=== PATIENT | female | born 1950 | race Caucasian/White ===

== ENCOUNTER → 2016-07-08 | Outpatient (CLI) | payer OTHER ==
[~2016-07-08] MED LIST: ABAT1INJ2 SC; ASPCH81X PO; BND25 PO; ESTR0.02 TD; FLEC100T21 PO; FURO-85 PO; METH1TAB81 PO; METO-551 PO; OXYC1TAB3 PO; PRLSR20 PO; SULF500T36 PO; WARF2TAB PO; WARF5TAB90 PO
== END | disposition home or self-care (01) ==
LOC: C.PAPS 07:56
PROVIDERS: ATTEND Obstetrics & Gynecology
DX: Z12.4 Encounter for screening for malignant neoplasm of cervix (principal)

== ENCOUNTER → 2017-06-01 | Day surgery (SDC) | payer OTHER ==
[2017-05-25 11:11] VITALS: Ht 172.7 cm; Wt 165.0 kg
[~2017-06-01] VITALS: Ht 172.7 cm; Wt 165.0 kg
[~2017-06-01] MED LIST changes: -ABAT1INJ2 SC; -BND25 PO; +DIPH25CA5 PO; +FENTANYL CITRATE INJ 50 MCG/1 ML 2 ML VIAL ONE; +KETAMINE HCL INJ 50 MG/ML 10 ML VIAL ONE; +LIDOCAINE HCL 2% 2 ML VIAL (20MG/ML) ONE; +MIDAZOLAM HCL 1 MG/ML 2ML VIAL ONE; +PROPOFOL IV EMULSION 10 MG/ML 20 ML VIAL IV ONE; +SODIUM CHLORIDE 0.9% INJ 10 ML VIAL ONE; -SULF500T36 PO
[2017-06-01 11:38] VITALS: TEMP 36.6
--- NOTE | 2017-06-01 11:42 | Endo History and Physical ---
History & Physical Date of Service: Jun 01, 2017. Chief Complaint: ESO Varices 1yr Recall Referring Physician: Dr. Maria Guadalupe Duke MD History of Present Illness History of cirrhosis for surveillance upper endoscopy today. No dysphagia or pain with swallowing noted. Past Medical History Atrial Fibrillation, Arthritis, Gastrointestinal Disorder, Reflux, Cancer, Sleep Apnea, Hypertension, Thrombophlebitis, Liver Disease Past Surgical History Hx Cardiac Surgery: Yes (HEART CATH, NO STENTS) Hx Internal Defibrillator: No Hx Pacemaker: No Hx Abdominal Surgery: Yes (EMERITA) Hx of Implantable Prosthesis: No Hx Post-Op Nausea and Vomiting: No Hx Cancer Surgery: Yes (KENDALL BSO) Hx Thoracic Surgery: No Hx Orthopedic: No Hx Urinary Tract Surgery: No Family History Colon CA Social History Smoking Status: Never Smoker Hx Substance Use: No Hx Alcohol Use: No Allergies Coded Allergies: Clarithromycin (Verified Allergy, Severe, RASH, 06/01/17) Penicillins (Verified Allergy, Severe, ANAPHYLACTIC SHOCK, 06/01/17) Epinephrine (Verified Allergy, Unknown, THROAT SWELLING, PASSED OUT, HEART RACING, 06/01/17) Montelukast (Verified Allergy, Unknown, PALPITATIONS, 06/01/17) Current Medications Reported Home Medications Medications Dose Route/Sig Max Daily Dose Days Date Category Dose Instructions Medrol (Methylprednisolone) 4 Mg Tab 4 Mg PO BID 10/28/15 Reported Lasix (Furosemide) 20 Mg Tab 20 Mg PO QAM 10/21/15 Reported Roxicodone Ir (Oxycodone HCl) 5 Mg Tab 10 Mg PO Q6H PRN 04/19/13 Reported Benadryl (Diphenhydramine Hcl) 25 Mg Cap 25 Mg PO HS PRN 04/19/13 Reported Estradiol Transdermal System (Estradiol) 0.025 Mg/24 Hr Dis 1 Patch TD WK 04/19/13 Reported Coumadin (Warfarin Sodium) 2 Mg Tab 2 Mg PO 2XWK 01/14/13 Reported TAKES WITH 5MG; TAKES TOTAL 7MG ,MON Coumadin (Warfarin Sodium) 5 Mg Tab 5 Mg PO 5XWK 01/14/13 Reported SUN,MON,WED,THURS,SAT Aspirin Chewable (Aspirin) 81 Mg Chew 81 Mg PO QAM 03/13/12 Reported Tambocor (Flecainide Acetate) 100 Mg Tab 100 Mg PO BID 03/13/12 Reported Prilosec (Omeprazole) 20 Mg Capcr 20 Mg PO QAM 03/13/12 Reported Lopressor (Metoprolol Tartrate) 50 Mg Tab 50 Mg PO BID 03/13/12 Reported Vital Signs Weight (Kilograms): 165 Height (Feet): 5 Height (Inches): 8 Date Time Temp Pulse Resp B/P (MAP) Pulse Ox O2 Delivery O2 Flow Rate FiO2 06/01/17 11:38 36.6 54 20 162/69 (100) 97 Room Air Physical Exam General Appearance: no apparent distress Respiratory/Chest: Auscultation: deminished air movement Cardiovascular: Heart Auscultation: RRR Abdomen: Inspection & Palpation: soft Assessment and Plan Patient with a history of cirrhosis for surveillance upper endoscopy today. We' ve discussed the risks to include bleeding, infection, perforation and pain.
--- NOTE | 2017-06-01 12:04 | GI REPORT ---
Procedure Date: 06/01/2017 11:37 AM Procedure: Upper GI endoscopy Indications: Follow-up of esophageal varices Medicines: Monitored Anesthesia Care Complications: No immediate complications. Estimated blood loss: Minimal. Estimated Blood Loss: Estimated blood loss was minimal. Procedure: Pre-Anesthesia Assessment: - Prior to the procedure, a History and Physical was performed, and patient medications, allergies and sensitivities were reviewed. The patient's tolerance of previous anesthesia was reviewed. - The risks and benefits of the procedure and the sedation options and risks were discussed with the patient. All questions were answered and informed consent was obtained. - Patient identification and proposed procedure were verified prior to the procedure by the physician, the nurse and the taxi driver supervisor. The procedure was verified in the procedure room. - Pre-procedure physical examination revealed no contraindications to sedation. - ASA Grade Assessment: III - A patient with severe systemic disease. - After reviewing the risks and benefits, the patient was deemed in satisfactory condition to undergo the procedure. - The anesthesia plan was to use monitored anesthesia care (MAC). - Immediately prior to administration of medications, the patient was re-assessed for adequacy to receive sedatives. - The heart rate, respiratory rate, oxygen saturations, blood pressure, adequacy of pulmonary ventilation, and response to care were monitored throughout the procedure. - The physical status of the patient was re-assessed after the procedure. After obtaining informed consent, the endoscope was passed under direct vision. Throughout the procedure, the patient's blood pressure, pulse, and oxygen saturations were monitored continuously. The scope was introduced through the mouth, and advanced to the second part of duodenum. After obtaining informed consent, the endoscope was passed under direct vision. Throughout the procedure, the patient's blood pressure, pulse, and oxygen saturations were monitored continuously.The upper GI endoscopy was accomplished without difficulty. The patient tolerated the procedure well. Findings: Three columns of grade I varices were found in the lower third of the esophagus, 31 to 36 cm from the incisors. They were 4 mm in largest diameter. No stigmata of recent bleeding were evident and no red blane signs were present. Moderate portal hypertensive gastropathy was found in the entire examined stomach. Two nodules were noted in the stomach (1 in the antrum and one on the lesser curvature). The nodules were 5 to 6 mm in size and appeared inflammatory. The examined duodenum was normal. Impression: - Non-bleeding grade I esophageal varices. - Portal hypertensive gastropathy. - Normal examined duodenum. Recommendation: - Discharge patient to home (ambulatory). - Advance diet as tolerated today. - Repeat the upper endoscopy in 1 year for surveillance. - Return to GI office in 3 months. Etienne Grimes D.O. Etienne Grimes, 06/01/2017 12:03:49 PM This report has been signed electronically. Note Initiated On: 06/01/2017 11:37 AM I attest to the content of the Intraoperative Record and orders documented therein, exceptions below
--- NOTE | 2017-06-01 12:31 | Discharge Instructions ---
Endoscopy Patient Instructions Date / Procedure(s) Performed Jun 01, 2017. EGD Allergy Information Coded Allergies: Clarithromycin (Verified Allergy, Severe, RASH, 06/01/17) Penicillins (Verified Allergy, Severe, ANAPHYLACTIC SHOCK, 06/01/17) Epinephrine (Verified Allergy, Unknown, THROAT SWELLING, PASSED OUT, HEART RACING, 06/01/17) Montelukast (Verified Allergy, Unknown, PALPITATIONS, 06/01/17) Discharge Date / Findings Jun 01, 2017. Grade 1 esophageal varices Portal gastropathy Medication Instructions Stopped Medication(s): coumadin, aspirin 05/27/17 Reported Home Medications Medications Dose Route/Sig Max Daily Dose Days Date Category Dose Instructions Medrol (Methylprednisolone) 4 Mg Tab 4 Mg PO BID 10/28/15 Reported Lasix (Furosemide) 20 Mg Tab 20 Mg PO QAM 10/21/15 Reported Roxicodone Ir (Oxycodone HCl) 5 Mg Tab 10 Mg PO Q6H PRN 04/19/13 Reported Benadryl (Diphenhydramine Hcl) 25 Mg Cap 25 Mg PO HS PRN 04/19/13 Reported Estradiol Transdermal System (Estradiol) 0.025 Mg/24 Hr Dis 1 Patch TD WK 04/19/13 Reported Coumadin (Warfarin Sodium) 2 Mg Tab 2 Mg PO 2XWK 01/14/13 Reported TAKES WITH 5MG; TAKES TOTAL 7MG ,MON Coumadin (Warfarin Sodium) 5 Mg Tab 5 Mg PO 5XWK 01/14/13 Reported SUN,MON,WED,THURS,SAT Aspirin Chewable (Aspirin) 81 Mg Chew 81 Mg PO QAM 03/13/12 Reported Tambocor (Flecainide Acetate) 100 Mg Tab 100 Mg PO BID 03/13/12 Reported Prilosec (Omeprazole) 20 Mg Capcr 20 Mg PO QAM 03/13/12 Reported Lopressor (Metoprolol Tartrate) 50 Mg Tab 50 Mg PO BID 03/13/12 Reported Provider Instructions Activity Restrictions - No exercising or heavy lifting for 24 hours. - Do not drink alcohol the day of the procedure. - Do not drive a car or operate machinery until the day after the procedure. - Do not make any important decisions or sign important papers in 24 hours after the procedure. Following Day: - Return to full activity which may include returning to work/school. Diet Start your diet with liquids and light foods (jello, soup, juice, toast). Then eat your usual diet if not nauseated. Treatment For Common After Affects For mild abdominal pain, bloating, or excessive gas: - Rest - Eat lightly - Lie on right side Follow-Up Information Follow-up with Dr. Maria Guadalupe Duke MD as scheduled Clinic follow-up with gastric neurology in 3 months Anesthesia Information What You Should Know You have had a procedure that required some medicine to reduce anxiety and discomfort. This treatment is called moderate sedation. After receiving the treatment, you may be sleepy, but you will be able to breathe on your own. The effects of the treatment may last for several hours. Follow these instructions along with Activity/Diet recommendations noted above: * Do NOT do anything where dizziness or clumsiness would be dangerous. * Rest quietly at home today, then you can be up and about tomorrow. * Have a responsible person stay with you the rest of today. * You may have had an I.V. today. If so, you may take the dressing off later today. Recommendations Call your doctor if: * Trouble breathing * Continuous vomiting for more than 24 hours * Temperature above 101 degrees * Severe abdominal pain or bloating * Pain not relieved by pain medicine ordered * There is increased drainage or redness from any incision * A large amount of rectal bleeding greater than 2-3 tablespoons. (If you had a polyp/s removed or have hemorrhoids, a small amount of blood - from the rectum is to be expected.) * You have any unanswered questions or concerns. IN THE EVENT OF A SERIOUS EMERGENCY, GO TO THE NEAREST EMERGENCY ROOM Your discharge instructions were prepared by provider Etienne Grimes. Patient Instructions Signature Page Aaliyah Taylor Patient (or Guardian) Signature/Date: I have read and understand the instructions given to me by my caregivers. Caregiver/RN/Doctor Signature/Date: The above-named patient and/or guardian has received patient instructions on this date. + Original Patient Signature Page (only) stays with chart. Please make copy for patient.
[2017-06-01 12:35] VITALS: BP 133/73; PULSE 52; O2SAT 97
--- NOTE | 2017-06-01 12:45 | Anesthesiology Progress Note ---
Anesthesia Post Op Note Date & Time Jun 01, 2017 at 12:45 Vital Signs Pain Intensity: 0 Vital Signs Past 12 Hours Date Time Temp Pulse Resp B/P (MAP) Pulse Ox O2 Delivery O2 Flow Rate FiO2 06/01/17 12:35 52 16 133/73 (93) 97 Room Air 06/01/17 12:20 57 16 121/62 (81) 97 Room Air 06/01/17 12:05 48 12 92/48 (63) 97 Room Air 06/01/17 11:38 36.6 54 20 162/69 (100) 97 Room Air Notes Mental Status: alert / awake / arousable, participated in evaluation Pt Amnestic to Procedure: Yes Nausea / Vomiting: adequately controlled Pain: adequately controlled Airway Patency, RR, SpO2: stable & adequate BP & HR: stable & adequate Hydration State: stable & adequate Anesthetic Complications: no major complications apparent
== END | disposition home or self-care (01) ==
LOC: C.GI 11:10
PROVIDERS: ATTEND Internal Medicine Gastroenterology
DX: I85.00 Esophageal varices without bleeding (principal); G47.33 Obstructive sleep apnea (adult) (pediatric); I48.91 Unspecified atrial fibrillation; I10 Essential (primary) hypertension; K21.9 Gastro-esophageal reflux disease without esophagitis; Z79.01 Long term (current) use of anticoagulants; Z79.82 Long term (current) use of aspirin; Z90.49 Acquired absence of other specified parts of digestive tract; Z90.710 Acquired absence of both cervix and uterus; Z90.722 Acquired absence of ovaries, bilateral; Z90.79 Acquired absence of other genital organ(s)

== ENCOUNTER → 2018-02-14 | Day surgery (SDC) | payer OTHER ==
[2017-12-05 10:35] VITALS: BMI 55.0
[2018-02-13 08:21] VITALS: Ht 170.2 cm; Wt 165.0 kg
[~2018-02-14] VITALS: Ht 170.2 cm; Wt 165.0 kg
[~2018-02-14] MED LIST changes: -FENTANYL CITRATE INJ 50 MCG/1 ML 2 ML VIAL ONE; -KETAMINE HCL INJ 50 MG/ML 10 ML VIAL ONE; +LEVA45AE INH; -MIDAZOLAM HCL 1 MG/ML 2ML VIAL ONE; +ONDANSETRON INJ 2 MG/ML 2 ML VIAL IV PRN; +OXYC-90 PO; -OXYC1TAB3 PO; -PROPOFOL IV EMULSION 10 MG/ML 20 ML VIAL IV ONE; +PROPOFOL IV EMULSION 10 MG/ML 20 ML VIAL ONE; -SODIUM CHLORIDE 0.9% INJ 10 ML VIAL ONE
--- NOTE | 2018-02-14 08:24 | Endo History and Physical ---
History & Physical Date of Service: Feb 14, 2018. Chief Complaint: History of polyps Referring Physician: Dr. Maria Guadalupe Duke History of Present Illness Patient with a history of colonic polyps for surveillance colonoscopy today. Her medical history is complicated given her obesity, diabetes, cirrhosis and recent diagnosis of hepatocellular carcinoma. Past Medical History Atrial Fibrillation, Arthritis, Gastrointestinal Disorder, Reflux, Cancer, Sleep Apnea, Hypertension, Thrombophlebitis, Liver Disease Past Surgical History Hx Cardiac Surgery: Yes (HEART CATH/NO STENTS) Hx Internal Defibrillator: No Hx Pacemaker: No Hx Abdominal Surgery: Yes (EMERITA, KENDALL BSO, VENTRAL HERNIA REPAIR) Hx of Implantable Prosthesis: No Hx Post-Op Nausea and Vomiting: No Hx Cancer Surgery: Yes (CERVICAL SURGERY) Hx Thoracic Surgery: No Hx Orthopedic: No Hx Urinary Tract Surgery: No Family History Colon CA Social History Smoking Status: Never Smoker Hx Substance Use: Yes (MARIBELL USES OXYCODONE PRN) Hx Alcohol Use: No Allergies Coded Allergies: Clarithromycin (Verified Allergy, Severe, RASH, 02/13/18) Penicillins (Verified Allergy, Severe, ANAPHYLACTIC SHOCK, 02/13/18) Epinephrine (Verified Allergy, Unknown, THROAT SWELLING, PASSED OUT, HEART RACING, 02/13/18) Montelukast (Verified Allergy, Unknown, PALPITATIONS, 02/13/18) Current Medications Reported Home Medications Medications Dose Route/Sig Max Daily Dose Days Date Category Dose Instructions Levalbuterol Tartrate Hfa (Levalbuterol Tartrate) 45 Mcg/Act Aer 1 Dose INH DIRECTED PRN 12/05/17 Reported Levalbuterol Tartrate Hfa (Levalbuterol Tartrate) 45 Mcg/Act Aer 1-2 Puff INH DIRECTED PRN 12/05/17 Reported Medrol (Methylprednisolone) 4 Mg Tab 4 Mg PO BID 10/28/15 Reported IF HAVING A FLAIR UP-USE DOSE TEJAS Lasix (Furosemide) 20 Mg Tab 20 Mg PO QAM 10/21/15 Reported Roxicodone Ir (Oxycodone HCl) 5 Mg Tab 10 Mg PO Q6H PRN 04/19/13 Reported Benadryl (Diphenhydramine Hcl) 25 Mg Cap 25 Mg PO HS PRN 04/19/13 Reported Estradiol Transdermal System (Estradiol) 0.025 Mg/24 Hr Dis 1 Patch TD WK 04/19/13 Reported Coumadin (Warfarin Sodium) 2 Mg Tab 2 Mg PO 2XWK 01/14/13 Reported TAKES WITH 5MG; TAKES TOTAL 7MG ,MON Coumadin (Warfarin Sodium) 5 Mg Tab 5 Mg PO 5XWK 01/14/13 Reported SUN,MON,WED,THURS,SAT Aspirin Chewable (Aspirin) 81 Mg Chew 81 Mg PO QAM 03/13/12 Reported Tambocor (Flecainide Acetate) 100 Mg Tab 100 Mg PO BID 03/13/12 Reported Prilosec (Omeprazole) 20 Mg Capcr 20 Mg PO QAM 03/13/12 Reported Lopressor (Metoprolol Tartrate) 50 Mg Tab 50 Mg PO BID 03/13/12 Reported Vital Signs Weight (Kilograms): 165 Height (Feet): 5 Height (Inches): 7 Physical Exam General Appearance: no apparent distress Respiratory/Chest: Auscultation: breath sounds normal Abdomen: Inspection & Palpation: soft Assessment and Plan Colonoscopy planned for surveillance of colonic polyps. We have discussed the risks to include bleeding, infection, perforation, pain and missed colonic polyps.
--- NOTE | 2018-02-14 09:05 | Discharge Instructions ---
Endoscopy Patient Instructions Date / Procedure(s) Performed Feb 14, 2018. Colonoscopy Allergy Information Coded Allergies: Clarithromycin (Verified Allergy, Severe, RASH, 02/13/18) Penicillins (Verified Allergy, Severe, ANAPHYLACTIC SHOCK, 02/13/18) Epinephrine (Verified Allergy, Unknown, THROAT SWELLING, PASSED OUT, HEART RACING, 02/13/18) Montelukast (Verified Allergy, Unknown, PALPITATIONS, 02/13/18) Discharge Date / Findings Feb 14, 2018. 3 colon polyps Diverticulosis Hemorrhoids Mild proctitis (likely related to the bowel preparation) Medication Instructions Stopped Medication(s): Patient stopped her coumadin and only took her bp meds this am. Reported Home Medications Medications Dose Route/Sig Max Daily Dose Days Date Category Dose Instructions Levalbuterol Tartrate Hfa (Levalbuterol Tartrate) 45 Mcg/Act Aer 1 Dose INH DIRECTED PRN 12/05/17 Reported Levalbuterol Tartrate Hfa (Levalbuterol Tartrate) 45 Mcg/Act Aer 1-2 Puff INH DIRECTED PRN 12/05/17 Reported Medrol (Methylprednisolone) 4 Mg Tab 4 Mg PO BID 10/28/15 Reported IF HAVING A FLAIR UP-USE DOSE TEJAS Lasix (Furosemide) 20 Mg Tab 20 Mg PO QAM 10/21/15 Reported Roxicodone Ir (Oxycodone HCl) 5 Mg Tab 10 Mg PO Q6H PRN 04/19/13 Reported Benadryl (Diphenhydramine Hcl) 25 Mg Cap 25 Mg PO HS PRN 04/19/13 Reported Estradiol Transdermal System (Estradiol) 0.025 Mg/24 Hr Dis 1 Patch TD WK 04/19/13 Reported Coumadin (Warfarin Sodium) 2 Mg Tab 2 Mg PO 2XWK 01/14/13 Reported TAKES WITH 5MG; TAKES TOTAL 7MG ,MON Coumadin (Warfarin Sodium) 5 Mg Tab 5 Mg PO 5XWK 01/14/13 Reported SUN,MON,WED,THURS,SAT Aspirin Chewable (Aspirin) 81 Mg Chew 81 Mg PO QAM 03/13/12 Reported Tambocor (Flecainide Acetate) 100 Mg Tab 100 Mg PO BID 03/13/12 Reported Prilosec (Omeprazole) 20 Mg Capcr 20 Mg PO QAM 03/13/12 Reported Lopressor (Metoprolol Tartrate) 50 Mg Tab 50 Mg PO BID 03/13/12 Reported Provider Instructions Activity Restrictions - No exercising or heavy lifting for 24 hours. - Do not drink alcohol the day of the procedure. - Do not drive a car or operate machinery until the day after the procedure. - Do not make any important decisions or sign important papers in 24 hours after the procedure. Following Day: - Return to full activity which may include returning to work/school. Diet Start your diet with liquids and light foods (jello, soup, juice, toast). Then eat your usual diet if not nauseated. Treatment For Common After Affects For mild abdominal pain, bloating, or excessive gas: - Rest - Eat lightly - Lie on right side Follow-Up Information Repeat colonoscopy in 3 years Await pathology results May restart coumadin in 24 hours (on 02/15) Anesthesia Information What You Should Know You have had a procedure that required some medicine to reduce anxiety and discomfort. This treatment is called moderate sedation. After receiving the treatment, you may be sleepy, but you will be able to breathe on your own. The effects of the treatment may last for several hours. Follow these instructions along with Activity/Diet recommendations noted above: * Do NOT do anything where dizziness or clumsiness would be dangerous. * Rest quietly at home today, then you can be up and about tomorrow. * Have a responsible person stay with you the rest of today. * You may have had an I.V. today. If so, you may take the dressing off later today. Recommendations Call your doctor if: * Trouble breathing * Continuous vomiting for more than 24 hours * Temperature above 101 degrees * Severe abdominal pain or bloating * Pain not relieved by pain medicine ordered * There is increased drainage or redness from any incision * A large amount of rectal bleeding greater than 2-3 tablespoons. (If you had a polyp/s removed or have hemorrhoids, a small amount of blood - from the rectum is to be expected.) * You have any unanswered questions or concerns. IN THE EVENT OF A SERIOUS EMERGENCY, GO TO THE NEAREST EMERGENCY ROOM Your discharge instructions were prepared by provider Etienne Grimes. Patient Instructions Signature Page Aaliyah Taylor Patient (or Guardian) Signature/Date: I have read and understand the instructions given to me by my caregivers. Caregiver/RN/Doctor Signature/Date: The above-named patient and/or guardian has received patient instructions on this date. + Original Patient Signature Page (only) stays with chart. Please make copy for patient.
--- NOTE | 2018-02-14 09:11 | GI REPORT ---
Patient Name: Aaliyah Taylor Procedure Date: 02/14/2018 8:32 AM Date of : 1950 Admit Type: Outpatient Age: 67 Gender: Female Attending MD: Etienne Grimes DO Procedure: Colonoscopy Providers: Etienne Grimes DO Referring MD: Sera Rojas Indications: High risk colon cancer surveillance: Personal history of colonic polyps Medicines: Monitored Anesthesia Care Complications: No immediate complications. Estimated blood loss: Minimal. Estimated Blood Loss: Estimated blood loss was minimal. Procedure: Pre-Anesthesia Assessment: - Prior to the procedure, a History and Physical was performed, and patient medications, allergies and sensitivities were reviewed. The patient's tolerance of previous anesthesia was reviewed. - Patient identification and proposed procedure were verified prior to the procedure by the physician, the nurse and the junior network engineer. The procedure was verified in the procedure room. - Pre-procedure physical examination revealed no contraindications to sedation. - ASA Grade Assessment: III - A patient with severe systemic disease. - After reviewing the risks and benefits, the patient was deemed in satisfactory condition to undergo the procedure. - The anesthesia plan was to use monitored anesthesia care (MAC). - Immediately prior to administration of medications, the patient was re-assessed for adequacy to receive sedatives. - The heart rate, respiratory rate, oxygen saturations, blood pressure, adequacy of pulmonary ventilation, and response to care were monitored throughout the procedure. - The physical status of the patient was re-assessed after the procedure. After I obtained informed consent, the scope was passed under direct vision. Throughout the procedure, the patient's blood pressure, pulse, and oxygen saturations were monitored continuously. The scope was introduced through the anus and advanced to the terminal ileum. The patient tolerated the procedure well. The colonoscopy was performed without difficulty. The quality of the bowel preparation was adequate to identify polyps 6 mm and larger in size. Findings: The perianal and digital rectal examinations were normal. Pertinent negatives include normal sphincter tone. The terminal ileum appeared normal. Many medium-mouthed diverticula were found in the sigmoid colon and descending colon. Internal hemorrhoids were found during retroflexion. The hemorrhoids were mild. A 10 mm polyp was found in the cecum. The polyp was semi-sessile. The polyp was removed with a hot snare. Resection and retrieval were complete. To prevent bleeding after the polypectomy, one hemostatic clip was successfully placed (MR conditional). There was no bleeding at the end of the procedure. A 4 mm polyp was found in the ascending colon. The polyp was sessile. The polyp was removed with a cold snare. Resection and retrieval were complete. Estimated blood loss was minimal. A 7 mm polyp was found in the descending colon. The polyp was sessile. The polyp was removed with a hot snare. Resection and retrieval were complete. Estimated blood loss was minimal. Localized mild mucosal changes characterized by granularity were found in the rectum. Biopsies were taken with a cold forceps for histology. Estimated blood loss was minimal. Impression: - The examined portion of the ileum was normal. - Mild diverticulosis in the sigmoid colon and in the descending colon. - Internal hemorrhoids. - One 10 mm polyp in the cecum, removed with a hot snare. Resected and retrieved. Clip (MR conditional) was placed. - One 4 mm polyp in the ascending colon, removed with a cold snare. Resected and retrieved. - One 7 mm polyp in the descending colon, removed with a hot snare. Resected and retrieved. - Localized mild mucosal changes were found in the rectum, this likely represents changes related to the preparation. Biopsied. Recommendation: - Discharge patient to home (ambulatory). - Advance diet as tolerated today. - Await pathology results. - Repeat colonoscopy in 3 months for surveillance. Etienne Grimes D.O. Etienne Grimes, 02/14/2018 9:11:24 AM This report has been signed electronically. Note Initiated On: 02/14/2018 8:32 AM Number of Addenda: 0 I attest to the content of the Intraoperative Record and orders documented therein, exceptions below {[id number]}
--- NOTE | 2018-02-14 09:24 | Anesthesiology Progress Note ---
Anesthesia Post Op Note Date & Time Feb 14, 2018 at 09:23 Vital Signs Pain Intensity: 0 Vital Signs Past 12 Hours Date Time Temp Pulse Resp B/P (MAP) Pulse Ox O2 Delivery O2 Flow Rate FiO2 02/14/18 09:08 50 16 104/53 (70) 98 Room Air 02/14/18 08:24 36.5 47 14 138/66 (90) 97 Room Air Notes Mental Status: alert / awake / arousable, participated in evaluation Pt Amnestic to Procedure: Yes Nausea / Vomiting: adequately controlled Pain: adequately controlled Airway Patency, RR, SpO2: stable & adequate BP & HR: stable & adequate Hydration State: stable & adequate Anesthetic Complications: no major complications apparent
[2018-02-14 09:38] VITALS: BP 121/61; PULSE 47; O2SAT 97
== END | disposition home or self-care (01) ==
LOC: C.GI 07:51
PROVIDERS: ATTEND Internal Medicine Gastroenterology
DX: Z12.11 Encounter for screening for malignant neoplasm of colon (principal); K57.30 Diverticulosis of large intestine without perforation or abscess without bleeding; K64.8 Other hemorrhoids; D12.0 Benign neoplasm of cecum; D12.2 Benign neoplasm of ascending colon; D12.4 Benign neoplasm of descending colon; Z86.010 Personal history of colon polyps; J45.909 Unspecified asthma, uncomplicated; I48.91 Unspecified atrial fibrillation; Z86.718 Personal history of other venous thrombosis and embolism; K75.81 Nonalcoholic steatohepatitis (NASH); Z88.0 Allergy status to penicillin; Z88.1 Allergy status to other antibiotic agents; E66.01 Morbid (severe) obesity due to excess calories; Z68.43 Body mass index [BMI] 50.0-59.9, adult; G47.33 Obstructive sleep apnea (adult) (pediatric); Z79.01 Long term (current) use of anticoagulants; Z79.899 Other long term (current) drug therapy

== ENCOUNTER 2018-08-22 09:38 | Inpatient (IN) ==
[2018-08-22] MEDS ORDERED: SODIUM CHLORIDE 0.9% 1000ML 2,000 ML IV ONE ×2 (09:46→11:23)
[2018-08-22] MEDS ORDERED: VANCOMYCIN HCL 2,500 MG in SODIUM CHLORIDE 0.9% 500 ML IV ONE (09:51)
[2018-08-22] MEDS ORDERED: VANCOMYCIN CONSULT ACTIVE PRN (09:51)
[2018-08-22] MEDS ORDERED: CEFEPIME 1,000 MG in SYRINGE 0 ML IV STA (09:52)
--- NOTE | 2018-08-22 10:12 | XRay Report ---
XR chest 1V portable CLINICAL HISTORY: Sepsis dyspnea COMPARISON STUDY: 01/14/2013 FINDINGS: Central catheter in superior vena cava. Diaphragms smooth. Lungs are clear. IMPRESSION: No acute process. The above report was generated using voice recognition software. It may contain grammatical, syntax or spelling errors. Electronically signed by: Leonel Ann M.D. 08/22/2018 10:11 AM
[2018-08-22 10:27] LABS: Base Excess VBG -3.3 mEq/L; HCO3 VBG 21 mmol/L; PCO2 VBG 37 mmHg (38-50); PO2 VBG 29 mmHg; pH VBG 7.38 (7.36-7.41)
[2018-08-22 10:27] LABS: Mean Corpuscular Hgb Conc 35.3 g/dL (32-36)
[2018-08-22 10:28] LABS: Oxygen Saturation VBG < 60.0 %
[2018-08-22 10:29] LABS: Albumin Level 1.8 gm/dl (3.4-5.0); BUN Creatinine Ratio 22.5 (10-20); Bilirubin Direct 0.8 mg/dl (0-0.2); Calcium 8.2 mg/dl (8.5-10.1); Creatinine Clr Calc Pharmacy 37.1 ml/min; Est GFR (African American) 23.9; Est GFR (Non-African American) 20.6; Magnesium 1.2 mg/dl (1.8-2.4); Potassium 3.7 mmol/L (3.5-5.1)
[2018-08-22 10:32] LABS: Albumin Globulin Ratio 0.5 (0.9-2); Bilirubin,Total 1.3 mg/dl (0.2-1); Globulin 3.6 gm/dl (2.5-4.0); Partial Thromboplastin Ratio 1.3; Partial Thromboplastin Time 35.3 Seconds (21.0-31.0); Phosphorus 3.3 mg/dl (2.5-4.9); Prothrombin Time 19.7 Seconds (9.0-12.0); Total Protein 5.4 gm/dl (6.4-8.2)
[2018-08-22 10:49] LABS: Dohle Bodies 2+; Giant Platelets 3+; Platelet Estimate SIGNIFIC DECREASED (Normal); Toxic Granulation 3+; Toxic Vacuolation 2+
[2018-08-22 10:50] LABS: ALC (manual) 0.12 K/uL (1.2-3.4); Eosinophils # (manual) 0.01 K/uL (0-0.5); Eosinophils % (manual) 0.7 %; Hematocrit (blood only) 26.6 % (37-47); Hemoglobin 9.4 g/dL (12.0-16.0); Lymphocytes # (manual) 0.12 K/uL (1.2-3.4); Lymphocytes % (manual) 16.4 %; Mean Corpuscular Volume 85.5 fL (80-100); Metamyelocytes # (manual) 0.02 K/uL (0-0); Metamyelocytes % (manual) 2.1 %; Monocytes # (manual) 0.22 K/uL (0.11-0.59); Monocytes % (manual) 29.5 %; Neutrophils % (manual) 51.3 %; Platelet Count 20 K/uL (130-400); RDW Standard Deviation 49.8 fL (36.4-46.3); Red Blood Count 3.11 M/uL (4.2-5.4); White Blood Count 0.75 K/uL (4.8-10.8)
[2018-08-22 11:34] LABS: Influenza A virus by PCR Neg for Influ A (Neg); Influenza B virus by PCR Neg for Influ B (Neg)
--- NOTE | 2018-08-22 11:39 | CT Scan Report ---
CT abd pelvis wo con CT DOSE: HISTORY: Sepsis. Pain. sepsis, hypotension, breast cancer TECHNIQUE: Multiaxial CT images of the abdomen and pelvis were performed without contrast. A dose lo wering technique was utilized adhering to the principles of ALARA. COMPARISON STUDY: 01/14/2013. FINDINGS: Mild hepatic cirrhosis. Trace perihepatic ascites. Moderate splenomegaly unchanged. Pancrea s is uniform, with evidence for a slight degree of peripancreatic infiltrative change involving the c entral pancreatic body and pancreatic uncinate process. Low-grade pancreatitis is considered.. Prior cholecystectomy. The kidneys are negative for calcification or hydronephrosis. No significant periaortic adenopathy. Bowel pattern overall is nonobstructive. Trace amount of free fluid within pelvic cul-de-sac and lowe r mesentery. Bladder is midline. There is a small air bubble most likely from a prior catheterization procedure IMPRESSION:: 1. Mild hepatic cirrhosis with a trace amount of perihepatic ascites 2. Stable moderate splenomegaly. 3. Nonobstructive bowel pattern. 4. Trace amount of free fluid within the low pelvic mesentery, with a slight degree of inflammatory c hange surrounding the pancreatic uncinate process body and pancreatic head is a possibility of low-gr yousuf pancreatitis 5. A mild secondary enteritis is considered. The above report was generated using voice recognition software. It may contain grammatical, syntax or spelling errors. Electronically signed by: Leonel Ann M.D. 08/22/2018 11:38 AM
--- NOTE | 2018-08-22 11:41 | CT Scan Report ---
CT OF THE CHEST WITHOUT IV CONTRAST CLINICAL HISTORY: Sepsis. Hypotension. Breast cancer. COMPARISON STUDY: Chest radiograph January 14, 2013 and August 22, 2018. CT DOSE: 2035.01 mGycm TECHNIQUE: Axial images of the chest were obtained without IV contrast. Images were reviewed in the axial, sagittal, and coronal planes. IV contrast was not administered for this examination. Automat ed exposure control was utilized for the study. A dose lowering technique was utilized adhering to t he principles of ALARA. FINDINGS: A left subclavian Kslaxu-s-Btif is in place. No enlarged mediastinal or hilar lymph nodes are present. A mildly enlarged 1.2 x 1.2 cm right axillary lymph node is noted. A few additional prom inent right axillary lymph nodes are noted. There is no left axillary lymphadenopathy. The heart is e nlarged. There is no pericardial effusion. No pneumothorax or pleural effusion is noted. There are no suspicious point nodules. There is no consolidation to suggest pneumonia. Note is made of a 8 mm scl erotic lesion within the T6 vertebral body. This is probably benign but indeterminate. The abdomen an d pelvis will be reported separately. The liver is cirrhotic. Trace perihepatic ascites is noted. Spl een is mildly enlarged. IMPRESSION: 1. No consolidation to suggest pneumonia. 2. Mild asymmetric right axillary lymphadenopathy which raises the possibility of nola spread of dis ease. This could be correlated with breast cancer history and prior imaging, if available. 3. Cirrhosis with trace perihepatic ascites and splenomegaly indicative of portal hypertension. 4. 8 mm sclerotic lesion within the T6 vertebral body which is indeterminate although probably benign . Electronically signed by: Artemio Pritchard M.D. 08/22/2018 11:40 AM
[2018-08-22] MEDS: MAGNESIUM SULFATE / D5W 1 GM/100 ML BAG IV SCH ×4 (11:49→20:35)
[2018-08-22 12:07] LABS: Appearance Urine Cloudy (Clear); Bacteria Urine Automated 1+ (Negative); Bilirubin Urine Negative (Negative); Blood Urine Negative (Negative); Color Urine Dark Yellow; Epithelial Cell Urine Auto >30 /lpf (0-5); Glucose Urine UA Negative (Negative); Ketones Urine Negative (Negative); Leukocyte Esterase Urine Negative (Negative); Nitrite Urine Positive (Negative); Protein Urine Negative (Negative); Specific Gravity Urine 1.018 (1.000-1.030); Urobilinogen Urine Negative (Negative)
[2018-08-22] MEDS ORDERED: SODIUM CHLORIDE 0.9% 250 ML IV PRN (12:46)
--- NOTE | 2018-08-22 12:46 | Critical Care Consultation ---
Date of Consultation August 22, 2018 Assessment & Plan (1) Sepsis: Reason Critically Ill: 67-year-old female with history of breast cancer and liver mass presents with neutropenic fever, DARCIE, Pancytopenia Sepsis Patient is neutropenic and febrile, Lactic acid 4 in the ED, Repeat level, Pro-calcitonin 27 - Blood cultures and urine culture, c-diff pending, Collect MRSA swab, Rapid flu negative, UA negative - Consider fungal or viral source Considering immunocompromisation - Cefepime and vancomycin - Chest x-ray negative for pneumonia - f/u Legionella, mycoplasma, fungal cultures - No nuchal rigidity or neck pain on exam Neuro - [facility] ICU: Negative Cardiac - A. fib- Continue metoprolol for rate control Possible CHF- Patient denies history of diagnosis but shows she takes Lasix 4 feet swelling - Will obtain echo - will monitor and consider diuresis as necessary Respiratory Asthma- Continue home methylprednisolone and Xopenex GI - Liver failure/ Pancreatitis- History of Tomas cirrhosis - Total bili 1.3, Lipase 54, AST and ALT unremarkable - Monitor with daily LFTs - Follow-up ultrasound of the abdomen to rule out thromboembolic disease -CT abdomen and pelvis: cirrhosis with trace perihepatic ascites and splenomegaly, indicated with portal hypertension; possible pancreatitis DiarrheaC. difficile culture collected and pending, follow-up RENAL/LYTES - Acute kidney injury- BUN 52, creatinine 2.36, unsure of baseline - Bicarb 19 - Avoid nephrotoxins, monitor BMPs, optimize perfusion Hypomagnesemia Magnesium 1.2, monitor with routine BMPs and replete as necessary Hyponatremiasodium 127, Osmo 279 -N.p.o. for now, diurese as indicated, monitor with routine BMPs - Harris, urine culture pending, UA negative ENDO - History of pre-diabetes, Currently euglycemic, follow ICU glycemic protocol HEME - Neutropenic Fever- WBC 0.75 - Continue neutropenic precautions Pancytopenia- H&H 9 and 26, platelet 20,000 - will continue to monitor with routine CBCs, Consider platelet infusion -Type and screen collected ID - Vancomycin and cefepime, follow-up cultures -See sepsis above LINES/IV ACCESS - Mediport Accessed in ED DVT PROPHYLAXIS - SCDs, anticoagulation contraindicated due to INR 2.0, thrombocytopenia Full code (2) Acute kidney injury: (3) Neutropenia: (4) Prediabetes: (5) Asthma: (6) Atrial fibrillation: (7) Liver mass: (8) Breast cancer, stage 2: (9) 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 I agree with assessment and plan of Balbina GUILLAUME. Patient with neutropenic fever, I am concerned that the patient has stage II breast cancer with a known liver mass her meld is 29. We will obtain more liver imaging to rule out thromboembolic disease. Troponins and BNP are pending at this time. Patient has an elevated lactate which I believe is a function of her hepatic insufficiency. Certainly there is also aspects of possible infection however I do not find focal pneumonia on her imaging and urine is only positive for nitrates however she may not be able to mount an adequate response so urinary pathogens are certainly considered. Her gallbladder has been removed. History of Present Illness History of Present Illness Ms. Taylor 67-year-old female past medical history Breast cancer, Tomas cirrhosis, morbid obesity, asthma Who presented to the emergency department via EMS.She had become increasingly short of breath, weak this morning.She reports having fevers of up to 105 degrees for the past 2 weeks, of which she also reports that she was supposed to call her physician but did not, and took Tylenol. She also reports shortness of breath and swelling in lower extremities bilaterally that started approximately 3 days ago. She denies chest pain, nausea and vomiting, Abdominal pain, Headache, or loss of consciousness. She states t hat she was diagnosed with cancer 2 days before [place], and had completed first round of chemo with a Adriamycin and Cytoxan, and was supposed to receive 3 more rounds every 2 weeks for a total of 4 doses. Allergies Allergy/AdvReac Type Severity Reaction Status Date / Time clarithromycin Allergy Severe RASH Verified 02/13/18 08:20 Penicillins Allergy Severe ANAPHYLACTIC Verified 02/13/18 08:20 SHOCK epinephrine Allergy Unknown THROAT Verified 02/13/18 08:20 SWELLING, PASSED OUT, HEART RACING montelukast Allergy Unknown PALPITATION Verified 02/13/18 08:20 S Home Medications Home Medications Medication Instructions Recorded Confirmed Type Lactobacillus rhamnosus GG 1 cap PO DAILY 08/22/18 08/22/18 History [Culturelle] cholecalciferol (vitamin D3) 3,000 unit PO DAILY 08/22/18 08/22/18 History diphenhydramine HCl [Benadryl] 25 mg PO HS PRN 08/22/18 08/22/18 History flecainide 1 tab PO BID 08/22/18 08/22/18 History furosemide 1 tab PO QAM 08/22/18 08/22/18 History levalbuterol tartrate [Xopenex HFA] 2 inh INHALATION BID 08/22/18 08/22/18 History methylprednisolone 1 - 2 tab PO DAILY 08/22/18 08/22/18 History metoprolol tartrate [Lopressor] 50 mg PO BID 08/22/18 08/22/18 History multivitamin 1 tab PO DAILY 08/22/18 08/22/18 History omeprazole 1 cap PO QAM 08/22/18 08/22/18 History oxycodone 10 mg PO Q6H PRN 08/22/18 08/22/18 History prochlorperazine maleate 10 mg PO Q6H PRN 08/22/18 08/22/18 History [Compazine] promethazine 25 mg PO Q8H PRN 08/22/18 08/22/18 History Patient History Medical History Prediabetes (Chronic) Asthma (Chronic) Atrial fibrillation (Chronic) Morbid obesity (Chronic) Liver mass (Chronic) Breast cancer, stage 2 (Chronic) Psoriatic arthritis (Chronic) 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 See above Physical Exam Vital Signs (Past 24 Hours): Last Vital Signs Temp 36.8 C 08/22/18 10:02 Pulse 80 08/22/18 12:01 Resp 22 08/22/18 12:01 BP 112/70 08/22/18 12:01 Pulse Ox 100 08/22/18 12:01 Constitutional: Morbidly obese, lethargic, appears distressed Eyes: PERRLA Neck: Trachea midline, neck is supple and nontender Respiratory: Tachypnea, lungs clear to auscultation bilaterally in all lobes, No wheezing Cardiovascular: S1-S2 Auscultated,Radial and pedal pulses +2 bilaterally, Bilateral lower extremity +3 edema, Unable to assess JVD due to obesity Gastrointestinal (Abdomen): Abdomen is obese, semi-firm, nontender, bowel sounds hyperactive in all 4 quadrants Skin: Patient has petechiae in lower extremities,Erythema and rash in right lower extremity, no Observe open wounds On exam Neurologic: Patient is alert and oriented x4, Symmetrical bilateral movements, equal strength bilaterally, lower extremities are weak (patient wheelchair-boun d) Genitourinary: Harris inserted Results & Data Laboratory Results Laboratory Results - last 24 hr 08/22/18 08/22/18 08/22/18 10:00 10:00 10:00 WBC 0.75 L* RBC 3.11 L Hgb 9.4 L Hct 26.6 L MCV 85.5 MCH 30.2 MCHC 35.3 RDW Std Deviation 49.8 H RDW Coeff of Mechelle 16.0 H Plt Count 20 L* Neutrophils % (Manual) 51.3 Lymphocytes % (Manual) 16.4 Monocytes % (Manual) 29.5 Eosinophils % (Manual) 0.7 Metamyelocytes % (Man) 2.1 Neutrophils # (Manual) 0.38 L Total Absolute Neuts 0.38 L* Lymphocytes # (Manual) 0.12 L Total Abs Lymphocytes 0.12 L Monocytes # (Manual) 0.22 Eosinophils # (Manual) 0.01 Metamyelocytes # (Man) 0.02 H Toxic Granulation 3+ Toxic Vacuolation 2+ Dohle Bodies 2+ Platelet Estimate SIGNIFIC DECREASED Giant Platelets 3+ PT 19.7 H INR 2.0 H APTT 35.3 H PTT Ratio 1.3 VBG pH VBG pCO2 VBG pO2 VBG HCO3 VBG O2 Saturation VBG Base Excess Barometric Pressure Sodium Potassium Chloride Carbon Dioxide Anion Gap BUN Creatinine Est Cr Clr Drug Dosing Est GFR ( Amer) Est GFR (Non-Af Amer) BUN/Creatinine Ratio Glucose Osmolality Lactate Calcium Phosphorus Magnesium Total Bilirubin Direct Bilirubin AST ALT Alkaline Phosphatase Troponin I NT-Pro-B Natriuret Pep Total Protein Albumin Globulin Albumin/Globulin Ratio Lipase Procalcitonin 27.93 H Random Cortisol Urine Color Urine Appearance Urine pH Ur Specific [place] Urine Protein Urine Glucose (UA) Urine Ketones Urine Blood Urine Nitrite Urine Bilirubin Urine Urobilinogen Ur Leukocyte Esterase Urine WBC (Auto) Urine RBC (Auto) U Hyaline Cast (Auto) U Epithel Cells (Auto) Urine Bacteria (Auto) Urine Osmolality Influenza Type A (PCR) Influenza Type B (PCR) 08/22/18 08/22/18 08/22/18 10:00 10:00 10:00 WBC RBC Hgb Hct MCV MCH MCHC RDW Std Deviation RDW Coeff of Mechelle Plt Count Neutrophils % (Manual) Lymphocytes % (Manual) Monocytes % (Manual) Eosinophils % (Manual) Metamyelocytes % (Man) Neutrophils # (Manual) Total Absolute Neuts Lymphocytes # (Manual) Total Abs Lymphocytes Monocytes # (Manual) Eosinophils # (Manual) Metamyelocytes # (Man) Toxic Granulation Toxic Vacuolation Dohle Bodies Platelet Estimate Giant Platelets PT INR APTT PTT Ratio VBG pH VBG pCO2 VBG pO2 VBG HCO3 VBG O2 Saturation VBG Base Excess Barometric Pressure Sodium 126 L Potassium 3.7 Chloride 93 L Carbon Dioxide 21 Anion Gap 12.0 H BUN 54 H Creatinine 2.39 H Est Cr Clr Drug Dosing 37.1 Est GFR ( Amer) 23.9 Est GFR (Non-Af Amer) 20.6 BUN/Creatinine Ratio 22.5 H Glucose 146 H Osmolality 279 L Lactate 4.4 H* Calcium 8.2 L Phosphorus 3.3 Magnesium 1.2 L Total Bilirubin 1.3 H Direct Bilirubin 0.8 H AST 35 ALT 46 Alkaline Phosphatase 69 Troponin I NT-Pro-B Natriuret Pep Total Protein 5.4 L Albumin 1.8 L Globulin 3.6 Albumin/Globulin Ratio 0.5 L Lipase Procalcitonin Random Cortisol Urine Color Urine Appearance Urine pH Ur Specific [place] Urine Protein Urine Glucose (UA) Urine Ketones Urine Blood Urine Nitrite Urine Bilirubin Urine Urobilinogen Ur Leukocyte Esterase Urine WBC (Auto) Urine RBC (Auto) U Hyaline Cast (Auto) U Epithel Cells (Auto) Urine Bacteria (Auto) Urine Osmolality Influenza Type A (PCR) Influenza Type B (PCR) 02/27/19 02/27/19 02/27/19 10:00 10:00 10:00 WBC RBC Hgb Hct MCV MCH MCHC RDW Std Deviation RDW Coeff of Mechelle Plt Count Neutrophils % (Manual) Lymphocytes % (Manual) Monocytes % (Manual) Eosinophils % (Manual) Metamyelocytes % (Man) Neutrophils # (Manual) Total Absolute Neuts Lymphocytes # (Manual) Total Abs Lymphocytes Monocytes # (Manual) Eosinophils # (Manual) Metamyelocytes # (Man) Toxic Granulation Toxic Vacuolation Dohle Bodies Platelet Estimate Giant Platelets PT INR APTT PTT Ratio VBG pH VBG pCO2 VBG pO2 VBG HCO3 VBG O2 Saturation VBG Base Excess Barometric Pressure Sodium 126 L Potassium 3.7 Chloride 93 L Carbon Dioxide 19 L Anion Gap 14.0 H BUN 52 H Creatinine 2.36 H Est Cr Clr Drug Dosing 37.6 Est GFR ( Amer) 24.2 Est GFR (Non-Af Amer) 20.9 BUN/Creatinine Ratio 22.2 H Glucose 143 H Osmolality Lactate Calcium 8.3 L Phosphorus 3.3 Magnesium 1.2 L Total Bilirubin Direct Bilirubin AST ALT Alkaline Phosphatase Troponin I < 0.015 NT-Pro-B Natriuret Pep 1542 H Total Protein Albumin Globulin Albumin/Globulin Ratio Lipase 54 L Procalcitonin Random Cortisol 45.35 Urine Color Urine Appearance Urine pH Ur Specific [place] Urine Protein Urine Glucose (UA) Urine Ketones Urine Blood Urine Nitrite Urine Bilirubin Urine Urobilinogen Ur Leukocyte Esterase Urine WBC (Auto) Urine RBC (Auto) U Hyaline Cast (Auto) U Epithel Cells (Auto) Urine Bacteria (Auto) Urine Osmolality Influenza Type A (PCR) Influenza Type B (PCR) 08/22/18 08/22/18 08/22/18 10:12 10:30 11:35 WBC RBC Hgb Hct MCV MCH MCHC RDW Std Deviation RDW Coeff of Mechelle Plt Count Neutrophils % (Manual) Lymphocytes % (Manual) Monocytes % (Manual) Eosinophils % (Manual) Metamyelocytes % (Man) Neutrophils # (Manual) Total Absolute Neuts Lymphocytes # (Manual) Total Abs Lymphocytes Monocytes # (Manual) Eosinophils # (Manual) Metamyelocytes # (Man) Toxic Granulation Toxic Vacuolation Dohle Bodies Platelet Estimate Giant Platelets PT INR APTT PTT Ratio VBG pH 7.38 VBG pCO2 37 L VBG pO2 29 VBG HCO3 21 VBG O2 Saturation < 60.0 VBG Base Excess -3.3 Barometric Pressure 737.2 Sodium Potassium Chloride Carbon Dioxide Anion Gap BUN Creatinine Est Cr Clr Drug Dosing Est GFR ( Amer) Est GFR (Non-Af Amer) BUN/Creatinine Ratio Glucose Osmolality Lactate Calcium Phosphorus Magnesium Total Bilirubin Direct Bilirubin AST ALT Alkaline Phosphatase Troponin I NT-Pro-B Natriuret Pep Total Protein Albumin Globulin Albumin/Globulin Ratio Lipase Procalcitonin Random Cortisol Urine Color Dark Yellow Urine Appearance Cloudy H Urine pH 5.0 Ur Specific [place] 1.018 Urine Protein Negative Urine Glucose (UA) Negative Urine Ketones Negative Urine Blood Negative Urine Nitrite Positive H Urine Bilirubin Negative Urine Urobilinogen Negative Ur Leukocyte Esterase Negative Urine WBC (Auto) 1-5 Urine RBC (Auto) 0-4 U Hyaline Cast (Auto) 0 U Epithel Cells (Auto) >30 H Urine Bacteria (Auto) 1+ H Urine Osmolality Influenza Type A (PCR) Neg for Influ A Influenza Type B (PCR) Neg for Influ B 08/22/18 11:35 WBC RBC Hgb Hct MCV MCH MCHC RDW Std Deviation RDW Coeff of Mechelle Plt Count Neutrophils % (Manual) Lymphocytes % (Manual) Monocytes % (Manual) Eosinophils % (Manual) Metamyelocytes % (Man) Neutrophils # (Manual) Total Absolute Neuts Lymphocytes # (Manual) Total Abs Lymphocytes Monocytes # (Manual) Eosinophils # (Manual) Metamyelocytes # (Man) Toxic Granulation Toxic Vacuolation Dohle Bodies Platelet Estimate Giant Platelets PT INR APTT PTT Ratio VBG pH VBG pCO2 VBG pO2 VBG HCO3 VBG O2 Saturation VBG Base Excess Barometric Pressure Sodium Potassium Chloride Carbon Dioxide Anion Gap BUN Creatinine Est Cr Clr Drug Dosing Est GFR ( Amer) Est GFR (Non-Af Amer) BUN/Creatinine Ratio Glucose Osmolality Lactate Calcium Phosphorus Magnesium Total Bilirubin Direct Bilirubin AST ALT Alkaline Phosphatase Troponin I NT-Pro-B Natriuret Pep Total Protein Albumin Globulin Albumin/Globulin Ratio Lipase Procalcitonin Random Cortisol Urine Color Urine Appearance Urine pH Ur Specific [place] Urine Protein Urine Glucose (UA) Urine Ketones Urine Blood Urine Nitrite Urine Bilirubin Urine Urobilinogen Ur Leukocyte Esterase Urine WBC (Auto) Urine RBC (Auto) U Hyaline Cast (Auto) U Epithel Cells (Auto) Urine Bacteria (Auto) Urine Osmolality 323 L Influenza Type A (PCR) Influenza Type B (PCR) Medications Administered Home Medications Lactobacillus rhamnosus GG [Culturelle] 1 cap PO DAILY 08/22/18 [History Confirmed 08/22/18] cholecalciferol (vitamin D3) 3,000 unit PO DAILY 08/22/18 [History Confirmed 08/22/18] diphenhydramine HCl [Benadryl] 25 mg PO HS PRN 08/22/18 [History Confirmed 08/22/18] flecainide 1 tab PO BID 08/22/18 [History Confirmed 08/22/18] furosemide 1 tab PO QAM 08/22/18 [History Confirmed 08/22/18] levalbuterol tartrate [Xopenex HFA] 2 inh INHALATION BID 08/22/18 [History Confirmed 08/22/18] methylprednisolone 1 - 2 tab PO DAILY 08/22/18 [History Confirmed 08/22/18] metoprolol tartrate [Lopressor] 50 mg PO BID 08/22/18 [History Confirmed 08/22/18] multivitamin 1 tab PO DAILY 08/22/18 [History Confirmed 08/22/18] omeprazole 1 cap PO QAM 08/22/18 [History Confirmed 08/22/18] oxycodone 10 mg PO Q6H PRN 08/22/18 [History Confirmed 08/22/18] prochlorperazine maleate [Compazine] 10 mg PO Q6H PRN 08/22/18 [History Confirmed 08/22/18] promethazine 25 mg PO Q8H PRN 08/22/18 [History Confirmed 08/22/18] Active Medications Sodium Chloride (Nss 250ml) 250 mls @ 15 mls/hr IV .[id number] PRN PRN Reason: For Transfusion Stop: 09/21/18 12:45 Miscellaneous Information (Consult) 1 ea N/A UD PRN PRN Reason: Consult Stop: 09/21/18 09:50
--- NOTE | 2018-08-22 12:55 | History & Physical Report ---
Date of Service August 22, 2018 Assessment & Plan (1) Sepsis: Patient is a 67-year-old female with a PMH of stage II breast cancer, GALLO cirrhosis, asthma, atrial fibrillation, pre-diabetes and other medical problems listed below who presents with generalized weakness and rigors x 3 days and was found to have sepsis and neutropenia. -Febrile prior to arrival. Neuropenic and pancytopenic -Lactic acid elevated at 4.4, repeat level pending, procalcitonin of 27 -Blood and urine cultures obtained -Started on Cefepime and vanc in ED -Switching to dapto in setting of DARCIE. Continue cefepime -Flu PCR negative, CXR without evidence of infiltrates, urine nitrite positive (2) Neutropenia: (3) Breast cancer, stage 2: Absolute neutrophil count of 0.38 -In setting of breast cancer, cycle of Adriamycin and Cytoxan on Aug 10 -Also receiving Neulasta -Neutropenic precautions (4) Pancytopenia: Wbc of 0.75, hgb of 9.4, platelets 20 -Monitor with daily CBC -Transfuse if indicated (5) Acute kidney injury: Cr elevated at 2.36 (baseline ~0.8) -In setting of dehydration, possible side effect of chemo -Given aggressive fluid resuscitation in ED. Expect improvement (6) Peripheral edema: No history of CHF, per patient -BLE with 3+ edema, has been present for last few days -Bedside echo in ICU (7) Atrial fibrillation: Stable. Continue lopressor with hold parameters -Previously on coumadin, Eliquis but stopped due to thrombocytopenia (8) Asthma: Stable. 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: CT abd/pelvis with evidence of cirrhosis with trace perihepatic ascites and splenomegaly indicative of portal hypertension -Total bili 1.3, AST and ALT unremarkable -Monitor with daily LFTs -Follow-up imaging to rule out thromboembolic disease (10) Liver mass: Dysplastic liver nodule with well-differentiated HCC -Case was discussed in tumor board and further course of action needs to be determined after a discussion between the patient and oncology (11) Psoriatic arthritis: Continue home dose solu-medrol DVT Ppx: Pharmacologic VTE ppx contraindicated with thrombocytopenia Code status: FULL PCP: Srikanth Dispo: Admitted to ICU. Discharge planning ordered. Patient seen in collaboration with Dr. Hopper. Please see addendum. History of Present Illness Chief Complaint: shortness of breath, weakness Primary Care Provider: Maria Guadalupe Duke MD Patient is a 67-year-old female with a PMH of stage II breast cancer, GALLO cirrhosis, asthma, atrial fibrillation, pre-diabetes and other medical problems listed below who presents with generalized weakness and rigors x 3 days. Endorses intermittent fever over the past 3 weeks, with fever of 101 earlier today. Attempted to shower today and fell down due to weakness. No head trauma or LOC. Was brought in by EMS, who initially found her to be hypotensive. Endorses shortness of breath and swelling in lower extremities bilaterally that started 3 days ago. Also endorses nausea. Denies sore throat, myalgias, chest pain, palpitations, vomiting, abdominal pain, calf pain. Was diagnosed with stage II breast cancer in May 2018 and just received first of four cycles of chemo treatment ([place]riamycin and [place]toxan[place] [facility] Was also given Neulasta due to likelihood of developing neutropenia. Also following with [facility] [place] for liver mass favoring well-differentiated hepatocellular carcinoma. Treatment plans yet to be determined. Allergies Allergy/AdvReac Type Severity Reaction Status Date / Time clarithromycin Allergy Severe RASH Verified 02/13/18 08:20 Penicillins Allergy Severe ANAPHYLACTIC Verified 02/13/18 08:20 SHOCK epinephrine Allergy Unknown THROAT Verified 02/13/18 08:20 SWELLING, PASSED OUT, HEART RACING montelukast Allergy Unknown PALPITATION Verified 02/13/18 08:20 S Home Medications Home Medications Medication Instructions Recorded Confirmed Type Lactobacillus rhamnosus GG 1 cap PO DAILY 08/22/18 08/22/18 History [Culturelle] cholecalciferol (vitamin D3) 3,000 unit PO DAILY 08/22/18 08/22/18 History diphenhydramine HCl [Benadryl] 25 mg PO HS PRN 08/22/18 08/22/18 History flecainide 1 tab PO BID 08/22/18 08/22/18 History furosemide 1 tab PO QAM 08/22/18 08/22/18 History levalbuterol tartrate [Xopenex HFA] 2 inh INHALATION BID 08/22/18 08/22/18 History methylprednisolone 1 - 2 tab PO DAILY 08/22/18 08/22/18 History metoprolol tartrate [Lopressor] 50 mg PO BID 08/22/18 08/22/18 History multivitamin 1 tab PO DAILY 08/22/18 08/22/18 History omeprazole 1 cap PO QAM 08/22/18 08/22/18 History oxycodone 10 mg PO Q6H PRN 08/22/18 08/22/18 History prochlorperazine maleate 10 mg PO Q6H PRN 08/22/18 08/22/18 History [Compazine] promethazine 25 mg PO Q8H PRN 08/22/18 08/22/18 History Past Med/Surg History Medical History Prediabetes (Chronic) Asthma (Chronic) Atrial fibrillation (Chronic) Morbid obesity (Chronic) Liver mass (Chronic) Breast cancer, stage 2 (Chronic) Psoriatic arthritis (Chronic) 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) Breast cancer (Chronic) Surgical History History of breast lump/mass excision (Resolved) Hx of appendectomy (Resolved) H/O: hysterectomy (Resolved) Family History Other Colon cancer Pancreatic cancer Social History Preferred Language: Liberian Communication Ability: Effective Podiatrist Orthopedic Required: No Beliefs That Will Affect Care: None Current Living Situation: Spouse Other Information That Helps Us Care for You: No Feels Safe at Home: Yes Safety Concerns: Feels Safe At This Time Smoking Status: Never smoker Hx Alcohol Use: No Hx Substance Use: No Review of Systems All systems reviewed & are unremarkable except as noted in HPI & below Physical Exam Vital Signs (Past 24 Hours): Last Vital Signs Temp 36.8 C 08/22/18 10:02 Pulse 80 08/22/18 12:01 Resp 22 08/22/18 12:01 BP 112/70 08/22/18 12:01 Pulse Ox 100 08/22/18 12:01 Physical Exam: General Appearance: WD/WN, morbidly obese, in acute distress Head: normocephalic, atraumatic Eyes: normal inspection, PERRL, EOMI ENT: hearing grossly normal, pharynx normal (moist mucous membranes) Neck: supple, no JVD, no adenopathy Respiratory/Chest: lungs clear to auscultation. No wheezes, rales or rhonci. Difficulty Cardiovascular: regular rate, rhythm, no murmur, normal peripheral pulses Abdomen/GI: normal bowel sounds, soft, non-tender to palpation : Harris in place Extremities/Musculoskelatal: normal inspection, no calf tenderness, normal capillary refill, erythema and 3+ BLE edema Neurologic/Psych: alert, normal mood/affect, oriented x 3 Skin: normal color, warm/dry Results & Data Diagnostic Findings CXR: No acute process CT chest: IMPRESSION: 1. No consolidation to suggest pneumonia. 2. Mild asymmetric right axillary lymphadenopathy which raises the possibility of nola spread of disease. This could be correlated with breast cancer history and prior imaging, if available. 3. Cirrhosis with trace perihepatic ascites and splenomegaly indicative of portal hypertension. 4. 8 mm sclerotic lesion within the T6 vertebral body which is indeterminate although probably benign. CT abd/pelvis: IMPRESSION:: 1. Mild hepatic cirrhosis with a trace amount of perihepatic ascites 2. Stable moderate splenomegaly. 3. Nonobstructive bowel pattern. 4. Trace amount of free fluid within the low pelvic mesentery, with a slight degree of inflammatory change surrounding the pancreatic uncinate process body and pancreatic head is a possibility of low-grade pancreatitis 5. A mild secondary enteritis is considered. Supervising Physician Co-Signing Physician Notes I have seen and examined patient with physician janitorial assistant in emergency room and after re-assessment of the patient in the ICU, I would like to modify the plan and comment that patient 67-year-old female with a PMH of stage II breast cancer, GALLO cirrhosis, asthma, atrial fibrillation, pre-diabetes and other medical problems listed below who presents with generalized weakness and rigors x 3 days and was found to have sepsis and neutropenia. was given Vancomycin and Cefipime in the ED for broad spectrum antibiotic coverage but since patient also presents with acute kidney injury, have discussed with ICU physician about switching to cefepime and Daptomycin. have discussed with pharmacy on antibiotic dosing given patient's morbid obesity of 164 kg and BMI 56.6 patient currently in the ICU with low blood pressures and will recommend to hold off metoprolol and home dose flecainide for now. will defer to ICU physician whether other modifications of cardiovascular drugs as needed. patient currently in not on vasopressors otherwise, agree with assessment and plan as explained by physician janitorial assistant Physical Exam General: patient awake and verbal, generalized malaise, obese Neuro/Extremities: moves all extremities Lungs: clear to auscultation Heart: regular rate Abdomen: truncal obesity, soft nontender Code status is full code: patient's reports that she allows for intubation but would only want 1 round of resuscitation and no more than 3 defibrillations
[2018-08-22 13:06] LABS: BUN Creatinine Ratio 22.2 (10-20); Calcium 8.3 mg/dl (8.5-10.1); Creatinine Clr Calc Pharmacy 37.6 ml/min; Est GFR (African American) 24.2; Est GFR (Non-African American) 20.9; Magnesium 1.2 mg/dl (1.8-2.4); Phosphorus 3.3 mg/dl (2.5-4.9); Potassium 3.7 mmol/L (3.5-5.1)
[2018-08-22 13:18] LABS: Cast Urine Automated 0 /lpf (0-5); RBC Urine Automated 0-4 /hpf (0-4)
[2018-08-22 13:25] LABS: NT Pro B Type Natriuretic Pept 1542 pg/ml (0-900); Troponin I < 0.015 ng/ml (0-0.045)
[2018-08-22] MEDS ORDERED: ICU PROTOCOL FOR HYPERGLYCEMIA PRN (15:12)
[2018-08-22 15:30] LABS: Fibrinogen 297 mg/dl (184-400)
[2018-08-22] MEDS ORDERED: DAPTOmycin 625 MG in SYRINGE 0 ML IV ONE (16:01)
[2018-08-22] MEDS ORDERED: CEFEPIME CONSULT ACTIVE PRN (16:05)
[2018-08-22] MEDS ORDERED: DAPTOMYCIN CONSULT ACTIVE PRN (16:08)
[2018-08-22] MEDS ORDERED: DAPTOmycin 625 MG in SYRINGE 0 ML IV SCH (16:30)
--- NOTE | 2018-08-22 17:38 | Emergency Department Note ---
Entered by Rosalinda Cramer acting as a scribe for History of Present Illness General Chief complaint: Hypotension Time Seen by Provider: 08/22/18 09:44 Source: patient and other (nursing staff) History of Present Illness Provider complaint: hypotension Onset (ago): hour(s) (today) Location: left and right Quality: + other (hypotension) Associated symptoms: + fever/chills (febrile at 101), + shortness of breath and + other (diarrhea, cloudy urine) Treatments prior to arrival: other (given fluid) The patient is a 67 year old female who presents to the Emergency Room with complaints of hypotension today. The patient states that she has breast cancer and that her last treatment was 2 weeks ago. Per nursing staff, the patient was febrile at 101 and reports that the patient's blood pressure when EMS arrived was 50/30. Nursing staff states that the patient was given fluid prior to arrival. The patient reports feeling fatigued for the last week and states that she has had diarrhea and cloudy urine. She reports feeling short of breath and states that she does not wear Oxygen at home. The patient states that she was on Coumadin for atrial fibrillation but states that she was stopped on it because it was well-controlled. Home Medications Home Medications Medication Instructions Recorded Confirmed Type Lactobacillus rhamnosus GG 1 cap PO DAILY 08/22/18 08/22/18 History [Culturelle] cholecalciferol (vitamin D3) 3,000 unit PO DAILY 08/22/18 08/22/18 History diphenhydramine HCl [Benadryl] 25 mg PO HS PRN 08/22/18 08/22/18 History flecainide 1 tab PO BID 08/22/18 08/22/18 History furosemide 1 tab PO QAM 08/22/18 08/22/18 History levalbuterol tartrate [Xopenex HFA] 2 inh INHALATION BID 08/22/18 08/22/18 History methylprednisolone 1 - 2 tab PO DAILY 08/22/18 08/22/18 History metoprolol tartrate [Lopressor] 50 mg PO BID 08/22/18 08/22/18 History multivitamin 1 tab PO DAILY 08/22/18 08/22/18 History omeprazole 1 cap PO QAM 08/22/18 08/22/18 History oxycodone 10 mg PO Q6H PRN 08/22/18 08/22/18 History prochlorperazine maleate 10 mg PO Q6H PRN 08/22/18 08/22/18 History [Compazine] promethazine 25 mg PO Q8H PRN 08/22/18 08/22/18 History Allergies Allergy/AdvReac Type Severity Reaction Status Date / Time clarithromycin Allergy Severe RASH Verified 02/13/18 08:20 Penicillins Allergy Severe ANAPHYLACTIC Verified 02/13/18 08:20 SHOCK epinephrine Allergy Unknown THROAT Verified 02/13/18 08:20 SWELLING, PASSED OUT, HEART RACING montelukast Allergy Unknown PALPITATION Verified 02/13/18 08:20 S Past Med/Surg History Medical History Prediabetes (Chronic) Asthma (Chronic) Atrial fibrillation (Chronic) Morbid obesity (Chronic) Liver mass (Chronic) Breast cancer, stage 2 (Chronic) Psoriatic arthritis (Chronic) 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) Breast cancer (Chronic) Surgical History History of breast lump/mass excision (Resolved) Hx of appendectomy (Resolved) H/O: hysterectomy (Resolved) Family History Other Colon cancer Pancreatic cancer Social History Preferred Language: Mongolian Communication Ability: Effective 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 and A total of 10 systems reviewed and were otherwise negative Physical Exam Vital Signs Vital Signs - 24 hr 08/22/18 09:42 08/22/18 10:02 08/22/18 10:15 Temperature 36.8 C Temperature Source Oral Sepsis Recent Fever Within 48 Hours Yes Sepsis New/Unexplained Change in Mental Status No Sepsis Action Taken by Nursing Physician Notified Pulse Rate 83 77 Pulse Rate [Right Finger] 81 Pulse Rate from SpO2 Sensor 83 Pulse Rhythm [Right Finger] Regular Pulse Strength [Right Finger] Normal Respiratory Rate 22 22 20 Respiratory Effort / Characteristics Respiratory Depth Respiratory Pattern Blood Pressure 110/57 L 110/57 L Blood Pressure [Right Arm] 107/57 L Blood Pressure Mean 74 74 Blood Pressure Mean [Right Arm] 73 Pulse Oximetry 97 95 98 Pulse Oximetry [Middle Finger] Oxygen Delivery Method Room Air Room Air Oxygen Delivery Method [Middle Finger] Oxygen Flow Rate 08/22/18 10:16 08/22/18 10:30 08/22/18 10:50 Temperature Temperature Source Sepsis Recent Fever Within 48 Hours Sepsis New/Unexplained Change in Mental Status Sepsis Action Taken by Nursing Pulse Rate 77 77 80 Pulse Rate [Right Finger] Pulse Rate from SpO2 Sensor 77 77 Pulse Rhythm [Right Finger] Pulse Strength [Right Finger] Respiratory Rate 24 22 28 H Respiratory Effort / Characteristics Respiratory Depth Respiratory Pattern Blood Pressure 113/63 107/57 L Blood Pressure [Right Arm] Blood Pressure Mean 79 73 Blood Pressure Mean [Right Arm] Pulse Oximetry 97 98 Pulse Oximetry [Middle Finger] Oxygen Delivery Method Oxygen Delivery Method [Middle Finger] Oxygen Flow Rate 08/22/18 11:00 08/22/18 12:01 08/22/18 12:31 Temperature Temperature Source Sepsis Recent Fever Within 48 Hours Sepsis New/Unexplained Change in Mental Status Sepsis Action Taken by Nursing Pulse Rate 79 80 78 Pulse Rate [Right Finger] 80 Pulse Rate from SpO2 Sensor 78 80 78 Pulse Rhythm [Right Finger] Pulse Strength [Right Finger] Respiratory Rate 26 H 23 23 Respiratory Effort / Characteristics Respiratory Depth Respiratory Pattern Blood Pressure 112/55 L 112/70 110/66 Blood Pressure [Right Arm] 112/70 Blood Pressure Mean 74 84 80 Blood Pressure Mean [Right Arm] 84 Pulse Oximetry 100 98 Pulse Oximetry [Middle Finger] Oxygen Delivery Method Oxygen Delivery Method [Middle Finger] Oxygen Flow Rate 08/22/18 13:00 08/22/18 13:05 08/22/18 13:17 Temperature 37.3 C Temperature Source Sepsis Recent Fever Within 48 Hours Sepsis New/Unexplained Change in Mental Status Sepsis Action Taken by Nursing Pulse Rate 78 78 78 Pulse Rate [Right Finger] Pulse Rate from SpO2 Sensor 78 78 78 Pulse Rhythm [Right Finger] Pulse Strength [Right Finger] Respiratory Rate 24 26 H 23 Respiratory Effort / Characteristics Respiratory Depth Respiratory Pattern Blood Pressure 128/62 Blood Pressure [Right Arm] Blood Pressure Mean 84 Blood Pressure Mean [Right Arm] Pulse Oximetry 98 99 100 Pulse Oximetry [Middle Finger] Oxygen Delivery Method Oxygen Delivery Method [Middle Finger] Oxygen Flow Rate 08/22/18 14:18 08/22/18 14:35 08/22/18 15:00 Temperature Temperature Source Sepsis Recent Fever Within 48 Hours Sepsis New/Unexplained Change in Mental Status Sepsis Action Taken by Nursing Pulse Rate 80 75 75 Pulse Rate [Right Finger] Pulse Rate from SpO2 Sensor 80 75 75 Pulse Rhythm [Right Finger] Pulse Strength [Right Finger] Respiratory Rate 26 H 21 21 Respiratory Effort / Characteristics Respiratory Depth Respiratory Pattern Blood Pressure 112/53 L 104/53 L 87/54 L Blood Pressure [Right Arm] Blood Pressure Mean 72 70 65 Blood Pressure Mean [Right Arm] Pulse Oximetry 96 97 96 Pulse Oximetry [Middle Finger] Oxygen Delivery Method Oxygen Delivery Method [Middle Finger] Oxygen Flow Rate 08/22/18 15:01 08/22/18 15:12 08/22/18 15:45 Temperature 36.7 C Temperature Source Oral Sepsis Recent Fever Within 48 Hours Sepsis New/Unexplained Change in Mental Status Sepsis Action Taken by Nursing Pulse Rate 75 72 72 Pulse Rate [Right Finger] 79 Pulse Rate from SpO2 Sensor 75 Pulse Rhythm [Right Finger] Pulse Strength [Right Finger] Respiratory Rate 19 18 Respiratory Effort / Characteristics Non-Labored Spontaneous Respiratory Depth Normal Respiratory Pattern Regular Blood Pressure Blood Pressure [Right Arm] 112/53 L Blood Pressure Mean Blood Pressure Mean [Right Arm] 72 Pulse Oximetry 97 2 L Pulse Oximetry [Middle Finger] Oxygen Delivery Method Nasal Cannula Oxygen Delivery Method [Middle Finger] Oxygen Flow Rate 2 08/22/18 15:48 08/22/18 15:49 08/22/18 15:56 Temperature 36.6 C Temperature Source Oral Sepsis Recent Fever Within 48 Hours Sepsis New/Unexplained Change in Mental Status Sepsis Action Taken by Nursing Pulse Rate 71 Pulse Rate [Right Finger] 71 Pulse Rate from SpO2 Sensor Pulse Rhythm [Right Finger] Regular Pulse Strength [Right Finger] Normal Respiratory Rate Respiratory Effort / Characteristics Non-Labored Respiratory Depth Normal Respiratory Pattern Blood Pressure Blood Pressure [Right Arm] 87/54 L Blood Pressure Mean Blood Pressure Mean [Right Arm] 65 Pulse Oximetry Pulse Oximetry [Middle Finger] 96 Oxygen Delivery Method Nasal Cannula Oxygen Delivery Method [Middle Finger] Nasal Cannula Oxygen Flow Rate 2 08/22/18 15:58 08/22/18 16:00 08/22/18 16:01 Temperature 36.6 C Temperature Source Oral Sepsis Recent Fever Within 48 Hours Sepsis New/Unexplained Change in Mental Status Sepsis Action Taken by Nursing Pulse Rate 70 74 Pulse Rate [Right Finger] 72 Pulse Rate from SpO2 Sensor 74 74 Pulse Rhythm [Right Finger] Regular Pulse Strength [Right Finger] Normal Respiratory Rate 18 18 25 H Respiratory Effort / Characteristics Non-Labored Respiratory Depth Normal Respiratory Pattern Regular Blood Pressure 91/52 L Blood Pressure [Right Arm] 112/53 L Blood Pressure Mean 65 Blood Pressure Mean [Right Arm] 72 Pulse Oximetry 2 L 98 98 Pulse Oximetry [Middle Finger] Oxygen Delivery Method Nasal Cannula Oxygen Delivery Method [Middle Finger] Oxygen Flow Rate 08/22/18 17:00 08/22/18 17:01 08/22/18 17:20 Temperature Temperature Source Sepsis Recent Fever Within 48 Hours Sepsis New/Unexplained Change in Mental Status Sepsis Action Taken by Nursing Pulse Rate 72 72 70 Pulse Rate [Right Finger] Pulse Rate from SpO2 Sensor 72 73 Pulse Rhythm [Right Finger] Pulse Strength [Right Finger] Respiratory Rate 21 21 18 Respiratory Effort / Characteristics Respiratory Depth Respiratory Pattern Blood Pressure 81/49 L 98/47 L Blood Pressure [Right Arm] Blood Pressure Mean 59 64 Blood Pressure Mean [Right Arm] Pulse Oximetry 96 96 94 Pulse Oximetry [Middle Finger] Oxygen Delivery Method Nasal Cannula Oxygen Delivery Method [Middle Finger] Oxygen Flow Rate 2 GENERAL: Awake, alert, ill-appearing, toxic. HENT: Normocephalic, atraumatic. Oropharynx with dry mucous membranes and otherwise unremarkable. EYES: Normal conjunctiva. Sclera non-icteric. NECK: Supple. No nuchal rigidity. FROM. No JVD. RESPIRATORY: Clear to auscultation. CARDIAC: Regular rate, normal rhythm. Extremities warm and well perfused. Pulses equal. ABDOMEN: Soft, non-distended. No tenderness to palpation. No rebound or guarding. No masses. RECTAL: Deferred. MUSCULOSKELETAL: Chest examination reveals no tenderness. The back is symmetrical on inspection without obvious abnormality. There is no CVA tenderness to palpation. No joint edema. LOWER EXTREMITIES: Calves are equal size bilaterally and non-tender. No edema. Mild erythema and warmth to lateral aspect mid thigh to proximal lower leg. NEURO: Normal sensorium. No sensory or motor deficits noted. SKIN: No rash or jaundice noted. Pale, cool skin. Course 09: Past medical records reviewed. The patient was evaluated in room A10, and a complete history and physical examination were performed. 1115: I updated the patient who verbalized agreement and understanding of the treatment plan. 1127: I discussed the patient's case with Michelle Workman who will evaluate the patient for further management. Consultations Consultation #1: Michelle Workman Time: 11:27 Administered Medications Daptomycin 625 mg/ Syringe 12.5 mls @ 6.25 mls/min IV Q24H NIMISHA; Protocol Stop: 08/24/18 16:29 Last Admin: 08/22/18 16:36 Dose: 6.25 mls/min Documented by: [id number] Magnesium Sulfate/Dextrose (Magnesium Sulfate / D5w) 1 gm in 100 mls @ 100 mls/hr IV 1800,1900,2000,2100 NIMISHA Stop: 08/22/18 23:59 Last Admin: 08/22/18 18:43 Dose: 100 mls/hr Documented by: [id number] Parenteral Electrolytes (Normosol-R) 1,000 mls @ 125 mls/hr IV .Q8H NIMISHA Stop: 09/21/18 18:14 Last Admin: 08/22/18 18:48 Dose: 125 mls/hr Documented by: [id number] Discontinued Medications Heparin Sodium (Beef Lung) (Heparin Sod 10 Unit/Ml Flush) Confirm Administered Dose 5 ml FLUSH .STK-MED ONE Stop: 08/22/18 17:13 Last Admin: 08/22/18 18:33 Dose: 5 ml Documented by: [id number] Sodium Chloride (Nss 1000ml) 2,000 mls @ 999 mls/hr IV .Q2H1M ONE Stop: 08/22/18 11:46 Last Infusion: 08/22/18 12:25 Dose: 0 mls/hr Documented by: [id number] Admin: 08/22/18 10:20 Dose: 999 mls/hr Documented by: [id number] Cefepime HCl 1,000 mg/ Syringe 11.3 mls @ 5.5 mls/min IV NOW STA Stop: 08/22/18 09:54 Last Admin: 08/22/18 10:15 Dose: 5.5 mls/min Documented by: [id number] Vancomycin HCl 2,500 mg/ (Sodium Chloride) 550 mls @ 200 mls/hr IV NOW ONE Stop: 08/22/18 12:20 Last Admin: 08/22/18 10:33 Dose: 200 mls/hr Documented by: [id number] Sodium Chloride (Nss 1000ml) 2,000 mls @ 999 mls/hr IV .Q2H1M ONE Stop: 08/22/18 13:23 Last Admin: 08/22/18 12:56 Dose: 999 mls/hr Documented by: [id number] Magnesium Sulfate/Dextrose (Magnesium Sulfate / D5w) 1 gm in 100 mls @ 100 mls/hr IV Q1H NIMISHA Stop: 08/22/18 13:29 Last Admin: 08/22/18 12:52 Dose: 100 mls/hr Documented by: [id number] Infusion: 08/22/18 12:49 Dose: 0 mls/hr Documented by: [id number] Admin: 08/22/18 11:49 Dose: 100 mls/hr Documented by: [id number] Medical Decision Making Differential Diagnosis Differential diagnosis: Etiologies such as sepsis, UTI, pneumonia, bacteremia, metabolic process, electrolyte abnormalities, cardiac sources, intracerebral event, intra-abdominal process, toxicological process, neurologic process, as well as others were entertained. Medical Records Attestation: I reviewed the patient's medical records. Home Medications Current Medication List: was personally reviewed by me Laboratory Data Attestation: I reviewed the patient's lab results. Result diagrams: 08/22/18 10:00 08/22/18 18:57 Lab Results 08/22/18 08/22/18 08/22/18 Range/Units 10:00 10:00 10:00 WBC 0.75 L* (4.8-10.8) K/uL RBC 3.11 L (4.2-5.4) M/uL Hgb 9.4 L (12.0-16.0) g/dL Hct 26.6 L (37-47) % MCV 85.5 (80-100) fL MCH 30.2 (25-34) pg MCHC 35.3 (32-36) g/dL RDW Std Deviation 49.8 H (36.4-46.3) fL RDW Coeff of Mechelle 16.0 H (11.5-14.5) % Plt Count 20 L* (130-400) K/uL Neutrophils % (Manual) 51.3 % Lymphocytes % (Manual) 16.4 % Monocytes % (Manual) 29.5 % Eosinophils % (Manual) 0.7 % Metamyelocytes % (Man) 2.1 % Neutrophils # (Manual) 0.38 L (1.4-6.5) K/uL Total Absolute Neuts 0.38 L* (1.4-6.5) K/uL Lymphocytes # (Manual) 0.12 L (1.2-3.4) K/uL Total Abs Lymphocytes 0.12 L (1.2-3.4) K/uL Monocytes # (Manual) 0.22 (0.11-0.59) K/uL Eosinophils # (Manual) 0.01 (0-0.5) K/uL Metamyelocytes # (Man) 0.02 H (0-0) K/uL Toxic Granulation 3+ Toxic Vacuolation 2+ Dohle Bodies 2+ Platelet Estimate SIGNIFIC DECREASED (Normal) Giant Platelets 3+ PT 19.7 H (9.0-12.0) Seconds INR 2.0 H (0.9-1.1) APTT 35.3 H (21.0-31.0) Seconds PTT Ratio 1.3 Fibrinogen (184-400) mg/dl VBG pH (7.36-7.41) VBG pCO2 (38-50) mmHg VBG pO2 mmHg VBG HCO3 mmol/L VBG O2 Saturation % VBG Base Excess mEq/L Barometric Pressure mm/Hg Sodium (136-145) mmol/L Potassium (3.5-5.1) mmol/L Chloride (98-107) mmol/L Carbon Dioxide (21-32) mmol/L Anion Gap (3-11) BUN (7-18) mg/dl Creatinine (0.6-1.2) mg/dl Est Cr Clr Drug Dosing ml/min Est GFR ( Amer) Est GFR (Non-Af Amer) BUN/Creatinine Ratio (10-20) Glucose (70-99) mg/dl POC Glucose (70-99) Osmolality (280-300) mOsm/kg Lactate (0.4-2.0) mmol/L Calcium (8.5-10.1) mg/dl Ionized Calcium (1.12-1.32) mmol/L Phosphorus (2.5-4.9) mg/dl Magnesium (1.8-2.4) mg/dl Total Bilirubin (0.2-1) mg/dl Direct Bilirubin (0-0.2) mg/dl AST (15-37) U/L ALT (12-78) U/L Alkaline Phosphatase (45-117) U/L Troponin I (0-0.045) ng/ml NT-Pro-B Natriuret Pep (0-900) pg/ml Total Protein (6.4-8.2) gm/dl Albumin (3.4-5.0) gm/dl Globulin (2.5-4.0) gm/dl Albumin/Globulin Ratio (0.9-2) Lipase (73-393) U/L Procalcitonin 27.93 H (0-0.5) ng/ml Random Cortisol mcg/dl Urine Color Urine Appearance (Clear) Urine pH (4.5-7.5) Ur Specific [place] (1.000-1.030) Urine Protein (Negative) Urine Glucose (UA) (Negative) Urine Ketones (Negative) Urine Blood (Negative) Urine Nitrite (Negative) Urine Bilirubin (Negative) Urine Urobilinogen (Negative) Ur Leukocyte Esterase (Negative) Urine WBC (Auto) (0-5) /hpf Urine RBC (Auto) (0-4) /hpf U Hyaline Cast (Auto) (0-5) /lpf U Epithel Cells (Auto) (0-5) /lpf Urine Bacteria (Auto) (Negative) Urine Osmolality (500-800) mOsm/kg Acetaminophen (10-30) ug/ml Influenza Type A (PCR) (Neg) Influenza Type B (PCR) (Neg) Blood Type Antibody Screen 08/22/18 08/22/18 08/22/18 Range/Units 10:00 10:00 10:00 WBC (4.8-10.8) K/uL RBC (4.2-5.4) M/uL Hgb (12.0-16.0) g/dL Hct (37-47) % MCV (80-100) fL MCH (25-34) pg MCHC (32-36) g/dL RDW Std Deviation (36.4-46.3) fL RDW Coeff of Mechelle (11.5-14.5) % Plt Count (130-400) K/uL Neutrophils % (Manual) % Lymphocytes % (Manual) % Monocytes % (Manual) % Eosinophils % (Manual) % Metamyelocytes % (Man) % Neutrophils # (Manual) (1.4-6.5) K/uL Total Absolute Neuts (1.4-6.5) K/uL Lymphocytes # (Manual) (1.2-3.4) K/uL Total Abs Lymphocytes (1.2-3.4) K/uL Monocytes # (Manual) (0.11-0.59) K/uL Eosinophils # (Manual) (0-0.5) K/uL Metamyelocytes # (Man) (0-0) K/uL Toxic Granulation Toxic Vacuolation Dohle Bodies Platelet Estimate (Normal) Giant Platelets PT (9.0-12.0) Seconds INR (0.9-1.1) APTT (21.0-31.0) Seconds PTT Ratio Fibrinogen (184-400) mg/dl VBG pH (7.36-7.41) VBG pCO2 (38-50) mmHg VBG pO2 mmHg VBG HCO3 mmol/L VBG O2 Saturation % VBG Base Excess mEq/L Barometric Pressure mm/Hg Sodium 126 L (136-145) mmol/L Potassium 3.7 (3.5-5.1) mmol/L Chloride 93 L (98-107) mmol/L Carbon Dioxide 21 (21-32) mmol/L Anion Gap 12.0 H (3-11) BUN 54 H (7-18) mg/dl Creatinine 2.39 H (0.6-1.2) mg/dl Est Cr Clr Drug Dosing 37.1 ml/min Est GFR ( Amer) 23.9 Est GFR (Non-Af Amer) 20.6 BUN/Creatinine Ratio 22.5 H (10-20) Glucose 146 H (70-99) mg/dl POC Glucose (70-99) Osmolality 279 L (280-300) mOsm/kg Lactate 4.4 H* (0.4-2.0) mmol/L Calcium 8.2 L (8.5-10.1) mg/dl Ionized Calcium (1.12-1.32) mmol/L Phosphorus 3.3 (2.5-4.9) mg/dl Magnesium 1.2 L (1.8-2.4) mg/dl Total Bilirubin 1.3 H (0.2-1) mg/dl Direct Bilirubin 0.8 H (0-0.2) mg/dl AST 35 (15-37) U/L ALT 46 (12-78) U/L Alkaline Phosphatase 69 (45-117) U/L Troponin I (0-0.045) ng/ml NT-Pro-B Natriuret Pep (0-900) pg/ml Total Protein 5.4 L (6.4-8.2) gm/dl Albumin 1.8 L (3.4-5.0) gm/dl Globulin 3.6 (2.5-4.0) gm/dl Albumin/Globulin Ratio 0.5 L (0.9-2) Lipase (73-393) U/L Procalcitonin (0-0.5) ng/ml Random Cortisol mcg/dl Urine Color Urine Appearance (Clear) Urine pH (4.5-7.5) Ur Specific [place] (1.000-1.030) Urine Protein (Negative) Urine Glucose (UA) (Negative) Urine Ketones (Negative) Urine Blood (Negative) Urine Nitrite (Negative) Urine Bilirubin (Negative) Urine Urobilinogen (Negative) Ur Leukocyte Esterase (Negative) Urine WBC (Auto) (0-5) /hpf Urine RBC (Auto) (0-4) /hpf U Hyaline Cast (Auto) (0-5) /lpf U Epithel Cells (Auto) (0-5) /lpf Urine Bacteria (Auto) (Negative) Urine Osmolality (500-800) mOsm/kg Acetaminophen (10-30) ug/ml Influenza Type A (PCR) (Neg) Influenza Type B (PCR) (Neg) Blood Type Antibody Screen 08/22/18 08/22/18 08/22/18 Range/Units 10:00 10:00 10:00 WBC (4.8-10.8) K/uL RBC (4.2-5.4) M/uL Hgb (12.0-16.0) g/dL Hct (37-47) % MCV (80-100) fL MCH (25-34) pg MCHC (32-36) g/dL RDW Std Deviation (36.4-46.3) fL RDW Coeff of Mechelle (11.5-14.5) % Plt Count (130-400) K/uL Neutrophils % (Manual) % Lymphocytes % (Manual) % Monocytes % (Manual) % Eosinophils % (Manual) % Metamyelocytes % (Man) % Neutrophils # (Manual) (1.4-6.5) K/uL Total Absolute Neuts (1.4-6.5) K/uL Lymphocytes # (Manual) (1.2-3.4) K/uL Total Abs Lymphocytes (1.2-3.4) K/uL Monocytes # (Manual) (0.11-0.59) K/uL Eosinophils # (Manual) (0-0.5) K/uL Metamyelocytes # (Man) (0-0) K/uL Toxic Granulation Toxic Vacuolation Dohle Bodies Platelet Estimate (Normal) Giant Platelets PT (9.0-12.0) Seconds INR (0.9-1.1) APTT (21.0-31.0) Seconds PTT Ratio Fibrinogen (184-400) mg/dl VBG pH (7.36-7.41) VBG pCO2 (38-50) mmHg VBG pO2 mmHg VBG HCO3 mmol/L VBG O2 Saturation % VBG Base Excess mEq/L Barometric Pressure mm/Hg Sodium 126 L (136-145) mmol/L Potassium 3.7 (3.5-5.1) mmol/L Chloride 93 L (98-107) mmol/L Carbon Dioxide 19 L (21-32) mmol/L Anion Gap 14.0 H (3-11) BUN 52 H (7-18) mg/dl Creatinine 2.36 H (0.6-1.2) mg/dl Est Cr Clr Drug Dosing 37.6 ml/min Est GFR ( Amer) 24.2 Est GFR (Non-Af Amer) 20.9 BUN/Creatinine Ratio 22.2 H (10-20) Glucose 143 H (70-99) mg/dl POC Glucose (70-99) Osmolality (280-300) mOsm/kg Lactate (0.4-2.0) mmol/L Calcium 8.3 L (8.5-10.1) mg/dl Ionized Calcium (1.12-1.32) mmol/L Phosphorus 3.3 (2.5-4.9) mg/dl Magnesium 1.2 L (1.8-2.4) mg/dl Total Bilirubin (0.2-1) mg/dl Direct Bilirubin (0-0.2) mg/dl AST (15-37) U/L ALT (12-78) U/L Alkaline Phosphatase (45-117) U/L Troponin I < 0.015 (0-0.045) ng/ml NT-Pro-B Natriuret Pep 1542 H (0-900) pg/ml Total Protein (6.4-8.2) gm/dl Albumin (3.4-5.0) gm/dl Globulin (2.5-4.0) gm/dl Albumin/Globulin Ratio (0.9-2) Lipase 54 L (73-393) U/L Procalcitonin (0-0.5) ng/ml Random Cortisol 45.35 mcg/dl Urine Color Urine Appearance (Clear) Urine pH (4.5-7.5) Ur Specific [place] (1.000-1.030) Urine Protein (Negative) Urine Glucose (UA) (Negative) Urine Ketones (Negative) Urine Blood (Negative) Urine Nitrite (Negative) Urine Bilirubin (Negative) Urine Urobilinogen (Negative) Ur Leukocyte Esterase (Negative) Urine WBC (Auto) (0-5) /hpf Urine RBC (Auto) (0-4) /hpf U Hyaline Cast (Auto) (0-5) /lpf U Epithel Cells (Auto) (0-5) /lpf Urine Bacteria (Auto) (Negative) Urine Osmolality (500-800) mOsm/kg Acetaminophen (10-30) ug/ml Influenza Type A (PCR) (Neg) Influenza Type B (PCR) (Neg) Blood Type Antibody Screen 08/22/18 08/22/18 08/22/18 Range/Units 10:12 10:30 11:35 WBC (4.8-10.8) K/uL RBC (4.2-5.4) M/uL Hgb (12.0-16.0) g/dL Hct (37-47) % MCV (80-100) fL MCH (25-34) pg MCHC (32-36) g/dL RDW Std Deviation (36.4-46.3) fL RDW Coeff of Mechelle (11.5-14.5) % Plt Count (130-400) K/uL Neutrophils % (Manual) % Lymphocytes % (Manual) % Monocytes % (Manual) % Eosinophils % (Manual) % Metamyelocytes % (Man) % Neutrophils # (Manual) (1.4-6.5) K/uL Total Absolute Neuts (1.4-6.5) K/uL Lymphocytes # (Manual) (1.2-3.4) K/uL Total Abs Lymphocytes (1.2-3.4) K/uL Monocytes # (Manual) (0.11-0.59) K/uL Eosinophils # (Manual) (0-0.5) K/uL Metamyelocytes # (Man) (0-0) K/uL Toxic Granulation Toxic Vacuolation Dohle Bodies Platelet Estimate (Normal) Giant Platelets PT (9.0-12.0) Seconds INR (0.9-1.1) APTT (21.0-31.0) Seconds PTT Ratio Fibrinogen (184-400) mg/dl VBG pH 7.38 (7.36-7.41) VBG pCO2 37 L (38-50) mmHg VBG pO2 29 mmHg VBG HCO3 21 mmol/L VBG O2 Saturation < 60.0 % VBG Base Excess -3.3 mEq/L Barometric Pressure 737.2 mm/Hg Sodium (136-145) mmol/L Potassium (3.5-5.1) mmol/L Chloride (98-107) mmol/L Carbon Dioxide (21-32) mmol/L Anion Gap (3-11) BUN (7-18) mg/dl Creatinine (0.6-1.2) mg/dl Est Cr Clr Drug Dosing ml/min Est GFR ( Amer) Est GFR (Non-Af Amer) BUN/Creatinine Ratio (10-20) Glucose (70-99) mg/dl POC Glucose (70-99) Osmolality (280-300) mOsm/kg Lactate (0.4-2.0) mmol/L Calcium (8.5-10.1) mg/dl Ionized Calcium (1.12-1.32) mmol/L Phosphorus (2.5-4.9) mg/dl Magnesium (1.8-2.4) mg/dl Total Bilirubin (0.2-1) mg/dl Direct Bilirubin (0-0.2) mg/dl AST (15-37) U/L ALT (12-78) U/L Alkaline Phosphatase (45-117) U/L Troponin I (0-0.045) ng/ml NT-Pro-B Natriuret Pep (0-900) pg/ml Total Protein (6.4-8.2) gm/dl Albumin (3.4-5.0) gm/dl Globulin (2.5-4.0) gm/dl Albumin/Globulin Ratio (0.9-2) Lipase (73-393) U/L Procalcitonin (0-0.5) ng/ml Random Cortisol mcg/dl Urine Color Dark Yellow Urine Appearance Cloudy H (Clear) Urine pH 5.0 (4.5-7.5) Ur Specific [place] 1.018 (1.000-1.030) Urine Protein Negative (Negative) Urine Glucose (UA) Negative (Negative) Urine Ketones Negative (Negative) Urine Blood Negative (Negative) Urine Nitrite Positive H (Negative) Urine Bilirubin Negative (Negative) Urine Urobilinogen Negative (Negative) Ur Leukocyte Esterase Negative (Negative) Urine WBC (Auto) 1-5 (0-5) /hpf Urine RBC (Auto) 0-4 (0-4) /hpf U Hyaline Cast (Auto) 0 (0-5) /lpf U Epithel Cells (Auto) >30 H (0-5) /lpf Urine Bacteria (Auto) 1+ H (Negative) Urine Osmolality (500-800) mOsm/kg Acetaminophen (10-30) ug/ml Influenza Type A (PCR) Neg for Influ A (Neg) Influenza Type B (PCR) Neg for Influ B (Neg) Blood Type Antibody Screen 08/22/18 08/22/18 08/22/18 Range/Units 11:35 15:09 15:09 WBC (4.8-10.8) K/uL RBC (4.2-5.4) M/uL Hgb (12.0-16.0) g/dL Hct (37-47) % MCV (80-100) fL MCH (25-34) pg MCHC (32-36) g/dL RDW Std Deviation (36.4-46.3) fL RDW Coeff of Mechelle (11.5-14.5) % Plt Count (130-400) K/uL Neutrophils % (Manual) % Lymphocytes % (Manual) % Monocytes % (Manual) % Eosinophils % (Manual) % Metamyelocytes % (Man) % Neutrophils # (Manual) (1.4-6.5) K/uL Total Absolute Neuts (1.4-6.5) K/uL Lymphocytes # (Manual) (1.2-3.4) K/uL Total Abs Lymphocytes (1.2-3.4) K/uL Monocytes # (Manual) (0.11-0.59) K/uL Eosinophils # (Manual) (0-0.5) K/uL Metamyelocytes # (Man) (0-0) K/uL Toxic Granulation Toxic Vacuolation Dohle Bodies Platelet Estimate (Normal) Giant Platelets PT (9.0-12.0) Seconds INR (0.9-1.1) APTT (21.0-31.0) Seconds PTT Ratio Fibrinogen (184-400) mg/dl VBG pH (7.36-7.41) VBG pCO2 (38-50) mmHg VBG pO2 mmHg VBG HCO3 mmol/L VBG O2 Saturation % VBG Base Excess mEq/L Barometric Pressure mm/Hg Sodium (136-145) mmol/L Potassium (3.5-5.1) mmol/L Chloride (98-107) mmol/L Carbon Dioxide (21-32) mmol/L Anion Gap (3-11) BUN (7-18) mg/dl Creatinine (0.6-1.2) mg/dl Est Cr Clr Drug Dosing ml/min Est GFR ( Amer) Est GFR (Non-Af Amer) BUN/Creatinine Ratio (10-20) Glucose (70-99) mg/dl POC Glucose (70-99) Osmolality (280-300) mOsm/kg Lactate 4.5 H* (0.4-2.0) mmol/L Calcium (8.5-10.1) mg/dl Ionized Calcium (1.12-1.32) mmol/L Phosphorus (2.5-4.9) mg/dl Magnesium (1.8-2.4) mg/dl Total Bilirubin (0.2-1) mg/dl Direct Bilirubin (0-0.2) mg/dl AST (15-37) U/L ALT (12-78) U/L Alkaline Phosphatase (45-117) U/L Troponin I (0-0.045) ng/ml NT-Pro-B Natriuret Pep (0-900) pg/ml Total Protein (6.4-8.2) gm/dl Albumin (3.4-5.0) gm/dl Globulin (2.5-4.0) gm/dl Albumin/Globulin Ratio (0.9-2) Lipase (73-393) U/L Procalcitonin (0-0.5) ng/ml Random Cortisol mcg/dl Urine Color Urine Appearance (Clear) Urine pH (4.5-7.5) Ur Specific [place] (1.000-1.030) Urine Protein (Negative) Urine Glucose (UA) (Negative) Urine Ketones (Negative) Urine Blood (Negative) Urine Nitrite (Negative) Urine Bilirubin (Negative) Urine Urobilinogen (Negative) Ur Leukocyte Esterase (Negative) Urine WBC (Auto) (0-5) /hpf Urine RBC (Auto) (0-4) /hpf U Hyaline Cast (Auto) (0-5) /lpf U Epithel Cells (Auto) (0-5) /lpf Urine Bacteria (Auto) (Negative) Urine Osmolality 323 L (500-800) mOsm/kg Acetaminophen (10-30) ug/ml Influenza Type A (PCR) (Neg) Influenza Type B (PCR) (Neg) Blood Type A Positive Antibody Screen NEGATIVE 08/22/18 08/22/18 08/22/18 Range/Units 15:09 15:09 15:09 WBC (4.8-10.8) K/uL RBC (4.2-5.4) M/uL Hgb (12.0-16.0) g/dL Hct (37-47) % MCV (80-100) fL MCH (25-34) pg MCHC (32-36) g/dL RDW Std Deviation (36.4-46.3) fL RDW Coeff of Mechelle (11.5-14.5) % Plt Count (130-400) K/uL Neutrophils % (Manual) % Lymphocytes % (Manual) % Monocytes % (Manual) % Eosinophils % (Manual) % Metamyelocytes % (Man) % Neutrophils # (Manual) (1.4-6.5) K/uL Total Absolute Neuts (1.4-6.5) K/uL Lymphocytes # (Manual) (1.2-3.4) K/uL Total Abs Lymphocytes (1.2-3.4) K/uL Monocytes # (Manual) (0.11-0.59) K/uL Eosinophils # (Manual) (0-0.5) K/uL Metamyelocytes # (Man) (0-0) K/uL Toxic Granulation Toxic Vacuolation Dohle Bodies Platelet Estimate (Normal) Giant Platelets PT (9.0-12.0) Seconds INR (0.9-1.1) APTT (21.0-31.0) Seconds PTT Ratio Fibrinogen 297 (184-400) mg/dl VBG pH (7.36-7.41) VBG pCO2 (38-50) mmHg VBG pO2 mmHg VBG HCO3 mmol/L VBG O2 Saturation % VBG Base Excess mEq/L Barometric Pressure mm/Hg Sodium (136-145) mmol/L Potassium (3.5-5.1) mmol/L Chloride (98-107) mmol/L Carbon Dioxide (21-32) mmol/L Anion Gap (3-11) BUN (7-18) mg/dl Creatinine (0.6-1.2) mg/dl Est Cr Clr Drug Dosing ml/min Est GFR ( Amer) Est GFR (Non-Af Amer) BUN/Creatinine Ratio (10-20) Glucose (70-99) mg/dl POC Glucose (70-99) Osmolality (280-300) mOsm/kg Lactate (0.4-2.0) mmol/L Calcium (8.5-10.1) mg/dl Ionized Calcium 1.13 (1.12-1.32) mmol/L Phosphorus (2.5-4.9) mg/dl Magnesium (1.8-2.4) mg/dl Total Bilirubin (0.2-1) mg/dl Direct Bilirubin (0-0.2) mg/dl AST (15-37) U/L ALT (12-78) U/L Alkaline Phosphatase (45-117) U/L Troponin I (0-0.045) ng/ml NT-Pro-B Natriuret Pep (0-900) pg/ml Total Protein (6.4-8.2) gm/dl Albumin (3.4-5.0) gm/dl Globulin (2.5-4.0) gm/dl Albumin/Globulin Ratio (0.9-2) Lipase (73-393) U/L Procalcitonin (0-0.5) ng/ml Random Cortisol mcg/dl Urine Color Urine Appearance (Clear) Urine pH (4.5-7.5) Ur Specific [place] (1.000-1.030) Urine Protein (Negative) Urine Glucose (UA) (Negative) Urine Ketones (Negative) Urine Blood (Negative) Urine Nitrite (Negative) Urine Bilirubin (Negative) Urine Urobilinogen (Negative) Ur Leukocyte Esterase (Negative) Urine WBC (Auto) (0-5) /hpf Urine RBC (Auto) (0-4) /hpf U Hyaline Cast (Auto) (0-5) /lpf U Epithel Cells (Auto) (0-5) /lpf Urine Bacteria (Auto) (Negative) Urine Osmolality (500-800) mOsm/kg Acetaminophen 3 L (10-30) ug/ml Influenza Type A (PCR) (Neg) Influenza Type B (PCR) (Neg) Blood Type Antibody Screen 08/22/18 08/22/18 08/22/18 Range/Units 17:06 18:57 18:57 WBC (4.8-10.8) K/uL RBC (4.2-5.4) M/uL Hgb (12.0-16.0) g/dL Hct (37-47) % MCV (80-100) fL MCH (25-34) pg MCHC (32-36) g/dL RDW Std Deviation (36.4-46.3) fL RDW Coeff of Mechelle (11.5-14.5) % Plt Count (130-400) K/uL Neutrophils % (Manual) % Lymphocytes % (Manual) % Monocytes % (Manual) % Eosinophils % (Manual) % Metamyelocytes % (Man) % Neutrophils # (Manual) (1.4-6.5) K/uL Total Absolute Neuts (1.4-6.5) K/uL Lymphocytes # (Manual) (1.2-3.4) K/uL Total Abs Lymphocytes (1.2-3.4) K/uL Monocytes # (Manual) (0.11-0.59) K/uL Eosinophils # (Manual) (0-0.5) K/uL Metamyelocytes # (Man) (0-0) K/uL Toxic Granulation Toxic Vacuolation Dohle Bodies Platelet Estimate (Normal) Giant Platelets PT (9.0-12.0) Seconds INR (0.9-1.1) APTT (21.0-31.0) Seconds PTT Ratio Fibrinogen (184-400) mg/dl VBG pH (7.36-7.41) VBG pCO2 (38-50) mmHg VBG pO2 mmHg VBG HCO3 mmol/L VBG O2 Saturation % VBG Base Excess mEq/L Barometric Pressure mm/Hg Sodium 128 L (136-145) mmol/L Potassium 3.9 (3.5-5.1) mmol/L Chloride 96 L (98-107) mmol/L Carbon Dioxide 24 (21-32) mmol/L Anion Gap 8.0 (3-11) BUN 52 H (7-18) mg/dl Creatinine 2.15 H (0.6-1.2) mg/dl Est Cr Clr Drug Dosing 42.2 ml/min Est GFR ( Amer) 27.1 Est GFR (Non-Af Amer) 23.4 BUN/Creatinine Ratio 24.0 H (10-20) Glucose 161 H (70-99) mg/dl POC Glucose 183 H (70-99) Osmolality (280-300) mOsm/kg Lactate 3.0 H* (0.4-2.0) mmol/L Calcium 7.7 L (8.5-10.1) mg/dl Ionized Calcium (1.12-1.32) mmol/L Phosphorus 3.4 (2.5-4.9) mg/dl Magnesium 1.9 (1.8-2.4) mg/dl Total Bilirubin (0.2-1) mg/dl Direct Bilirubin (0-0.2) mg/dl AST (15-37) U/L ALT (12-78) U/L Alkaline Phosphatase (45-117) U/L Troponin I (0-0.045) ng/ml NT-Pro-B Natriuret Pep (0-900) pg/ml Total Protein (6.4-8.2) gm/dl Albumin (3.4-5.0) gm/dl Globulin (2.5-4.0) gm/dl Albumin/Globulin Ratio (0.9-2) Lipase (73-393) U/L Procalcitonin (0-0.5) ng/ml Random Cortisol mcg/dl Urine Color Urine Appearance (Clear) Urine pH (4.5-7.5) Ur Specific [place] (1.000-1.030) Urine Protein (Negative) Urine Glucose (UA) (Negative) Urine Ketones (Negative) Urine Blood (Negative) Urine Nitrite (Negative) Urine Bilirubin (Negative) Urine Urobilinogen (Negative) Ur Leukocyte Esterase (Negative) Urine WBC (Auto) (0-5) /hpf Urine RBC (Auto) (0-4) /hpf U Hyaline Cast (Auto) (0-5) /lpf U Epithel Cells (Auto) (0-5) /lpf Urine Bacteria (Auto) (Negative) Urine Osmolality (500-800) mOsm/kg Acetaminophen (10-30) ug/ml Influenza Type A (PCR) (Neg) Influenza Type B (PCR) (Neg) Blood Type Antibody Screen 08/22/18 Range/Units 18:58 WBC (4.8-10.8) K/uL RBC (4.2-5.4) M/uL Hgb (12.0-16.0) g/dL Hct (37-47) % MCV (80-100) fL MCH (25-34) pg MCHC (32-36) g/dL RDW Std Deviation (36.4-46.3) fL RDW Coeff of Mechelle (11.5-14.5) % Plt Count (130-400) K/uL Neutrophils % (Manual) % Lymphocytes % (Manual) % Monocytes % (Manual) % Eosinophils % (Manual) % Metamyelocytes % (Man) % Neutrophils # (Manual) (1.4-6.5) K/uL Total Absolute Neuts (1.4-6.5) K/uL Lymphocytes # (Manual) (1.2-3.4) K/uL Total Abs Lymphocytes (1.2-3.4) K/uL Monocytes # (Manual) (0.11-0.59) K/uL Eosinophils # (Manual) (0-0.5) K/uL Metamyelocytes # (Man) (0-0) K/uL Toxic Granulation Toxic Vacuolation Dohle Bodies Platelet Estimate (Normal) Giant Platelets PT (9.0-12.0) Seconds INR (0.9-1.1) APTT (21.0-31.0) Seconds PTT Ratio Fibrinogen (184-400) mg/dl VBG pH (7.36-7.41) VBG pCO2 (38-50) mmHg VBG pO2 mmHg VBG HCO3 mmol/L VBG O2 Saturation % VBG Base Excess mEq/L Barometric Pressure mm/Hg Sodium (136-145) mmol/L Potassium (3.5-5.1) mmol/L Chloride (98-107) mmol/L Carbon Dioxide (21-32) mmol/L Anion Gap (3-11) BUN (7-18) mg/dl Creatinine (0.6-1.2) mg/dl Est Cr Clr Drug Dosing ml/min Est GFR ( Amer) Est GFR (Non-Af Amer) BUN/Creatinine Ratio (10-20) Glucose (70-99) mg/dl POC Glucose (70-99) Osmolality (280-300) mOsm/kg Lactate (0.4-2.0) mmol/L Calcium (8.5-10.1) mg/dl Ionized Calcium 1.14 (1.12-1.32) mmol/L Phosphorus (2.5-4.9) mg/dl Magnesium (1.8-2.4) mg/dl Total Bilirubin (0.2-1) mg/dl Direct Bilirubin (0-0.2) mg/dl AST (15-37) U/L ALT (12-78) U/L Alkaline Phosphatase (45-117) U/L Troponin I (0-0.045) ng/ml NT-Pro-B Natriuret Pep (0-900) pg/ml Total Protein (6.4-8.2) gm/dl Albumin (3.4-5.0) gm/dl Globulin (2.5-4.0) gm/dl Albumin/Globulin Ratio (0.9-2) Lipase (73-393) U/L Procalcitonin (0-0.5) ng/ml Random Cortisol mcg/dl Urine Color Urine Appearance (Clear) Urine pH (4.5-7.5) Ur Specific [place] (1.000-1.030) Urine Protein (Negative) Urine Glucose (UA) (Negative) Urine Ketones (Negative) Urine Blood (Negative) Urine Nitrite (Negative) Urine Bilirubin (Negative) Urine Urobilinogen (Negative) Ur Leukocyte Esterase (Negative) Urine WBC (Auto) (0-5) /hpf Urine RBC (Auto) (0-4) /hpf U Hyaline Cast (Auto) (0-5) /lpf U Epithel Cells (Auto) (0-5) /lpf Urine Bacteria (Auto) (Negative) Urine Osmolality (500-800) mOsm/kg Acetaminophen (10-30) ug/ml Influenza Type A (PCR) (Neg) Influenza Type B (PCR) (Neg) Blood Type Antibody Screen Imaging Data Radiologist's Impression: Radiology results as stated below per my review and the radiologist's interpretation: XR chest 1V portable CLINICAL HISTORY: Sepsis dyspnea COMPARISON STUDY: 01/14/2013 FINDINGS: Central catheter in superior vena cava. Diaphragms smooth. Lungs are clear. IMPRESSION: No acute process. The above report was generated using voice recognition software. It may contain grammatical, syntax or spelling errors. Electronically signed by: Leonel Ann M.D. 08/22/2018 10:[address] OF THE CHEST WITHOUT IV CONTRAST CLINICAL HISTORY: Sepsis. Hypotension. Breast cancer. COMPARISON STUDY: Chest radiograph January 14, 2013 and August 22, 2018. CT DOSE: 2035.01 mGycm TECHNIQUE: Axial images of the chest were obtained without IV contrast. Images were reviewed in the axial, sagittal, and coronal planes. IV contrast was not administered for this examination. Automated exposure control was utilized for the study. A dose lowering technique was utilized adhering to the principles of ALARA. FINDINGS: A left subclavian [id number] is in place. No enlarged mediastinal or hilar lymph nodes are present. A mildly enlarged 1.2 x 1.2 cm right axillary lymph node is noted. A few additional prominent right axillary lymph nodes are noted. There is no left axillary lymphadenopathy. The heart is enlarged. There is no pericardial effusion. No pneumothorax or pleural effusion is noted. There are no suspicious point nodules. There is no consolidation to suggest pneumonia. Note is made of a 8 mm sclerotic lesion within the T6 vertebral body. This is probably benign but indeterminate. The abdomen and pelvis will be reported separately. The liver is cirrhotic. Trace perihepatic ascites is noted. Spleen is mildly enlarged. IMPRESSION: 1. No consolidation to suggest pneumonia. 2. Mild asymmetric right axillary lymphadenopathy which raises the possibility of nola spread of disease. This could be correlated with breast cancer history and prior imaging, if available. 3. Cirrhosis with trace perihepatic ascites and splenomegaly indicative of portal hypertension. 4. 8 mm sclerotic lesion within the T6 vertebral body which is indeterminate although probably benign. Electronically signed by: Artemio Pritchard M.D. 08/22/2018 11:[address] abd pelvis wo con CT DOSE: HISTORY: Sepsis. Pain. sepsis, hypotension, breast cancer TECHNIQUE: Multiaxial CT images of the abdomen and pelvis were performed without contrast. A dose lowering technique was utilized adhering to the principles of ALARA. COMPARISON STUDY: 01/14/2013. FINDINGS: Mild hepatic cirrhosis. Trace perihepatic ascites. Moderate splenomegaly unchanged. Pancreas is uniform, with evidence for a slight degree of peripancreatic infiltrative change involving the central pancreatic body and pancreatic uncinate process. Low-grade pancreatitis is considered.. Prior cholecystectomy. The kidneys are negative for calcification or hydronephrosis. No significant periaortic adenopathy. Bowel pattern overall is nonobstructive. Trace amount of free fluid within pelvic cul-de-sac and lower mesentery. Bladder is midline. There is a small air bubble most likely from a prior catheterization procedure IMPRESSION:: 1. Mild hepatic cirrhosis with a trace amount of perihepatic ascites 2. Stable moderate splenomegaly. 3. Nonobstructive bowel pattern. 4. Trace amount of free fluid within the low pelvic mesentery, with a slight degree of inflammatory change surrounding the pancreatic uncinate process body and pancreatic head is a possibility of low-grade pancreatitis 5. A mild secondary enteritis is considered. The above report was generated using voice recognition software. It may contain grammatical, syntax or spelling errors. Electronically signed by: Leonel Ann M.D. 08/22/2018 11:38 AM ECG Data Attestation: I personally reviewed and interpreted this ECG as follows: Indication: weakness Rate (beats per minute): 77 Rhythm: normal sinus Findings: + other (normal axis); no ST depression, no ST elevation and no acute ischemic change Blood Pressure Blood Pressure Findings: Low blood pressure Blood Pressure Disposition: further management by hospitalist BELINDA Narrative The patient is a 67-year-old woman with a past medical history of breast cancer currently undergoing treatment with the last treatment/chemotherapy 2 weeks ago, history of A. fib controlled on flecainide no longer on anticoagulation per the patient who presents emergency department with generalized weakness, rigors worsening over the past week found by EMS to be hypotensive with systolic blood pressure in the 50s and febrile to 101 in the field per hpi. On arrival the patient is ill/toxic appearing with blood pressure improved to 100-110s/50s-60 with IV fluid hydration. She is afebrile vital signs otherwise stable. Patient appears clinically dry. Lungs are otherwise clear. Mild erythema to the right lower extremity with mild warmth. No crepitus. EKG unremarkable without acute ischemia. Chest x-ray negative. Given the patient's ill appearance in the setting of fever in the field patient was ordered for blood cultures and empiric broad-spectrum antibiotics with vancomycin and cefepime. EKG without evidence of acute ischemia. Chest x-ray negative. CBC demonstrates pancytopenia WBC 0.75, H/H 9.4/26.6, Platelets 20 and ANC 0.38, which is new from 08/10/2018 labs in [facility] system when she was 5.1>13/38.9<93. Chemistry demonstrates new ARF with Cr 2.15 (0.7 on 08/10) and BUN 52. Gap acidosis with lactate of 4 albeit with VBG with normal pH. Total bilirubin 1.2 with direct bilirubin 0.8 however with AST, ALT, alk phos within normal limits. 2.0 in the setting of the patient not being on anticoagulation suggestive of shock liver in the setting of sepsis. Pro-calcitonin also elevated at 27 suggestive of sepsis. UA with nitrites and 1+ bacteria albeit with epithelial cells however likely infectious source. CT the chest and abdomen pelvis with evidence of mild cirrhosis and well as mild enteritis and otherwise without additional acute infectious process, although limited by lack of IV contrast. Case was discussed with Ji Reyes PA-C, who evaluate the patient for admission. Impression & Plan Sepsis, Neutropenia, Acute renal failure, Hypomagnesemia, Pancytopenia, Elevated INR Critical Care Time I have personally spent greater than 60 minutes of critical care time in the direct management of this patient. This includes bedside care, interpretation of diagnostic studies, and testing, discussion with consultants, patient, and family members, and other required patient management activities. This 60 minutes is in excess of all separately billable procedures. Critical Care Time: Yes Total Critical Care Time: 60 Discharge Plan Visit Data *Final* Discharge Date/Time: 08/22/18 13:38 Chief Complaint: Hypotension ED Provider: Moody Nesbitt Discharge Problem: Sepsis, Neutropenia, Acute renal failure, Hypomagnesemia, Pancytopenia, Elevated INR Patient Disposition: Admitted As Inpatient Discharge Instructions Interventions: ED Discharge Assessment Last Done: 08/22/18 13:38 The scribe's documentation has been prepared under my direction and personally reviewed by me in its entirety. I confirm that the note above accurately reflects all work, treatment, procedures, and medical decision making performed by me.
[2018-08-22] MEDS: NORMOSOL-R 1,000 ML IV SCH (18:48)
[2018-08-22 19:35] LABS: Calcium 7.7 mg/dl (8.5-10.1); Creatinine Clr Calc Pharmacy 42.2 ml/min; Est GFR (African American) 27.1; Est GFR (Non-African American) 23.4; Magnesium 1.9 mg/dl (1.8-2.4); Potassium 3.9 mmol/L (3.5-5.1)
[2018-08-22 19:36] LABS: Phosphorus 3.4 mg/dl (2.5-4.9)
[2018-08-22] MEDS: FLECAINIDE ACETATE 100 MG TABLET PO SCH (20:36)
--- NOTE | 2018-08-22 20:39 | Ultrasound Report ---
US abdomen limited CLINICAL HISTORY: 67 years-old Female presenting with RUQ, known mass, sepsis, + CA, pancreatitis, ? CBD. TECHNIQUE: Real-time grayscale and limited color Doppler ultrasound imaging of the abdomen limited to the right upper quadrant was performed. COMPARISON: CT from 08/22/2018. FINDINGS: Pancreas: Largely obscured due to overlying bowel gas. Liver: Hyperechogenic parenchyma with heterogeneous echotexture, likely indicating fibrosis or steato sis. The liver measures 19.8 cm in maximal sagittal dimension. No sonographic evidence of hepatic mas s. Main portal vein patent with normal directional flow. Biliary: No intrahepatic biliary ductal dilatation. Common bile duct measures up to 6 mm in diameter. Gallbladder: No evidence of gallstones, gallbladder wall thickening, gallbladder distention, or peric holecystic fluid or inflammatory change. Right kidney: Normal in appearance without evidence of hydronephrosis. Ascites: None. Other: None. IMPRESSION: Examination limited by body habitus. Mild hepatomegaly and possible underlying steatosis or fibrosis. No cholelithiasis or biliary ductal dilatation. Electronically signed by: Parveen Lawrence M.D. 08/22/2018 8:38 PM
--- NOTE | 2018-08-22 20:43 | Ultrasound Report ---
US duplex portal hepatic veins CLINICAL HISTORY: 67 years-old Female presenting with possible cirrhosis on noncontrast CT with ascit es and splenomegaly, clinical concern for budd Chiari. TECHNIQUE: Real-time grayscale and color and spectral Doppler ultrasound imaging of the liver was per formed. COMPARISON: Noncontrast CT from earlier today. FINDINGS: Evaluation limited by patient body habitus and bowel gas. Vasculature: Portal veins: Main portal vein with normal antegrade flow and gentle undulating waveforms. Peak veloc ity 19.6 cm/s. Right and left portal veins with normal directional flow. Hepatic arteries: Proper hepatic artery with normal parenchymal arterial waveforms. Peak systolic meagan ocity 65 cm/s. Hepatic veins: Right, middle, left hepatic veins are not well visualized. Stenosis of the veins is no t excluded. Splenic vein: Not interrogated. IVC: Not visualized. IMPRESSION: 1. Hepatic veins not well visualized. Stenosis cannot be excluded. Further evaluation with contrast- enhanced CT or MR is recommended if there is continuing clinical concern. Noncontrast MR could also b e obtained if the patient cannot receive contrast. 2. Portal veins and hepatic artery patent with normal flow. Electronically signed by: Parveen Lawrence M.D. 08/22/2018 8:42 PM
--- NOTE | 2018-08-22 20:45 | Ultrasound Report ---
US venous doppler LE BI CLINICAL HISTORY: 67 years-old Female presenting with sepsis, hypotension, history of breast cancer, r/o dvt. TECHNIQUE: Real-time grayscale and color and spectral Doppler ultrasound imaging of the veins of the bilateral lower extremities was performed. Compression and augmentation were also utilized. COMPARISON: 04/11/2014. FINDINGS: RIGHT: Common femoral vein: Patent. Greater saphenous vein (superficial): Patent. Deep femoral vein: Patent. Femoral vein: Patent. Popliteal vein: Patent. Calf veins: Limited visualization. LEFT: Common femoral vein: Patent. Greater saphenous vein (superficial): Patent. Deep femoral vein: Patent. Femoral vein: Patent. Popliteal vein: Patent. Calf veins: Limited visualization. Other: None. IMPRESSION: No evidence of deep venous thrombosis. Electronically signed by: Parveen Lawrence M.D. 08/22/2018 8:43 PM
[2018-08-22] MEDS: CLOTRIMAZOLE 10 MG TROCHE BUCCAL SCH (21:42)
[2018-08-22] MEDS: CEFEPIME 2,000 MG in SYRINGE 7.5 ML IV SCH (21:42)
[2018-08-23 01:20] LABS: BUN Creatinine Ratio 24.9 (10-20); Calcium 7.7 mg/dl (8.5-10.1); Creatinine Clr Calc Pharmacy 41.3 ml/min; Est GFR (African American) 26.4; Est GFR (Non-African American) 22.8; Magnesium 2.4 mg/dl (1.8-2.4); Potassium 3.5 mmol/L (3.5-5.1)
[2018-08-23 01:21] LABS: Phosphorus 3.2 mg/dl (2.5-4.9)
[2018-08-23] MEDS: MAGNESIUM SULFATE / D5W 1 GM/100 ML BAG IV SCH (04:47)
[2018-08-23] MEDS: NORMOSOL-R 1,000 ML IV SCH ×3 (05:48→21:48)
[2018-08-23] MEDS: CLOTRIMAZOLE 10 MG TROCHE BUCCAL SCH ×5 (06:29→22:33)
[2018-08-23 06:40] LABS: INR 1.9 (0.9-1.1); Prothrombin Time 18.3 Seconds (9.0-12.0)
[2018-08-23 06:51] LABS: Hematocrit (blood only) 25.4 % (37-47); Hemoglobin 9.1 g/dL (12.0-16.0); Mean Corpuscular Volume 86.1 fL (80-100); RDW Standard Deviation 50.8 fL (36.4-46.3); Red Blood Count 2.95 M/uL (4.2-5.4); White Blood Count 1.26 K/uL (4.8-10.8)
--- NOTE | 2018-08-23 07:06 | Critical Care Progress Note ---
Date of Service August 23, 2018 Assessment & Plan (1) Sepsis: Reason Critically Ill: 67-year-old female with history of breast cancer and Tomas cirrhosis presents with neutropenic fever, DARCIE, Pancytopenia Sepsis Patient is neutropenic and febrile, Lactic acid 4 in the ED, Repeat level, Pro-calcitonin 27 - Blood culture positive for gram-negative rods x1; urine culture pending, c- diff pending, Collect MRSA swab, Rapid flu negative, UA negative - Consider fungal or viral source Considering immunocompromisation -Antibiotic coverage narrowed to cefepime - Chest x-ray negative for pneumonia - f/u Legionella, mycoplasma, fungal cultures - No nuchal rigidity or neck pain on exam Neuro - [facility] ICU: Negative Cardiac - A. fib-currently holding home dose metoprolol due to hypotension, will reassess need for rate control Possible CHF- Patient denies history of diagnosis but shows she takes Lasix 4 feet swelling -Follow up echo report - will monitor and consider diuresis as necessary Respiratory Asthma- Continue home methylprednisolone and Xopenex -Stable on 2 L nasal cannula GI - Liver failure/ Pancreatitis- History of Tomas cirrhosis - Total bili 1.3, Lipase 54, AST and ALT unremarkable - Monitor with daily LFTs -Ultrasound imaging views limited due to patient's obesity -CT abdomen and pelvis: cirrhosis with trace perihepatic ascites and splenomegaly, indicated with portal hypertension; possible pancreatitis DiarrheaC. difficile culture collected and pending, follow-up RENAL/LYTES - Acute kidney injury- BUN 61, creatinine 2.19, unsure of baseline - Bicarb 23 - Avoid nephrotoxins, monitor BMPs, optimize perfusion -Continue Normosol at 125 Hypomagnesemiaresolved Hyponatremiasodium 130 from 127, improving, Osmo 279 -monitor with routine BMPs - Meek, urine culture pending, UA negative ENDO - History of pre-diabetes, Currently euglycemic, follow ICU glycemic protocol HEME - Neutropenic Fever- WBC 1.5, neutrophil 0.53 - Continue neutropenic precautions Pancytopenia- H&H 9 and 26 (stable), platelet 26,000 (improving) - will continue to monitor with routine CBCs, Consider platelet infusion if worsened -Type and screen collected ID - cefepime, follow-up cultures -See sepsis above LINES/IV ACCESS - Mediport Accessed in ED DVT PROPHYLAXIS - SCDs, anticoagulation contraindicated due to INR 2.0, thrombocytopenia Full code (2) Acute kidney injury: (3) Neutropenia: (4) Prediabetes: (5) Asthma: (6) Atrial fibrillation: (7) Liver mass: (8) Breast cancer, stage 2: (9) 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 I agree with assessment and plan of Balbina GUILLAUME. Atrial fibrillation: -Optimize electrolytes -20 M EQ's potassium chloride -Hypomagnesemia resolved -Currently rate controlled -Could consider systemic anti-coag this is difficult very significant thrombo-cytopenia Dyspnea -Improved with nasal cannula Breast cancer Neutropenic fever: White count improved Liver mass -Meld 26 down from 29 yesterday Adverse effect of chemotherapy -Given breast cancer and liver mass of unknown known source this could be considered stage IV disease with distant metastases. Diet: Regular diet Severe sepsis -Acute Kidney injury -Continue IV fluids at 125 -Lactic acidosis improved -Likely hepatically insufficient so slow metabolizer of lactate Gram-negative bacteremia -Reviewed ID recommendations, will discontinue daptomycin continue cefepime Pancytopenia -SCDs as chemical prophylaxis is contraindicated given significant thrombocytopenia Patient's vitals have its. She does not require critical care interventions at this time. She would be appropriate for down to telemetry status. Would consider palliative care consult Subjective Ms. Taylor 67-year-old female past medical history Breast cancer, Tomas cirrhosis, morbid obesity, asthma Who presented to the emergency department via EMS.She had become increasingly short of breath, weak this morning.She reports having fevers of up to 105 degrees for the past 2 weeks, of which she also reports that she was supposed to call her physician but did not, and took Tylenol. She also reports shortness of breath and swelling in lower extremities bilaterally that started approximately 3 days ago. She denies chest pain, nausea and vomiting, Abdominal pain, Headache, or loss of consciousness. She states that she was diagnosed with cancer 2 days before [place], and had completed first round of chemo with a Adriamycin and Cytoxan, and was supposed to receive 3 more rounds every 2 weeks for a total of 4 doses. She was admitted to the ICU yesterday with sepsis, neutropenia, acute kidney injury, and liver failure. She is currently hemodynamically stable, not requiring pressors on nasal cannula. Currently stable for downgrade to telemetry. Review of Systems All systems reviewed & are unremarkable except as noted in HPI & below Constitutional: + fever, + chills and + fatigue Gastrointestinal: + diarrhea/loose stools; no abdominal pain, no nausea and no coffee ground emesis Integumentary: + rash Neurologic: no headache(s) and no confusion Physical Exam Vital Signs (Past 24 Hours): Last Vital Signs Temp 36.8 C 08/23/18 04:00 Pulse 70 08/23/18 06:00 Resp 16 08/23/18 06:00 BP 94/37 L 08/23/18 06:00 Pulse Ox 94 08/23/18 06:00 Constitutional: + obese, cooperative and comfortable Eyes: PERRL, conjunctivae normal, anicteric sclerae Neck: trachea midline, no thyromegaly Respiratory: normal respiratory effort, lungs clear to auscultation normal respiratory effort Auscultation: lungs clear to auscultation bilaterally Cardiovascular: RRR, no murmur, no edema Heart Sounds: normal S1 and normal S2 Vessels: no JVD Extremities: normal capillary refill, + pedal edema and + edema Gastrointestinal (Abdomen): abdomen obese, soft, nontender. Bowel sounds hyperactive in all four quadrants Skin: no rashes, warm and dry + rash (right lower extremity) Neurologic: PERRL, EOMI, accommodation nl, no face palsy, no dysarthria Psychiatric: A+Ox3, euthymic affect Genitourinary: meek inserted, adequate urine output
[2018-08-23 07:12] LABS: Alanine Aminotransferase 47 U/L (12-78); Albumin Level 1.6 gm/dl (3.4-5.0); Aspartate Aminotransferase 35 U/L (15-37); Blood Urea Nitrogen 61 mg/dl (7-18); Carbon Dioxide 23 mmol/L (21-32); Chloride 97 mmol/L (98-107); Creatinine Clr Calc Pharmacy 41.4 ml/min; Est GFR (African American) 26.5; Est GFR (Non-African American) 22.9; Glucose 124 mg/dl (70-99); Magnesium 2.4 mg/dl (1.8-2.4); Potassium 3.3 mmol/L (3.5-5.1); Sodium 130 mmol/L (136-145)
[2018-08-23 07:17] LABS: Albumin Globulin Ratio 0.5 (0.9-2); Alkaline Phosphatase 62 U/L (45-117); Bilirubin,Total 1.2 mg/dl (0.2-1); Globulin 3.5 gm/dl (2.5-4.0); Phosphorus 3.1 mg/dl (2.5-4.9); Total Protein 5.1 gm/dl (6.4-8.2); Troponin I < 0.015 ng/ml (0-0.045)
[2018-08-23 07:24] LABS: Mean Corpuscular Hgb Conc 35.8 g/dL (32-36); Platelet Count 26 K/uL (130-400)
[2018-08-23] MEDS: FLECAINIDE ACETATE 100 MG TABLET PO SCH ×2 (08:02→21:44)
[2018-08-23 08:11] LABS: Dohle Bodies 2+; Echinocytes 1+; Giant Platelets 1+; Platelet Estimate Decreased (Normal); Toxic Granulation 3+; Toxic Vacuolation 2+
[2018-08-23 08:12] LABS: ALC (manual) 0.37 K/uL (1.2-3.4); Basophils # (manual) 0.01 K/uL (0-0.2); Blast # (manual) 0.03 K/uL (0-0); Eosinophils # (manual) 0.03 K/uL (0-0.5); Lymphocytes # (manual) 0.37 K/uL (1.2-3.4); Monocytes # (manual) 0.25 K/uL (0.11-0.59); Myelocytes # (manual) 0.01 K/uL (0-0); Nucleated RBC # (auto) 0.03 K/uL (0-0); Promyelocytes # (manual) 0.04 K/uL (0-0)
[2018-08-23] MEDS: CEFEPIME 2,000 MG in SYRINGE 7.5 ML IV SCH ×2 (10:04→21:44)
--- NOTE | 2018-08-23 10:37 | Infectious Disease Consult ---
Date of Consultation August 23, 2018 Assessment & Plan (1) Gram negative sepsis: 67-year-old female with breast cancer gram-negative sepsis in the setting of neutropenia. Cefepime appropriate treatment pending final identification and sensitivity, can likely discontinue daptomycin. Will need to discuss removal of central catheter given presence of gram-negative bacteremia. Will discuss with all involved. Will follow. (2) Neutropenia: History of Present Illness Reason for Consultation: Daptomycin, fever with neutropenia Attending Physician: Marcela Barbour MD History of Present Illness 67-year-old female with known recently diagnosed breast cancer, on chemotherapy, as well as an GALLO with cirrhosis, atrial fibrillation, prediabetes, probable well differentiated hepatocellular carcinoma awaiting treatment decision, who was admitted after several days of fever to 103, weakness and fatigue with chills. She is found to be hypotensive with evidence of sepsis with elevated lactic acid with pro-calcitonin 27 as well as pancytopenia.. Patient started empirically on daptomycin and cefepime. Blood cultures now reported positive for gram-negative bacilli. Patient has indwelling central line, no obvious problems recently. White count slightly better today at 1600.She is complaining of mild shortness of breath and leg swelling. Denies any significant cough or sputum production, GI or complaints. Allergies Allergy/AdvReac Type Severity Reaction Status Date / Time clarithromycin Allergy Severe RASH Verified 02/13/18 08:20 Penicillins Allergy Severe ANAPHYLACTIC Verified 02/13/18 08:20 SHOCK epinephrine Allergy Unknown THROAT Verified 02/13/18 08:20 SWELLING, PASSED OUT, HEART RACING montelukast Allergy Unknown PALPITATION Verified 02/13/18 08:20 S Home Medications Home Medications Medication Instructions Recorded Confirmed Type Lactobacillus rhamnosus GG 1 cap PO DAILY 08/22/18 08/22/18 History [Culturelle] cholecalciferol (vitamin D3) 3,000 unit PO DAILY 08/22/18 08/22/18 History diphenhydramine HCl [Benadryl] 25 mg PO HS PRN 08/22/18 08/22/18 History flecainide 1 tab PO BID 08/22/18 08/22/18 History furosemide 1 tab PO QAM 08/22/18 08/22/18 History levalbuterol tartrate [Xopenex HFA] 2 inh INHALATION BID 08/22/18 08/22/18 History methylprednisolone 1 - 2 tab PO DAILY 08/22/18 08/22/18 History metoprolol tartrate [Lopressor] 50 mg PO BID 08/22/18 08/22/18 History multivitamin 1 tab PO DAILY 08/22/18 08/22/18 History omeprazole 1 cap PO QAM 08/22/18 08/22/18 History oxycodone 10 mg PO Q6H PRN 08/22/18 08/22/18 History prochlorperazine maleate 10 mg PO Q6H PRN 08/22/18 08/22/18 History [Compazine] promethazine 25 mg PO Q8H PRN 08/22/18 08/22/18 History Patient History Medical History Prediabetes (Chronic) Asthma (Chronic) Atrial fibrillation (Chronic) Morbid obesity (Chronic) Liver mass (Chronic) Breast cancer, stage 2 (Chronic) Psoriatic arthritis (Chronic) 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) Breast cancer (Chronic) Surgical History History of breast lump/mass excision (Resolved) Hx of appendectomy (Resolved) H/O: hysterectomy (Resolved) Family History Other Colon cancer Pancreatic cancer Social History Preferred Language: Amharic Communication Ability: Effective Insulation Nozzleman Required: No Beliefs That Will Affect Care: None Current Living Situation: Spouse Other Information That Helps Us Care for You: No Feels Safe at Home: Yes Safety Concerns: Feels Safe At This Time Smoking Status: Never smoker Hx Alcohol Use: No Hx Substance Use: No Review of Systems All systems were reviewed and are negative except as per HPI Physical Exam Vital Signs (Past 24 Hours): Last Vital Signs Temp 37 C 08/23/18 09:00 Pulse 91 H 08/23/18 09:00 Resp 18 08/23/18 09:00 BP 91/51 L 08/23/18 09:00 Pulse Ox 95 08/23/18 09:00 Constitutional: WD/WN, vitals as above comfortable; no acute distress Eyes: PERRL, conjunctivae normal, anicteric sclerae ENMT: external ear and nose normal, oropharynx normal Neck: trachea midline, no thyromegaly neck nontender Respiratory: normal respiratory effort, lungs clear to auscultation normal percussion; does not use accessory muscles Cardiovascular: Rate/Rhythm: regular rate and regular rhythm Heart Sounds: normal S1 and normal S2; no gallop, no murmur and no cardiac rub Vessels: normal peripheral pulses; no JVD Gastrointestinal (Abdomen): normal bowel sounds, soft, nontender, no hepatosplenomegaly Musculoskeletal: no cyanosis or clubbing, extremities motor strength 5/5 Spine: thoracic spine normal to inspection and lumbar spine normal to inspection; no cervical spinal tenderness Skin: no rashes, warm and dry normal turgor; no lesions Neurologic: patellar DTR's 2+ bilat, sensation intact no focal motor deficits Psychiatric: A+Ox3, euthymic affect Orientation: cooperative Lymphatic: no cervical or axillary lymphadenopathy no inguinal lymphadenopathy Results & Data Laboratory Results Short CBC 08/22/18 08/23/18 Range/Units 10:00 06:21 WBC 0.75 L* 1.26 L (4.8-10.8) K/uL Hgb 9.4 L 9.1 L (12.0-16.0) g/dL Hct 26.6 L 25.4 L (37-47) % Plt Count 20 L* 26 L* (130-400) K/uL [facility] 08/22/18 08/22/18 08/23/18 10:00 18:57 00:56 Sodium 126 L 128 L 128 L Potassium 3.7 3.9 3.5 Chloride 93 L 96 L 97 L Carbon Dioxide 19 L 24 22 BUN 52 H 52 H 55 H Creatinine 2.36 H 2.15 H 2.20 H Glucose 143 H 161 H 145 H Calcium 8.3 L 7.7 L 7.7 L 08/23/18 06:21 Sodium 130 L Potassium 3.3 L Chloride 97 L Carbon Dioxide 23 BUN 61 H Creatinine 2.19 H Glucose 124 H Calcium 8.0 L Cardiac Enzymes 08/22/18 08/23/18 Range/Units 10:00 06:21 Troponin I < 0.015 < 0.015 (0-0.045) ng/ml Liver Function 08/23/18 Range/Units 06:21 Total Bilirubin 1.2 H (0.2-1) mg/dl AST 35 (15-37) U/L ALT 47 (12-78) U/L Alkaline Phosphatase 62 (45-117) U/L Albumin 1.6 L (3.4-5.0) gm/dl Urine 08/22/18 Range/Units 11:35 Urine Color Dark Yellow Urine Appearance Cloudy H (Clear) Urine pH 5.0 (4.5-7.5) Ur Specific [place] 1.018 (1.000-1.030) Urine Protein Negative (Negative) Urine Glucose (UA) Negative (Negative) Diagnostic Findings Microbiology 08/22/18 10:00 Blood Blood Culture - Preliminary Gram negative bacilli cc: ~ CT OF THE CHEST WITHOUT IV CONTRAST CLINICAL HISTORY: Sepsis. Hypotension. Breast cancer. COMPARISON STUDY: Chest radiograph January 14, 2013 and August 22, 2018. CT DOSE: 2035.01 mGycm TECHNIQUE: Axial images of the chest were obtained without IV contrast. Images were reviewed in the axial, sagittal, and coronal planes. IV contrast was not administered for this examination. Automated exposure control was utilized for the study. A dose lowering technique was utilized adhering to the principles of ALARA. FINDINGS: A left subclavian [id number] is in place. No enlarged mediastinal or hilar lymph nodes are present. A mildly enlarged 1.2 x 1.2 cm right axillary lymph node is noted. A few additional prominent right axillary lymph nodes are noted. There is no left axillary lymphadenopathy. The heart is enlarged. There is no pericardial effusion. No pneumothorax or pleural effusion is noted. There are no suspicious point nodules. There is no consolidation to suggest pneumonia. Note is made of a 8 mm sclerotic lesion within the T6 vertebral body. This is probably benign but indeterminate. The abdomen and pelvis will be reported separately. The liver is cirrhotic. Trace perihepatic ascites is noted. Spleen is mildly enlarged. IMPRESSION: 1. No consolidation to suggest pneumonia. 2. Mild asymmetric right axillary lymphadenopathy which raises the possibility of nola spread of disease. This could be correlated with breast cancer history and prior imaging, if available. 3. Cirrhosis with trace perihepatic ascites and splenomegaly indicative of portal hypertension. 4. 8 mm sclerotic lesion within the T6 vertebral body which is indeterminate although probably benign. Electronically signed by: Artemio Pritchard M.D. 08/22/2018 11:40 AM Dictated: 08/22/18 1130 Transcribed: 08/22/18 1130
[2018-08-23] MEDS: POTASSIUM CHLORIDE / WTR 10 MEQ/100 ML PLCT IV SCH ×2 (11:21→13:01)
[2018-08-23] MEDS: PROSOURCE NO CARB 30 ML/PKT PO SCH (16:53)
--- NOTE | 2018-08-23 17:02 | Hospitalist Progress Note ---
Date of Service August 23, 2018 Assessment & Plan (1) Severe sepsis: this is a 67 yo F with recently diagnosed Breast CA( May 2018 ) s/p lumpectomy of right breast , on chemo , chronic Afib ,GALLO cirrhosis admitted diarrhea , SOB , fever/chills , cloudy urine for x3 days found to be febrile , pancytopenic , hypotensive in ER ( BP 50/30 ) , pt received chemo for breast Ca stage 2 weeks back meets CMS Criteria for severe sepsis : neutropenia , fever , tachycardic , hypotensive, elevated lactic acid /pro calcitonin source infection : possible line /A port infection ( gram negative bacilli ) pt was admitted to ICU received IV fluid resuscitation /did not require pressors , appreciate input from [employer] /ICU team Initally was started on Broad spectrum IV abx -Daptomycin /Cefepime ( pt has severe allergic reaction to PCN ) Cxray shows no infiltrate CT abdomen /pelvis : no active pathology blood culture 08/22: 1 bottle gram negative bacilli appreciate input from ID Dr Ramos pt is continued with IV cefepime ; Dc Dapto repeat Blood culture ordered A -port needs to be removed , vascular surgery consulted ordered for NPO for possible port removal today ECHO shows : hyperdynamic EF suggestive of intravascular vol depletion no valvular vegetation reported pts vitals remains stable to be transferred out of ICU Present on Admission?: Yes (2) Gram-negative bacteremia: possible cause of sepsis on IV cefepime repeat blood culture ordered has A port recent chemo tx for breath CA presents with fever /sepsis in immunocompromised state appreciate input from ID A port needs to be removed -for concern of infection vascular surgery consulted keep pt NPO past midnight for vascular eval in AM Present on Admission?: Yes (3) Neutropenia: ANC < 0.7 due to recent chemo tx stage 2 Breast CA s/p recent chemo Adiramycin /Cytoxan follows with heme onc Dr Conde at [facility] follow daily CBC with diff neutropenic precaution (4) Pancytopenia: on admission Wbc of 0.75, hgb of 9.4, platelets 20 -due to recent chemo worsened with severe sepsis -follow daily CBC with WBC improved 1.2 , platelet 26 neutropenic precaution broad spectrum abx , removal of A port due to gram negative bacteremia as outlined above pt recieved [facility] on 08/10/2018 D/w Dr Duke ( heme/onc ) pt will not need repeat Nulesta recommend cont management of Sepsis next chemo has to be on hold for at least 2 weeks till bacteremia /line infection resolved Pt's Primary oncology Dr Conde at [facility] updated (5) Acute kidney injury: due to severe sepsis /dehydration also need to consider possible side effect of chemo was on Lasix for lower ext edema Cr elevated at 2.36 (baseline ~0.8) pt given aggressive resuscitatioan hold Lasix avoid NSAID's /contrast studies meek placed , adequate urine out put noted follow PRP closely nephrology eval requested CT abdomen/Pelvis shows no evidence of renal /ureteral or bladder outlet obstruciton (6) Breast cancer, stage 2: Absolute neutrophil count of 0.38 -In setting of breast cancer, cycle of Adriamycin and Cytoxan on Aug 10 -Also receiving Neulasta -Neutropenic precautions (7) Atrial fibrillation: Stable. 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: CT abd/pelvis with evidence of cirrhosis with trace perihepatic ascites and splenomegaly indicative of portal hypertension -Total bili 1.3, AST and ALT unremarkable -Monitor with daily LFTs -Dopplar USG of liver : no evidence of portal vein thrombosis (10) Liver mass: Dysplastic liver nodule with well-differentiated HCC -follows with Hepatology /oncology in [place] (11) Psoriatic arthritis: was on solu-medrol started on stress dose of IV hydrocortisone -hypotension /severe sepeis DVT Ppx: Pharmacologic VTE ppx contraindicated with thrombocytopenia SCD and teds OOB as tolerated , increased activity Code status: FULL Dispo: stable to be transferred to TELE PT/OT eval (12) History of breast lump/mass excision: (13) Morbid obesity: BMI> 50 GALLO cirrhosis counselling for exercise 'diet /weight reduction nutrition consult (14) Asthma: Stable. Continue Xopenex inhaler (15) Discharge planning issues: Subjective pt seen in ICU 102 lying in bed , very anxious , requesting for Physical therapy to see her does not want to lose her strength remains afebrile BP remains borderline low denies of any dizzy spell ( been in bed /thinks she will feel dizzy if sits up ) no nausea/vomiting, no complain of abdominal pain -no issues with finishing dinn er tamy has ongoing loose stool /Diarrhea ( says it started after the chemo tx ) Physical Exam Vital Signs (Past 24 Hours): Last Vital Signs Temp 37 C 08/23/18 15:00 Pulse 102 H 08/23/18 16:00 Resp 18 08/23/18 16:00 BP 88/50 L 08/23/18 16:00 Pulse Ox 97 08/23/18 16:00 Constitutional: WD/WN, vitals as above + obese, cooperative and comfortable; no acute distress Eyes: PERRL, conjunctivae normal, anicteric sclerae ENMT: external ear and nose normal, oropharynx normal Neck: trachea midline, no thyromegaly neck nontender Respiratory: normal respiratory effort, lungs clear to auscultation normal respiratory effort and normal percussion; does not use accessory muscles Auscultation: lungs clear to auscultation bilaterally Cardiovascular: RRR, no murmur, no edema Rate/Rhythm: regular rate and regular rhythm Heart Sounds: normal S1 and normal S2; no gallop, no murmur and no cardiac rub Vessels: normal peripheral pulses; no JVD Extremities: normal capillary refill, + pedal edema and + edema Gastrointestinal (Abdomen): normal bowel sounds, soft, nontender, no hepatosplenomegaly Musculoskeletal: Spine: no cervical spinal tenderness A port present on left ant chest wall no surrounding swelling, tenderness or erythema present Skin: normal turgor and + rash (right lower extremity); no lesions Neurologic: patellar DTR's 2+ bilat, sensation intact and PERRL, EOMI, accommodation nl, no face palsy, no dysarthria no focal motor deficits Psychiatric: A+Ox3, euthymic affect Orientation: cooperative (1) Atrial fibrillation Atrial fibrillation type: chronic Qualified Code(s): I48.2 - Chronic atrial fibrillation (2) Breast cancer, stage 2 Laterality: unspecified laterality Qualified Code(s): C50.919 - Malignant neoplasm of unspecified site of unspecified female breast (3) Neutropenia Neutropenia type: secondary to cancer chemotherapy Qualified Code(s): D70.1 - Agranulocytosis secondary to cancer chemotherapy; T45.1X5A - Adverse effect of antineoplastic and immunosuppressive drugs, initial encounter (4) Asthma Asthma complication type: uncomplicated Asthma persistence: persistent Asthma severity: unspecified severity Qualified Code(s): J45.909 - Unspecified asthma, uncomplicated
[2018-08-23] MEDS ORDERED: PROCHLORPERAZINE MALEATE 10 MG TAB PO PRN (19:51)
[2018-08-23] MEDS: LEVALBUTEROL TARTRATE 15 GM HFA.AER.AD INH SCH (21:48)
[2018-08-24 06:18] LABS: Hemoglobin 9.7 g/dL (12.0-16.0); Mean Corpuscular Hgb Conc 35.9 g/dL (32-36); Mean Platelet Volume 12.5 fL (7.4-10.4); Nucleated RBC # (auto) 0.04 K/uL (0-0); Nucleated RBC % (auto) 1.1 %; Platelet Count 58 K/uL (130-400); RDW Coefficient of Variation 16.4 % (11.5-14.5); RDW Standard Deviation 51.4 fL (36.4-46.3); Red Blood Count 3.14 M/uL (4.2-5.4); White Blood Count 3.19 K/uL (4.8-10.8)
[2018-08-24] MEDS: NORMOSOL-R 1,000 ML IV SCH ×2 (06:20→13:11)
[2018-08-24] MEDS ORDERED: HYDROCORTISONE SOD 100 MG in SYRINGE 0 ML IV SCH (06:45)
[2018-08-24 06:50] LABS: Albumin Level 1.5 gm/dl (3.4-5.0); Bilirubin Direct 0.8 mg/dl (0-0.2); Calcium 8.2 mg/dl (8.5-10.1); Creatinine Clr Calc Pharmacy 63.6 ml/min; Est GFR (African American) 44.4; Est GFR (Non-African American) 38.3; Potassium 3.3 mmol/L (3.5-5.1)
[2018-08-24 06:52] LABS: INR 1.6 (0.9-1.1); Prothrombin Time 15.7 Seconds (9.0-12.0)
[2018-08-24 06:54] LABS: Albumin Globulin Ratio 0.4 (0.9-2); Bilirubin,Total 1.2 mg/dl (0.2-1); Globulin 3.6 gm/dl (2.5-4.0); Total Protein 5.1 gm/dl (6.4-8.2)
[2018-08-24 06:56] LABS: Basophils # (auto) 0.03 K/uL (0-0.2); Basophils % (auto) 0.9 %; Dohle Bodies 1+; Eosinophils # (auto) 0.02 K/uL (0-0.5); Eosinophils % (auto) 0.6 %; Giant Platelets 1+; Immature Granulocytes # (auto) 0.03 K/uL (0.00-0.02); Immature Granulocytes % (auto) 0.9 %; Lymphocytes # (auto) 0.45 K/uL (1.2-3.4); Lymphocytes % (auto) 14.1 %; Monocytes # (auto) 0.65 K/uL (0.11-0.59); Monocytes % (auto) 20.4 %; Neutrophils # (auto) 2.01 K/uL (1.4-6.5); Neutrophils % (auto) 63.1 %; Toxic Granulation 2+; Toxic Vacuolation 1+
--- NOTE | 2018-08-24 06:56 | Hospitalist Progress Note ---
Date of Service August 24, 2018 Subjective Made aware by RN of left upper buttock wound noted to have surrounding erythema/warmth to touch. Add Doxycycline to Cefepime. Will relay to AM provider. Physical Exam Vital Signs (Past 24 Hours): Last Vital Signs Temp 37.0 C 08/24/18 03:47 Pulse 104 H 08/24/18 06:07 Resp 22 08/24/18 06:07 BP 93/66 L 08/24/18 06:07 Pulse Ox 98 08/24/18 06:07
[2018-08-24] MEDS ORDERED: DOXYCYCLINE HYCLATE 100 MG in DEXTROSE 5% 100 ML IV STA (06:59)
[2018-08-24 07:01] LABS: Echinocytes 1+
[2018-08-24] MEDS: CLOTRIMAZOLE 10 MG TROCHE BUCCAL SCH ×5 (09:28→22:50)
[2018-08-24] MEDS: CHOLECALCIFEROL 1,000 UNITS TAB PO SCH (09:28)
[2018-08-24] MEDS: PANTOprazole 40 MG TAB PO SCH (09:28)
[2018-08-24] MEDS: CEFEPIME 2,000 MG in SYRINGE 7.5 ML IV SCH (09:28)
[2018-08-24] MEDS: LEVALBUTEROL TARTRATE 15 GM HFA.AER.AD INH SCH ×2 (09:29→21:30)
[2018-08-24] MEDS: MULTIVITAMIN TAB PO SCH (09:29)
[2018-08-24] MEDS: FLECAINIDE ACETATE 100 MG TABLET PO SCH ×2 (09:29→21:31)
[2018-08-24] MEDS: SACCHAROMYCES BOULARDII 250 MG CAP PO SCH (09:29)
[2018-08-24] MEDS: PROSOURCE NO CARB 30 ML/PKT PO SCH ×3 (09:30→17:37)
--- NOTE | 2018-08-24 09:35 | Consultation ---
Date of Consultation August 24, 2018 Assessment & Plan (1) Infected venous access port: Pt discussed with Dr Hernandez, planning on removal of infusaport later today. Pt agreeable. Patient was seen, examined, and chart reviewed. Agree with exam and treatment plan of the Vascular PA. Will remove port today. I have discussed the risks options and benefits of the procedure with the patient. The patient understands the risks options and benefits and agrees to the procedure. Present on Admission?: Yes History of Present Illness Reason for Consultation: infected A port Attending Physician: Sy Valle MD History of Present Illness 67 yo f with hx of a fib, breast ca, psoriasis, liver cirrhosis, admitted with severe sepsis and found to have E coli bacteremia, seen in consultation today for removal of likely infected A port. Pt states she uses her port Q 2 weeks fo r treatments, last use approx 2 weeks ago. Is upset because this will delay her treatments. Noted to have pancytopenia on arrival to [facility], including severe neutropenia and thrombocytopenia. Both have improved slightly since administration of abx. Admits some tenderness of port site, this has only been present for past 2-3 days. Admits malaise, fatigue. Denies PEREZ, chills, chest pain, SOB, abd pain, N/V, rest pain, claudication, other complaints. Allergies Allergy/AdvReac Type Severity Reaction Status Date / Time clarithromycin Allergy Severe RASH Verified 02/13/18 08:20 Penicillins Allergy Severe ANAPHYLACTIC Verified 02/13/18 08:20 SHOCK epinephrine Allergy Unknown THROAT Verified 02/13/18 08:20 SWELLING, PASSED OUT, HEART RACING montelukast Allergy Unknown PALPITATION Verified 02/13/18 08:20 S Home Medications Home Medications Medication Instructions Recorded Confirmed Type Lactobacillus rhamnosus GG 1 cap PO DAILY 08/22/18 08/22/18 History [Culturelle] cholecalciferol (vitamin D3) 3,000 unit PO DAILY 08/22/18 08/22/18 History diphenhydramine HCl [Benadryl] 25 mg PO HS PRN 08/22/18 08/22/18 History flecainide 1 tab PO BID 08/22/18 08/22/18 History furosemide 1 tab PO QAM 08/22/18 08/22/18 History levalbuterol tartrate [Xopenex HFA] 2 inh INHALATION BID 08/22/18 08/22/18 History methylprednisolone 1 - 2 tab PO DAILY 08/22/18 08/22/18 History metoprolol tartrate [Lopressor] 50 mg PO BID 08/22/18 08/22/18 History multivitamin 1 tab PO DAILY 08/22/18 08/22/18 History omeprazole 1 cap PO QAM 08/22/18 08/22/18 History oxycodone 10 mg PO Q6H PRN 08/22/18 08/22/18 History prochlorperazine maleate 10 mg PO Q6H PRN 08/22/18 08/22/18 History [Compazine] promethazine 25 mg PO Q8H PRN 08/22/18 08/22/18 History Patient History Medical History Prediabetes (Chronic) Asthma (Chronic) Atrial fibrillation (Chronic) Morbid obesity (Chronic) Liver mass (Chronic) Breast cancer, stage 2 (Chronic) Psoriatic arthritis (Chronic) 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) Breast cancer (Chronic) Surgical History History of breast lump/mass excision (Resolved) Hx of appendectomy (Resolved) H/O: hysterectomy (Resolved) Family History Other Colon cancer Pancreatic cancer Social History Communication Ability: Effective Beliefs That Will Affect Care: None Current Living Situation: Spouse Other Information That Helps Us Care for You: No Feels Safe at Home: Yes Safety Concerns: Feels Safe At This Time Smoking Status: Never smoker Hx Alcohol Use: No Hx Substance Use: No Review of Systems Constitutional: + fever, + fatigue and + malaise; no chills, no sweats and no weight loss Eyes: no blind spots and no problem reported Ear, Nose, Mouth, Throat: no hearing loss and no sore throat Respiratory: no cough, no dyspnea, no dyspnea on exertion and no hemoptysis Cardiovascular: no chest pain, no palpitations, no syncope, no claudication and no problem reported Gastrointestinal: no abdominal pain, no early satiety, no nausea, no vomiting, no cramping, no change in bowel habits, no diarrhea/loose stools and no blood in stools Musculoskeletal: no back pain, no joint pain, no swelling and no muscle weakness Integumentary: no rash, no non-healing lesions, no skin ulcer, no wounds and no erythema Neurologic: no localized weakness, no generalized weakness, no paralysis, no loss of sensation, no tingling, no numbness, no paresthesia, no seizure-like activity, no syncope, no headache(s) and no confusion Psychiatric: as per Subjective / HPI Hematologic / Lymphatic: no easy bleeding, no easy bruising, no coagulopathy, no night sweats and no unexplained weight loss Physical Exam Vital Signs (Past 24 Hours): Last Vital Signs Temp 36.4 C L 08/24/18 06:55 Pulse 103 H 08/24/18 06:55 Resp 18 08/24/18 06:55 BP 114/49 L 08/24/18 06:55 Pulse Ox 97 08/24/18 06:55 Constitutional: WD/WN, vitals as above well developed, well nourished, + ill appearing, + morbidly obese, + disheveled, cooperative, comfortable and + lethargic; not in distress Eyes: PERRL, conjunctivae normal, anicteric sclerae EOM intact bilaterally ENMT: external ear and nose normal, oropharynx normal Ears: no hearing impairment Nose: no nasal discharge Neck: trachea midline, no thyromegaly no tracheal deviation, no neck crepitus and neck nontender Respiratory: normal respiratory effort, lungs clear to auscultation able to speak in complete sentences; does not use accessory muscles, no cough and not tachypneic Auscultation: + diminished lung sounds; no rhonchi and no wheezes Cardiovascular: RRR, no murmur, no edema Heart Sounds: no gallop and no murmur Vessels: femoral pulses present, posterior tibial pulses present, dorsalis pedis pulses present, brachial pulses present and radial pulses present; no carotid bruit, no abdominal aortic bruit and no femoral bruit Extremities: normal capillary refill and + vascular access device (L chest, mildly tender, no draiange. ) Gastrointestinal (Abdomen): normal bowel sounds, soft, nontender, no hepatosplenomegaly Inspection/Auscultation: abdomen normal to inspection and normal bowel sounds; abdomen not distended Percussion/Palpation: abdomen soft; abdomen nontender, no guarding and abdomen not rigid Musculoskeletal: no cyanosis or clubbing, extremities motor strength 5/5 Head/Neck/Chest: normocephalic, head atraumatic and neck supple Extremities: extremities normal to inspection and strength 5/5 throughout; full ROM of extremities and normal strength Skin: no rashes, warm and dry normal turgor and + erythema; no rashes, no lesions and no ulcers Neurologic: moves all extremities and awake; no focal motor deficits and not confused Speech / Cognition: no expressive aphasia and no receptive aphasia Motor/Sensory: no tremor and no sensory deficit Cranial Nerves: EOM intact bilaterally and normal facial strength Psychiatric: Orientation: alert, oriented x 3, oriented to person, oriented to place, oriented to time and cooperative Apperance: appropriately dressed, appropriately groomed and appeared stated age Affect: euthymic affect, + depressed affect and + anxious affect Thought Process: goal directed thought process, linear/logical thought process and clear/coherent thought process Cognition: recent memory grossly intact, remote memory grossly intact, attention grossly intact and language grossly intact Estimated Intelligence: + below average estimated intelligence and + above average estimated intelligence Lymphatic: no lymphedema
[2018-08-24] MEDS ORDERED: LIDOCAINE HCL 1% 20 ML VIAL ONE (09:55)
[2018-08-24] MEDS ORDERED: fentaNYL citrate 100 MCG/2 ML VIAL ONE (09:55)
[2018-08-24] MEDS ORDERED: MIDAZOLAM HCL 1 MG/ML 2ML VIAL ONE (09:55)
[2018-08-24] MEDS ORDERED: HEPARIN 100 UNIT/ML 5ML FLUSH ONE (09:56)
--- NOTE | 2018-08-24 10:33 | Pre Anesthesia Assessment ---
Date of Service August 24, 2018 Pre Sedation Assessment Vital Signs Temp Pulse Pulse Resp BP BP Pulse Ox 08/24/18 10:18 36.8 C 118 H 16 94 08/24/18 07:37 112 H 21 102/60 96 08/24/18 06:55 36.4 C L 103 H 18 114/49 L 97 08/24/18 06:07 104 H 22 93/66 L 98 08/24/18 03:47 37.0 C 117 H 18 104/60 96 08/23/18 22:53 37.3 C 102 H 18 110/71 96 08/23/18 18:00 37 C 99 H 18 110/65 97 08/23/18 17:00 95 H 18 114/60 2 L 08/23/18 16:00 102 H 18 88/50 L 97 08/23/18 15:00 37 C 96 H 18 106/54 L 96 08/23/18 14:00 37 C 96 H 18 84/56 L 96 08/23/18 13:00 93 H 16 99/52 L 97 08/23/18 12:00 37 C 106 H 16 96/50 L 2 L 08/23/18 11:09 97 H 18 81/44 L 95 Cardiovascular RRR, no murmur, no edema Respiratory normal respiratory effort, lungs clear to auscultation Pre-Sedation Airway Assessment Smoking Status: Never smoker Hx Sleep Apnea: No Short, Thick Neck: Yes Thyromental Distance: > or= 3.5 Finger Breadths Oral Cavity: + WNL Mallampati Class: I ASA: ASA3 NPO Status Date of Last Intake of Fluids: 08/24/18 Time of Last Intake of Fluids: 08:00 Date of Last Intake of Solid Food: 08/23/18 Time of Last Intake of Solid Foods: 23:00 Procedure Planning Contraindications for Sedation: none Current Medications Reviewed: Yes Notes The planned sedation has been discussed with the patient. Informed Consent was obtained. I have identified the patient, determined the appropriateness of sedation and have assessed the patient immediately prior to the procedure. All medicine(s) and interventions are by my order.
--- NOTE | 2018-08-24 11:07 | Post Operative Brief Note ---
Immediate Post Op Note v1 Date of Surgery August 24, 2018 Pre & Post Diagnosis Operation Date: 08/24/18 07:35 Pre-Op Diagnosis: Infected Aport Post-Op Diagnosis: Infected Aport Procedure Operation Date: 08/24/18 07:35 Actual Procedures p Removal of Aport, Moderate Sedation From 1052 to(Left) - Ambrocio Hernandez MD Surgeon Ambrocio Hernandez MD Carrier Driver Penny Lund MD Estimated Blood Loss 3 Findings Consistent with Post-Op Diagnosis Anesthesia Type RN Sedation Complications none Disposition Accompanied Patient To Recovery: No Disposition: Recovery Room
--- NOTE | 2018-08-24 11:07 | Post Operative Brief Note ---
Immediate Post Op Note v1 Date of Surgery August 24, 2018 Pre & Post Diagnosis Operation Date: 08/24/18 07:35 Pre-Op Diagnosis: Infected Aport Post-Op Diagnosis: Infected Aport Procedure Operation Date: 08/24/18 07:35 Actual Procedures p Removal of Aport, Moderate Sedation From 1052 to 1122(Left) - Ambrocio Hernandez MD Surgeon Ambrocio Hernandez MD Claims Investigator Penny Lund MD Estimated Blood Loss 3 Findings Consistent with Post-Op Diagnosis Anesthesia Type RN Sedation
--- NOTE | 2018-08-24 11:24 | Post Anesthesia Assessment ---
Date of Service August 24, 2018 Post Sedation Assessment Vital Signs Temp Pulse Pulse Resp BP BP Pulse Ox 08/24/18 11:22 124 H 18 108/69 97 08/24/18 11:17 121 H 20 117/79 99 08/24/18 11:12 126 H 20 95/70 L 99 08/24/18 11:07 124 H 17 102/65 99 08/24/18 11:02 121 H 21 108/69 99 08/24/18 10:57 127 H 18 94/69 L 98 08/24/18 10:52 113 H 17 104/66 99 08/24/18 10:32 116 H 22 127/78 97 08/24/18 10:18 36.8 C 118 H 16 94 08/24/18 07:37 112 H 21 102/60 96 08/24/18 06:55 36.4 C L 103 H 18 114/49 L 97 08/24/18 06:07 104 H 22 93/66 L 98 08/24/18 03:47 37.0 C 117 H 18 104/60 96 08/23/18 22:53 37.3 C 102 H 18 110/71 96 08/23/18 18:00 37 C 99 H 18 110/65 97 08/23/18 17:00 95 H 18 114/60 2 L 08/23/18 16:00 102 H 18 88/50 L 97 08/23/18 15:00 37 C 96 H 18 106/54 L 96 08/23/18 14:00 37 C 96 H 18 84/56 L 96 08/23/18 13:00 93 H 16 99/52 L 97 08/23/18 12:00 37 C 106 H 16 96/50 L 2 L Recovery Score Activity: Moves 4 extremities Respiration: Deep Breath/Cough Circulation: +/-20% PreAnes Value Consciousness: Fully Awake Oxygen Saturation: O2 needed for >90% Post Anesthesia Score: 9 Discharge Sedation Level of Care: Fast Track Phase II Post Sedation Plan On clinical assessment, the patient appears to have tolerated the sedation without complications. Patient is recovering as anticipated. Patient will continue to be monitored by nursing and may be discharged when sedation discharge criteria are met per below protocol. Upon Completions of procedure and additional 15 minutes continue every 5 minute vital signs and the P.A.R. score; then discharge to a Phase I or Fast Track to Phase II per the following guidelines: * Discharge Patient to appropriate Phase II area if PAR is 8 or greater or return to pre- procedure baseline. The post - procedure orders will be as directed. * If PAR score is less than 8 or not return to pre-procedure baseline then patient will follow Phase I monitoring till PAR is reached for Phase II. The Phase I may be done in procedure room or may call to secure a Phase I area. * If naloxone or flumazenil are used for reversal, hold in Phase I for continued monitoring from when last reversal dose was given for a minimum of 60 minutes or longer pending the nurse and/or physician discretion of patient condition before discharge to Phase II. Please call the Sedation Physician to re-evaluate and complete post-note for discharge to Phase II area. Do NOT discharge from procedure sedation or Phase 1 until post- sedation evaluation note is complete by procedure /sedation MD Sedation Discharge Instructions to be given to the patient at discharge to home.
[2018-08-24] MEDS ORDERED: OXYCODONE/ACETAMINOPHEN 5mg/325mg TAB PO PRN (11:50)
--- NOTE | 2018-08-24 13:34 | Hospitalist Progress Note ---
Date of Service August 24, 2018 Assessment & Plan (1) Severe sepsis: per admitting Service: this is a 67 yo F with recently diagnosed Breast CA( May 2018 ) s/p lumpectomy of right breast , on chemo , chronic Afib ,GALLO cirrhosis admitted diarrhea , SOB , fever/chills , cloudy urine for x3 days found to be febrile , pancytopenic , hypotensive in ER ( BP 50/30 ) , pt received chemo for breast Ca stage 2 weeks back meets CMS Criteria for severe sepsis : neutropenia , fever , tachycardic , hypotensive, elevated lactic acid /pro calcitonin most likely secondary to Bacteremia, Port infection pt was admitted to ICU received IV fluid resuscitation /did not require pressors Initally was started on Broad spectrum IV abx -Daptomycin /Cefepime ( pt has severe allergic reaction to PCN ) Cxray shows no infiltrate CT abdomen /pelvis : no active pathology blood culture 08/22: 1 bottle gram negative bacilli ECHO shows : hyperdynamic EF suggestive of intravascular vol depletion no valvular vegetation reported 08/24/18 s/p removal of port by Dr. Mary amaya up blood cultures improving continue Cefepime IV usually on PO Methylprednisolone currently on stress dose hydrocortisone, monitor BP and taper accordingly (2) Gram-negative bacteremia: s/p removal of port by Dr. Mary amaya up blood cultures ID on board (3) Cellulitis: Upper Buttocks, Right Posterior Thigh Doxycycline PO added monitor (4) Neutropenia: ANC < 0.7 due to recent chemo tx stage 2 Breast CA s/p recent chemo Adiramycin /Cytoxan follows with heme onc Dr Conde at [facility] ANC improving monitor (5) Pancytopenia: on admission Wbc of 0.75, hgb of 9.4, platelets 20 -due to recent chemo worsened with severe sepsis pt recieved Nulesta on 08/10/2018 D/w Dr Duke ( heme/onc ) pt will not need repeat Nulesta Pt's Primary oncology Dr Conde at [facility] updated -- CBC improving monitor (6) Acute kidney injury: due to severe sepsis /dehydration also need to consider possible side effect of chemo was on Lasix for lower ext edema Cr elevated at 2.36 (baseline ~0.8) CT abdomen/Pelvis shows no evidence of renal /ureteral or bladder outlet obstruciton pt given aggressive resuscitatioan hold Lasix avoid NSAID's /contrast studies nephrology eval requested - crea improved to 1.4 (+) fluid balance hold off on further IV fluids monitor crea (7) Coagulopathy: INR 2.0 trended down to 1.6 no signs of bleeding from GALLO Cirrhosis in the setting of Sepsis monitor (8) Breast cancer, stage 2: -In setting of breast cancer, cycle of Adriamycin and Cytoxan on Aug 10 -Also receiving Neulasta -Neutropenic precautions (9) Atrial fibrillation: stable continue Lopressor but reduce dose given borderline BP continue Flecainide -Previously on coumadin, Eliquis but stopped due to thrombocytopenia (10) Peripheral edema: No history of CHF, per patient -BLE with 3+ edema, has been present for last few days echo: preserved EF monitor - Doppler LE: no DVT (11) 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: CT abd/pelvis with evidence of cirrhosis with trace perihepatic ascites and splenomegaly indicative of portal hypertension -Total bili 1.3, AST and ALT unremarkable -Monitor with daily LFTs Portal Vein US: 1. Hepatic veins not well visualized. Stenosis cannot be excluded. Further evaluation with contrast-enhanced CT or MR is recommended if there is continuing clinical concern. Noncontrast MR could also be obtained if the patient cannot receive contrast. 2. Portal veins and hepatic artery patent with normal flow (12) Liver mass: Dysplastic liver nodule with well-differentiated HCC -Case was discussed in tumor board and further course of action needs to be determined after a discussion between the patient and oncology (13) Psoriatic arthritis: usually on PO Methylprednisolone currently on stress dose hydrocortisone, monitor BP and taper accordingly DVT Ppx: Pharmacologic VTE ppx contraindicated with thrombocytopenia Code status: FULL PCP: Srikanth Dispo: Admitted to ICU. Discharge planning ordered. (14) History of breast lump/mass excision: (15) Morbid obesity: (16) Asthma: Stable. Continue Xopenex inhaler (17) Discharge planning issues: lives with at home will need PT/OT eval Subjective ff up for sepsis, bacteremia seen resting in bed, comfortable s/p removal of L IJ infusaport states she feels improved today compared to admission, still feels tired denies chills, pain no chest pain, dyspnea, palpitations no other symptoms Physical Exam Vital Signs (Past 24 Hours): Last Vital Signs Temp 36.5 C 08/24/18 12:24 Pulse 106 H 08/24/18 12:24 Resp 18 08/24/18 12:24 BP 106/68 08/24/18 12:24 Pulse Ox 98 08/24/18 12:24 Physical Exam: General- oriented x 3, not in distress, speaks in sentences with no effort or accessory muscle use morbidly obese Eyes- anicteric Neck- no JVD Lungs- clear breath sounds bilaterally, no rales/wheezes chest left side: mild erythema, no bleeding Heart- normal rate, regular rhythm; no murmurs Abdomen- normal bowel sounds, nondistended, soft, nontender Extremities- (+) mild lower leg edema, no warmth/tenderness (+) erythema, warmth posterior right thigh Buttocks- (+) erythema , warmth bilateral upper buttocks (+) bullae on the upper left buttock with hematoma (+) hematoma upper left buttock, no open wounds (+) hematoma on the right lower buttock no tenderess Neuro- alert, oriented x 3; no gross focal neurologic deficits Skin- warm & dry Results & Data Laboratory Results Laboratory Results - last 24 hr 08/23/18 08/23/18 08/24/18 00:13 19:59 06:06 WBC 3.19 L RBC 3.14 L Hgb 9.7 L Hct 27.0 L MCV 86.0 MCH 30.9 MCHC 35.9 RDW Std Deviation 51.4 H RDW Coeff of Mechelle 16.4 H Plt Count 58 L D MPV 12.5 H Immature Gran % (Auto) 0.9 Neut % (Auto) 63.1 Lymph % (Auto) 14.1 [place] % (Auto) 20.4 Eos % (Auto) 0.6 Baso % (Auto) 0.9 Immature Gran # (Auto) 0.03 H Neut # (Auto) 2.01 Lymph # (Auto) 0.45 L [place] # (Auto) 0.65 H Eos # (Auto) 0.02 Baso # (Auto) 0.03 Absolute Nucleated RBC 0.04 H Nucleated RBC % (auto) 1.1 Toxic Granulation 2+ Toxic Vacuolation 1+ Dohle Bodies 1+ Giant Platelets 1+ Echinocytes 1+ PT INR Sodium Potassium Chloride Carbon Dioxide Anion Gap BUN Creatinine Est Cr Clr Drug Dosing Est GFR ( Amer) Est GFR (Non-Af Amer) BUN/Creatinine Ratio Glucose POC Glucose 232 H Lactate Calcium Magnesium Total Bilirubin Direct Bilirubin AST ALT Alkaline Phosphatase Total Protein Albumin Globulin Albumin/Globulin Ratio Lipase Random Cortisol Urine Legionella Ag NOT DETECTED 08/24/18 08/24/18 08/24/18 06:06 06:07 06:25 WBC RBC Hgb Hct MCV MCH MCHC RDW Std Deviation RDW Coeff of Mechelle Plt Count MPV Immature Gran % (Auto) Neut % (Auto) Lymph % (Auto) [place] % (Auto) Eos % (Auto) Baso % (Auto) Immature Gran # (Auto) Neut # (Auto) Lymph # (Auto) [place] # (Auto) Eos # (Auto) Baso # (Auto) Absolute Nucleated RBC Nucleated RBC % (auto) Toxic Granulation Toxic Vacuolation Dohle Bodies Giant Platelets Echinocytes PT INR Sodium 134 L Potassium 3.3 L Chloride 101 Carbon Dioxide 25 Anion Gap 9.0 BUN 49 H Creatinine 1.43 H D Est Cr Clr Drug Dosing 63.6 Est GFR ( Amer) 44.4 Est GFR (Non-Af Amer) 38.3 BUN/Creatinine Ratio 34.0 H Glucose 153 H POC Glucose Lactate 2.6 H* Calcium 8.2 L Magnesium Total Bilirubin 1.2 H Direct Bilirubin 0.8 H AST 57 H ALT 61 Alkaline Phosphatase 86 Total Protein 5.1 L Albumin 1.5 L Globulin 3.6 Albumin/Globulin Ratio 0.4 L Lipase 175 Random Cortisol 16.65 Urine Legionella Ag 08/24/18 08/24/18 08/24/18 06:25 06:25 12:39 WBC RBC Hgb Hct MCV MCH MCHC RDW Std Deviation RDW Coeff of Mechelle Plt Count MPV Immature Gran % (Auto) Neut % (Auto) Lymph % (Auto) [place] % (Auto) Eos % (Auto) Baso % (Auto) Immature Gran # (Auto) Neut # (Auto) Lymph # (Auto) [place] # (Auto) Eos # (Auto) Baso # (Auto) Absolute Nucleated RBC Nucleated RBC % (auto) Toxic Granulation Toxic Vacuolation Dohle Bodies Giant Platelets Echinocytes PT 15.7 H INR 1.6 H Sodium Potassium Chloride Carbon Dioxide Anion Gap BUN Creatinine Est Cr Clr Drug Dosing Est GFR ( Amer) Est GFR (Non-Af Amer) BUN/Creatinine Ratio Glucose POC Glucose Lactate 2.1 H* Calcium Magnesium 2.8 H Total Bilirubin Direct Bilirubin AST ALT Alkaline Phosphatase Total Protein Albumin Globulin Albumin/Globulin Ratio Lipase Random Cortisol Urine Legionella Ag (1) Atrial fibrillation Atrial fibrillation type: chronic Qualified Code(s): I48.2 - Chronic atrial fibrillation (2) Breast cancer, stage 2 Laterality: unspecified laterality Qualified Code(s): C50.919 - Malignant neoplasm of unspecified site of unspecified female breast (3) Neutropenia Neutropenia type: secondary to cancer chemotherapy Qualified Code(s): D70.1 - Agranulocytosis secondary to cancer chemotherapy; T45.1X5A - Adverse effect of antineoplastic and immunosuppressive drugs, initial encounter (4) Asthma Asthma complication type: uncomplicated Asthma persistence: persistent Asthma severity: unspecified severity Qualified Code(s): J45.909 - Unspecified asthma, uncomplicated
--- NOTE | 2018-08-24 14:08 | Operative Report ---
DATE OF OPERATION: 08/24/2018 PREOPERATIVE DIAGNOSIS: Concern for infected left IJ Infusaport. POSTOPERATIVE DIAGNOSIS: Concern for infected left IJ Infusaport. PROCEDURE: Removal of left IJ Infusaport. moderate sedation([id number]) SURGEON: Dr. Ambrocio Hernandez. LAUNDRY ATTENDANT: Dr. Delma Lund. ANESTHESIA: Moderate sedation plus local. ESTIMATED BLOOD LOSS: 3 mL. INDICATIONS: Mrs. Aaliyah Taylor is a 67-year-old woman with history of placement of a left IJ Infusaport for chemotherapy. This was placed 2 weeks ago. She presented to the [facility] with sepsis and was found to have E. coli bacteremia. For this reason, she was recommended to undergo port removal. The risks, benefits and alternatives were discussed with the patient and she consented to the procedure. DESCRIPTION OF PROCEDURE: The patient was taken to the hybrid OR and placed in the supine position. Her left neck and chest were prepped and draped in the usual sterile fashion. A safety timeout was performed and the patient, procedure, and sidedness were correctly identified. Local anesthesia was used to anesthetize the skin in her previous incision overlying the port. Skin was incised with a 15 blade scalpel. Bovie electrocautery was used to dissect the subcutaneous tissues. The port was identified. The catheter component was removed and manual pressure was held over the IJ access site with good hemostasis. There were 3 Ethibond sutures securing the port to the chest wall. These were removed. The port was removed without difficulty. There was no purulence appreciated on inspection. The tip of the catheter was sent for culture. Small areas of bleeding within the wound were controlled with Bovie electrocautery. The subcutaneous tissues were reapproximated with 3-0 Vicryl in an interrupted fashion. Skin was reapproximated with 4-0 Vicryl in a running subcuticular fashion. Dermabond skin glue was applied to the incision. The patient was transferred to the recovery area in stable condition. She tolerated the procedure well and there were no immediate complications. Dr. Ambrocio Hernandez was present for the entire procedure. I attest to the content of the Intraoperative Record and any orders documented therein. Any exceptions are noted below. [facility]
[2018-08-24] MEDS: HYDROCORTISONE SOD 50 MG in SYRINGE 0 ML IV SCH ×2 (14:19→21:28)
[2018-08-24] MEDS ORDERED: CEFEPIME 2,000 MG in SYRINGE 7.5 ML IV SCH (15:00)
[2018-08-24] MEDS: METOPROLOL TARTRATE 25 MG TAB PO SCH ×2 (15:14→22:49)
--- NOTE | 2018-08-24 16:23 | Infectious Disease Progress Nt ---
Date of Service August 24, 2018 Assessment & Plan (1) Gram negative sepsis: 67-year-old female with breast cancer Coli sepsis, now status post removal of a port. Will change patient to IV ceftriaxone given sensitivity data. Would recommend 10 days of IV antibiotics. Will follow. (2) Neutropenia: Subjective Patient seen in follow-up for gram-negative sepsis. Blood cultures have grown quinolone resistant, Bactrim resistant E. coli. Now status post removal of a port. Remains afebrile. Follow-up cultures no growth to date. No new complaints. Review of Systems All systems reviewed & are unremarkable except as noted in HPI & below Physical Exam Vital Signs (Past 24 Hours): Last Vital Signs Temp 36.4 C L 08/24/18 15:11 Pulse 127 H 08/24/18 15:11 Resp 18 08/24/18 15:11 BP 106/62 08/24/18 15:11 Pulse Ox 95 08/24/18 15:11 Constitutional: WD/WN, vitals as above comfortable; no acute distress Eyes: PERRL, conjunctivae normal, anicteric sclerae ENMT: external ear and nose normal, oropharynx normal Neck: trachea midline, no thyromegaly neck nontender Respiratory: normal respiratory effort, lungs clear to auscultation normal percussion; does not use accessory muscles Cardiovascular: Rate/Rhythm: regular rate and regular rhythm Heart Sounds: normal S1 and normal S2; no gallop, no murmur and no cardiac rub Vessels: normal peripheral pulses; no JVD Gastrointestinal (Abdomen): normal bowel sounds, soft, nontender, no hepatosplenomegaly Musculoskeletal: no cyanosis or clubbing, extremities motor strength 5/5 Spine: thoracic spine normal to inspection and lumbar spine normal to inspection; no cervical spinal tenderness Skin: no rashes, warm and dry normal turgor; no lesions Neurologic: patellar DTR's 2+ bilat, sensation intact no focal motor deficits Psychiatric: A+Ox3, euthymic affect Orientation: cooperative Lymphatic: no cervical or axillary lymphadenopathy no inguinal lymphadenopathy Results & Data Laboratory Results Short CBC 08/24/18 Range/Units 06:06 WBC 3.19 L (4.8-10.8) K/uL Hgb 9.7 L (12.0-16.0) g/dL Hct 27.0 L (37-47) % Plt Count 58 L D (130-400) K/uL BMP 08/24/18 06:06 Sodium 134 L Potassium 3.3 L Chloride 101 Carbon Dioxide 25 BUN 49 H Creatinine 1.43 H D Glucose 153 H Calcium 8.2 L Liver Function 08/24/18 Range/Units 06:06 Total Bilirubin 1.2 H (0.2-1) mg/dl Direct Bilirubin 0.8 H (0-0.2) mg/dl AST 57 H (15-37) U/L ALT 61 (12-78) U/L Alkaline Phosphatase 86 (45-117) U/L Albumin 1.5 L (3.4-5.0) gm/dl Diagnostic Findings Microbiology 08/22/18 18:57 Blood Fungal Smear - Final 08/22/18 10:12 Blood Blood Culture - Preliminary No growth to date. 08/22/18 10:00 Blood Blood Culture - Preliminary Escherichia coli 08/22/18 11:35 Urine,Clean Catch Urine Culture - Final Three types of organisms present, all low counts probable skin joanna. No further identifications or sensitivities to follow. (1) Neutropenia Neutropenia type: secondary to cancer chemotherapy Qualified Code(s): D70.1 - Agranulocytosis secondary to cancer chemotherapy; T45.1X5A - Adverse effect of antineoplastic and immunosuppressive drugs, initial encounter
--- NOTE | 2018-08-24 16:30 | Nephrology Consultation ---
Date of Consultation August 24, 2018 Assessment & Plan (1) Acute renal failure: suspect ATN from neutropenic sepsis/ e coli bacteremia clinically improving though still very ill - her bp and HR are low off of IVF; her clinical presentation was most c/w dehydration and urine sediment on admission had no infection, no granular casts; no obstruction or focal lesions on imaging at admission baseline creatinine 0.8; presenting creatinine on 08/22 was 2.4; improved to today w/ aggressive hydration and antibiotics she is 4.2 L positive past 24 hrs and 7L positive on the admission; her IVF are currently stopped; not oliguric -cont daily bmp, strict I/O -I would reassess her this evening had have low threshold to resume normosol if SBP <100 or/and HR >100 -would not remove meek yet -if improvement stalls, repeat uacm Present on Admission?: Yes History of Present Illness Reason for Consultation: hyponatremia, DARCIE Requesting Physician: Dr Hopper Attending Physician: Sy Valle MD History of Present Illness 67 y/o F whom I'm asked to see for DARCIE after she was admitted 08/22 for neutropenic sepsis. PMH includes BRCA on CTX, GALLO cirrhosis w/ HCC, a fib on flecainide, psoriatic arthritis. Today her port was removed for E coli bacteremia on 08/22 blood cx; f/u cxs negative. Pt also w/ L buttock Her baseline creatinine is 0.8. She was 2.4 on presentation 08/22; she is down to 1.4 now this am. Her lactate remains elevated in 2's. doxycycline was added to cefepime this am d/t buttock blisters/ cellulitic area. Allergies Allergy/AdvReac Type Severity Reaction Status Date / Time clarithromycin Allergy Severe RASH Verified 02/13/18 08:20 Penicillins Allergy Severe ANAPHYLACTIC Verified 02/13/18 08:20 SHOCK epinephrine Allergy Unknown THROAT Verified 02/13/18 08:20 SWELLING, PASSED OUT, HEART RACING montelukast Allergy Unknown PALPITATION Verified 02/13/18 08:20 S Home Medications Home Medications Medication Instructions Recorded Confirmed Type Lactobacillus rhamnosus GG 1 cap PO DAILY 08/22/18 08/22/18 History [Culturelle] cholecalciferol (vitamin D3) 3,000 unit PO DAILY 08/22/18 08/22/18 History diphenhydramine HCl [Benadryl] 25 mg PO HS PRN 08/22/18 08/22/18 History flecainide 1 tab PO BID 08/22/18 08/22/18 History furosemide 1 tab PO QAM 08/22/18 08/22/18 History levalbuterol tartrate [Xopenex HFA] 2 inh INHALATION BID 08/22/18 08/22/18 History methylprednisolone 1 - 2 tab PO DAILY 08/22/18 08/22/18 History metoprolol tartrate [Lopressor] 50 mg PO BID 08/22/18 08/22/18 History multivitamin 1 tab PO DAILY 08/22/18 08/22/18 History omeprazole 1 cap PO QAM 08/22/18 08/22/18 History oxycodone 10 mg PO Q6H PRN 08/22/18 08/22/18 History prochlorperazine maleate 10 mg PO Q6H PRN 08/22/18 08/22/18 History [Compazine] promethazine 25 mg PO Q8H PRN 08/22/18 08/22/18 History Patient History Medical History Prediabetes (Chronic) Asthma (Chronic) Atrial fibrillation (Chronic) Morbid obesity (Chronic) Liver mass (Chronic) Breast cancer, stage 2 (Chronic) Psoriatic arthritis (Chronic) 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) Breast cancer (Chronic) Surgical History History of breast lump/mass excision (Resolved) Hx of appendectomy (Resolved) H/O: hysterectomy (Resolved) Family History Other Colon cancer Pancreatic cancer Social History Communication Ability: Effective Beliefs That Will Affect Care: None Current Living Situation: Spouse Other Information That Helps Us Care for You: No Feels Safe at Home: Yes Safety Concerns: Feels Safe At This Time Smoking Status: Never smoker Hx Alcohol Use: No Hx Substance Use: No Review of Systems Constitutional: + fatigue and + weakness; no fever Eyes: no worsening vision Ear, Nose, Mouth, Throat: no dry mouth Respiratory: no cough and no dyspnea Cardiovascular: no palpitations, no edema and no calf pain Gastrointestinal: + early satiety; no nausea and no vomiting has meek; no issues Integumentary: as per Subjective / HPI, + changing lesions and + sores Neurologic: + generalized weakness, + confusion and + memory loss (she thinks temproary from compazine); no localized weakness and no headache(s) Psychiatric: + anxiety Endocrine: + fatigue Hematologic / Lymphatic: + easy bleeding Physical Exam Vital Signs (Past 24 Hours): Last Vital Signs Temp 36.4 C L 08/24/18 15:11 Pulse 127 H 08/24/18 15:11 Resp 18 08/24/18 15:11 BP 106/62 08/24/18 15:11 Pulse Ox 95 08/24/18 15:11 Constitutional: well developed, well nourished, + obese and cooperative on 02nc, alert, interactive Eyes: EOM intact bilaterally ENMT: Ears: no external ear abnormality Nose: no external nose abnormality Mouth: + dry oral mucous membranes Neck: no nuchal rigidity Respiratory: normal respiratory effort Auscultation: + diminished lung sounds Cardiovascular: Rate/Rhythm: + tachycardic (in 110s) Extremities: + edema (trace BL) Gastrointestinal (Abdomen): Inspection/Auscultation: normal bowel sounds Percussion/Palpation: abdomen soft; abdomen nontender Musculoskeletal: Extremities: strength 5/5 throughout Skin: blisters/ lesions on her backside not examined Neurologic: handy, fluent speech, no tremor Psychiatric: Orientation: alert and oriented x 3 Eye Contact: good eye contact Speech: + pressured speech Affect: + anxious affect Genitourinary: meek w/ ample barcenas urine Results & Data Laboratory Results Abnormal lab results 08/23/18 08/24/18 08/24/18 Range/Units 19:59 06:06 06:06 WBC 3.19 L (4.8-10.8) K/uL RBC 3.14 L (4.2-5.4) M/uL Hgb 9.7 L (12.0-16.0) g/dL Hct 27.0 L (37-47) % RDW Std Deviation 51.4 H (36.4-46.3) fL RDW Coeff of Mechelle 16.4 H (11.5-14.5) % Plt Count 58 L D (130-400) K/uL MPV 12.5 H (7.4-10.4) fL Immature Gran # (Auto) 0.03 H (0.00-0.02) K/uL Lymph # (Auto) 0.45 L (1.2-3.4) K/uL [place] # (Auto) 0.65 H (0.11-0.59) K/uL Absolute Nucleated RBC 0.04 H (0-0) K/uL PT (9.0-12.0) Seconds INR (0.9-1.1) Sodium 134 L (136-145) mmol/L Potassium 3.3 L (3.5-5.1) mmol/L BUN 49 H (7-18) mg/dl Creatinine 1.43 H D (0.6-1.2) mg/dl BUN/Creatinine Ratio 34.0 H (10-20) Glucose 153 H (70-99) mg/dl POC Glucose 232 H (70-99) Lactate (0.4-2.0) mmol/L Calcium 8.2 L (8.5-10.1) mg/dl Magnesium (1.8-2.4) mg/dl Total Bilirubin 1.2 H (0.2-1) mg/dl Direct Bilirubin 0.8 H (0-0.2) mg/dl AST 57 H (15-37) U/L Total Protein 5.1 L (6.4-8.2) gm/dl Albumin 1.5 L (3.4-5.0) gm/dl Albumin/Globulin Ratio 0.4 L (0.9-2) 08/24/18 08/24/18 08/24/18 Range/Units 06:07 06:25 06:25 WBC (4.8-10.8) K/uL RBC (4.2-5.4) M/uL Hgb (12.0-16.0) g/dL Hct (37-47) % RDW Std Deviation (36.4-46.3) fL RDW Coeff of Mechelle (11.5-14.5) % Plt Count (130-400) K/uL MPV (7.4-10.4) fL Immature Gran # (Auto) (0.00-0.02) K/uL Lymph # (Auto) (1.2-3.4) K/uL [place] # (Auto) (0.11-0.59) K/uL Absolute Nucleated RBC (0-0) K/uL PT 15.7 H (9.0-12.0) Seconds INR 1.6 H (0.9-1.1) Sodium (136-145) mmol/L Potassium (3.5-5.1) mmol/L BUN (7-18) mg/dl Creatinine (0.6-1.2) mg/dl BUN/Creatinine Ratio (10-20) Glucose (70-99) mg/dl POC Glucose (70-99) Lactate 2.6 H* (0.4-2.0) mmol/L Calcium (8.5-10.1) mg/dl Magnesium 2.8 H (1.8-2.4) mg/dl Total Bilirubin (0.2-1) mg/dl Direct Bilirubin (0-0.2) mg/dl AST (15-37) U/L Total Protein (6.4-8.2) gm/dl Albumin (3.4-5.0) gm/dl Albumin/Globulin Ratio (0.9-2) 08/24/18 Range/Units 12:39 WBC (4.8-10.8) K/uL RBC (4.2-5.4) M/uL Hgb (12.0-16.0) g/dL Hct (37-47) % RDW Std Deviation (36.4-46.3) fL RDW Coeff of Mechelle (11.5-14.5) % Plt Count (130-400) K/uL MPV (7.4-10.4) fL Immature Gran # (Auto) (0.00-0.02) K/uL Lymph # (Auto) (1.2-3.4) K/uL [place] # (Auto) (0.11-0.59) K/uL Absolute Nucleated RBC (0-0) K/uL PT (9.0-12.0) Seconds INR (0.9-1.1) Sodium (136-145) mmol/L Potassium (3.5-5.1) mmol/L BUN (7-18) mg/dl Creatinine (0.6-1.2) mg/dl BUN/Creatinine Ratio (10-20) Glucose (70-99) mg/dl POC Glucose (70-99) Lactate 2.1 H* (0.4-2.0) mmol/L Calcium (8.5-10.1) mg/dl Magnesium (1.8-2.4) mg/dl Total Bilirubin (0.2-1) mg/dl Direct Bilirubin (0-0.2) mg/dl AST (15-37) U/L Total Protein (6.4-8.2) gm/dl Albumin (3.4-5.0) gm/dl Albumin/Globulin Ratio (0.9-2) Diagnostic Findings CT non con admission chest 1. No consolidation to suggest pneumonia. 2. Mild asymmetric right axillary lymphadenopathy which raises the possibility of nola spread of disease. This could be correlated with breast cancer history and prior imaging, if available. 3. Cirrhosis with trace perihepatic ascites and splenomegaly indicative of portal hypertension. 4. 8 mm sclerotic lesion within the T6 vertebral body which is indeterminate although probably benign. CT abd/pelvis no con 1. Mild hepatic cirrhosis with a trace amount of perihepatic ascites 2. Stable moderate splenomegaly. 3. Nonobstructive bowel pattern. 4. Trace amount of free fluid within the low pelvic mesentery, with a slight degree of inflammatory change surrounding the pancreatic uncinate process body and pancreatic head is a possibility of low-grade pancreatitis 5. A mild secondary enteritis is considered. (1) Acute renal failure Acute renal failure type: unspecified Qualified Code(s): N17.9 - Acute kidney failure, unspecified
[2018-08-24] MEDS: DOXYCYCLINE HYCLATE 100 MG CAP PO SCH (21:29)
[2018-08-24] MEDS: cefTRIAXone SODIUM 2,000 MG in DEXTROSE 5% 50 ML IV SCH (21:32)
[2018-08-25] MEDS ORDERED: HEPARIN 100 UNIT/ML 5ML FLUSH FLUSH PRN (01:31)
[2018-08-25] MEDS: HYDROCORTISONE SOD 50 MG in SYRINGE 0 ML IV SCH ×2 (06:14→17:36)
[2018-08-25 07:28] LABS: INR 1.8 (0.9-1.1); Prothrombin Time 17.4 Seconds (9.0-12.0)
[2018-08-25 07:41] LABS: Echinocytes 1+; Giant Platelets 1+; Hematocrit (blood only) 28.9 % (37-47); Mean Corpuscular Hgb Conc 34.6 g/dL (32-36); Mean Platelet Volume 12.4 fL (7.4-10.4); Nucleated RBC # (auto) 0.05 K/uL (0-0); Platelet Count 71 K/uL (130-400); RDW Coefficient of Variation 16.6 % (11.5-14.5); RDW Standard Deviation 52.7 fL (36.4-46.3); Red Blood Count 3.32 M/uL (4.2-5.4); Toxic Granulation 1+; White Blood Count 5.15 K/uL (4.8-10.8)
[2018-08-25 07:50] LABS: Metamyelocytes # (manual) 0.15 K/uL (0-0); Monocytes # (manual) 0.36 K/uL (0.11-0.59); Myelocytes # (manual) 0.05 K/uL (0-0)
[2018-08-25 08:17] LABS: Albumin Globulin Ratio 0.4 (0.9-2); Albumin Level 1.4 gm/dl (3.4-5.0); Bilirubin Direct 0.6 mg/dl (0-0.2); Bilirubin,Total 0.9 mg/dl (0.2-1); Calcium 8.5 mg/dl (8.5-10.1); Creatinine Clr Calc Pharmacy 82.4 ml/min; Est GFR (African American) 60.4; Est GFR (Non-African American) 52.1; Globulin 3.9 gm/dl (2.5-4.0); Potassium 3.7 mmol/L (3.5-5.1); Total Protein 5.3 gm/dl (6.4-8.2)
[2018-08-25] MEDS: LEVALBUTEROL TARTRATE 15 GM HFA.AER.AD INH SCH ×2 (08:25→20:52)
[2018-08-25] MEDS: FLECAINIDE ACETATE 100 MG TABLET PO SCH ×2 (08:26→20:51)
[2018-08-25] MEDS: PROSOURCE NO CARB 30 ML/PKT PO SCH ×3 (08:26→16:03)
[2018-08-25] MEDS: SACCHAROMYCES BOULARDII 250 MG CAP PO SCH (08:27)
[2018-08-25] MEDS: CLOTRIMAZOLE 10 MG TROCHE BUCCAL SCH ×3 (08:27→16:02)
[2018-08-25] MEDS: DOXYCYCLINE HYCLATE 100 MG CAP PO SCH ×2 (08:27→20:52)
[2018-08-25] MEDS: MULTIVITAMIN TAB PO SCH (08:28)
[2018-08-25] MEDS: PANTOprazole 40 MG TAB PO SCH (08:28)
[2018-08-25] MEDS: CHOLECALCIFEROL 1,000 UNITS TAB PO SCH (08:28)
[2018-08-25] MEDS ORDERED: PHARMACY GLYCEMIC MGMT CONSULT PRN (08:42)
[2018-08-25 08:45] LABS: Beta-Hydroxybutyrate 0.85 mg/dl (0.2-2.81)
[2018-08-25 08:54] LABS: Estimated Average Glucose 157 mg/dl; Hemoglobin A1C 7.1 % (4.5-5.6)
[2018-08-25] MEDS ORDERED: GLUCOSE 40% GEL 15 GM TUBE PO PRN (09:15)
[2018-08-25] MEDS ORDERED: GLUCAGON FOR INJ 1 MG VIAL SQ PRN (09:15)
[2018-08-25] MEDS ORDERED: GLUCOSE 10 TABS/TUBE PO PRN (09:15)
[2018-08-25] MEDS ORDERED: CARBOHYDRATES FOR HYPOGLYCEMIA PO PRN (09:15)
[2018-08-25] MEDS ORDERED: DEXTROSE 50% 50 ML SYRINGE IV PRN (09:15)
[2018-08-25] MEDS: METOPROLOL TARTRATE 25 MG TAB PO SCH ×2 (09:21→20:40)
[2018-08-25] MEDS ORDERED: INSULIN HUMAN REGULAR PER UNIT 7 UNITS in SYRINGE 6.93 ML IV ONE (09:30)
--- NOTE | 2018-08-25 11:30 | Pharmacy Report ---
Pharmacy Glycemic Short Note 2 - Date of Service August 25, 2018 - Glycemic Short BSG Results (Last 24 hours): 08/25/18 08/25/18 08/25/18 06:42 07:28 07:31 Glucose 374 H* POC Glucose 351 H* 349 H 08/25/18 08/25/18 11:04 11:06 Glucose POC Glucose 360 H* 334 H OUTPATIENT ANTIDIABETIC REGIMEN: * diet controlled * Patient takes methylprednisolone 4 mg-8 mg PO daily as out pt * A1c 7.1% on 08/25/18 ASSESSMENT: * 67 yr old female admitted with severe sepsis secondary to E.coli bacteremia s/p port removal * Severe hyperglycemia (BSG of 374 mg/dL this am) is likely due to a combination of illness, baseline DM (diet controlled), and administration of hydrocortisone 50 mg IV every 8 hours. Hydrocortisone is being tapered down to q12h today. If patient is stable 3/3 AM, will likely transition to home dose of methylprednisolone PO. * This morning patient was refusing all insulin. After discussion with MD, she agreed to allow insulin administration. BSG was repeated and resulted at 360 mg/dL with recheck of 334 mg/dL. * Aaliyah will be given a one time IV regular insulin bolus of 7 units plus SQ basal/bolus insulin based on weight. PLAN FOR INPATIENT GLYCEMIC CONTROL: * Basal insulin * Lantus 25 units SQ x 1 * Bolus insulin * NovoLog per scale ACHS or Q6hrs while NPO * Goal Range: Low 120 mg/dL - High 160 mg/dL * Correction Factor: 15 mg/dL/unit * Nutritional / Prandial insulin per carb ratio of 1 unit per 5 grams CHO consumed * Add overnight checks at 00 and 04 until better glycemic control achieved PLAN FOR DISCHARGE: * A1c of 7.1% is above goal. Of note, chronic use of methylprednisolone for arthritis has contributed to elevation. * Patient is not currently on any anti-diabetic agents. She reports being diet controlled. Recommend addition of oral therapy - medication to be decided at a later date when additional BSG data is available.
[2018-08-25] MEDS: INSULIN ASPART 100 UNITS/ML 3 ML PEN SC SCH ×4 (11:45→20:42)
[2018-08-25] MEDS ORDERED: PROMETHAZINE HCL 6.25 MG in SODIUM CHLORIDE 0.9% 50 ML IV PRN (13:29)
[2018-08-25] MEDS ORDERED: INSULIN GLARGINE SOLOSTAR 100 UNITS/ML 3 ML PEN SC ONE (14:15)
--- NOTE | 2018-08-25 14:32 | Hospitalist Progress Note ---
Date of Service August 25, 2018 Assessment & Plan (1) Severe sepsis: per admitting Service: this is a 67 yo F with recently diagnosed Breast CA( May 2018 ) s/p lumpectomy of right breast , on chemo , chronic Afib ,GALLO cirrhosis admitted diarrhea , SOB , fever/chills , cloudy urine for x3 days found to be febrile , pancytopenic , hypotensive in ER ( BP 50/30 ) , pt received chemo for breast Ca stage 2 weeks back meets CMS Criteria for severe sepsis : neutropenia , fever , tachycardic , hypotensive, elevated lactic acid /pro calcitonin most likely secondary to Bacteremia, Port infection pt was admitted to ICU received IV fluid resuscitation /did not require pressors Initally was started on Broad spectrum IV abx -Daptomycin /Cefepime ( pt has severe allergic reaction to PCN ) Cxray shows no infiltrate CT abdomen /pelvis : no active pathology blood culture 08/22: 1 bottle gram negative bacilli ECHO shows : hyperdynamic EF suggestive of intravascular vol depletion no valvular vegetation reported 08/24/18 s/p removal of port by Dr. Hernandez 08/25/18 blood cultures (+) E coli Cefepime changed to Ceftriaxone IV daily to complete 10 days IV antibiotics per Dr. Ramos afebrile, CBC improved overall, patient is improving taper Hydrocortisone further to 50mg q12 today, then resume usual Methylprednisolone 4mg po daily tomorrow (2) Gram-negative bacteremia: s/p removal of port by Dr. Hernandez management as noted above (3) Neutropenia: ANC < 0.7 due to recent chemo tx, sepsis stage 2 Breast CA s/p recent chemo Adiramycin /Cytoxan follows with heme onc Dr Conde at [facility] ANC normalized monitor (4) Pancytopenia: on admission Wbc of 0.75, hgb of 9.4, platelets 20 -due to recent chemo worsened with severe sepsis pt recieved Thuyta on 08/10/2018 D/w Dr Duke ( heme/onc ) pt will not need repeat Nulesta Pt's Primary oncology Dr Conde at [facility] updated -- CBC overall trending up monitor (5) Acute kidney injury: due to severe sepsis /dehydration also need to consider possible side effect of chemo was on Lasix for lower ext edema Cr elevated at 2.36 (baseline ~0.8) CT abdomen/Pelvis shows no evidence of renal /ureteral or bladder outlet obstruciton pt given aggressive resuscitatioan hold Lasix avoid NSAID's /contrast studies nephrology eval requested - crea further improved to 1.1 (+) fluid balance hold off on further IV fluids monitor crea (6) Breast cancer, stage 2: -In setting of breast cancer, cycle of Adriamycin and Cytoxan on Aug 10 -Also receiving Neulasta - ANC normalized no bleeding (7) Atrial fibrillation: stable continue Lopressor but reduce dose given borderline BP continue Flecainide -Previously on coumadin, Eliquis but stopped due to thrombocytopenia (8) Peripheral edema: No history of CHF, per patient -BLE with 3+ edema, has been present for last few days -Bedside echo in ICU : shows hyperdynamic LV , EF> 70% suggestive of intravascular vol depletation ( due to sepsis ) Lasix D/ines ( dehydration /DARCIE ) IV fluids given lower ext dopplar negative for DVT (9) 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: CT abd/pelvis with evidence of cirrhosis with trace perihepatic ascites and splenomegaly indicative of portal hypertension -Total bili 1.3, AST and ALT unremarkable -Monitor with daily LFTs -Doppler USG of liver : no evidence of portal vein thrombosis INR 1.8 check PTT, fibrinogen likely from Liver Cirrhosis no signs of active bleeding (10) Liver mass: Dysplastic liver nodule with well-differentiated HCC -follows with Hepatology /oncology in [place] (11) Psoriatic arthritis: was on solu-medrol started on stress dose of IV hydrocortisone -hypotension /severe sepsis (12) History of breast lump/mass excision: (13) Morbid obesity: BMI> 50 GALLO cirrhosis counselling for exercise 'diet /weight reduction nutrition consult (14) Asthma: Stable. Continue Xopenex inhaler (15) Discharge planning issues: lives with at home will need PT/OT eval DVT Ppx: Pharmacologic VTE ppx contraindicated with thrombocytopenia , elevated INR SCD and teds OOB as tolerated , increased activity Code status: FULL Subjective ff up for sepsis seen resting in bed, comfortable was upset during start of interview because of concerns regarding Oncology consultation, hyperglycemia, steroid use had a lengthy discussion with patient, explained medical condition and plan of care thoroughly all questions answered patient was then calm, expressed thanks states she is continuing to feel improved no fever/chills no headache, chest pain, dyspnea, dizziness, nausea, abdominal pain states low back pain is better, no pain on her legs no other symptoms Physical Exam Vital Signs (Past 24 Hours): Last Vital Signs Temp 36.3 C L 08/25/18 07:07 Pulse 80 08/25/18 07:07 Resp 18 08/25/18 07:07 BP 122/61 08/25/18 07:07 Pulse Ox 95 08/25/18 07:07 Physical Exam: General- oriented x 3, not in distress, speaks in sentences with no effort or accessory muscle use Eyes- anicteric Neck- no JVD Lungs- clear breath sounds bilaterally Heart- normal rate, irregularly irregular rhythm; no murmurs Abdomen- normal bowel sounds, nondistended, soft, nontender Extremities- no pretibial edema, no calf tenderness (+) moderate erythema and mild warmth right posterior thigh no tenderness Neuro- alert, oriented x 3; no gross focal neurologic deficits Skin- warm & dry Results & Data Laboratory Results Laboratory Results - last 24 hr 08/25/18 08/25/18 08/25/18 06:42 06:42 06:42 WBC 5.15 RBC 3.32 L Hgb 10.0 L Hct 28.9 L MCV 87.0 MCH 30.1 MCHC 34.6 RDW Std Deviation 52.7 H RDW Coeff of Mechelle 16.6 H Plt Count 71 L MPV 12.4 H Absolute Nucleated RBC 0.05 H Nucleated RBC % (auto) 1.0 Neutrophils % (Manual) 89.0 Monocytes % (Manual) 7.0 Metamyelocytes % (Man) 3.0 Myelocytes % (Man) 1.0 Neutrophils # (Manual) 4.58 Total Absolute Neuts 4.58 Total Abs Lymphocytes 0.00 L Monocytes # (Manual) 0.36 Metamyelocytes # (Man) 0.15 H Myelocytes # (Manual) 0.05 H Toxic Granulation 1+ Giant Platelets 1+ Echinocytes 1+ PT 17.4 H INR 1.8 H Sodium 133 L Potassium 3.7 Chloride 100 Carbon Dioxide 26 Anion Gap 7.0 BUN 37 H Creatinine 1.11 D Est Cr Clr Drug Dosing 82.4 Est GFR ( Amer) 60.4 Est GFR (Non-Af Amer) 52.1 BUN/Creatinine Ratio 33.0 H Glucose 374 H* POC Glucose Estimat Average Glucose Hemoglobin A1c Calcium 8.5 Total Bilirubin 0.9 Direct Bilirubin 0.6 H AST 47 H ALT 62 Alkaline Phosphatase 108 Total Protein 5.3 L Albumin 1.4 L Globulin 3.9 Albumin/Globulin Ratio 0.4 L Beta-Hydroxybutyric Acd 0.85 08/25/18 08/25/18 08/25/18 06:42 07:28 07:31 WBC RBC Hgb Hct MCV MCH MCHC RDW Std Deviation RDW Coeff of Mechelle Plt Count MPV Absolute Nucleated RBC Nucleated RBC % (auto) Neutrophils % (Manual) Monocytes % (Manual) Metamyelocytes % (Man) Myelocytes % (Man) Neutrophils # (Manual) Total Absolute Neuts Total Abs Lymphocytes Monocytes # (Manual) Metamyelocytes # (Man) Myelocytes # (Manual) Toxic Granulation Giant Platelets Echinocytes PT INR Sodium Potassium Chloride Carbon Dioxide Anion Gap BUN Creatinine Est Cr Clr Drug Dosing Est GFR ( Amer) Est GFR (Non-Af Amer) BUN/Creatinine Ratio Glucose POC Glucose 351 H* 349 H Estimat Average Glucose 157 Hemoglobin A1c 7.1 H Calcium Total Bilirubin Direct Bilirubin AST ALT Alkaline Phosphatase Total Protein Albumin Globulin Albumin/Globulin Ratio Beta-Hydroxybutyric Acd 08/25/18 08/25/18 08/25/18 11:04 11:06 13:40 WBC RBC Hgb Hct MCV MCH MCHC RDW Std Deviation RDW Coeff of Mechelle Plt Count MPV Absolute Nucleated RBC Nucleated RBC % (auto) Neutrophils % (Manual) Monocytes % (Manual) Metamyelocytes % (Man) Myelocytes % (Man) Neutrophils # (Manual) Total Absolute Neuts Total Abs Lymphocytes Monocytes # (Manual) Metamyelocytes # (Man) Myelocytes # (Manual) Toxic Granulation Giant Platelets Echinocytes PT INR Sodium Potassium Chloride Carbon Dioxide Anion Gap BUN Creatinine Est Cr Clr Drug Dosing Est GFR ( Amer) Est GFR (Non-Af Amer) BUN/Creatinine Ratio Glucose POC Glucose 360 H* 334 H 290 H Estimat Average Glucose Hemoglobin A1c Calcium Total Bilirubin Direct Bilirubin AST ALT Alkaline Phosphatase Total Protein Albumin Globulin Albumin/Globulin Ratio Beta-Hydroxybutyric Acd (1) Neutropenia Neutropenia type: secondary to cancer chemotherapy Qualified Code(s): D70.1 - Agranulocytosis secondary to cancer chemotherapy; T45.1X5A - Adverse effect of antineoplastic and immunosuppressive drugs, initial encounter (2) Breast cancer, stage 2 Laterality: unspecified laterality Qualified Code(s): C50.919 - Malignant neoplasm of unspecified site of unspecified female breast (3) Atrial fibrillation Atrial fibrillation type: chronic Qualified Code(s): I48.2 - Chronic atrial fibrillation (4) Asthma Asthma severity: unspecified severity Asthma persistence: persistent Asthma complication type: uncomplicated Qualified Code(s): J45.909 - Unspecified asthma, uncomplicated
[2018-08-25 14:54] LABS: Fibrinogen 306 mg/dl (184-400); Partial Thromboplastin Ratio 1.1; Partial Thromboplastin Time 29.2 Seconds (21.0-31.0)
--- NOTE | 2018-08-25 19:44 | Nephrology Progress Note ---
Date of Service August 25, 2018 Assessment & Plan (1) Acute renal failure: suspect ATN from neutropenic sepsis/ e coli bacteremia clinically improving though still very ill - her bp and HR are low off of IVF; her clinical presentation was most c/w dehydration and urine sediment on admission had no infection, no granular casts; no obstruction or focal lesions on imaging at admission baseline creatinine 0.8; presenting creatinine on 08/22 was 2.4; improved to 1.1 today w/ aggressive hydration and antibiotics -cont daily bmp, strict I/O -I would reassess her this evening had have low threshold to resume normosol if SBP <100 or/and HR >100 -would not remove meek yet - Would not resume lasix yet Subjective Seen in f/u for DARCIE and neutropenic sepsis. She feels better, denies any SOB but reports fatigue. She has leg swelling and wants lasix restarted. Concerned about neutropenia Review of Systems All systems reviewed & are unremarkable except as noted in HPI & below Physical Exam Vital Signs (Past 24 Hours): Last Vital Signs Temp 36.7 C 08/25/18 15:21 Pulse 82 08/25/18 15:21 Resp 20 08/25/18 15:21 BP 122/80 08/25/18 15:21 Pulse Ox 91 08/25/18 15:21 Physical Exam: General exam: Obese, Appears comfortable, no acute distress HEENT: Pupils are equal and reactive to light Neck: No JVD, neck is supple trachea is midline Respiratory system: Clear breath sounds bilaterally. Gastrointestinal: Abdomen is soft, non distended, non tender, bowel sounds are present CVS: Regular rate and rhythm. No murmurs, rubs or gallops Musculoskeletal: No joint or muscle tenderness Extremities: Non tender, 1+ edema, peripheral pulses are present Neuro: Oriented, no tremors, no focal neurological deficits Skin: No rashes Results & Data Laboratory Results cr 1.1 (1) Acute renal failure Acute renal failure type: unspecified Qualified Code(s): N17.9 - Acute kidney failure, unspecified
[2018-08-25] MEDS: NYSTATIN SUSP 500,000 U/5 ML UDC PO SCH (20:40)
[2018-08-25] MEDS: cefTRIAXone SODIUM 2,000 MG in DEXTROSE 5% 50 ML IV SCH (20:50)
[2018-08-26] MEDS: INSULIN ASPART 100 UNITS/ML 3 ML PEN SC SCH ×6 (00:17→21:46)
[2018-08-26] MEDS: HYDROCORTISONE SOD 50 MG in SYRINGE 0 ML IV SCH (05:51)
[2018-08-26 06:01] LABS: Nucleated RBC # (auto) 0.18 K/uL (0-0); Nucleated RBC % (auto) 1.5 %
[2018-08-26 06:23] LABS: Hematocrit (blood only) 31.2 % (37-47); Hemoglobin 10.8 g/dL (12.0-16.0); Mean Corpuscular Hgb Conc 34.6 g/dL (32-36); Mean Corpuscular Volume 88.1 fL (80-100); Mean Platelet Volume 11.5 fL (7.4-10.4); Platelet Count 110 K/uL (130-400); RDW Coefficient of Variation 16.8 % (11.5-14.5); RDW Standard Deviation 53.4 fL (36.4-46.3); Red Blood Count 3.54 M/uL (4.2-5.4); White Blood Count 12.03 K/uL (4.8-10.8)
[2018-08-26 06:44] LABS: ALC (manual) 0.73 K/uL (1.2-3.4); Dohle Bodies 1+; Giant Platelets 1+; Lymphocytes # (manual) 0.73 K/uL (1.2-3.4); Lymphocytes % (manual) 6.1 %; Metamyelocytes # (manual) 0.53 K/uL (0-0); Metamyelocytes % (manual) 4.4 %; Monocytes # (manual) 1.06 K/uL (0.11-0.59); Monocytes % (manual) 8.8 %; Myelocytes # (manual) 0.53 K/uL (0-0); Myelocytes % (manual) 4.4 %; Neutrophils % (manual) 76.3 %; Ovalocytes 1+; Toxic Granulation 2+
[2018-08-26] MEDS: LEVALBUTEROL TARTRATE 15 GM HFA.AER.AD INH SCH ×2 (08:03→21:45)
[2018-08-26] MEDS: DOXYCYCLINE HYCLATE 100 MG CAP PO SCH (08:04)
[2018-08-26] MEDS: SACCHAROMYCES BOULARDII 250 MG CAP PO SCH (08:05)
[2018-08-26] MEDS: CHOLECALCIFEROL 1,000 UNITS TAB PO SCH (08:05)
[2018-08-26] MEDS: NYSTATIN SUSP 500,000 U/5 ML UDC PO SCH ×4 (08:06→21:44)
[2018-08-26] MEDS: FLECAINIDE ACETATE 100 MG TABLET PO SCH ×2 (08:06→21:44)
[2018-08-26] MEDS: METOPROLOL TARTRATE 25 MG TAB PO SCH ×2 (08:06→21:43)
[2018-08-26] MEDS: PROSOURCE NO CARB 30 ML/PKT PO SCH ×3 (08:06→17:04)
[2018-08-26] MEDS: MULTIVITAMIN TAB PO SCH (08:07)
[2018-08-26] MEDS: PANTOprazole 40 MG TAB PO SCH (08:07)
[2018-08-26] MEDS ORDERED: INSULIN GLARGINE SOLOSTAR 100 UNITS/ML 3 ML PEN SC ONE (09:00)
--- NOTE | 2018-08-26 10:37 | Hospitalist Progress Note ---
Date of Service August 26, 2018 Assessment & Plan (1) Severe sepsis: per admitting Service: this is a 67 yo F with recently diagnosed Breast CA( May 2018 ) s/p lumpectomy of right breast , on chemo , chronic Afib ,GALLO cirrhosis admitted diarrhea , SOB , fever/chills , cloudy urine for x3 days found to be febrile , pancytopenic , hypotensive in ER ( BP 50/30 ) , pt received chemo for breast Ca stage 2 weeks back meets CMS Criteria for severe sepsis : neutropenia , fever , tachycardic , hypotensive, elevated lactic acid /pro calcitonin most likely secondary to Bacteremia, Port infection pt was admitted to ICU received IV fluid resuscitation /did not require pressors Initally was started on Broad spectrum IV abx -Daptomycin /Cefepime ( pt has severe allergic reaction to PCN ) Cxray shows no infiltrate CT abdomen /pelvis : no active pathology blood culture 08/22: 1 bottle gram negative bacilli ECHO shows : hyperdynamic EF suggestive of intravascular vol depletion no valvular vegetation reported 08/24/18 s/p removal of port by Dr. Hernandez 08/25/18 blood cultures (+) E coli Cefepime changed to Ceftriaxone IV daily to complete 10 days IV antibiotics per Dr. Ramos afebrile, CBC improved overall, patient is improving taper Hydrocortisone further to 50mg q12 today, then resume usual Methylprednisolone 4mg po daily tomorrow 08/26/2018 Afebrile, clinically improving CBC trending up Continue IV ceftriaxone to finish 10 days of IV antibiotics Hydrocortisone 50 mg once today then resume usual methylprednisolone 4 mg p.o. daily tomorrow (2) Gram-negative bacteremia: s/p removal of port by Dr. Hernandez management as noted above (3) Neutropenia: ANC < 0.7 due to recent chemo tx, sepsis stage 2 Breast CA s/p recent chemo Adiramycin /Cytoxan follows with heme onc Dr Conde at [facility] ANC normalized monitor (4) Pancytopenia: on admission Wbc of 0.75, hgb of 9.4, platelets 20 -due to recent chemo worsened with severe sepsis pt recieved Nulesta on 08/10/2018 D/w Dr Duke ( heme/onc ) pt will not need repeat Nulesta Pt's Primary oncology Dr Conde at [facility] updated -- CBC overall trending up monitor (5) Acute kidney injury: due to severe sepsis /dehydration also need to consider possible side effect of chemo was on Lasix for lower ext edema Cr elevated at 2.36 (baseline ~0.8) CT abdomen/Pelvis shows no evidence of renal /ureteral or bladder outlet obstruciton pt given aggressive resuscitatioan hold Lasix avoid NSAID's /contrast studies nephrology eval requested - crea further improved to 1.1 (+) fluid balance hold off on further IV fluids monitor crea (6) Breast cancer, stage 2: -In setting of breast cancer, cycle of Adriamycin and Cytoxan on Aug 10 -Also receiving Neulasta - ANC normalized no bleeding (7) Atrial fibrillation: stable continue Lopressor but reduce dose given borderline BP continue Flecainide -Previously on coumadin, Eliquis but stopped due to thrombocytopenia (8) Peripheral edema: No history of CHF, per patient -BLE with 3+ edema, has been present for last few days -Bedside echo in ICU : shows hyperdynamic LV , EF> 70% suggestive of intravascular vol depletation ( due to sepsis ) Lasix D/ines ( dehydration /DARCIE ) IV fluids given lower ext dopplar negative for DVT If renal function is still stable tomorrow we will resume usual Lasix (9) 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: CT abd/pelvis with evidence of cirrhosis with trace perihepatic ascites and splenomegaly indicative of portal hypertension -Total bili 1.3, AST and ALT unremarkable -Monitor with daily LFTs -Doppler USG of liver : no evidence of portal vein thrombosis INR 1.7 likely from Liver Cirrhosis, sepsis Baseline INR is 1.5 no signs of active bleeding (10) Liver mass: Dysplastic liver nodule with well-differentiated HCC -follows with Hepatology /oncology in [place] (11) Psoriatic arthritis: was on solu-medrol started on stress dose of IV hydrocortisone -hypotension /severe sepsis Resume usual methylprednisolone tomorrow (12) History of breast lump/mass excision: (13) Morbid obesity: BMI> 50 GALLO cirrhosis counselling for exercise 'diet /weight reduction nutrition consult (14) Asthma: Stable. Continue Xopenex inhaler (15) Discharge planning issues: lives with at home will need PT/OT eval DVT Ppx: Start Lovenox 40 mg subcu daily SCD and teds OOB as tolerated , increased activity Code status: FULL Subjective Follow-up for sepsis, bacteremia Resting in bed, sleeping, comfortable States she feels continue to improve compared to yesterday, energy is slowly returning Denies chills, chest pain, cough, shortness of breath, palpitations, abdominal pain Denies back pain leg pain No other symptoms Physical Exam Vital Signs (Past 24 Hours): Last Vital Signs Temp 36.4 C L 08/26/18 07:12 Pulse 78 08/26/18 07:12 Resp 18 08/26/18 07:12 BP 137/106 H 08/26/18 07:59 Pulse Ox 93 08/26/18 07:12 Physical Exam: General- oriented x 3, not in distress, speaks in sentences w ith no effort or accessory muscle use Eyes- anicteric Neck- no JVD Lungs-clear BS bilaterally, no crackles no wheezing Heart- normal rate, irregularly irregular; no murmurs Abdomen- normal bowel sounds, nondistended, soft, nontender Extremities-mild lower extremity edema, no calf tenderness . Mild erythema on the right posterior thigh, improving Back-erythema of the buttocks improving, bullae on the right upper buttock region noted Neuro- alert, oriented x 3; no gross focal neurologic deficits Skin- warm & dry Results & Data Laboratory Results Laboratory Results - last 24 hr 08/25/18 08/25/18 08/25/18 17:33 20:22 20:44 WBC RBC Hgb Hct MCV MCH MCHC RDW Std Deviation RDW Coeff of Mechelle Plt Count MPV Absolute Nucleated RBC Nucleated RBC % (auto) Neutrophils % (Manual) Lymphocytes % (Manual) Monocytes % (Manual) Metamyelocytes % (Man) Myelocytes % (Man) Neutrophils # (Manual) Total Absolute Neuts Lymphocytes # (Manual) Total Abs Lymphocytes Monocytes # (Manual) Metamyelocytes # (Man) Myelocytes # (Manual) Toxic Granulation Dohle Bodies Giant Platelets Ovalocytes PT INR POC Glucose 284 H 260 H 238 H 08/25/18 08/26/18 08/26/18 20:48 00:06 04:12 WBC RBC Hgb Hct MCV MCH MCHC RDW Std Deviation RDW Coeff of Mechelle Plt Count MPV Absolute Nucleated RBC Nucleated RBC % (auto) Neutrophils % (Manual) Lymphocytes % (Manual) Monocytes % (Manual) Metamyelocytes % (Man) Myelocytes % (Man) Neutrophils # (Manual) Total Absolute Neuts Lymphocytes # (Manual) Total Abs Lymphocytes Monocytes # (Manual) Metamyelocytes # (Man) Myelocytes # (Manual) Toxic Granulation Dohle Bodies Giant Platelets Ovalocytes PT INR POC Glucose 226 H 241 H 229 H 08/26/18 08/26/18 08/26/18 05:43 07:15 10:30 WBC 12.03 H RBC 3.54 L Hgb 10.8 L Hct 31.2 L MCV 88.1 MCH 30.5 MCHC 34.6 RDW Std Deviation 53.4 H RDW Coeff of Mechelle 16.8 H Plt Count 110 L D MPV 11.5 H Absolute Nucleated RBC 0.18 H Nucleated RBC % (auto) 1.5 Neutrophils % (Manual) 76.3 Lymphocytes % (Manual) 6.1 Monocytes % (Manual) 8.8 Metamyelocytes % (Man) 4.4 Myelocytes % (Man) 4.4 Neutrophils # (Manual) 9.18 H Total Absolute Neuts 9.18 H Lymphocytes # (Manual) 0.73 L Total Abs Lymphocytes 0.73 L Monocytes # (Manual) 1.06 H Metamyelocytes # (Man) 0.53 H Myelocytes # (Manual) 0.53 H Toxic Granulation 2+ Dohle Bodies 1+ Giant Platelets 1+ Ovalocytes 1+ PT 16.8 H INR 1.7 H POC Glucose 200 H 08/26/18 08/26/18 11:17 16:11 WBC RBC Hgb Hct MCV MCH MCHC RDW Std Deviation RDW Coeff of Mechelle Plt Count MPV Absolute Nucleated RBC Nucleated RBC % (auto) Neutrophils % (Manual) Lymphocytes % (Manual) Monocytes % (Manual) Metamyelocytes % (Man) Myelocytes % (Man) Neutrophils # (Manual) Total Absolute Neuts Lymphocytes # (Manual) Total Abs Lymphocytes Monocytes # (Manual) Metamyelocytes # (Man) Myelocytes # (Manual) Toxic Granulation Dohle Bodies Giant Platelets Ovalocytes PT INR POC Glucose 198 H 227 H (1) Atrial fibrillation Atrial fibrillation type: chronic Qualified Code(s): I48.2 - Chronic atrial fibrillation (2) Breast cancer, stage 2 Laterality: unspecified laterality Qualified Code(s): C50.919 - Malignant neoplasm of unspecified site of unspecified female breast (3) Neutropenia Neutropenia type: secondary to cancer chemotherapy Qualified Code(s): D70.1 - Agranulocytosis secondary to cancer chemotherapy; T45.1X5A - Adverse effect of antineoplastic and immunosuppressive drugs, initial encounter (4) Asthma Asthma complication type: uncomplicated Asthma persistence: persistent Asthma severity: unspecified severity Qualified Code(s): J45.909 - Unspecified asthma, uncomplicated
[2018-08-26 11:03] LABS: INR 1.7 (0.9-1.1); Prothrombin Time 16.8 Seconds (9.0-12.0)
--- NOTE | 2018-08-26 15:08 | Pharmacy Report ---
Pharmacy Glycemic Short Note 2 - Date of Service August 26, 2018 - Glycemic Short BSG Results (Last 24 hours): 08/25/18 08/25/18 08/25/18 17:33 20:22 20:44 POC Glucose 284 H 260 H 238 H 08/25/18 08/26/18 08/26/18 20:48 00:06 04:12 POC Glucose 226 H 241 H 229 H 08/26/18 08/26/18 07:15 11:17 POC Glucose 200 H 198 H OUTPATIENT ANTIDIABETIC REGIMEN: * diet controlled * Patient takes methylprednisolone 4 mg-8 mg PO daily as out pt * A1c 7.1% on 08/25/18 ASSESSMENT: 08/26: * Aaliyah received 62 units of insulin yesterday with poor glycemic control * BSGs are improving today. She got her last dose of hydrocortisone 50mg IV this morning. She will resume home dose of methylprednisolone on 3 am. * Fasting BSG improved from 349 mg/dL to 200 mg/dL. Will continue Lantus at decreased dosage. * Current Novolog parameters are close to weight/stress of 2. Will continue for now since BSGs are ~200 mg/dL. May need loosened tomorrow. 08/25: * 67 yr old female admitted with severe sepsis secondary to E.coli bacteremia s/p port removal * Severe hyperglycemia (BSG of 374 mg/dL this am) is likely due to a combination of illness, baseline DM (diet controlled), and administration of hydrocortisone 50 mg IV every 8 hours. Hydrocortisone is being tapered down to q12h today. If patient is stable 08/26 AM, will likely transition to home dose of methylprednisolone PO. * This morning patient was refusing all insulin. After discussion with MD, she agreed to allow insulin administration. BSG was repeated and resulted at 360 mg/dL with recheck of 334 mg/dL. * Aaliyah will be given a one time IV regular insulin bolus of 7 units plus SQ basal/bolus insulin based on weight. PLAN FOR INPATIENT GLYCEMIC CONTROL: * Basal insulin * Lantus 20 units x 1, then per scale tonight: * 0 units for BSG < 140 mg/dL * 10 units for BSG 140 - 180 mg/dL * 15 units for BSG > 180 mg/dL * Bolus insulin * NovoLog per scale ACHS or Q6hrs while NPO * Goal Range: Low 120 mg/dL - High 160 mg/dL * Correction Factor: 12 mg/dL/unit * Nutritional / Prandial insulin per carb ratio of 1 unit per 5 grams CHO consumed * Add overnight checks at 00 and 04 until better glycemic control achieved PLAN FOR DISCHARGE: * A1c of 7.1% is above goal. Of note, chronic use of methylprednisolone for arthritis has contributed to elevation. * Patient is not currently on any anti-diabetic agents. She reports being diet controlled. Recommend addition of oral therapy ->that medication/dose to be decided once we see BSG data on methylprednisolone.
[2018-08-26] MEDS ORDERED: NovoLIN-N (NPH) PER UNIT CHARGE SQ ONE (20:00)
[2018-08-26] MEDS ORDERED: methylPREDNISolone 60 MG in SYRINGE 0 ML IV ONE (20:00)
[2018-08-26 20:18] LABS: BUN Creatinine Ratio 31.7 (10-20); Calcium 9.1 mg/dl (8.5-10.1); Creatinine Clr Calc Pharmacy 79.6 ml/min; Est GFR (African American) 57.8; Est GFR (Non-African American) 49.9; Potassium 3.7 mmol/L (3.5-5.1)
[2018-08-26] MEDS: ERTAPENEM SODIUM 1,000 MG in SODIUM CHLORIDE 0.9% 50 ML IV SCH (21:43)
[2018-08-26] MEDS: ENOXAPARIN INJ 40 MG/0.4 ML SYR SQ SCH (21:44)
[2018-08-27] MEDS ORDERED: FUROSEMIDE 40 MG in SYRINGE 0 ML IV ONE (00:15)
[2018-08-27 06:10] LABS: Hematocrit (blood only) 33.5 % (37-47); Hemoglobin 11.5 g/dL (12.0-16.0); Mean Corpuscular Hgb Conc 34.3 g/dL (32-36); Mean Corpuscular Volume 88.6 fL (80-100); Mean Platelet Volume 11.8 fL (7.4-10.4); Nucleated RBC # (auto) 0.22 K/uL (0-0); Nucleated RBC % (auto) 2.1 %; Platelet Count 126 K/uL (130-400); RDW Coefficient of Variation 17.4 % (11.5-14.5); RDW Standard Deviation 54.9 fL (36.4-46.3); Red Blood Count 3.78 M/uL (4.2-5.4); White Blood Count 10.39 K/uL (4.8-10.8)
[2018-08-27 06:19] LABS: INR 1.8 (0.9-1.1); Prothrombin Time 17.7 Seconds (9.0-12.0)
[2018-08-27 06:46] LABS: BUN Creatinine Ratio 41.6 (10-20); Calcium 9.2 mg/dl (8.5-10.1); Creatinine Clr Calc Pharmacy 100.6 ml/min; Est GFR (African American) 76.7; Est GFR (Non-African American) 66.2; Potassium 4.3 mmol/L (3.5-5.1)
[2018-08-27 07:08] LABS: ALC (manual) 0.18 K/uL (1.2-3.4); Lymphocytes # (manual) 0.18 K/uL (1.2-3.4); Lymphocytes % (manual) 1.7 %; Metamyelocytes # (manual) 0.09 K/uL (0-0); Metamyelocytes % (manual) 0.9 %; Monocytes # (manual) 0.36 K/uL (0.11-0.59); Monocytes % (manual) 3.5 %; Myelocytes # (manual) 0.36 K/uL (0-0); Myelocytes % (manual) 3.5 %; Neutrophils % (manual) 90.4 %; RBC Morphology Unremarkable
[2018-08-27] MEDS: PROSOURCE NO CARB 30 ML/PKT PO SCH ×2 (07:43→12:22)
[2018-08-27] MEDS: METOPROLOL TARTRATE 25 MG TAB PO SCH (07:45)
[2018-08-27] MEDS: SACCHAROMYCES BOULARDII 250 MG CAP PO SCH (07:45)
[2018-08-27] MEDS: PANTOprazole 40 MG TAB PO SCH (07:46)
[2018-08-27] MEDS: FLECAINIDE ACETATE 100 MG TABLET PO SCH ×2 (07:46→20:25)
[2018-08-27] MEDS: MULTIVITAMIN TAB PO SCH (07:46)
[2018-08-27] MEDS: CHOLECALCIFEROL 1,000 UNITS TAB PO SCH (07:46)
[2018-08-27] MEDS: methylPREDNISolone 4 MG TAB PO SCH (07:46)
[2018-08-27] MEDS: LEVALBUTEROL TARTRATE 15 GM HFA.AER.AD INH SCH ×2 (07:47→20:24)
[2018-08-27] MEDS: NYSTATIN SUSP 500,000 U/5 ML UDC PO SCH ×4 (07:47→20:25)
[2018-08-27] MEDS: INSULIN ASPART 100 UNITS/ML 3 ML PEN SC SCH ×4 (08:45→20:24)
--- NOTE | 2018-08-27 11:03 | Hospitalist Progress Note ---
Date of Service August 27, 2018 Assessment & Plan (1) Severe sepsis: per admitting Service: this is a 67 yo F with recently diagnosed Breast CA( May 2018 ) s/p lumpectomy of right breast , on chemo , chronic Afib ,GALLO cirrhosis admitted diarrhea , SOB , fever/chills , cloudy urine for x3 days found to be febrile , pancytopenic , hypotensive in ER ( BP 50/30 ) , pt received chemo for breast Ca stage 2 weeks back meets CMS Criteria for severe sepsis : neutropenia , fever , tachycardic , hypotensive, elevated lactic acid /pro calcitonin most likely secondary to Bacteremia, Port infection pt was admitted to ICU received IV fluid resuscitation /did not require pressors Initally was started on Broad spectrum IV abx -Daptomycin /Cefepime ( pt has severe allergic reaction to PCN ) Cxray shows no infiltrate CT abdomen /pelvis : no active pathology blood culture 08/22: 1 bottle gram negative bacilli ECHO shows : hyperdynamic EF suggestive of intravascular vol depletion no valvular vegetation reported 08/24/18 s/p removal of port by Dr. Hernandez 08/25/18 blood cultures (+) E coli Cefepime changed to Ceftriaxone IV daily to complete 10 days IV antibiotics per Dr. Ramos afebrile, CBC improved overall, patient is improving taper Hydrocortisone further to 50mg q12 today, then resume usual Methylprednisolone 4mg po daily tomorrow 08/26/2018 Afebrile, clinically improving CBC trending up Continue IV ceftriaxone to finish 10 days of IV antibiotics Hydrocortisone 50 mg once today then resume usual methylprednisolone 4 mg p.o. daily tomorrow 08/27/18 remains afebrile CBC continues to improve Ceftriaxone changed to Ertapenem due to possible allergic reaction, tolerating well so far weaned off Hydrocortisone, now on usual methylprednisolone 4 mg p.o. daily continue to monitor closely (2) Gram-negative bacteremia: s/p removal of port by Dr. Hernandez management as noted above (3) Neutropenia: ANC < 0.7 due to recent chemo tx, sepsis stage 2 Breast CA s/p recent chemo Adiramycin /Cytoxan follows with heme onc Dr Conde at [facility] ANC normalized monitor (4) Pancytopenia: on admission Wbc of 0.75, hgb of 9.4, platelets 20 -due to recent chemo worsened with severe sepsis pt recieved Nulesta on 08/10/2018 D/w Dr Duke ( heme/onc ) pt will not need repeat Nulesta Pt's Primary oncology Dr Conde at [facility] updated -- CBC overall trending up monitor (5) Acute kidney injury: due to severe sepsis /dehydration also need to consider possible side effect of chemo was on Lasix for lower ext edema Cr elevated at 2.36 (baseline ~0.8) CT abdomen/Pelvis shows no evidence of renal /ureteral or bladder outlet obstruciton pt given aggressive resuscitatioan hold Lasix avoid NSAID's /contrast studies nephrology eval requested - crea further improved Lasix IV started diuresing well will give additional Lasix 20mg IV now monitor crea (6) Breast cancer, stage 2: -In setting of breast cancer, cycle of Adriamycin and Cytoxan on Aug 10 -Also receiving Neulasta - ANC normalized no bleeding (7) Atrial fibrillation: stable continue Lopressor but reduce dose given borderline BP continue Flecainide -Previously on coumadin, Eliquis but stopped due to thrombocytopenia (8) Peripheral edema: No history of CHF, per patient -BLE with 3+ edema, has been present for last few days -Bedside echo in ICU : shows hyperdynamic LV , EF> 70% suggestive of intravascular vol depletation ( due to sepsis ) Lasix D/ines ( dehydration /DARCIE ) IV fluids given lower ext dopplar negative for DVT -- still has significant BL LE edema with blisters on the right lateral LE Lasix 20mg IV one dose ordered today monitor crea (9) 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: CT abd/pelvis with evidence of cirrhosis with trace perihepatic ascites and splenomegaly indicative of portal hypertension -Total bili 1.3, AST and ALT unremarkable -Monitor with daily LFTs -Doppler USG of liver : no evidence of portal vein thrombosis INR 1.8 likely from Liver Cirrhosis, sepsis Baseline INR is 1.5 no signs of active bleeding (10) Liver mass: Dysplastic liver nodule with well-differentiated HCC -follows with Hepatology /oncology in [place] (11) Psoriatic arthritis: was on solu-medrol started on stress dose of IV hydrocortisone -hypotension /severe sepsis Resume usual methylprednisolone (12) History of breast lump/mass excision: (13) Morbid obesity: BMI> 50 GALLO cirrhosis counselling for exercise 'diet /weight reduction nutrition consult (14) Asthma: Stable. Continue Xopenex inhaler (15) Discharge planning issues: lives with at home will need PT/OT eval DVT Ppx:Lovenox 40 mg subcu daily SCD and teds OOB as tolerated , increased activity Code status: FULL Subjective ff up for sepsis, bacteremia seen resting in bed, comfortable in good spirits states she feels improved today compared to yesterday denies facial/head itching, burning no new rashes/blisters, no pruritus denies dyspnea, palpitations, dizziness no other symptoms Physical Exam Vital Signs (Past 24 Hours): Last Vital Signs Temp 36.6 C 08/27/18 07:34 Pulse 88 08/27/18 07:34 Resp 18 08/27/18 07:34 BP 138/106 H 08/27/18 07:34 Pulse Ox 94 08/27/18 07:34 Physical Exam: General- oriented x 3, not in distress, speaks in sentences with no effort or accessory muscle use Eyes- anicteric Neck- no JVD Lungs-clear BS BL no rales/wheezing Heart- normal rate, irregularly irregular; no murmurs Abdomen- normal bowel sounds, nondistended, soft, nontender Extremities- (+) moderate erythema with small blisters on the lateral aspect of the right lo wer extremity grade 1 lower extremity edema, no calf tenderness Mild erythema on the right posterior thigh, improving Back-erythema of the buttocks improving, bullae on the right upper buttock regio n -- ruptured with eschar tissue at the base Neuro- alert, oriented x 3; no gross focal neurologic deficits Skin- warm & dry Results & Data Laboratory Results Laboratory Results - last 24 hr 08/22/18 08/26/18 08/26/18 18:57 19:49 20:07 WBC RBC Hgb Hct MCV MCH MCHC RDW Std Deviation RDW Coeff of Mechelle Plt Count MPV Absolute Nucleated RBC Nucleated RBC % (auto) Neutrophils % (Manual) Lymphocytes % (Manual) Monocytes % (Manual) Metamyelocytes % (Man) Myelocytes % (Man) Neutrophils # (Manual) Total Absolute Neuts Lymphocytes # (Manual) Total Abs Lymphocytes Monocytes # (Manual) Metamyelocytes # (Man) Myelocytes # (Manual) RBC Morphology PT INR Sodium 136 Potassium 3.7 Chloride 102 Carbon Dioxide 30 Anion Gap 4.0 BUN 36 H Creatinine 1.15 Est Cr Clr Drug Dosing 79.6 Est GFR ( Amer) 57.8 Est GFR (Non-Af Amer) 49.9 BUN/Creatinine Ratio 31.7 H Glucose 207 H POC Glucose 209 H Calcium 9.1 Mycoplasma pneumon IgG 1.74 H Mycoplasma pneumon IgM 24 08/27/18 08/27/18 08/27/18 00:02 05:46 05:46 WBC 10.39 RBC 3.78 L Hgb 11.5 L Hct 33.5 L MCV 88.6 MCH 30.4 MCHC 34.3 RDW Std Deviation 54.9 H RDW Coeff of Mechelle 17.4 H Plt Count 126 L MPV 11.8 H Absolute Nucleated RBC 0.22 H Nucleated RBC % (auto) 2.1 Neutrophils % (Manual) 90.4 Lymphocytes % (Manual) 1.7 Monocytes % (Manual) 3.5 Metamyelocytes % (Man) 0.9 Myelocytes % (Man) 3.5 Neutrophils # (Manual) 9.39 H Total Absolute Neuts 9.39 H Lymphocytes # (Manual) 0.18 L Total Abs Lymphocytes 0.18 L Monocytes # (Manual) 0.36 Metamyelocytes # (Man) 0.09 H Myelocytes # (Manual) 0.36 H RBC Morphology Unremarkable PT INR Sodium 137 Potassium 4.3 D Chloride 104 Carbon Dioxide 28 Anion Gap 5.0 BUN 38 H Creatinine 0.91 Est Cr Clr Drug Dosing 100.6 Est GFR ( Amer) 76.7 Est GFR (Non-Af Amer) 66.2 BUN/Creatinine Ratio 41.6 H Glucose 215 H POC Glucose 197 H Calcium 9.2 Mycoplasma pneumon IgG Mycoplasma pneumon IgM 08/27/18 08/27/18 08/27/18 05:46 07:26 11:26 WBC RBC Hgb Hct MCV MCH MCHC RDW Std Deviation RDW Coeff of Mechelle Plt Count MPV Absolute Nucleated RBC Nucleated RBC % (auto) Neutrophils % (Manual) Lymphocytes % (Manual) Monocytes % (Manual) Metamyelocytes % (Man) Myelocytes % (Man) Neutrophils # (Manual) Total Absolute Neuts Lymphocytes # (Manual) Total Abs Lymphocytes Monocytes # (Manual) Metamyelocytes # (Man) Myelocytes # (Manual) RBC Morphology PT 17.7 H INR 1.8 H Sodium Potassium Chloride Carbon Dioxide Anion Gap BUN Creatinine Est Cr Clr Drug Dosing Est GFR ( Amer) Est GFR (Non-Af Amer) BUN/Creatinine Ratio Glucose POC Glucose 216 H 208 H Calcium Mycoplasma pneumon IgG Mycoplasma pneumon IgM 08/27/18 16:07 WBC RBC Hgb Hct MCV MCH MCHC RDW Std Deviation RDW Coeff of Mechelle Plt Count MPV Absolute Nucleated RBC Nucleated RBC % (auto) Neutrophils % (Manual) Lymphocytes % (Manual) Monocytes % (Manual) Metamyelocytes % (Man) Myelocytes % (Man) Neutrophils # (Manual) Total Absolute Neuts Lymphocytes # (Manual) Total Abs Lymphocytes Monocytes # (Manual) Metamyelocytes # (Man) Myelocytes # (Manual) RBC Morphology PT INR Sodium Potassium Chloride Carbon Dioxide Anion Gap BUN Creatinine Est Cr Clr Drug Dosing Est GFR ( Amer) Est GFR (Non-Af Amer) BUN/Creatinine Ratio Glucose POC Glucose 167 H Calcium Mycoplasma pneumon IgG Mycoplasma pneumon IgM (1) Atrial fibrillation Atrial fibrillation type: chronic Qualified Code(s): I48.2 - Chronic atrial fibrillation (2) Breast cancer, stage 2 Laterality: unspecified laterality Qualified Code(s): C50.919 - Malignant neoplasm of unspecified site of unspecified female breast (3) Neutropenia Neutropenia type: secondary to cancer chemotherapy Qualified Code(s): D70.1 - Agranulocytosis secondary to cancer chemotherapy; T45.1X5A - Adverse effect of antineoplastic and immunosuppressive drugs, initial encounter (4) Asthma Asthma complication type: uncomplicated Asthma persistence: persistent Asthma severity: unspecified severity Qualified Code(s): J45.909 - Unspecified asthma, uncomplicated
[2018-08-27] MEDS ORDERED: FUROSEMIDE 20 MG in SYRINGE 0 ML IV ONE (11:15)
[2018-08-27] MEDS ORDERED: INSULIN GLARGINE SOLOSTAR 100 UNITS/ML 3 ML PEN SC ONE (11:15)
--- NOTE | 2018-08-27 14:45 | Pharmacy Report ---
Pharmacy Glycemic Short Note 2 - Date of Service August 27, 2018 - Glycemic Short BSG Results (Last 24 hours): 08/26/18 08/26/18 08/26/18 16:11 19:49 20:07 Glucose 207 H POC Glucose 227 H 209 H 08/27/18 08/27/18 08/27/18 00:02 05:46 07:26 Glucose 215 H POC Glucose 197 H 216 H 08/27/18 11:26 Glucose POC Glucose 208 H OUTPATIENT ANTIDIABETIC REGIMEN: * diet controlled * Patient takes methylprednisolone 4 mg-8 mg PO daily as out pt * A1c 7.1% on 08/25/18 ASSESSMENT: 08/27 * Glycemic control remains poor, likely due to the administration of IV SoluMedrol last night. I would anticipate the effects to wear off over the next 24 hrs * Fasting BSG elevated this AM, 216, with 20 units Lantus + 30 units NPH on board. * Will give single dose of Lantus x 1 w/ lunch today given current BSGs above goal. Will reassess basal needs tomorrow given h/o diet controlled DM * Will continue the aggressive dosing of Novolog at this time as she still appears highly insulin resistant. Will likely need to scale back tomorrow 08/26: * Aaliyah received 62 units of insulin yesterday with poor glycemic control * BSGs are improving today. She got her last dose of hydrocortisone 50mg IV this morning. She will resume home dose of methylprednisolone on 08/27 am. * Fasting BSG improved from 349 mg/dL to 200 mg/dL. Will continue Lantus at decreased dosage. * Current Novolog parameters are close to weight/stress of 2. Will continue for now since BSGs are ~200 mg/dL. May need loosened tomorrow. 08/25: * 67 yr old female admitted with severe sepsis secondary to E.coli bacteremia s/p port removal * Severe hyperglycemia (BSG of 374 mg/dL this am) is likely due to a combination of illness, baseline DM (diet controlled), and administration of hydrocortisone 50 mg IV every 8 hours. Hydrocortisone is being tapered down to q12h today. If patient is stable 3/3 AM, will likely transition to home dose of methylprednisolone PO. * This morning patient was refusing all insulin. After discussion with MD, she agreed to allow insulin administration. BSG was repeated and resulted at 360 mg/dL with recheck of 334 mg/dL. * Aaliyah will be given a one time IV regular insulin bolus of 7 units plus SQ basal/bolus insulin based on weight. PLAN FOR INPATIENT GLYCEMIC CONTROL: * Basal insulin * Lantus 25 units SQ x 1 with lunch today * Bolus insulin * NovoLog per scale ACHS or Q6hrs while NPO * Goal Range: Low 120 mg/dL - High 160 mg/dL * Correction Factor: 10 mg/dL/unit * Nutritional / Prandial insulin per carb ratio of 1 unit per 3 grams CHO consumed PLAN FOR DISCHARGE: * A1c of 7.1% is above goal. Of note, chronic use of methylprednisolone for arthritis has contributed to elevation. * Patient is not currently on any anti-diabetic agents. She reports being diet controlled. Recommend addition of oral therapy ->that medication/dose to be decided once we see BSG data on methylprednisolone.
[2018-08-27] MEDS: MICONAZOLE NITRATE POWDER 43 GM EXT SCH ×2 (15:04→20:25)
--- NOTE | 2018-08-27 15:40 | Nephrology Progress Note ---
Date of Service August 27, 2018 Assessment & Plan (1) Acute renal failure: suspect ATN from neutropenic sepsis/ e coli bacteremia clinically improving. her clinical presentation was most c/w dehydration and urine sediment on admission had no infection, no granular casts; no obstruction or focal lesions on imaging at admission Creatinine is now down to baseline. -We can resume her home dose of Lasix -Renal will sign off. Please call if additional questions or concerns Subjective Seen in f/u for DARCIE. She feels better, denies any SOB but reports fatigue. Her leg swelling is better with lasix. Review of Systems All systems reviewed & are unremarkable except as noted in HPI & below Physical Exam Vital Signs (Past 24 Hours): Last Vital Signs Temp 36.5 C 08/27/18 11:25 Pulse 98 H 08/27/18 11:25 Resp 18 08/27/18 11:25 BP 130/85 08/27/18 15:04 Pulse Ox 92 08/27/18 11:25 Physical Exam: General exam: Obese female, appears comfortable, no acute distress HEENT: Pupils are equal and reactive to light Neck: No JVD, neck is supple trachea is midline Respiratory system: Clear breath sounds bilaterally. Gastrointestinal: Abdomen is soft, non distended, non tender, bowel sounds are present CVS: Regular rate and rhythm. No murmurs, rubs or gallops Musculoskeletal: No joint or muscle tenderness Extremities: Non tender, 1+ edema, peripheral pulses are present Neuro: Oriented, no tremors, no focal neurological deficits Skin: No rashes Results & Data Laboratory Results Potassium 4.3, creatinine 0.9, BUN of 38 (1) Acute renal failure Acute renal failure type: unspecified Qualified Code(s): N17.9 - Acute kidney failure, unspecified
[2018-08-27 16:58] LABS: Mycoplasma pneumoniae Ab, IgG 1.74 (<=0.90)
[2018-08-27] MEDS ORDERED: DOCUSATE SODIUM SYRUP 20MG/5ML 480ML PO PRN (19:20)
[2018-08-27] MEDS ORDERED: DOCUSATE SODIUM SYRUP 20MG/5ML 480ML PO STA (20:15)
[2018-08-27] MEDS: ENOXAPARIN INJ 40 MG/0.4 ML SYR SQ SCH (20:25)
[2018-08-27] MEDS: ERTAPENEM SODIUM 1,000 MG in SODIUM CHLORIDE 0.9% 50 ML IV SCH (20:25)
[2018-08-27] MEDS: METOPROLOL TARTRATE 50 MG TAB PO SCH (20:46)
[2018-08-28] MEDS: MICONAZOLE NITRATE POWDER 43 GM EXT SCH ×2 (08:02→20:22)
[2018-08-28] MEDS: PANTOprazole 40 MG TAB PO SCH (08:04)
[2018-08-28] MEDS: METOPROLOL TARTRATE 50 MG TAB PO SCH ×2 (08:04→20:22)
[2018-08-28] MEDS: CHOLECALCIFEROL 1,000 UNITS TAB PO SCH ×2 (08:04→20:24)
[2018-08-28] MEDS: SACCHAROMYCES BOULARDII 250 MG CAP PO SCH (08:04)
[2018-08-28] MEDS: methylPREDNISolone 4 MG TAB PO SCH (08:04)
[2018-08-28] MEDS: NYSTATIN SUSP 500,000 U/5 ML UDC PO SCH ×4 (08:04→20:22)
[2018-08-28] MEDS: LEVALBUTEROL TARTRATE 15 GM HFA.AER.AD INH SCH ×2 (08:04→20:25)
[2018-08-28] MEDS: MULTIVITAMIN TAB PO SCH (08:04)
[2018-08-28] MEDS: FLECAINIDE ACETATE 100 MG TABLET PO SCH ×2 (08:05→20:24)
[2018-08-28] MEDS: INSULIN ASPART 100 UNITS/ML 3 ML PEN SC SCH ×4 (08:05→20:25)
[2018-08-28 08:42] LABS: BUN Creatinine Ratio 46.6 (10-20); Calcium 9.5 mg/dl (8.5-10.1); Creatinine Clr Calc Pharmacy 98.4 ml/min; Est GFR (African American) 75.7; Est GFR (Non-African American) 65.3; Hematocrit (blood only) 36.5 % (37-47); Hemoglobin 12.3 g/dL (12.0-16.0); Mean Corpuscular Hgb Conc 33.7 g/dL (32-36); Nucleated RBC # (auto) 0.27 K/uL (0-0); Nucleated RBC % (auto) 1.3 %; Platelet Count 176 K/uL (130-400); Potassium 3.5 mmol/L (3.5-5.1); RDW Coefficient of Variation 18.5 % (11.5-14.5); RDW Standard Deviation 57.3 fL (36.4-46.3); Red Blood Count 4.01 M/uL (4.2-5.4); White Blood Count 21.55 K/uL (4.8-10.8)
[2018-08-28 08:43] LABS: ALC (manual) 0.97 K/uL (1.2-3.4); Dohle Bodies 1+; Lymphocytes # (manual) 0.97 K/uL (1.2-3.4); Lymphocytes % (manual) 4.5 %; Metamyelocytes # (manual) 1.16 K/uL (0-0); Metamyelocytes % (manual) 5.4 %; Monocytes # (manual) 1.72 K/uL (0.11-0.59); Myelocytes # (manual) 2.11 K/uL (0-0); Myelocytes % (manual) 9.8 %; Neutrophils % (manual) 72.3 %; Target Cells 1+; Toxic Granulation 2+
[2018-08-28] MEDS ORDERED: INSULIN GLARGINE SOLOSTAR 100 UNITS/ML 3 ML PEN SC SCH ×2 (11:15)
--- NOTE | 2018-08-28 12:04 | Pharmacy Report ---
Pharmacy Glycemic Short Note 2 - Date of Service August 28, 2018 - Glycemic Short BSG Results (Last 24 hours): 08/27/18 08/27/18 08/28/18 16:07 20:20 07:34 Glucose POC Glucose 167 H 158 H 144 H 08/28/18 08:02 Glucose 125 H POC Glucose OUTPATIENT ANTIDIABETIC REGIMEN: * diet controlled * Patient takes methylprednisolone 4 mg-8 mg PO daily as out pt * A1c 7.1% on 08/25/18 ASSESSMENT: 08/28 * Glycemic control continues to improve * The effects of last dose of IV solu-medrol should be minimal at this time * Will continue to titrate down both basal and prandial insulin doses today in anticipation of improved sensitivity. Will follow BSG pattern and adjust PRN 08/27 * Glycemic control remains poor, likely due to the administration of IV SoluMedrol last night. I would anticipate the effects to wear off over the next 24 hrs * Fasting BSG elevated this AM, 216, with 20 units Lantus + 30 units NPH on board. * Will give single dose of Lantus x 1 w/ lunch today given current BSGs above goal. Will reassess basal needs tomorrow given h/o diet controlled DM * Will continue the aggressive dosing of Novolog at this time as she still appears highly insulin resistant. Will likely need to scale back tomorrow 08/26: * Aaliyah received 62 units of insulin yesterday with poor glycemic control * BSGs are improving today. She got her last dose of hydrocortisone 50mg IV this morning. She will resume home dose of methylprednisolone on 3 am. * Fasting BSG improved from 349 mg/dL to 200 mg/dL. Will continue Lantus at decreased dosage. * Current Novolog parameters are close to weight/stress of 2. Will continue for now since BSGs are ~200 mg/dL. May need loosened tomorrow. 08/25: * 67 yr old female admitted with severe sepsis secondary to E.coli bacteremia s/p port removal * Severe hyperglycemia (BSG of 374 mg/dL this am) is likely due to a combination of illness, baseline DM (diet controlled), and administration of hydrocortisone 50 mg IV every 8 hours. Hydrocortisone is being tapered down to q12h today. If patient is stable 08/26 AM, will likely transition to home dose of methylprednisolone PO. * This morning patient was refusing all insulin. After discussion with MD, she agreed to allow insulin administration. BSG was repeated and resulted at 360 mg/dL with recheck of 334 mg/dL. * Aaliyah will be given a one time IV regular insulin bolus of 7 units plus SQ basal/bolus insulin based on weight. PLAN FOR INPATIENT GLYCEMIC CONTROL: * Basal insulin (dose reduction) * Lantus 15 units SQ x 1 with lunch today * Bolus insulin (dose reduction) * NovoLog per scale ACHS or Q6hrs while NPO * Goal Range: Low 120 mg/dL - High 160 mg/dL * Correction Factor: 15 mg/dL/unit * Nutritional / Prandial insulin per carb ratio of 1 unit per 5 grams CHO consumed PLAN FOR DISCHARGE: * A1c of 7.1% is above goal. Of note, chronic use of methylprednisolone for arthritis has contributed to elevation. * Patient is not currently on any anti-diabetic agents. She reports being diet controlled. Recommend addition of oral therapy ->that medication/dose to be decided once we see BSG data on methylprednisolone.
[2018-08-28] MEDS ORDERED: FUROSEMIDE 40 MG TAB PO ONE (18:44)
[2018-08-28] MEDS: ENOXAPARIN INJ 40 MG/0.4 ML SYR SQ SCH (20:23)
[2018-08-28] MEDS: ERTAPENEM SODIUM 1,000 MG in SODIUM CHLORIDE 0.9% 50 ML IV SCH (20:50)
[2018-08-29] MEDS: POLYETHYLENE (MIRALAX) 17 GM PACK PO PRN (05:31)
[2018-08-29 05:38] LABS: Hematocrit (blood only) 33.1 % (37-47); Hemoglobin 11.1 g/dL (12.0-16.0); Mean Corpuscular Hgb Conc 33.5 g/dL (32-36); Mean Corpuscular Volume 90.4 fL (80-100); Mean Platelet Volume 11.3 fL (7.4-10.4); Nucleated RBC # (auto) 0.18 K/uL (0-0); Nucleated RBC % (auto) 1.1 %; Platelet Count 148 K/uL (130-400); RDW Coefficient of Variation 18.7 % (11.5-14.5); RDW Standard Deviation 57.4 fL (36.4-46.3); Red Blood Count 3.66 M/uL (4.2-5.4); White Blood Count 16.67 K/uL (4.8-10.8)
[2018-08-29 06:01] LABS: BUN Creatinine Ratio 48.8 (10-20); Calcium 8.6 mg/dl (8.5-10.1); Creatinine Clr Calc Pharmacy 100.5 ml/min; Est GFR (African American) 77.8; Est GFR (Non-African American) 67.1
[2018-08-29] MEDS: INSULIN ASPART 100 UNITS/ML 3 ML PEN SC SCH ×4 (07:30→22:14)
[2018-08-29 08:07] LABS: ALC (manual) 1.17 K/uL (1.2-3.4); Eosinophils # (manual) 0.15 K/uL (0-0.5); Eosinophils % (manual) 0.9 %; Lymphocytes # (manual) 1.17 K/uL (1.2-3.4); Metamyelocytes # (manual) 2.17 K/uL (0-0); Monocytes # (manual) 0.72 K/uL (0.11-0.59); Monocytes % (manual) 4.3 %; Myelocytes % (manual) 9.6 %; Neutrophils % (manual) 62.6 %; Promyelocytes # (manual) 0.43 K/uL (0-0); Promyelocytes % (manual) 2.6 %; Target Cells 1+; Toxic Granulation 1+
[2018-08-29] MEDS: MICONAZOLE NITRATE POWDER 43 GM EXT SCH ×2 (08:29→20:36)
[2018-08-29] MEDS: LEVALBUTEROL TARTRATE 15 GM HFA.AER.AD INH SCH ×2 (08:31→20:37)
[2018-08-29] MEDS: METOPROLOL TARTRATE 50 MG TAB PO SCH ×2 (08:31→20:37)
[2018-08-29] MEDS: CHOLECALCIFEROL 1,000 UNITS TAB PO SCH (08:32)
[2018-08-29] MEDS: FLECAINIDE ACETATE 100 MG TABLET PO SCH ×2 (08:32→20:39)
[2018-08-29] MEDS: NYSTATIN SUSP 500,000 U/5 ML UDC PO SCH ×4 (08:32→20:38)
[2018-08-29] MEDS: SACCHAROMYCES BOULARDII 250 MG CAP PO SCH (08:32)
[2018-08-29] MEDS: MULTIVITAMIN TAB PO SCH (08:33)
[2018-08-29] MEDS: methylPREDNISolone 4 MG TAB PO SCH (08:33)
[2018-08-29] MEDS: PANTOprazole 40 MG TAB PO SCH (08:33)
[2018-08-29] MEDS ORDERED: FUROSEMIDE 20 MG TAB PO SCH (09:00)
[2018-08-29] MEDS: SOD PHOSPHATE/SOD BIPHOSPHATE ENEMA 132 ML BTL PR PRN (10:11)
--- NOTE | 2018-08-29 10:12 | Pharmacy Report ---
Pharmacy Glycemic Short Note 2 - Date of Service August 29, 2018 - Glycemic Short BSG Results (Last 24 hours): 08/28/18 08/28/18 08/28/18 11:32 16:13 20:04 Glucose POC Glucose 129 H 169 H 161 H 08/29/18 08/29/18 05:13 07:24 Glucose 116 H POC Glucose 132 H OUTPATIENT ANTIDIABETIC REGIMEN: * diet controlled * Patient takes methylprednisolone 4 mg-8 mg PO daily as out pt * A1c 7.1% on 08/25/18 ASSESSMENT: 08/29 * Fasting BSG at goal this AM with no Lantus on board (pt refused yesterday's Lantus 15 unit dose); FBS 132 * Post prandial BSGs well controlled yesterday using carb coverage w/ 2 of 3 meals. * Will remove carb coverage at this time and follow BSG pattern as she was diet controlled prior to admission. I would have a low threshold for adding a carb ratio again should her BSGs climb to > 180 as she does have an underlying infxn which could lead to greater insulin needs now vs at home w/o infxn. 08/28 * Glycemic control continues to improve * The effects of last dose of IV solu-medrol should be minimal at this time * Will continue to titrate down both basal and prandial insulin doses today in anticipation of improved sensitivity. Will follow BSG pattern and adjust PRN 08/27 * Glycemic control remains poor, likely due to the administration of IV SoluMedrol last night. I would anticipate the effects to wear off over the next 24 hrs * Fasting BSG elevated this AM, 216, with 20 units Lantus + 30 units NPH on board. * Will give single dose of Lantus x 1 w/ lunch today given current BSGs above goal. Will reassess basal needs tomorrow given h/o diet controlled DM * Will continue the aggressive dosing of Novolog at this time as she still appears highly insulin resistant. Will likely need to scale back tomorrow 08/26: * Aaliyah received 62 units of insulin yesterday with poor glycemic control * BSGs are improving today. She got her last dose of hydrocortisone 50mg IV this morning. She will resume home dose of methylprednisolone on 34 am. * Fasting BSG improved from 349 mg/dL to 200 mg/dL. Will continue Lantus at decreased dosage. * Current Novolog parameters are close to weight/stress of 2. Will continue for now since BSGs are ~200 mg/dL. May need loosened tomorrow. 08/25: * 67 yr old female admitted with severe sepsis secondary to E.coli bacteremia s/p port removal * Severe hyperglycemia (BSG of 374 mg/dL this am) is likely due to a combination of illness, baseline DM (diet controlled), and administration of hydrocortisone 50 mg IV every 8 hours. Hydrocortisone is being tapered down to q12h today. If patient is stable 3/3 AM, will likely transition to home dose of methylprednisolone PO. * This morning patient was refusing all insulin. After discussion with MD, she agreed to allow insulin administration. BSG was repeated and resulted at 360 mg/dL with recheck of 334 mg/dL. * Aaliyah will be given a one time IV regular insulin bolus of 7 units plus SQ basal/bolus insulin based on weight. PLAN FOR INPATIENT GLYCEMIC CONTROL: * Basal insulin (dose reduction) * None at this time - following FBSs * Bolus insulin (dose reduction) * NovoLog per scale ACHS or Q6hrs while NPO * Goal Range: Low 120 mg/dL - High 160 mg/dL * Correction Factor: 30 mg/dL/unit * Nutritional / Prandial insulin: none PLAN FOR DISCHARGE: * A1c of 7.1% is above goal. Of note, chronic use of methylprednisolone for arthritis has contributed to elevation. * Patient is not currently on any anti-diabetic agents. She reports being diet controlled. Recommend addition of oral therapy ->that medication/dose to be decided once we see BSG data on methylprednisolone.
[2018-08-29] MEDS ORDERED: FUROSEMIDE 20 MG in SYRINGE 0 ML IV ONE (17:00)
--- NOTE | 2018-08-29 18:55 | Hospitalist Progress Note ---
Date of Service August 29, 2018 Assessment & Plan (1) Severe sepsis: per admitting Service: this is a 67 yo F with recently diagnosed Breast CA( May 2018 ) s/p lumpectomy of right breast , on chemo , chronic Afib ,GALLO cirrhosis admitted diarrhea , SOB , fever/chills , cloudy urine for x3 days found to be febrile , pancytopenic , hypotensive in ER ( BP 50/30 ) , pt received chemo for breast Ca stage 2 weeks back meets CMS Criteria for severe sepsis : neutropenia , fever , tachycardic , hypotensive, elevated lactic acid /pro calcitonin most likely secondary to Bacteremia, Port infection pt was admitted to ICU received IV fluid resuscitation /did not require pressors Initally was started on Broad spectrum IV abx -Daptomycin /Cefepime ( pt has severe allergic reaction to PCN ) Cxray shows no infiltrate CT abdomen /pelvis : no active pathology blood culture 08/22: 1 bottle gram negative bacilli ECHO shows : hyperdynamic EF suggestive of intravascular vol depletion no valvular vegetation reported 08/24/18 s/p removal of port by Dr. Hernandez 08/25/18 blood cultures (+) E coli Cefepime changed to Ceftriaxone IV daily to complete 10 days IV antibiotics per Dr. Rmaos afebrile, CBC improved overall, patient is improving taper Hydrocortisone further to 50mg q12 today, then resume usual Methylprednisolone 4mg po daily tomorrow 08/26/2018 Afebrile, clinically improving CBC trending up Continue IV ceftriaxone to finish 10 days of IV antibiotics Hydrocortisone 50 mg once today then resume usual methylprednisolone 4 mg p.o. daily tomorrow 08/27/18 remains afebrile CBC continues to improve Ceftriaxone changed to Ertapenem due to possible allergic reaction, tolerating well so far weaned off Hydrocortisone, now on usual methylprednisolone 4 mg p.o. daily continue to monitor closely August 28, 2018 Afebrile, CBC stable Continue ertapenem day 8 out of 10 (2) Gram-negative bacteremia: s/p removal of port by Dr. Hernandez management as noted above (3) Neutropenia: ANC < 0.7 due to recent chemo tx, sepsis stage 2 Breast CA s/p recent chemo Adiramycin /Cytoxan follows with heme onc Dr Conde at [facility] ANC normalized monitor (4) Pancytopenia: on admission Wbc of 0.75, hgb of 9.4, platelets 20 -due to recent chemo worsened with severe sepsis pt recieved Nulesta on 08/10/2018 D/w Dr Duke ( heme/onc ) pt will not need repeat Nulesta Pt's Primary oncology Dr Conde at [facility] , [place] updated --CBC stable Continue to monitor (5) Acute kidney injury: due to severe sepsis /dehydration also need to consider possible side effect of chemo was on Lasix for lower ext edema Cr elevated at 2.36 (baseline ~0.8) CT abdomen/Pelvis shows no evidence of renal /ureteral or bladder outlet obstruciton pt given aggressive resuscitatioan hold Lasix avoid NSAID's /contrast studies nephrology eval requested - crea further improved We will give additional Lasix IV tonight Reassess in the morning may need further IV Lasix (6) Breast cancer, stage 2: -In setting of breast cancer, cycle of Adriamycin and Cytoxan on Aug 10 -Also receiving Neulasta - ANC normalized no bleeding (7) Atrial fibrillation: usual dose 50 mg twice dailystable continue Lopressor continue Flecainide -Previously on coumadin, Eliquis but stopped due to thrombocytopenia (8) Peripheral edema: No history of CHF, per patient -BLE with 3+ edema, has been present for last few days -Bedside echo in ICU : shows hyperdynamic LV , EF> 70% suggestive of intravascular vol depletation ( due to sepsis ) Lasix D/ines ( dehydration /DARCIE ) IV fluids given lower ext dopplar negative for DVT -- Versus in the morninghold p.o. 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: CT abd/pelvis with evidence of cirrhosis with trace perihepatic ascites and splenomegaly indicative of portal hypertension -Total bili 1.3, AST and ALT unremarkable -Monitor with daily LFTs -Doppler USG of liver : no evidence of portal vein thrombosis INR 1.8 likely from Liver Cirrhosis, sepsis Baseline INR is 1.5 no signs of active bleeding (10) Liver mass: Dysplastic liver nodule with well-differentiated HCC -follows with Hepatology /oncology in [place] (11) Psoriatic arthritis: was on solu-medrol started on stress dose of IV hydrocortisone -hypotension /severe sepsis Resume usual methylprednisolone (12) History of breast lump/mass excision: (13) Morbid obesity: BMI> 50 GALLO cirrhosis counselling for exercise 'diet /weight reduction nutrition consult (14) Asthma: Stable. Continue Xopenex inhaler (15) Discharge planning issues: lives with at home will need PT/OT eval DVT Ppx:Lovenox 40 mg subcu daily SCD and teds OOB as tolerated , increased activity Code status: FULL Subjective ff up for sepsis, bacteremia Seen resting in bed, comfortable states she feels improved today Physical therapy today, tolerated well Denies shortness of breath, chest pain Reports increased leg pain today, but denies shortness of breath No other symptoms Physical Exam Vital Signs (Past 24 Hours): Last Vital Signs Temp 36.7 C 08/29/18 15:21 Pulse 65 08/29/18 15:21 Resp 18 08/29/18 15:21 BP 139/70 08/29/18 15:21 Pulse Ox 94 08/29/18 15:21 Physical Exam: Gen grade 2 lower leg edema, eral- oriented x 3, not in distress, speaks in sentences with no effort or accessory muscle use Eyes- anicteric Neck- no JVD Lungs- clear breath sounds bilaterally, no rales/wheezes Heart- normal rate, regular rhythm; no murmurs Abdomen- normal bowel sounds, nondistended, soft, nontender Extremities-grade 2 bilateral lower leg edema, blisters drying up A, no calf tenderness Neuro- alert, oriented x 3; no gross focal neurologic deficits Skin- warm & dry Results & Data Laboratory Results Laboratory Results - last 24 hr 08/28/18 08/29/18 08/29/18 20:04 05:13 05:13 WBC 16.67 H RBC 3.66 L Hgb 11.1 L Hct 33.1 L MCV 90.4 MCH 30.3 MCHC 33.5 RDW Std Deviation 57.4 H RDW Coeff of Mechelle 18.7 H Plt Count 148 MPV 11.3 H Absolute Nucleated RBC 0.18 H Nucleated RBC % (auto) 1.1 Neutrophils % (Manual) 62.6 Lymphocytes % (Manual) 7.0 Monocytes % (Manual) 4.3 Eosinophils % (Manual) 0.9 Metamyelocytes % (Man) 13.0 Myelocytes % (Man) 9.6 Promyelocytes % (Man) 2.6 Neutrophils # (Manual) 10.44 H Total Absolute Neuts 10.44 H Lymphocytes # (Manual) 1.17 L Total Abs Lymphocytes 1.17 L Monocytes # (Manual) 0.72 H Eosinophils # (Manual) 0.15 Metamyelocytes # (Man) 2.17 H Myelocytes # (Manual) 1.60 H Promyelocytes # (Man) 0.43 H Toxic Granulation 1+ Target Cells 1+ Sodium 136 Potassium Chloride 100 Carbon Dioxide 32 Anion Gap 4.0 BUN 44 H Creatinine 0.90 Est Cr Clr Drug Dosing 100.5 Est GFR ( Amer) 77.8 Est GFR (Non-Af Amer) 67.1 BUN/Creatinine Ratio 48.8 H Glucose 116 H POC Glucose 161 H Calcium 8.6 08/29/18 08/29/18 08/29/18 06:09 07:24 11:13 WBC RBC Hgb Hct MCV MCH MCHC RDW Std Deviation RDW Coeff of Mechelle Plt Count MPV Absolute Nucleated RBC Nucleated RBC % (auto) Neutrophils % (Manual) Lymphocytes % (Manual) Monocytes % (Manual) Eosinophils % (Manual) Metamyelocytes % (Man) Myelocytes % (Man) Promyelocytes % (Man) Neutrophils # (Manual) Total Absolute Neuts Lymphocytes # (Manual) Total Abs Lymphocytes Monocytes # (Manual) Eosinophils # (Manual) Metamyelocytes # (Man) Myelocytes # (Manual) Promyelocytes # (Man) Toxic Granulation Target Cells Sodium Potassium 3.5 Chloride Carbon Dioxide Anion Gap BUN Creatinine Est Cr Clr Drug Dosing Est GFR ( Amer) Est GFR (Non-Af Amer) BUN/Creatinine Ratio Glucose POC Glucose 132 H 142 H Calcium 08/29/18 16:26 WBC RBC Hgb Hct MCV MCH MCHC RDW Std Deviation RDW Coeff of Mechelle Plt Count MPV Absolute Nucleated RBC Nucleated RBC % (auto) Neutrophils % (Manual) Lymphocytes % (Manual) Monocytes % (Manual) Eosinophils % (Manual) Metamyelocytes % (Man) Myelocytes % (Man) Promyelocytes % (Man) Neutrophils # (Manual) Total Absolute Neuts Lymphocytes # (Manual) Total Abs Lymphocytes Monocytes # (Manual) Eosinophils # (Manual) Metamyelocytes # (Man) Myelocytes # (Manual) Promyelocytes # (Man) Toxic Granulation Target Cells Sodium Potassium Chloride Carbon Dioxide Anion Gap BUN Creatinine Est Cr Clr Drug Dosing Est GFR ( Amer) Est GFR (Non-Af Amer) BUN/Creatinine Ratio Glucose POC Glucose 163 H Calcium (1) Neutropenia Neutropenia type: secondary to cancer chemotherapy Qualified Code(s): D70.1 - Agranulocytosis secondary to cancer chemotherapy; T45.1X5A - Adverse effect of antineoplastic and immunosuppressive drugs, initial encounter (2) Breast cancer, stage 2 Laterality: unspecified laterality Qualified Code(s): C50.919 - Malignant neoplasm of unspecified site of unspecified female breast (3) Atrial fibrillation Atrial fibrillation type: chronic Qualified Code(s): I48.2 - Chronic atrial fibrillation (4) Asthma Asthma severity: unspecified severity Asthma persistence: persistent Asthma complication type: uncomplicated Qualified Code(s): J45.909 - Unspecified asthma, uncomplicated
[2018-08-29] MEDS: ENOXAPARIN INJ 40 MG/0.4 ML SYR SQ SCH (20:39)
[2018-08-29] MEDS: ERTAPENEM SODIUM 1,000 MG in SODIUM CHLORIDE 0.9% 50 ML IV SCH ×2 (21:17→22:02)
[2018-08-30 07:35] LABS: Hematocrit (blood only) 31.2 % (37-47); Hemoglobin 10.5 g/dL (12.0-16.0); Mean Corpuscular Hgb Conc 33.7 g/dL (32-36); Mean Platelet Volume 11.5 fL (7.4-10.4); Platelet Count 121 K/uL (130-400); RDW Coefficient of Variation 19.3 % (11.5-14.5); RDW Standard Deviation 58.1 fL (36.4-46.3); Red Blood Count 3.43 M/uL (4.2-5.4)
[2018-08-30 08:10] LABS: BUN Creatinine Ratio 54.5 (10-20); Calcium 8.4 mg/dl (8.5-10.1); Creatinine Clr Calc Pharmacy 142.2 ml/min; Est GFR (African American) 108.5; Est GFR (Non-African American) 93.6; Potassium 3.2 mmol/L (3.5-5.1)
[2018-08-30] MEDS: SACCHAROMYCES BOULARDII 250 MG CAP PO SCH (08:14)
[2018-08-30] MEDS: CHOLECALCIFEROL 1,000 UNITS TAB PO SCH (08:15)
[2018-08-30] MEDS: MICONAZOLE NITRATE POWDER 43 GM EXT SCH ×2 (08:15→20:57)
[2018-08-30] MEDS: MULTIVITAMIN TAB PO SCH (08:15)
[2018-08-30] MEDS: methylPREDNISolone 4 MG TAB PO SCH (08:15)
[2018-08-30] MEDS: FLECAINIDE ACETATE 100 MG TABLET PO SCH ×2 (08:15→20:58)
[2018-08-30] MEDS: PANTOprazole 40 MG TAB PO SCH (08:15)
[2018-08-30] MEDS: INSULIN ASPART 100 UNITS/ML 3 ML PEN SC SCH ×5 (08:17→21:01)
[2018-08-30] MEDS: METOPROLOL TARTRATE 50 MG TAB PO SCH ×2 (08:19→20:57)
[2018-08-30] MEDS: NYSTATIN SUSP 500,000 U/5 ML UDC PO SCH ×4 (08:21→20:58)
[2018-08-30] MEDS: LEVALBUTEROL TARTRATE 15 GM HFA.AER.AD INH SCH ×2 (08:21→20:59)
[2018-08-30 08:30] LABS: ALC (manual) 1.58 K/uL (1.2-3.4); Basophils # (manual) 0.09 K/uL (0-0.2); Lymphocytes # (manual) 1.58 K/uL (1.2-3.4); Metamyelocytes # (manual) 0.28 K/uL (0-0); Monocytes # (manual) 0.84 K/uL (0.11-0.59); Myelocytes # (manual) 0.09 K/uL (0-0); Smudge Cells Present
[2018-08-30] MEDS ORDERED: POTASSIUM CHLORIDE 20 MEQ TABCR PO STA (08:40)
[2018-08-30] MEDS ORDERED: ACETAMINOPHEN 325 MG TAB PO PRN ×2 (16:12→17:20)
[2018-08-30] MEDS ORDERED: ACETAMINOPHEN 325 MG TAB ONE (16:24)
--- NOTE | 2018-08-30 17:08 | Hospitalist Progress Note ---
Date of Service August 30, 2018 Assessment & Plan (1) Severe sepsis: per admitting Service: this is a 67 yo F with recently diagnosed Breast CA( May 2018 ) s/p lumpectomy of right breast , on chemo , chronic Afib ,GALLO cirrhosis admitted diarrhea , SOB , fever/chills , cloudy urine for x3 days found to be febrile , pancytopenic , hypotensive in ER ( BP 50/30 ) , pt received chemo for breast Ca stage 2 weeks back meets CMS Criteria for severe sepsis : neutropenia , fever , tachycardic , hypotensive, elevated lactic acid /pro calcitonin most likely secondary to Bacteremia, Port infection pt was admitted to ICU received IV fluid resuscitation /did not require pressors Initally was started on Broad spectrum IV abx -Daptomycin /Cefepime ( pt has severe allergic reaction to PCN ) Cxray shows no infiltrate CT abdomen /pelvis : no active pathology blood culture 08/22: 1 bottle gram negative bacilli ECHO shows : hyperdynamic EF suggestive of intravascular vol depletion no valvular vegetation reported 08/24/18 s/p removal of port by Dr. Hernandez 08/25/18 blood cultures (+) E coli Cefepime changed to Ceftriaxone IV daily to complete 10 days IV antibiotics per Dr. Ramos afebrile, CBC improved overall, patient is improving taper Hydrocortisone further to 50mg q12 today, then resume usual Methylprednisolone 4mg po daily tomorrow 08/26/2018 Afebrile, clinically improving CBC trending up Continue IV ceftriaxone to finish 10 days of IV antibiotics Hydrocortisone 50 mg once today then resume usual methylprednisolone 4 mg p.o. daily tomorrow 08/27/18 remains afebrile CBC continues to improve Ceftriaxone changed to Ertapenem due to possible allergic reaction, tolerating well so far weaned off Hydrocortisone, now on usual methylprednisolone 4 mg p.o. daily continue to monitor closely August 28, 2018 Afebrile, CBC stable Continue ertapenem day 8 out of 10 08/29/18 (+) febrile episode clinically improving though repeat blood and urine cultures continue Ertapenem IV (2) Gram-negative bacteremia: s/p removal of port by Dr. Hernandez management as noted above (3) Neutropenia: ANC < 0.7 due to recent chemo tx, sepsis stage 2 Breast CA s/p recent chemo Adiramycin /Cytoxan follows with heme onc Dr Conde at [facility] ANC normalized monitor (4) Pancytopenia: on admission Wbc of 0.75, hgb of 9.4, platelets 20 -due to recent chemo worsened with severe sepsis pt recieved Nulesta on 08/10/2018 D/w Dr Duke ( heme/onc ) pt will not need repeat Nulesta Pt's Primary oncology Dr Conde at [facility] updated --CBC stable Continue to monitor (5) Acute kidney injury: due to severe sepsis /dehydration also need to consider possible side effect of chemo was on Lasix for lower ext edema Cr elevated at 2.36 (baseline ~0.8) CT abdomen/Pelvis shows no evidence of renal /ureteral or bladder outlet obstruciton pt given aggressive resuscitatioan hold Lasix avoid NSAID's /contrast studies nephrology eval requested - crea further improved Lasix IV today (6) Breast cancer, stage 2: -In setting of breast cancer, cycle of Adriamycin and Cytoxan on Aug 10 -Also receiving Neulasta - ANC normalized no bleeding (7) Atrial fibrillation: usual dose 50 mg twice daily stable continue Lopressor continue Flecainide -Previously on coumadin, Eliquis but stopped due to thrombocytopenia (8) Peripheral edema: No history of CHF, per patient -BLE with 3+ edema, has been present for last few days -Bedside echo in ICU : shows hyperdynamic LV , EF> 70% suggestive of intravascular vol depletation ( due to sepsis ) Lasix D/ines ( dehydration /DARCIE ) IV fluids given lower ext dopplar negative for DVT -- Versus in the morninghold p.o. 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: CT abd/pelvis with evidence of cirrhosis with trace perihepatic ascites and splenomegaly indicative of portal hypertension -Total bili 1.3, AST and ALT unremarkable -Monitor with daily LFTs -Doppler USG of liver : no evidence of portal vein thrombosis INR 1.8 likely from Liver Cirrhosis, sepsis Baseline INR is 1.5 no signs of active bleeding (10) Liver mass: Dysplastic liver nodule with well-differentiated HCC -follows with Hepatology /oncology in [place] (11) Psoriatic arthritis: was on solu-medrol started on stress dose of IV hydrocortisone -hypotension /severe sepsis Resume usual methylprednisolone (12) History of breast lump/mass excision: (13) Morbid obesity: BMI> 50 GALLO cirrhosis counselling for exercise 'diet /weight reduction nutrition consult (14) Asthma: Stable. Continue Xopenex inhaler (15) Discharge planning issues: lives with at home will need PT/OT eval DVT Ppx:Lovenox 40 mg subcu daily SCD and teds OOB as tolerated , increased activity Code status: FULL Subjective ff up for sepsis, bacteremia Seen resting in bed, comfortable (+) fever of 38.3 this afternoon states she feels that she continues to improve denies chills no dyspnea, cough, abdominal pain no other symptoms Physical Exam Vital Signs (Past 24 Hours): Last Vital Signs Temp 38.3 C H 08/30/18 15:05 Pulse 106 H 08/30/18 15:05 Resp 20 08/30/18 15:05 BP 127/85 08/30/18 15:05 Pulse Ox 95 08/30/18 15:05 Physical Exam: General- oriented x 3, not in distress, speaks in sentences with no effort or accessory muscle use Eyes- anicteric Neck- no JVD Lungs- clear breath sounds bilaterally Heart- normal rate, regular rhythm; no murmurs Abdomen- normal bowel sounds, nondistended, soft, nontender buttocks: moderate erthema upper buttocks eschar on theleft upper buttock overall does not look infected Extremities- grade 2 lower leg edema no pretibial edema, no calf tenderness Neuro- alert, oriented x 3; no gross focal neurologic deficits Skin- warm & dry Results & Data Laboratory Results Laboratory Results - last 24 hr 08/29/18 08/30/18 08/30/18 21:15 06:56 06:56 WBC 9.30 RBC 3.43 L Hgb 10.5 L Hct 31.2 L MCV 91.0 MCH 30.6 MCHC 33.7 RDW Std Deviation 58.1 H RDW Coeff of Mechelle 19.3 H Plt Count 121 L MPV 11.5 H Absolute Nucleated RBC 0.10 H Nucleated RBC % (auto) 1.0 Neutrophils % (Manual) 69.0 Lymphocytes % (Manual) 17.0 Monocytes % (Manual) 9.0 Basophils % (Manual) 1.0 Metamyelocytes % (Man) 3.0 Myelocytes % (Man) 1.0 Neutrophils # (Manual) 6.42 Total Absolute Neuts 6.42 Lymphocytes # (Manual) 1.58 Total Abs Lymphocytes 1.58 Monocytes # (Manual) 0.84 H Basophils # (Manual) 0.09 Metamyelocytes # (Man) 0.28 H Myelocytes # (Manual) 0.09 H Smudge Cells Present Sodium 142 Potassium 3.2 L Chloride 105 Carbon Dioxide 32 Anion Gap 6.0 BUN 35 H Creatinine 0.64 Est Cr Clr Drug Dosing 142.2 Est GFR ( Amer) 108.5 Est GFR (Non-Af Amer) 93.6 BUN/Creatinine Ratio 54.5 H Glucose 112 H POC Glucose 158 H Calcium 8.4 L 08/30/18 08/30/18 08/30/18 08:08 11:30 16:19 WBC RBC Hgb Hct MCV MCH MCHC RDW Std Deviation RDW Coeff of Mechelle Plt Count MPV Absolute Nucleated RBC Nucleated RBC % (auto) Neutrophils % (Manual) Lymphocytes % (Manual) Monocytes % (Manual) Basophils % (Manual) Metamyelocytes % (Man) Myelocytes % (Man) Neutrophils # (Manual) Total Absolute Neuts Lymphocytes # (Manual) Total Abs Lymphocytes Monocytes # (Manual) Basophils # (Manual) Metamyelocytes # (Man) Myelocytes # (Manual) Smudge Cells Sodium Potassium Chloride Carbon Dioxide Anion Gap BUN Creatinine Est Cr Clr Drug Dosing Est GFR ( Amer) Est GFR (Non-Af Amer) BUN/Creatinine Ratio Glucose POC Glucose 118 H 169 H 160 H Calcium (1) Atrial fibrillation Atrial fibrillation type: chronic Qualified Code(s): I48.2 - Chronic atrial fibrillation (2) Breast cancer, stage 2 Laterality: unspecified laterality Qualified Code(s): C50.919 - Malignant neoplasm of unspecified site of unspecified female breast (3) Neutropenia Neutropenia type: secondary to cancer chemotherapy Qualified Code(s): D70.1 - Agranulocytosis secondary to cancer chemotherapy; T45.1X5A - Adverse effect of antineoplastic and immunosuppressive drugs, initial encounter (4) Asthma Asthma complication type: uncomplicated Asthma persistence: persistent Asthma severity: unspecified severity Qualified Code(s): J45.909 - Unspecified asthma, uncomplicated
[2018-08-30] MEDS ORDERED: DOCUSATE SODIUM SYRUP 20MG/5ML 480ML PO PRN (17:10)
[2018-08-30] MEDS ORDERED: FUROSEMIDE 20 MG in SYRINGE 0 ML IV ONE (17:10)
[2018-08-30 17:44] LABS: Albumin Level 1.8 gm/dl (3.4-5.0); Bilirubin Direct 0.6 mg/dl (0-0.2); Total Protein 5.6 gm/dl (6.4-8.2)
[2018-08-30] MEDS: SOD PHOSPHATE/SOD BIPHOSPHATE ENEMA 132 ML BTL PR PRN (17:50)
[2018-08-30] MEDS: ERTAPENEM SODIUM 1,000 MG in SODIUM CHLORIDE 0.9% 50 ML IV SCH (20:57)
[2018-08-30] MEDS: ENOXAPARIN INJ 40 MG/0.4 ML SYR SQ SCH (20:58)
[2018-08-31 07:06] LABS: Hematocrit (blood only) 29.8 % (37-47); Hemoglobin 10.1 g/dL (12.0-16.0); Mean Corpuscular Hgb Conc 33.9 g/dL (32-36); Mean Corpuscular Volume 91.1 fL (80-100); Nucleated RBC # (auto) 0.07 K/uL (0-0); Nucleated RBC % (auto) 1.1 %; RDW Coefficient of Variation 19.7 % (11.5-14.5); RDW Standard Deviation 58.3 fL (36.4-46.3); Red Blood Count 3.27 M/uL (4.2-5.4); White Blood Count 6.94 K/uL (4.8-10.8)
[2018-08-31 07:17] LABS: INR 1.6 (0.9-1.1); Prothrombin Time 15.7 Seconds (9.0-12.0)
[2018-08-31 07:43] LABS: BUN Creatinine Ratio 43.1 (10-20); Calcium 8.3 mg/dl (8.5-10.1); Est GFR (Non-African American) 93.2; Potassium 3.5 mmol/L (3.5-5.1)
[2018-08-31 07:44] LABS: Mean Platelet Volume 10.8 fL (7.4-10.4); Platelet Count 105 K/uL (130-400)
[2018-08-31 08:08] LABS: Platelet Estimate Decreased (Normal); Target Cells 2+; Toxic Granulation 2+; Toxic Vacuolation 1+
--- NOTE | 2018-08-31 08:15 | Pharmacy Report ---
Pharmacy Glycemic Short Note 2 - Date of Service August 31, 2018 - Glycemic Short BSG Results (Last 24 hours): 08/30/18 08/30/18 08/30/18 06:56 08:08 11:30 Glucose 112 H POC Glucose 118 H 169 H 08/30/18 08/30/18 08/31/18 16:19 20:48 06:44 Glucose 114 H POC Glucose 160 H 153 H 08/31/18 07:54 Glucose POC Glucose 119 H OUTPATIENT ANTIDIABETIC REGIMEN: * diet controlled * Patient takes methylprednisolone 4 mg-8 mg PO daily as out pt * A1c 7.1% on 08/25/18 ASSESSMENT: 08/31 * Aaliyah received a total of 3 units of Novolog yesterday with BSGs ranging from 118 - 169 mg/dL * Fasting BSG at goal. She has not required basal insulin for the last 3 days. * Post prandial BSGs are slightly above goal but remain < 180 mg/dL. I will tighten goal range. 08/29 * Fasting BSG at goal this AM with no Lantus on board (pt refused yesterday's Lantus 15 unit dose); FBS 132 * Post prandial BSGs well controlled yesterday using carb coverage w/ 2 of 3 meals. * Will remove carb coverage at this time and follow BSG pattern as she was diet controlled prior to admission. I would have a low threshold for adding a carb ratio again should her BSGs climb to > 180 as she does have an underlying infxn which could lead to greater insulin needs now vs at home w/o infxn. 08/28 * Glycemic control continues to improve * The effects of last dose of IV solu-medrol should be minimal at this time * Will continue to titrate down both basal and prandial insulin doses today in anticipation of improved sensitivity. Will follow BSG pattern and adjust PRN See previous notes for additional background info PLAN FOR INPATIENT GLYCEMIC CONTROL: * Basal insulin * None at this time * Bolus insulin * NovoLog per scale ACHS or Q6hrs while NPO * Tighten Goal Range: Low 110 mg/dL - High 140 mg/dL * Correction Factor: 30 mg/dL/unit * Nutritional / Prandial insulin: none PLAN FOR DISCHARGE: * A1c of 7.1% is above goal. Of note, chronic use of methylprednisolone for arthritis has contributed to elevation. * Patient is not currently on any anti-diabetic agents. She reports being diet controlled. * Recommend addition of oral therapy. Typically metformin would be first line agent, however I would avoid in this patient due to hepatic disease. Options include: * glipizide 2.5 mg PO daily 30 min before breakfast (cheapest option, disadvantage: weight gain, hypoglycemia) * empagliflozin 10 mg PO qAM - (promotes weight loss, disadvantage: may be expensive)
[2018-08-31 08:18] LABS: Albumin Level 1.6 gm/dl (3.4-5.0); Bilirubin Direct 0.4 mg/dl (0-0.2); Bilirubin,Total 0.8 mg/dl (0.2-1); Total Protein 5.2 gm/dl (6.4-8.2)
[2018-08-31 08:24] LABS: Basophils # (manual) 0.14 K/uL (0-0.2); Monocytes # (manual) 0.28 K/uL (0.11-0.59); Myelocytes # (manual) 0.14 K/uL (0-0)
[2018-08-31] MEDS: INSULIN ASPART 100 UNITS/ML 3 ML PEN SC SCH ×4 (08:50→20:50)
[2018-08-31] MEDS: LEVALBUTEROL TARTRATE 15 GM HFA.AER.AD INH SCH ×2 (08:51→20:50)
[2018-08-31] MEDS: PANTOprazole 40 MG TAB PO SCH (08:52)
[2018-08-31] MEDS: methylPREDNISolone 4 MG TAB PO SCH (08:53)
[2018-08-31] MEDS: CHOLECALCIFEROL 1,000 UNITS TAB PO SCH (08:53)
[2018-08-31] MEDS: FLECAINIDE ACETATE 100 MG TABLET PO SCH ×2 (08:53→20:49)
[2018-08-31] MEDS: NYSTATIN SUSP 500,000 U/5 ML UDC PO SCH ×5 (08:53→21:02)
[2018-08-31] MEDS: MULTIVITAMIN TAB PO SCH (08:53)
[2018-08-31] MEDS: SACCHAROMYCES BOULARDII 250 MG CAP PO SCH (08:53)
[2018-08-31] MEDS: METOPROLOL TARTRATE 50 MG TAB PO SCH ×2 (08:54→20:46)
[2018-08-31] MEDS: POLYETHYLENE (MIRALAX) 17 GM PACK PO PRN (09:02)
--- NOTE | 2018-08-31 11:49 | Wound Consultation ---
Date of Consultation August 31, 2018 Assessment & Plan (1) Unstageable pressure ulcer of back: This is an atypical presentation for pressure ulcer. I do believe that it was a combination of shearing forces moving around the beds leading to the blisters and then this at a pressure is what caused the black eschar. At this time the wound is unstageable. The eschar is too thin to score. We will apply Santyl to the wound and change daily. Continue with offloading. Continue with antibiotic per infectious disease. We will continue to follow. Thank you for the consult please not hesitate to call with any further questions. (2) Cellulitis: (3) Infected venous access port: History of Present Illness Attending Physician: Sy Valle MD This is a 67-year-old female complicated medical history including breast cancer status post lumpectomy of the right breast, on chemo, chronic A. fib, Gallo cirrhosis, shortness of breath, sepsis and acute kidney injury wounds on her back. Patient states the wounds are from sliding back and forth over the bed. They started as blisters which have since opened up. Under the medial blister is a black eschar. Wounds are very tender. Patient is doing better on her new hospital bed. Allergies Allergy/AdvReac Type Severity Reaction Status Date / Time clarithromycin Allergy Severe RASH Verified 02/13/18 08:20 Penicillins Allergy Severe ANAPHYLACTIC Verified 02/13/18 08:20 SHOCK epinephrine Allergy Unknown THROAT Verified 02/13/18 08:20 SWELLING, PASSED OUT, HEART RACING montelukast Allergy Unknown PALPITATION Verified 02/13/18 08:20 S ceftriaxone [From Rocephin] Allergy Rash Verified 08/28/18 18:57 Home Medications Home Medications Medication Instructions Recorded Confirmed Type Lactobacillus rhamnosus GG 1 cap PO DAILY 08/22/18 08/22/18 History [Culturelle] cholecalciferol (vitamin D3) 3,000 unit PO DAILY 08/22/18 08/22/18 History diphenhydramine HCl [Benadryl] 25 mg PO HS PRN 08/22/18 08/22/18 History flecainide 1 tab PO BID 08/22/18 08/22/18 History furosemide 1 tab PO QAM 08/22/18 08/22/18 History levalbuterol tartrate [Xopenex HFA] 2 inh INHALATION BID 08/22/18 08/22/18 History methylprednisolone 1 - 2 tab PO DAILY 08/22/18 08/22/18 History metoprolol tartrate [Lopressor] 50 mg PO BID 08/22/18 08/22/18 History multivitamin 1 tab PO DAILY 08/22/18 08/22/18 History omeprazole 1 cap PO QAM 08/22/18 08/22/18 History oxycodone 10 mg PO Q6H PRN 08/22/18 08/22/18 History prochlorperazine maleate 10 mg PO Q6H PRN 08/22/18 08/22/18 History [Compazine] promethazine 25 mg PO Q8H PRN 08/22/18 08/22/18 History Patient History Medical History Prediabetes (Chronic) Asthma (Chronic) Atrial fibrillation (Chronic) Morbid obesity (Chronic) Liver mass (Chronic) Breast cancer, stage 2 (Chronic) Psoriatic arthritis (Chronic) 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) Breast cancer (Chronic) Surgical History History of breast lump/mass excision (Resolved) Hx of appendectomy (Resolved) H/O: hysterectomy (Resolved) Family History Other Colon cancer Pancreatic cancer Social History Communication Ability: Effective Beliefs That Will Affect Care: None Current Living Situation: Spouse Other Information That Helps Us Care for You: No Feels Safe at Home: Yes Safety Concerns: Feels Safe At This Time Smoking Status: Never smoker Hx Alcohol Use: No Hx Substance Use: No Review of Systems 10 point review of systems negative except per HPI Physical Exam Vital Signs (Past 24 Hours): Last Vital Signs Temp 36.4 C L 08/31/18 08:02 Pulse 63 08/31/18 08:02 Resp 18 08/31/18 08:02 BP 115/63 08/31/18 08:02 Pulse Ox 96 08/31/18 08:02 Constitutional: well developed, well nourished and + ill appearing Eyes: PERRL, conjunctivae normal, anicteric sclerae Respiratory: normal respiratory effort, lungs clear to auscultation Cardiovascular: Rate/Rhythm: regular rate Gastrointestinal (Abdomen): Inspection/Auscultation: normal bowel sounds Skin: Wounds measuring as recorded in nursing documentation. Wound is covered with black eschar there is some fibrin and slough around the borders. There is minimal drainage. Neurologic: awake Psychiatric: A+Ox3, euthymic affect
--- NOTE | 2018-08-31 14:47 | Infectious Disease Progress Nt ---
Date of Service August 31, 2018 Assessment & Plan (1) Escherichia coli sepsis: 67-year-old female with breast cancer admitted with E. coli sepsis likely from infected [id number], now removed. Patient completing course of IV ertapenem, appears to be tolerating well. We will continue to follow. Subjective Patient seen in follow-up for gram-negative sepsis. Blood cultures have grown quinolone resistant, Bactrim resistant E. coli. Now status post removal of a port. Remains afebrile. Follow-up cultures no growth to date. No new complaints. Review of Systems All systems reviewed & are unremarkable except as noted in HPI & below Physical Exam Vital Signs (Past 24 Hours): Last Vital Signs Temp 36.4 C L 08/31/18 08:02 Pulse 63 08/31/18 08:02 Resp 18 08/31/18 08:02 BP 115/63 08/31/18 08:02 Pulse Ox 96 08/31/18 08:02 Constitutional: WD/WN, vitals as above comfortable; no acute distress Eyes: PERRL, conjunctivae normal, anicteric sclerae ENMT: external ear and nose normal, oropharynx normal Neck: trachea midline, no thyromegaly neck nontender Respiratory: normal respiratory effort, lungs clear to auscultation normal percussion; does not use accessory muscles Cardiovascular: Rate/Rhythm: regular rate and regular rhythm Heart Sounds: normal S1 and normal S2; no gallop, no murmur and no cardiac rub Vessels: normal peripheral pulses; no JVD Gastrointestinal (Abdomen): normal bowel sounds, soft, nontender, no hepatosplenomegaly Musculoskeletal: no cyanosis or clubbing, extremities motor strength 5/5 Spine: thoracic spine normal to inspection and lumbar spine normal to inspection; no cervical spinal tenderness Skin: no rashes, warm and dry normal turgor; no lesions Neurologic: patellar DTR's 2+ bilat, sensation intact no focal motor deficits Psychiatric: A+Ox3, euthymic affect Orientation: cooperative Lymphatic: no cervical or axillary lymphadenopathy no inguinal lymphadenopathy Results & Data Laboratory Results Short CBC 08/31/18 Range/Units 06:44 WBC 6.94 (4.8-10.8) K/uL Hgb 10.1 L (12.0-16.0) g/dL Hct 29.8 L (37-47) % Plt Count 105 L (130-400) K/uL BMP 08/31/18 06:44 Sodium 141 Potassium 3.5 Chloride 105 Carbon Dioxide 32 BUN 28 H Creatinine 0.65 Glucose 114 H Calcium 8.3 L Liver Function 08/30/18 08/31/18 Range/Units 17:04 06:44 Total Bilirubin 1.0 0.8 (0.2-1) mg/dl Direct Bilirubin 0.6 H 0.4 H (0-0.2) mg/dl AST 123 H 105 H (15-37) U/L ALT 105 H 96 H (12-78) U/L Alkaline Phosphatase 284 H 237 H (45-117) U/L Albumin 1.8 L 1.6 L (3.4-5.0) gm/dl Diagnostic Findings Microbiology 08/30/18 17:45 Urine,Straight Cath Urine Culture - Preliminary No growth - Less than 1,000 colonies/mL, Final report to follow. 08/23/18 19:19 Blood Blood Culture - Final No growth 08/23/18 18:29 Blood Blood Culture - Final No growth 08/22/18 10:00 Blood Blood Culture - Final Escherichia coli 08/22/18 10:12 Blood Blood Culture - Final No growth 08/22/18 18:57 Blood Fungal Smear - Final 08/22/18 18:57 Blood Fungal Culture - Preliminary No yeast or fungus isolated - Report 1, Additional Report to Follow. 08/24/18 11:30 Catheter Tip, A-port Catheter Tip Culture - Final No growth 08/22/18 11:35 Urine,Clean Catch Urine Culture - Final Three types of organisms present, all low counts probable skin joanna. No further identifications or sensitivities to follow.
[2018-08-31] MEDS: MICONAZOLE NITRATE POWDER 43 GM EXT SCH ×2 (16:39→20:49)
[2018-08-31] MEDS: COLLAGENASE OINT 30 GM TUBE EXT SCH (16:39)
[2018-08-31] MEDS ORDERED: DOCUSATE SODIUM 100 MG CAP PO PRN (17:54)
--- NOTE | 2018-08-31 18:39 | Hospitalist Progress Note ---
Date of Service August 31, 2018 Assessment & Plan (1) Severe sepsis: per admitting Service: this is a 67 yo F with recently diagnosed Breast CA( May 2018 ) s/p lumpectomy of right breast , on chemo , chronic Afib ,GALLO cirrhosis admitted diarrhea , SOB , fever/chills , cloudy urine for x3 days found to be febrile , pancytopenic , hypotensive in ER ( BP 50/30 ) , pt received chemo for breast Ca stage 2 weeks back meets CMS Criteria for severe sepsis : neutropenia , fever , tachycardic , hypotensive, elevated lactic acid /pro calcitonin most likely secondary to Bacteremia, Port infection pt was admitted to ICU received IV fluid resuscitation /did not require pressors Initally was started on Broad spectrum IV abx -Daptomycin /Cefepime ( pt has severe allergic reaction to PCN ) Cxray shows no infiltrate CT abdomen /pelvis : no active pathology blood culture 08/22: 1 bottle gram negative bacilli ECHO shows : hyperdynamic EF suggestive of intravascular vol depletion no valvular vegetation reported 08/24/18 s/p removal of port by Dr. Hernandez 08/25/18 blood cultures (+) E coli Cefepime changed to Ceftriaxone IV daily to complete 10 days IV antibiotics per Dr. Ramos afebrile, CBC improved overall, patient is improving taper Hydrocortisone further to 50mg q12 today, then resume usual Methylprednisolone 4mg po daily tomorrow 08/26/2018 Afebrile, clinically improving CBC trending up Continue IV ceftriaxone to finish 10 days of IV antibiotics Hydrocortisone 50 mg once today then resume usual methylprednisolone 4 mg p.o. daily tomorrow 08/27/18 remains afebrile CBC continues to improve Ceftriaxone changed to Ertapenem due to possible allergic reaction, tolerating well so far weaned off Hydrocortisone, now on usual methylprednisolone 4 mg p.o. daily continue to monitor closely August 28, 2018 Afebrile, CBC stable Continue ertapenem day 8 out of 10 08/30/18 (+) febrile episode clinically improving though repeat blood and urine cultures continue Ertapenem IV 08/31/18 afebrile repeat cultures pending continued on Ertapenem Day 04/04 monitor (2) Gram-negative bacteremia: s/p removal of port by Dr. Hernandez management as noted above (3) Neutropenia: ANC < 0.7 due to recent chemo tx, sepsis stage 2 Breast CA s/p recent chemo Adiramycin /Cytoxan follows with heme onc Dr Conde at [facility] ANC normalized monitor (4) Pancytopenia: on admission Wbc of 0.75, hgb of 9.4, platelets 20 -due to recent chemo worsened with severe sepsis pt recieved Nulesta on 08/10/2018 D/w Dr Duke ( heme/onc ) pt will not need repeat Nulesta Pt's Primary oncology Dr Conde at [facility] updated --CBC trending down Continue to monitor (5) Acute kidney injury: due to severe sepsis /dehydration also need to consider possible side effect of chemo was on Lasix for lower ext edema Cr elevated at 2.36 (baseline ~0.8) CT abdomen/Pelvis shows no evidence of renal /ureteral or bladder outlet obstruciton pt given aggressive resuscitatioan hold Lasix avoid NSAID's /contrast studies nephrology eval requested - crea further improved Lasix IV given, -5L fluid balance resume Lasix 20mg po daily tomorrow, monitor volume status (6) Breast cancer, stage 2: -In setting of breast cancer, cycle of Adriamycin and Cytoxan on Aug 10 -Also receiving Neulasta - ANC normalized no bleeding (7) Atrial fibrillation: usual dose 50 mg twice daily stable continue Lopressor continue Flecainide -Previously on coumadin, Eliquis but stopped due to thrombocytopenia (8) Peripheral edema: No history of CHF, per patient -BLE with 3+ edema, has been present for last few days -Bedside echo in ICU : shows hyperdynamic LV , EF> 70% suggestive of intravascular vol depletation ( due to sepsis ) Lasix D/ines ( dehydration /DARCIE ) IV fluids given lower ext dopplar negative for DVT -- resume Lasix 20mg po daily tomorrow, monitor volume status (9) 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: CT abd/pelvis with evidence of cirrhosis with trace perihepatic ascites and splenomegaly indicative of portal hypertension -Total bili 1.3, AST and ALT unremarkable -Monitor with daily LFTs -Doppler USG of liver : no evidence of portal vein thrombosis INR 1.6 likely from Liver Cirrhosis, sepsis Baseline INR is 1.5 no signs of active bleeding monitor LFTs (10) Liver mass: Dysplastic liver nodule with well-differentiated HCC -follows with Hepatology /oncology in [place] (11) Psoriatic arthritis: was on solu-medrol started on stress dose of IV hydrocortisone -hypotension /severe sepsis Resume usual methylprednisolone (12) History of breast lump/mass excision: (13) Morbid obesity: BMI> 50 GALLO cirrhosis counselling for exercise 'diet /weight reduction nutrition consult (14) Asthma: Stable. Continue Xopenex inhaler (15) Discharge planning issues: lives with at home will need PT/OT eval DVT Ppx:Lovenox 40 mg subcu daily SCD and teds OOB as tolerated , increased activity Code status: FULL Subjective ff up for sepsis, bacteremia Seen resting in bed, comfortable remained afebrile overnight states she feels fine today improving daily as per patient no cough, dyspnea, sputum, abdominal pain, nausea/vomiting, diarrhea no other symptoms Physical Exam Vital Signs (Past 24 Hours): Last Vital Signs Temp 36.4 C L 08/31/18 15:24 Pulse 68 08/31/18 15:24 Resp 20 08/31/18 15:24 BP 124/75 08/31/18 15:24 Pulse Ox 94 08/31/18 15:24 Physical Exam: General- oriented x 3, not in distress, speaks in sentences with no effort or accessory muscle use Eyes- anicteric Neck- no JVD Lungs- clear breath sounds bilaterally Heart- normal rate, regular rhythm; no murmurs Abdomen- normal bowel sounds, nondistended, soft, nontender Extremities- grade 1 lower leg edema, no calf tenderness Neuro- alert, oriented x 3; no gross focal neurologic deficits Skin- warm & dry Results & Data Laboratory Results Laboratory Results - last 24 hr 08/30/18 08/31/18 08/31/18 20:48 06:44 06:44 WBC 6.94 RBC 3.27 L Hgb 10.1 L Hct 29.8 L MCV 91.1 MCH 30.9 MCHC 33.9 RDW Std Deviation 58.3 H RDW Coeff of Mechelle 19.7 H Plt Count 105 L MPV 10.8 H Absolute Nucleated RBC 0.07 H Nucleated RBC % (auto) 1.1 Neutrophils % (Manual) 66.0 Lymphocytes % (Manual) 26.0 Monocytes % (Manual) 4.0 Basophils % (Manual) 2.0 Myelocytes % (Man) 2.0 Neutrophils # (Manual) 4.58 Total Absolute Neuts 4.58 Lymphocytes # (Manual) 1.80 Total Abs Lymphocytes 1.80 Monocytes # (Manual) 0.28 Basophils # (Manual) 0.14 Myelocytes # (Manual) 0.14 H Toxic Granulation 2+ Toxic Vacuolation 1+ Platelet Estimate Decreased Target Cells 2+ PT INR Sodium 141 Potassium 3.5 Chloride 105 Carbon Dioxide 32 Anion Gap 4.0 BUN 28 H Creatinine 0.65 Est Cr Clr Drug Dosing 140.0 Est GFR ( Amer) 108.0 Est GFR (Non-Af Amer) 93.2 BUN/Creatinine Ratio 43.1 H Glucose 114 H POC Glucose 153 H Calcium 8.3 L Total Bilirubin Direct Bilirubin AST ALT Alkaline Phosphatase Total Protein Albumin 08/31/18 08/31/18 08/31/18 06:44 06:44 07:54 WBC RBC Hgb Hct MCV MCH MCHC RDW Std Deviation RDW Coeff of Mechelle Plt Count MPV Absolute Nucleated RBC Nucleated RBC % (auto) Neutrophils % (Manual) Lymphocytes % (Manual) Monocytes % (Manual) Basophils % (Manual) Myelocytes % (Man) Neutrophils # (Manual) Total Absolute Neuts Lymphocytes # (Manual) Total Abs Lymphocytes Monocytes # (Manual) Basophils # (Manual) Myelocytes # (Manual) Toxic Granulation Toxic Vacuolation Platelet Estimate Target Cells PT 15.7 H INR 1.6 H Sodium Potassium Chloride Carbon Dioxide Anion Gap BUN Creatinine Est Cr Clr Drug Dosing Est GFR ( Amer) Est GFR (Non-Af Amer) BUN/Creatinine Ratio Glucose POC Glucose 119 H Calcium Total Bilirubin 0.8 Direct Bilirubin 0.4 H AST 105 H ALT 96 H Alkaline Phosphatase 237 H Total Protein 5.2 L Albumin 1.6 L 08/31/18 08/31/18 11:53 16:16 WBC RBC Hgb Hct MCV MCH MCHC RDW Std Deviation RDW Coeff of Mechelle Plt Count MPV Absolute Nucleated RBC Nucleated RBC % (auto) Neutrophils % (Manual) Lymphocytes % (Manual) Monocytes % (Manual) Basophils % (Manual) Myelocytes % (Man) Neutrophils # (Manual) Total Absolute Neuts Lymphocytes # (Manual) Total Abs Lymphocytes Monocytes # (Manual) Basophils # (Manual) Myelocytes # (Manual) Toxic Granulation Toxic Vacuolation Platelet Estimate Target Cells PT INR Sodium Potassium Chloride Carbon Dioxide Anion Gap BUN Creatinine Est Cr Clr Drug Dosing Est GFR ( Amer) Est GFR (Non-Af Amer) BUN/Creatinine Ratio Glucose POC Glucose 158 H 168 H Calcium Total Bilirubin Direct Bilirubin AST ALT Alkaline Phosphatase Total Protein Albumin (1) Neutropenia Neutropenia type: secondary to cancer chemotherapy Qualified Code(s): D70.1 - Agranulocytosis secondary to cancer chemotherapy; T45.1X5A - Adverse effect of antineoplastic and immunosuppressive drugs, initial encounter (2) Breast cancer, stage 2 Laterality: unspecified laterality Qualified Code(s): C50.919 - Malignant neoplasm of unspecified site of unspecified female breast (3) Atrial fibrillation Atrial fibrillation type: chronic Qualified Code(s): I48.2 - Chronic atrial fibrillation (4) Asthma Asthma severity: unspecified severity Asthma persistence: persistent Asthma complication type: uncomplicated Qualified Code(s): J45.909 - Unspecified asthma, uncomplicated
[2018-08-31] MEDS: ERTAPENEM SODIUM 1,000 MG in SODIUM CHLORIDE 0.9% 50 ML IV SCH (20:45)
[2018-08-31] MEDS: ENOXAPARIN INJ 40 MG/0.4 ML SYR SQ SCH (20:46)
--- NOTE | 2018-08-31 22:29 | Hospitalist Progress Note ---
Date of Service August 31, 2018 delayed entry date of service as noted above Assessment & Plan (1) Severe sepsis: per admitting Service: this is a 67 yo F with recently diagnosed Breast CA( May 2018 ) s/p lumpectomy of right breast , on chemo , chronic Afib ,GALLO cirrhosis admitted diarrhea , SOB , fever/chills , cloudy urine for x3 days found to be febrile , pancytopenic , hypotensive in ER ( BP 50/30 ) , pt received chemo for breast Ca stage 2 weeks back meets CMS Criteria for severe sepsis : neutropenia , fever , tachycardic , hypotensive, elevated lactic acid /pro calcitonin most likely secondary to Bacteremia, Port infection pt was admitted to ICU received IV fluid resuscitation /did not require pressors Initally was started on Broad spectrum IV abx -Daptomycin /Cefepime ( pt has severe allergic reaction to PCN ) Cxray shows no infiltrate CT abdomen /pelvis : no active pathology blood culture 08/22: 1 bottle gram negative bacilli ECHO shows : hyperdynamic EF suggestive of intravascular vol depletion no valvular vegetation reported 08/24/18 s/p removal of port by Dr. Hernandez 08/25/18 blood cultures (+) E coli Cefepime changed to Ceftriaxone IV daily to complete 10 days IV antibiotics per Dr. Ramos afebrile, CBC improved overall, patient is improving taper Hydrocortisone further to 50mg q12 today, then resume usual Methylprednisolone 4mg po daily tomorrow 08/26/2018 Afebrile, clinically improving CBC trending up Continue IV ceftriaxone to finish 10 days of IV antibiotics Hydrocortisone 50 mg once today then resume usual methylprednisolone 4 mg p.o. daily tomorrow 08/27/18 remains afebrile CBC continues to improve Ceftriaxone changed to Ertapenem due to possible allergic reaction, tolerating well so far weaned off Hydrocortisone, now on usual methylprednisolone 4 mg p.o. daily continue to monitor closely August 28, 2018 Afebrile, CBC stable Continue ertapenem day 8 out of 10 08/30/18 (+) febrile episode clinically improving though repeat blood and urine cultures continue Ertapenem IV 08/31/18 afebrile repeat cultures pending continued on Ertapenem Day 04/04 monitor (2) Gram-negative bacteremia: s/p removal of port by Dr. Hernandez management as noted above (3) Neutropenia: ANC < 0.7 due to recent chemo tx, sepsis stage 2 Breast CA s/p recent chemo Adiramycin /Cytoxan follows with heme onc Dr Conde at [facility] ANC normalized monitor (4) Pancytopenia: on admission Wbc of 0.75, hgb of 9.4, platelets 20 -due to recent chemo worsened with severe sepsis pt recieved Nulesta on 08/10/2018 D/w Dr Duke ( heme/onc ) pt will not need repeat Nulesta Pt's Primary oncology Dr Conde at [facility] updated --CBC trending down Continue to monitor (5) Acute kidney injury: due to severe sepsis /dehydration also need to consider possible side effect of chemo was on Lasix for lower ext edema Cr elevated at 2.36 (baseline ~0.8) CT abdomen/Pelvis shows no evidence of renal /ureteral or bladder outlet obstruciton pt given aggressive resuscitatioan hold Lasix avoid NSAID's /contrast studies nephrology eval requested - crea further improved Lasix IV given, -5L fluid balance resume Lasix 20mg po daily tomorrow, monitor volume status (6) Breast cancer, stage 2: -In setting of breast cancer, cycle of Adriamycin and Cytoxan on Aug 10 -Also receiving Neulasta - ANC normalized no bleeding (7) Atrial fibrillation: usual dose 50 mg twice daily stable continue Lopressor continue Flecainide -Previously on coumadin, Eliquis but stopped due to thrombocytopenia (8) Peripheral edema: No history of CHF, per patient -BLE with 3+ edema, has been present for last few days -Bedside echo in ICU : shows hyperdynamic LV , EF> 70% suggestive of intravascular vol depletation ( due to sepsis ) Lasix D/ines ( dehydration /DARCIE ) IV fluids given lower ext dopplar negative for DVT -- resume Lasix 20mg po daily tomorrow, monitor volume status (9) 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: CT abd/pelvis with evidence of cirrhosis with trace perihepatic ascites and splenomegaly indicative of portal hypertension -Total bili 1.3, AST and ALT unremarkable -Monitor with daily LFTs -Doppler USG of liver : no evidence of portal vein thrombosis INR 1.6 likely from Liver Cirrhosis, sepsis Baseline INR is 1.5 no signs of active bleeding monitor LFTs (10) Liver mass: Dysplastic liver nodule with well-differentiated HCC -follows with Hepatology /oncology in [place] (11) Psoriatic arthritis: was on solu-medrol started on stress dose of IV hydrocortisone -hypotension /severe sepsis Resume usual methylprednisolone (12) History of breast lump/mass excision: (13) Morbid obesity: BMI> 50 GALLO cirrhosis counselling for exercise 'diet /weight reduction nutrition consult (14) Asthma: Stable. Continue Xopenex inhaler (15) Discharge planning issues: lives with at home will need PT/OT eval DVT Ppx:Lovenox 40 mg subcu daily SCD and teds OOB as tolerated , increased activity Code status: FULL Subjective ff up for sepsis, bacteremia Seen resting in bed, comfortable family at bedside remained afebrile overnight states she feels fine today improving daily as per patient no cough, dyspnea, sputum, abdominal pain, nausea/vomiting, diarrhea no other symptoms Physical Exam Vital Signs (Past 24 Hours): Last Vital Signs Temp 36.4 C L 08/31/18 15:24 Pulse 68 08/31/18 15:24 Resp 20 08/31/18 15:24 BP 124/75 08/31/18 15:24 Pulse Ox 94 08/31/18 15:24 (1) Atrial fibrillation Atrial fibrillation type: chronic Qualified Code(s): I48.2 - Chronic atrial fibrillation (2) Breast cancer, stage 2 Laterality: unspecified laterality Qualified Code(s): C50.919 - Malignant neoplasm of unspecified site of unspecified female breast (3) Neutropenia Neutropenia type: secondary to cancer chemotherapy Qualified Code(s): D70.1 - Agranulocytosis secondary to cancer chemotherapy; T45.1X5A - Adverse effect of antineoplastic and immunosuppressive drugs, initial encounter (4) Asthma Asthma complication type: uncomplicated Asthma persistence: persistent Asthma severity: unspecified severity Qualified Code(s): J45.909 - Unspecified asthma, uncomplicated
[2018-09-01] MEDS: COLLAGENASE OINT 30 GM TUBE EXT SCH (06:32)
[2018-09-01] MEDS: INSULIN ASPART 100 UNITS/ML 3 ML PEN SC SCH ×4 (08:25→20:39)
[2018-09-01] MEDS: MICONAZOLE NITRATE POWDER 43 GM EXT SCH ×2 (08:48→20:42)
[2018-09-01] MEDS: LEVALBUTEROL TARTRATE 15 GM HFA.AER.AD INH SCH ×2 (08:50→20:44)
[2018-09-01] MEDS: SACCHAROMYCES BOULARDII 250 MG CAP PO SCH (08:54)
[2018-09-01] MEDS: MULTIVITAMIN TAB PO SCH (08:55)
[2018-09-01] MEDS: methylPREDNISolone 4 MG TAB PO SCH (08:55)
[2018-09-01] MEDS: METOPROLOL TARTRATE 50 MG TAB PO SCH ×2 (08:55→20:41)
[2018-09-01 09:02] LABS: Basophils # (auto) 0.09 K/uL (0-0.2); Basophils % (auto) 1.3 %; Eosinophils # (auto) 0.01 K/uL (0-0.5); Eosinophils % (auto) 0.1 %; Hematocrit (blood only) 32.1 % (37-47); Hemoglobin 10.8 g/dL (12.0-16.0); Immature Granulocytes % (auto) 4.4 %; Lymphocytes # (auto) 1.35 K/uL (1.2-3.4); Lymphocytes % (auto) 19.8 %; Mean Corpuscular Hgb Conc 33.6 g/dL (32-36); Mean Corpuscular Volume 92.8 fL (80-100); Mean Platelet Volume 10.5 fL (7.4-10.4); Monocytes # (auto) 0.73 K/uL (0.11-0.59); Monocytes % (auto) 10.7 %; Neutrophils # (auto) 4.33 K/uL (1.4-6.5); Neutrophils % (auto) 63.7 %; Nucleated RBC # (auto) 0.06 K/uL (0-0); Nucleated RBC % (auto) 0.9 %; Platelet Count 101 K/uL (130-400); RDW Coefficient of Variation 20.4 % (11.5-14.5); RDW Standard Deviation 62.2 fL (36.4-46.3); Red Blood Count 3.46 M/uL (4.2-5.4); White Blood Count 6.81 K/uL (4.8-10.8)
[2018-09-01] MEDS: FLECAINIDE ACETATE 100 MG TABLET PO SCH ×2 (09:17→20:42)
[2018-09-01] MEDS: PANTOprazole 40 MG TAB PO SCH (09:17)
[2018-09-01] MEDS: CHOLECALCIFEROL 1,000 UNITS TAB PO SCH (09:25)
[2018-09-01 09:36] LABS: BUN Creatinine Ratio 33.9 (10-20); Calcium 8.8 mg/dl (8.5-10.1); Creatinine Clr Calc Pharmacy 127.1 ml/min; Est GFR (African American) 108.5; Est GFR (Non-African American) 93.6; Potassium 3.7 mmol/L (3.5-5.1)
[2018-09-01 09:39] LABS: Anisocytosis Present; Target Cells 1+; Toxic Vacuolation 1+
[2018-09-01] MEDS: NYSTATIN SUSP 500,000 U/5 ML UDC PO SCH ×4 (11:46→20:40)
[2018-09-01] MEDS: FUROSEMIDE 20 MG TAB PO SCH (13:45)
--- NOTE | 2018-09-01 13:53 | Hospitalist Progress Note ---
Date of Service September 01, 2018 Assessment & Plan (1) Severe sepsis: Resolved, secondary to gram-negative/E. coli septicemia, possible infected port site A port was taken out Completed 10 out of 10 days of IV ertapenem Repeat blood cultures remains Negative On admission: 67 yo F with recently diagnosed Breast CA( May 2018 ) s/p lumpectomy of right breast , on chemo , chronic Afib ,GALLO cirrhosis admitted diarrhea , SOB , fever/chills , cloudy urine for x3 days found to be febrile , pancytopenic , hypotensive in ER ( BP 50/30 ) , pt received chemo for breast Ca stage 2 weeks back meets CMS Criteria for severe sepsis : neutropenia , fever , tachycardic , hypotensive, elevated lactic acid /pro calcitonin most likely secondary to Bacteremia, Port infection pt was admitted to ICU received IV fluid resuscitation /did not require pressors Initally was started on Broad spectrum IV abx -Daptomycin /Cefepime ( pt has severe allergic reaction to PCN ) Cxray shows no infiltrate CT abdomen /pelvis : no active pathology blood culture 08/22: 1 bottle gram negative bacilli ECHO shows : hyperdynamic EF suggestive of intravascular vol depletion no valvular vegetation reported s/p removal of port by Dr. Hernandez On 08/24/2018 Remains afebrile, vitals remain stable Will be followed with oncology in [facility] in [place] regarding further chemo decision and need for new port placement (2) Gram-negative bacteremia: Blood culture positive for E. coli, Possible source of infected a port, s/p removal of port by Dr. Hernandez08/24/2018 Completed 10/10 days of IV ertapenem Appreciate input from infectious disease (3) Neutropenia: Pancytopenia The setting of recent chemo treatment for breast cancer, severe sepsis Presented with ANC < 0.7 due to recent chemo tx, sepsis stage 2 Breast CA s/p recent chemo Adiramycin /Cytoxan follows with heme onc Dr Conde at [facility] ANC normalized monitor CBC (4) Pancytopenia: on admission Wbc of 0.75, hgb of 9.4, platelets 20 -due to recent chemo worsened with severe sepsis pt recieved Nulesta on 08/10/2018 D/w Dr Duke ( heme/onc ) pt will not need repeat Nulesta Pt's Primary oncology Dr Conde at [facility] updated -CBC continues to improve, normalized (5) Acute kidney injury: Resolved, Low-dose Lasix 20 mg p.o. daily resumed due to severe sepsis /dehydration also need to consider possible side effect of chemo was on Lasix for lower ext edema Cr elevated at 2.36 (baseline ~0.8) CT abdomen/Pelvis shows no evidence of renal /ureteral or bladder outlet obstruciton nephrology eval requested - Creatinine improved with IV hydration, Outpatient regular Lasix dose resumed (6) Breast cancer, stage 2: -In setting of breast cancer, cycle of Adriamycin and Cytoxan on Aug 10 -Received Neulasta - A port removed secondary to gram-negative bacteremia, sepsis Patient will continue to follow-up with hematology oncology Dr. Conde in [facility] For the decision of chemo and future port placement per oncology (7) Atrial fibrillation: On Lopressor 50 mg twice daily continue Flecainide -Previously on coumadin, Eliquis but stopped due to thrombocytopenia (8) Peripheral edema: No history of CHF, per patient -BLE with 3+ edema, has been present for last few days -Bedside echo in ICU : shows hyperdynamic LV , EF> 70% suggestive of intravascular vol depletation ( due to sepsis ) lower ext dopplar negative for DVT -- resume Lasix 20mg po daily (9) 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: CT abd/pelvis with evidence of cirrhosis with trace perihepatic ascites and splenomegaly indicative of portal hypertension -Total bili 1.3, AST and ALT unremarkable -Monitor with daily LFTs -Doppler USG of liver : no evidence of portal vein thrombosis INR 1.6 likely from Liver Cirrhosis, sepsis Baseline INR is 1.5 no signs of active bleeding monitor LFTs (10) Liver mass: Dysplastic liver nodule with well-differentiated HCC -follows with Hepatology /oncology in [place] (11) Psoriatic arthritis: was on solu-medrol Given stress dose of IV hydrocortisone -hypotension /severe sepsis Resume usual methylprednisolone (12) History of breast lump/mass excision: (13) Morbid obesity: BMI> 50 GALLO cirrhosis counselling for exercise 'diet /weight reduction nutrition consult (14) Asthma: Stable. Continue Xopenex inhaler (15) Discharge planning issues: lives with at home Ordered for PT OT evaluation, recommend rehab, patient adamantly refused to go to any rehab facility wants to return home with home health home PT Has a rolling walker with seat, Ramp,epipments at home : Shower chair, handrails, raised toilet seats with handles SCD and teds OOB as tolerated , increased activity Code status: FULL Disposition: Possible discharge home on Monday with home health home PT Social service consulted for discharge planning Subjective has been OOB to chair most part of the day no fever or chills Still have weakness on legs, does not feel she is at her baseline Wants to have more physical therapy prior to return home Physical Exam Vital Signs (Past 24 Hours): Last Vital Signs Temp 36.8 C 09/01/18 12:40 Pulse 58 L 09/01/18 12:40 Resp 18 09/01/18 12:40 BP 108/68 09/01/18 12:40 Pulse Ox 95 09/01/18 12:40 Constitutional: WD/WN, vitals as above + obese, cooperative and comfortable; no acute distress Eyes: PERRL, conjunctivae normal, anicteric sclerae ENMT: external ear and nose normal, oropharynx normal Neck: trachea midline, no thyromegaly neck nontender Respiratory: normal respiratory effort, lungs clear to auscultation normal respiratory effort and normal percussion; does not use accessory muscles Auscultation: lungs clear to auscultation bilaterally Cardiovascular: RRR, no murmur, no edema Rate/Rhythm: regular rate and regular rhythm Heart Sounds: normal S1 and normal S2; no gallop, no murmur and no cardiac rub Vessels: normal peripheral pulses; no JVD Extremities: normal capillary refill, + pedal edema and + edema Gastrointestinal (Abdomen): normal bowel sounds, soft, nontender, no hepatosplenomegaly Musculoskeletal: no cyanosis or clubbing, extremities motor strength 5/5 Spine: no cervical spinal tenderness Skin: no rashes, warm and dry normal turgor and + rash (right lower extremity); no lesions Neurologic: patellar DTR's 2+ bilat, sensation intact and PERRL, EOMI, accommodation nl, no face palsy, no dysarthria no focal motor deficits Psychiatric: A+Ox3, euthymic affect Orientation: cooperative Lymphatic: no cervical or axillary lymphadenopathy no inguinal lymphadenopathy (1) Atrial fibrillation Atrial fibrillation type: chronic Qualified Code(s): I48.2 - Chronic atrial fibrillation (2) Breast cancer, stage 2 Laterality: unspecified laterality Qualified Code(s): C50.919 - Malignant n eoplasm of unspecified site of unspecified female breast (3) Neutropenia Neutropenia type: secondary to cancer chemotherapy Qualified Code(s): D70.1 - Agranulocytosis secondary to cancer chemotherapy; T45.1X5A - Adverse effect of antineoplastic and immunosuppressive drugs, initial encounter (4) Asthma Asthma complication type: uncomplicated Asthma persistence: persistent Asthma severity: unspecified severity Qualified Code(s): J45.909 - Unspecified asthma, uncomplicated
[2018-09-01] MEDS: ENOXAPARIN INJ 40 MG/0.4 ML SYR SQ SCH (20:41)
[2018-09-01] MEDS: ERTAPENEM SODIUM 1,000 MG in SODIUM CHLORIDE 0.9% 50 ML IV SCH (20:59)
[2018-09-02 06:05] LABS: Basophils # (auto) 0.05 K/uL (0-0.2); Basophils % (auto) 0.8 %; Eosinophils # (auto) 0.01 K/uL (0-0.5); Eosinophils % (auto) 0.2 %; Hematocrit (blood only) 31.4 % (37-47); Hemoglobin 10.4 g/dL (12.0-16.0); Immature Granulocytes # (auto) 0.13 K/uL (0.00-0.02); Immature Granulocytes % (auto) 2.1 %; Lymphocytes # (auto) 1.44 K/uL (1.2-3.4); Lymphocytes % (auto) 23.5 %; Mean Corpuscular Hgb Conc 33.1 g/dL (32-36); Mean Corpuscular Volume 91.3 fL (80-100); Mean Platelet Volume 10.5 fL (7.4-10.4); Monocytes # (auto) 0.61 K/uL (0.11-0.59); Neutrophils # (auto) 3.89 K/uL (1.4-6.5); Neutrophils % (auto) 63.4 %; Nucleated RBC # (auto) 0.04 K/uL (0-0); Nucleated RBC % (auto) 0.7 %; Platelet Count 106 K/uL (130-400); RDW Coefficient of Variation 20.6 % (11.5-14.5); RDW Standard Deviation 64.2 fL (36.4-46.3); Red Blood Count 3.44 M/uL (4.2-5.4); White Blood Count 6.13 K/uL (4.8-10.8)
[2018-09-02 06:28] LABS: Anisocytosis Present
--- NOTE | 2018-09-02 09:34 | Pharmacy Report ---
Pharmacy Glycemic Sign Off Nt - Date of Service September 02, 2018 - Assessment & Plan ASSESSMENT: * Pharmacy was consulted by Dr Valle on 08/25 for glycemic control and to write orders per [facility] inpatient glycemic control protocol. * Major changes made by pharmacy to antidiabetic regimen include: * Basal initiated when on high dose steroids but has since been stopped. Now that she is back to her outpatient dose of methylprednisolone, she is only on Novolog with a correction factor * Patient has been receiving 2-3 units of insulin per day for adequate glycemic control * BSGs ranging 108-165 mg/dl * Regimen has required zero adjustments over the past 48hrs to achieve this level of control * Do not anticipate further changes in patient status that would quickly deteriorate glycemic control (i.e. patient to be NPO for upcoming procedure, steroids tapering, starting tube feedings, etc). * Please see recommendations for outpatient antidiabetic regimen below. PLAN FOR INPATIENT GLYCEMIC CONTROL: No changes needed to current regimen. * Continue NovoLog per scale ACHS/Q6hrs while NPO * Goal range = 110 - 140 mg/dl * CF = 30 mg/dl/unit * A1c added to discharge instructions to be communicated to PCP. * Pharmacy is signing off of glycemic consult (spoke with Dr. Barbour) and will no longer be making adjustments to inpatient regimen. Please feel free to re- consult if needed. Thank you. DISCHARGE RECOMMENDATIONS: * A1c 7.1 % on 08/25/18 * See note from 08/31 regarding discharge recommendations
[2018-09-02] MEDS: INSULIN ASPART 100 UNITS/ML 3 ML PEN SC SCH ×4 (09:38→20:13)
[2018-09-02] MEDS: FUROSEMIDE 20 MG TAB PO SCH (09:40)
[2018-09-02] MEDS: methylPREDNISolone 4 MG TAB PO SCH (09:41)
[2018-09-02] MEDS: CHOLECALCIFEROL 1,000 UNITS TAB PO SCH (09:41)
[2018-09-02] MEDS: MULTIVITAMIN TAB PO SCH (09:41)
[2018-09-02] MEDS: FLECAINIDE ACETATE 100 MG TABLET PO SCH ×2 (09:41→20:44)
[2018-09-02] MEDS: PANTOprazole 40 MG TAB PO SCH (09:42)
[2018-09-02] MEDS: SACCHAROMYCES BOULARDII 250 MG CAP PO SCH (09:42)
[2018-09-02] MEDS: MICONAZOLE NITRATE POWDER 43 GM EXT SCH ×2 (09:47→20:43)
[2018-09-02] MEDS: NYSTATIN SUSP 500,000 U/5 ML UDC PO SCH ×4 (09:48→20:43)
[2018-09-02] MEDS: LEVALBUTEROL TARTRATE 15 GM HFA.AER.AD INH SCH ×2 (09:48→20:44)
[2018-09-02] MEDS: METOPROLOL TARTRATE 50 MG TAB PO SCH ×2 (09:49→20:43)
[2018-09-02] MEDS: COLLAGENASE OINT 30 GM TUBE EXT SCH (10:00)
--- NOTE | 2018-09-02 16:57 | Hospitalist Progress Note ---
Date of Service September 02, 2018 Assessment & Plan (1) Severe sepsis: feels better able to walk on hallway Resolved, secondary to gram-negative/E. coli septicemia, possible infected port site A port was taken out Completed 10 out of 10 days of IV ertapenem Repeat blood cultures remains Negative On admission: 67 yo F with recently diagnosed Breast CA( May 2018 ) s/p lumpectomy of right breast , on chemo , chronic Afib ,GALLO cirrhosis admitted diarrhea , SOB , fever/chills , cloudy urine for x3 days found to be febrile , pancytopenic , hypotensive in ER ( BP 50/30 ) , pt received chemo for breast Ca stage 2 weeks back meets CMS Criteria for severe sepsis : neutropenia , fever , tachycardic , hypotensive, elevated lactic acid /pro calcitonin most likely secondary to Bacteremia, Port infection pt was admitted to ICU received IV fluid resuscitation /did not require pressors Initally was started on Broad spectrum IV abx -Daptomycin /Cefepime ( pt has severe allergic reaction to PCN ) Cxray shows no infiltrate CT abdomen /pelvis : no active pathology blood culture 08/22: 1 bottle gram negative bacilli ECHO shows : hyperdynamic EF suggestive of intravascular vol depletion no valvular vegetation reported s/p removal of port by Dr. Hernandez On 08/24/2018 Remains afebrile, vitals remain stable Will be followed with oncology in [facility] in [place] regarding further chemo decision and need for new port placement (2) Gram-negative bacteremia: Blood culture positive for E. coli, Possible source of infected a port, s/p removal of port by Dr. Hernandez08/24/2018 Completed 10/10 days of IV ertapenem Appreciate input from infectious disease (3) Neutropenia: Pancytopenia The setting of recent chemo treatment for breast cancer, severe sepsis Presented with ANC < 0.7 due to recent chemo tx, sepsis stage 2 Breast CA s/p recent chemo Adiramycin /Cytoxan follows with heme onc Dr Conde at [facility] ANC normalized monitor CBC (4) Pancytopenia: on admission Wbc of 0.75, hgb of 9.4, platelets 20 -due to recent chemo worsened with severe sepsis pt recieved Thuyta on 08/10/2018 D/w Dr Duke ( heme/onc ) pt will not need repeat Nulesta Pt's Primary oncology Dr Conde at [facility] updated -CBC continues to improve, normalized (5) Acute kidney injury: Resolved, Low-dose Lasix 20 mg p.o. daily resumed due to severe sepsis /dehydration also need to consider possible side effect of chemo was on Lasix for lower ext edema Cr elevated at 2.36 (baseline ~0.8) CT abdomen/Pelvis shows no evidence of renal /ureteral or bladder outlet obstruciton nephrology eval requested - Creatinine improved with IV hydration, Outpatient regular Lasix dose resumed (6) Breast cancer, stage 2: -In setting of breast cancer, cycle of Adriamycin and Cytoxan on Aug 10 -Received Neulasta - A port removed secondary to gram-negative bacteremia, sepsis Patient will continue to follow-up with hematology oncology Dr. Conde in [facility] For the decision of chemo and future port placement per oncology (7) Atrial fibrillation: On Lopressor 50 mg twice daily continue Flecainide -Previously on coumadin, Eliquis but stopped due to thrombocytopenia (8) Peripheral edema: No history of CHF, per patient -BLE with 3+ edema, has been present for last few days -Bedside echo in ICU : shows hyperdynamic LV , EF> 70% suggestive of intravascular vol depletation ( due to sepsis ) lower ext dopplar negative for DVT -- resume Lasix 20mg po daily (9) 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: CT abd/pelvis with evidence of cirrhosis with trace perihepatic ascites and splenomegaly indicative of portal hypertension -Total bili 1.3, AST and ALT unremarkable -Monitor with daily LFTs -Doppler USG of liver : no evidence of portal vein thrombosis INR 1.6 likely from Liver Cirrhosis, sepsis Baseline INR is 1.5 no signs of active bleeding monitor LFTs (10) Liver mass: Dysplastic liver nodule with well-differentiated HCC -follows with Hepatology /oncology in [place] (11) Psoriatic arthritis: was on solu-medrol Given stress dose of IV hydrocortisone -hypotension /severe sepsis Resume usual methylprednisolone (12) History of breast lump/mass excision: (13) Morbid obesity: BMI> 50 GALLO cirrhosis counselling for exercise 'diet /weight reduction nutrition consult (14) Asthma: Stable. Continue Xopenex inhaler (15) Discharge planning issues: lives with at home Ordered for PT OT evaluation, recommend rehab, patient adamantly refused to go to any rehab facility wants to return home with home health home PT Has a rolling walker with seat, Ramp,epipments at home : Shower chair, handrails, raised toilet seats with handles SCD and teds OOB as tolerated , increased activity Code status: FULL Disposition: Possible discharge home on Monday with home health home PT Social service consulted for discharge planning Physical Exam Vital Signs (Past 24 Hours): Last Vital Signs Temp 36.4 C L 09/02/18 15:50 Pulse 59 L 09/02/18 15:50 Resp 16 09/02/18 15:50 BP 114/63 09/02/18 15:50 Pulse Ox 95 09/02/18 15:50 Constitutional: WD/WN, vitals as above + obese, cooperative and comfortable; no acute distress Eyes: PERRL, conjunctivae normal, anicteric sclerae ENMT: external ear and nose normal, oropharynx normal Neck: trachea midline, no thyromegaly neck nontender Respiratory: normal respiratory effort, lungs clear to auscultation normal respiratory effort and normal percussion; does not use accessory muscles Auscultation: lungs clear to auscultation bilaterally Cardiovascular: RRR, no murmur, no edema Rate/Rhythm: regular rate and regular rhythm Heart Sounds: normal S1 and normal S2; no gallop, no murmur and no cardiac rub Vessels: normal peripheral pulses; no JVD Extremities: normal capillary refill, + pedal edema and + edema Gastrointestinal (Abdomen): normal bowel sounds, soft, nontender, no hepatosplenomegaly Musculoskeletal: no cyanosis or clubbing, extremities motor strength 5/5 Spine: no cervical spinal tenderness Skin: no rashes, warm and dry normal turgor and + rash (right lower extremity); no lesions Neurologic: patellar DTR's 2+ bilat, sensation intact and PERRL, EOMI, accommodation nl, no face palsy, no dysarthria no focal motor deficits Psychiatric: A+Ox3, euthymic affect Orientation: cooperative Lymphatic: no cervical or axillary lymphadenopathy no inguinal lymphadenopathy (1) Atrial fibrillation Atrial fibrillation type: chronic Qualified Code(s): I48.2 - Chronic atrial fibrillation (2) Breast cancer, stage 2 Laterality: unspecified laterality Qualified Code(s): C50.919 - Malignant neoplasm of unspecified site of unspecified female breast (3) Neutropenia Neutropenia type: secondary to cancer chemotherapy Qualified Code(s): D70.1 - Agranulocytosis secondary to cancer chemotherapy; T45.1X5A - Adverse effect of antineoplastic and immunosuppressive drugs, initial encounter (4) Asthma Asthma complication type: uncomplicated Asthma persistence: persistent Asthma severity: unspecified severity Qualified Code(s): J45.909 - Unspecified asthma, uncomplicated
[2018-09-02] MEDS: ENOXAPARIN INJ 40 MG/0.4 ML SYR SQ SCH (20:43)
[2018-09-03] MEDS: COLLAGENASE OINT 30 GM TUBE EXT SCH ×2 (00:46→08:01)
[2018-09-03 07:39] LABS: Hematocrit (blood only) 28.7 % (37-47); Hemoglobin 9.7 g/dL (12.0-16.0); Mean Corpuscular Hgb Conc 33.8 g/dL (32-36); Mean Corpuscular Volume 92.6 fL (80-100); Nucleated RBC # (auto) 0.04 K/uL (0-0); RDW Coefficient of Variation 20.8 % (11.5-14.5); RDW Standard Deviation 65.9 fL (36.4-46.3); White Blood Count 4.17 K/uL (4.8-10.8)
[2018-09-03 07:44] LABS: Mean Platelet Volume 10.6 fL (7.4-10.4); Platelet Count 83 K/uL (130-400)
[2018-09-03] MEDS: CHOLECALCIFEROL 1,000 UNITS TAB PO SCH (07:59)
[2018-09-03] MEDS: MULTIVITAMIN TAB PO SCH (07:59)
[2018-09-03] MEDS: PANTOprazole 40 MG TAB PO SCH (07:59)
[2018-09-03] MEDS: methylPREDNISolone 4 MG TAB PO SCH (07:59)
[2018-09-03] MEDS: MICONAZOLE NITRATE POWDER 43 GM EXT SCH ×2 (08:00→20:29)
[2018-09-03] MEDS: METOPROLOL TARTRATE 50 MG TAB PO SCH ×2 (08:00→20:56)
[2018-09-03] MEDS: SACCHAROMYCES BOULARDII 250 MG CAP PO SCH (08:00)
[2018-09-03] MEDS: NYSTATIN SUSP 500,000 U/5 ML UDC PO SCH ×2 (08:01→12:47)
[2018-09-03] MEDS: FUROSEMIDE 20 MG TAB PO SCH (08:01)
[2018-09-03] MEDS: LEVALBUTEROL TARTRATE 15 GM HFA.AER.AD INH SCH ×2 (08:01→20:29)
[2018-09-03] MEDS: FLECAINIDE ACETATE 100 MG TABLET PO SCH ×2 (08:01→20:55)
[2018-09-03 08:08] LABS: Anisocytosis Present; Basophils # (auto) 0.09 K/uL (0-0.2); Basophils % (auto) 2.2 %; Eosinophils # (auto) 0.02 K/uL (0-0.5); Eosinophils % (auto) 0.5 %; Immature Granulocytes # (auto) 0.04 K/uL (0.00-0.02); Lymphocytes % (auto) 28.8 %; Monocytes % (auto) 9.6 %; Neutrophils # (auto) 2.42 K/uL (1.4-6.5); Neutrophils % (auto) 57.9 %; Target Cells 1+
[2018-09-03] MEDS: INSULIN ASPART 100 UNITS/ML 3 ML PEN SC SCH ×4 (08:43→20:29)
--- NOTE | 2018-09-03 15:28 | Hospitalist Progress Note ---
Date of Service September 03, 2018 Assessment & Plan (1) Severe sepsis: feels better able to walk on hallway Resolved, secondary to gram-negative/E. coli septicemia, possible infected port site A port was taken out Completed 10 out of 10 days of IV ertapenem Repeat blood cultures remains Negative On admission: 67 yo F with recently diagnosed Breast CA( May 2018 ) s/p lumpectomy of right breast , on chemo , chronic Afib ,GALLO cirrhosis admitted diarrhea , SOB , fever/chills , cloudy urine for x3 days found to be febrile , pancytopenic , hypotensive in ER ( BP 50/30 ) , pt received chemo for breast Ca stage 2 weeks back meets CMS Criteria for severe sepsis : neutropenia , fever , tachycardic , hypotensive, elevated lactic acid /pro calcitonin most likely secondary to Bacteremia, Port infection pt was admitted to ICU received IV fluid resuscitation /did not require pressors Initally was started on Broad spectrum IV abx -Daptomycin /Cefepime ( pt has severe allergic reaction to PCN ) Cxray shows no infiltrate CT abdomen /pelvis : no active pathology blood culture 08/22: 1 bottle gram negative bacilli ECHO shows : hyperdynamic EF suggestive of intravascular vol depletion no valvular vegetation reported s/p removal of port by Dr. Hernandez On 08/24/2018 Remains afebrile, vitals remain stable Will be followed with oncology in [facility] in [place] regarding further chemo decision and need for new port placement (2) Gram-negative bacteremia: Blood culture positive for E. coli, Possible source of infected a port, s/p removal of port by Dr. Hernandez08/24/2018 Completed 10/10 days of IV ertapenem Appreciate input from infectious disease (3) Neutropenia: Pancytopenia The setting of recent chemo treatment for breast cancer, severe sepsis Presented with ANC < 0.7 due to recent chemo tx, sepsis stage 2 Breast CA s/p recent chemo Adiramycin /Cytoxan follows with heme onc Dr Conde at [facility] ANC normalized monitor CBC (4) Pancytopenia: on admission Wbc of 0.75, hgb of 9.4, platelets 20 -due to recent chemo worsened with severe sepsis pt recieved Domoniquelesta on 08/10/2018 D/w Dr Duke ( heme/onc ) pt will not need repeat Nulesta Pt's Primary oncology Dr Conde at [facility] updated -CBC continues to improve, normalized (5) Acute kidney injury: Resolved, Low-dose Lasix 20 mg p.o. daily resumed due to severe sepsis /dehydration also need to consider possible side effect of chemo was on Lasix for lower ext edema Cr elevated at 2.36 (baseline ~0.8) CT abdomen/Pelvis shows no evidence of renal /ureteral or bladder outlet obstruciton nephrology eval requested - Creatinine improved with IV hydration, Outpatient regular Lasix dose resumed (6) Breast cancer, stage 2: -In setting of breast cancer, cycle of Adriamycin and Cytoxan on Aug 10 -Received Neulasta - A port removed secondary to gram-negative bacteremia, sepsis Patient will continue to follow-up with hematology oncology Dr. Conde in [facility] For the decision of chemo and future port placement per oncology (7) Atrial fibrillation: On Lopressor 50 mg twice daily continue Flecainide -Previously on coumadin, Eliquis but stopped due to thrombocytopenia (8) Peripheral edema: No history of CHF, per patient -BLE with 3+ edema, has been present for last few days -Bedside echo in ICU : shows hyperdynamic LV , EF> 70% suggestive of intravascular vol depletation ( due to sepsis ) lower ext dopplar negative for DVT -- resume Lasix 20mg po daily (9) 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: CT abd/pelvis with evidence of cirrhosis with trace perihepatic ascites and splenomegaly indicative of portal hypertension -Total bili 1.3, AST and ALT unremarkable -Monitor with daily LFTs -Doppler USG of liver : no evidence of portal vein thrombosis INR 1.6 likely from Liver Cirrhosis, sepsis Baseline INR is 1.5 no signs of active bleeding monitor LFTs (10) Liver mass: Dysplastic liver nodule with well-differentiated HCC -follows with Hepatology /oncology in [place] (11) Psoriatic arthritis: was on solu-medrol Given stress dose of IV hydrocortisone -hypotension /severe sepsis Resume usual methylprednisolone (12) History of breast lump/mass excision: (13) Morbid obesity: BMI> 50 GALLO cirrhosis counselling for exercise 'diet /weight reduction nutrition consult (14) Asthma: Stable. Continue Xopenex inhaler (15) Discharge planning issues: lives with at home Ordered for PT OT evaluation, recommend rehab, patient adamantly refused to go to any rehab facility wants to return home with home health home PT Has a rolling walker with seat, Ramp,epipments at home : Shower chair, handrails, raised toilet seats with handles SCD and teds OOB as tolerated , increased activity Code status: FULL Disposition: Possible discharge home on Monday with home health home PT Social service consulted for discharge planning Subjective walked on the hallway today no fever or chills Physical Exam Vital Signs (Past 24 Hours): Last Vital Signs Temp 36.8 C 09/03/18 14:55 Pulse 68 09/03/18 14:55 Resp 16 09/03/18 14:55 BP 109/64 09/03/18 14:55 Pulse Ox 96 09/03/18 14:55 Constitutional: WD/WN, vitals as above + obese, cooperative and comfortable; no acute distress Eyes: PERRL, conjunctivae normal, anicteric sclerae ENMT: external ear and nose normal, oropharynx normal Neck: trachea midline, no thyromegaly neck nontender Respiratory: normal respiratory effort, lungs clear to auscultation normal respiratory effort and normal percussion; does not use accessory muscles Auscultation: lungs clear to auscultation bilaterally Cardiovascular: RRR, no murmur, no edema Rate/Rhythm: regular rate and regular rhythm Heart Sounds: normal S1 and normal S2; no gallop, no murmur and no cardiac rub Vessels: normal peripheral pulses; no JVD Extremities: normal capillary refill, + pedal edema and + edema Gastrointestinal (Abdomen): normal bowel sounds, soft, nontender, no hepatosplenomegaly Musculoskeletal: no cyanosis or clubbing, extremities motor strength 5/5 Spine: no cervical spinal tenderness Skin: no rashes, warm and dry normal turgor and + rash (right lower extremity); no lesions Neurologic: patellar DTR's 2+ bilat, sensation intact and PERRL, EOMI, accommodation nl, no face palsy, no dysarthria no focal motor deficits Psychiatric: A+Ox3, euthymic affect Orientation: cooperative Lymphatic: no cervical or axillary lymphadenopathy no inguinal lymphadenopathy (1) Neutropenia Neutropenia type: secondary to cancer chemotherapy Qualified Code(s): D70.1 - Agranulocytosis secondary to cancer chemotherapy; T45.1X5A - Adverse effect of antineoplastic and immunosuppressive drugs, initial encounter (2) Breast cancer, stage 2 Laterality: unspecified laterality Qualified Code(s): C50.919 - Malignant neoplasm of unspecified site of unspecified female breast (3) Atrial fibrillation Atrial fibrillation type: chronic Qualified Code(s): I48.2 - Chronic atrial fibrillation (4) Asthma Asthma severity: unspecified severity Asthma persistence: persistent Asthma complication type: uncomplicated Qualified Code(s): J45.909 - Unspecified asthma, uncomplicated
[2018-09-03] MEDS: CLOTRIMAZOLE 10 MG TROCHE BUCCAL SCH ×3 (16:54→22:13)
[2018-09-03] MEDS: ENOXAPARIN INJ 40 MG/0.4 ML SYR SQ SCH (20:57)
[2018-09-04] MEDS: SACCHAROMYCES BOULARDII 250 MG CAP PO SCH (07:41)
[2018-09-04] MEDS: PANTOprazole 40 MG TAB PO SCH (07:41)
[2018-09-04] MEDS: CHOLECALCIFEROL 1,000 UNITS TAB PO SCH (07:41)
[2018-09-04] MEDS: FLECAINIDE ACETATE 100 MG TABLET PO SCH ×2 (07:41→21:42)
[2018-09-04] MEDS: methylPREDNISolone 4 MG TAB PO SCH (07:41)
[2018-09-04] MEDS: METOPROLOL TARTRATE 50 MG TAB PO SCH ×2 (07:42→21:41)
[2018-09-04] MEDS: FUROSEMIDE 20 MG TAB PO SCH (07:42)
[2018-09-04] MEDS: MICONAZOLE NITRATE POWDER 43 GM EXT SCH ×2 (07:42→21:19)
[2018-09-04] MEDS: COLLAGENASE OINT 30 GM TUBE EXT SCH (07:42)
[2018-09-04] MEDS: CLOTRIMAZOLE 10 MG TROCHE BUCCAL SCH (07:42)
[2018-09-04] MEDS: LEVALBUTEROL TARTRATE 15 GM HFA.AER.AD INH SCH (07:43)
[2018-09-04] MEDS: MULTIVITAMIN TAB PO SCH (07:43)
[2018-09-04] MEDS: INSULIN ASPART 100 UNITS/ML 3 ML PEN SC SCH ×4 (08:51→21:44)
[2018-09-04 09:10] LABS: Hematocrit (blood only) 31.1 % (37-47); Hemoglobin 10.4 g/dL (12.0-16.0); Mean Corpuscular Hgb Conc 33.4 g/dL (32-36); Mean Corpuscular Volume 93.4 fL (80-100); Nucleated RBC # (auto) 0.02 K/uL (0-0); Nucleated RBC % (auto) 0.5 %; RDW Coefficient of Variation 21.4 % (11.5-14.5); RDW Standard Deviation 68.3 fL (36.4-46.3); Red Blood Count 3.33 M/uL (4.2-5.4); White Blood Count 4.82 K/uL (4.8-10.8)
[2018-09-04 09:14] LABS: Mean Platelet Volume 11.3 fL (7.4-10.4); Platelet Count 99 K/uL (130-400)
--- NOTE | 2018-09-04 09:47 | Hospitalist Progress Note ---
Date of Service September 04, 2018 Assessment & Plan (1) Thrush: Clotrimazole mg is giving her diarrhea per her report. Nystatin is on back order, however pharmacy has some in stock. We will continue nystatin to complete 10-day course of treatment. (2) Severe sepsis: resuscitated, source was infected port. (3) Gram-negative bacteremia: Repeat blood cultures clear. She is completed a an antibiotic course. (4) Neutropenia: Secondary to recent chemo treatment for breast cancer, resolved (5) Pancytopenia: (6) Acute kidney injury: Resolved, was likely secondary to ATN versus prerenal azotemia in the setting of sepsis. She has resumed daily Lasix per home regimen. (7) Breast cancer, stage 2: Status post Adriamycin and Cytoxan in mid July. Will need to follow- up with oncology as outpatient to reevaluate treatment plan at this point. (8) Atrial fibrillation: Chronic, rate controlled with Lopressor twice daily. Rhythm control with flecainide twice daily. Previously on anticoagulation which was stopped secondary to thrombocytopenia (9) Peripheral edema: Resolved. 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 (11) Liver mass: Dysplastic liver nodule with well-differentiated HCC -follows with Hepatology /oncology in [place] (12) Psoriatic arthritis: On daily Medrol (13) History of breast lump/mass excision: (14) Morbid obesity: (15) Asthma: Stable, no wheezing, Xopenex as needed. (16) DVT prophylaxis: Lovenox Full code Dispo-patient refuses rehab, DC to home when ready. Keiry Fournier DO [facility] Hospitalist Subjective 67-year-old female with breast cancer and Tomas cirrhosis presented to the ER with sepsis. She was started on Vanco and Cefepime and given IV fluid resuscit ation. She was admitted to the ICU with neutropenic fever. Vancomycin was switched to Daptomycin. She has a history of asthma and was started on steroids and nebulizer therapy. She has a history of liver cirrhosis secondary to TOMAS which appeared compensated on arrival, however with the known liver mass her meld was 29. No focal pneumonia was seen on imaging. Urine studies were clear of infection. Blood cultures were positive for E. coli and infectious disease was consulted. Cefepime was continued pending speciation. An echocardiogram was performed on 08/23 revealing atrial fibrillation with no regional wall motion abnormality. Left ventricular systolic function was normal with an EF of 65- 70%. There were no significant valvular abnormalities. She was found to have a wound on her buttock, however, and infected A-port was considered the most likely source. Per patient, the wound appeared with the change from cefepime to ceftriaxone, and was not present on arrival. Additionally, she developed dry flaky erythema on her face which was thought secondary to a possible ceftriaxone reaction and this was switched to ertapenem to complete the recommended 10-day course. The A-port was removed on 08/[address] Hernandez. Nephrology was consulted for acute renal failure. This was suspected secondary to ATN from neutropenic sepsis and E. coli bacteremia. Her baseline creatinine is 0.8 and presenting creatinine on 08/22 was 2.4. Renal function improved with IV fluid resuscitation, and on 08/27, her home dose of Lasix was continued. The wound care physician was consulted for her unstageable pressure ulcer of back. He thought this was a combination of shearing forces from moving around bed leading to blisters and ultimately an eschar. Santyl was added to the wound with recom mended daily dressing changes and continued offloading of the area. Today she reports some worsening weakness generally. She denies any pain. She is tolerating p.o. She does report some episodes of diarrhea which she attributes to using clotrimazole orally for her thrush. She is motivated to rehab herself physically while hospitalized. She does not want to go to [facility], as she was a prior employee there and feels the care is substandard. Her goal is to get strong enough to make it home and continue her workouts there. Regarding her breast cancer, which is active, she will have this reevaluated by her oncologist at discharge. Physical Exam Vital Signs (Past 24 Hours): Last Vital Signs Temp 36.9 C 09/04/18 07:16 Pulse 70 09/04/18 07:16 Resp 18 09/04/18 07:16 BP 138/73 09/04/18 07:16 Pulse Ox 93 09/04/18 07:16 CONSTITUTIONAL: obese, vitals as above, generally well-appearing, chemo-induced hairloss present EYES: normal conjuctivae, no scleral icterus ENT: whitish plaques that are rare and present on tongue. MMM RESPIRATORY: clear to auscultation bilaterally, no crackles, rales or wheezes, normal respiratory effort CARDIOVASCULAR: regular rate and rhythm, S1 and 2 heard without murmurs, cochran ps or rubs, no JVD, no peripheral edema, no carotid bruits CHEST: A-port removal site is closed and scabbed over without surrounding erythema or drainage. GASTROINTESTINAL: normal bowel sounds, soft, nontender, nondistended, protuberant MUSCULOSKELETAL: head is normocephalic and atraumatic, no gross focal deficits. She is able to pull herself up using the overhead ortho trapeze. SKIN: warm and dry, buttock wounds are present, with slight drainage on Optifoam x 3 across L lower back area. No surrounding erythema. NEUROLOGIC: No facial palsy, no dysarthria. CN 2-12 grossly intact, no sensory deficit, normal cognition, normal speech PSYCHIATRIC: alert cooperative and oriented to person, place and time. Results & Data Laboratory Results Short CBC 09/04/18 Range/Units 08:40 WBC 4.82 (4.8-10.8) K/uL Hgb 10.4 L (12.0-16.0) g/dL Hct 31.1 L (37-47) % Plt Count 99 L (130-400) K/uL Medications Administered Current Inpatient Medications Acetaminophen (Tylenol) 650 mg PO Q8H PRN PRN Reason: Pain or Fever Stop: 09/29/18 16:11 Clotrimazole (Mycelex) 10 mg BUCCAL [id number] [facility] Stop: 09/11/18 23:59 Last Admin: 09/04/18 07:42 Dose: 10 mg Documented by: Collagenase (Santyl) 1 appln EXT DAILY [facility] Stop: 09/30/18 12:14 Last Admin: 09/04/18 07:42 Dose: 1 appln Documented by: Dextrose (Dextrose 50%) 25 - 50 ml IV UD PRN; Protocol PRN Reason: Hypoglycemia Protocol Stop: 09/24/18 09:14 Docusate Sodium (Colace) 100 mg PO BID PRN PRN Reason: Constipation Stop: 09/30/18 20:59 Enoxaparin Sodium (Lovenox) 40 mg SQ HS [facility] Stop: 09/25/18 20:59 Last Admin: 09/03/18 20:57 Dose: 40 mg Documented by: Flecainide Acetate (Tambocor) 100 mg PO Q12 [facility] Stop: 09/21/18 20:59 Last Admin: 09/04/18 07:41 Dose: 100 mg Documented by: Furosemide (Lasix) 20 mg PO QAM [facility] Stop: 10/01/18 13:29 Last Admin: 09/04/18 07:42 Dose: 20 mg Documented by: Glucagon (Glucagen) 1 mg SQ UD PRN; Protocol PRN Reason: Hypoglycemia Protocol Stop: 09/24/18 09:14 Glucose (Glucose 40%) 15 - 30 gm PO UD PRN; Protocol PRN Reason: Hypoglycemia Protocol Stop: 09/24/18 09:14 Glucose (Dex4 Glucose) 4 - 8 tabs PO UD PRN; Protocol PRN Reason: Hypoglycemia Protocol Stop: 09/24/18 09:14 Heparin Sodium (Porcine) (Heparin Sod 100 Unit/Ml Flush) 5 ml FLUSH PRN PRN PRN Reason: Flush Stop: 09/24/18 01:44 Promethazine HCl 6.25 mg/ (Sodium Chloride) 50.25 mls @ 201 mls/hr IV Q6H PRN PRN Reason: Nausea And Vomiting Stop: 09/24/18 13:28 Insulin Aspart (Novolog Flexpen) 0 units SC ACHS [facility] Stop: 09/24/18 08:59 Last Admin: 09/04/18 08:51 Dose: Not Given Documented by: Levalbuterol HCl (Xopenex Hfa) 2 puffs INH BID [facility] Stop: 09/22/18 20:59 Last Admin: 09/04/18 07:43 Dose: Not Given Documented by: Methylprednisolone (Medrol) 4 mg PO DAILY [facility] Stop: 09/26/18 08:59 Last Admin: 09/04/18 07:41 Dose: 4 mg Documented by: Metoprolol Tartrate (Lopressor) 50 mg PO BID [facility] Stop: 09/26/18 20:59 Last Admin: 09/04/18 07:42 Dose: 50 mg Documented by: Miconazole Nitrate (Desenex) 1 appln EXT BID [facility] Stop: 09/26/18 08:59 Last Admin: 09/04/18 07:42 Dose: Not Given Documented by: Miscellaneous (Carbohydrates For Hypoglycemia) 15 - 30 gm PO UD PRN PRN Reason: Hypoglycemia Treatment Stop: 09/24/18 09:14 Multivitamins (Multivitamin Tab) 1 tab PO DAILY [facility] Stop: 09/23/18 08:59 Last Admin: 09/04/18 07:43 Dose: 1 tab Documented by: Oxycodone/Acetaminophen (Percocet 5mg/325mg) 1 tab PO Q4H PRN PRN Reason: Pain Stop: 09/07/18 11:49 Pantoprazole Sodium (Protonix) 40 mg PO QAM [facility] Stop: 09/23/18 08:59 Last Admin: 09/04/18 07:41 Dose: 40 mg Documented by: Polyethylene Glycol (Miralax Powder Packet) 17 gm PO DAILY PRN PRN Reason: Constipation Stop: 09/28/18 00:03 Last Admin: 08/31/18 09:02 Dose: 17 gm Documented by: Prochlorperazine (Compazine) 10 mg PO Q6H PRN PRN Reason: Nausea Stop: 09/22/18 19:50 Last Admin: 08/24/18 09:29 Dose: 10 mg Documented by: Saccharomyces Boulardii (Florastor) 250 mg PO DAILY [facility] Stop: 09/23/18 08:59 Last Admin: 09/04/18 07:41 Dose: 250 mg Documented by: Sodium Biphosphate/Sodium Phosphate (Fleet Enema) 132 ml MO DAILY PRN PRN Reason: Constipation Stop: 09/28/18 00:03 Last Admin: 08/30/18 17:50 Dose: 132 ml Documented by: Vitamin D (Vitamin D3) 3,000 units PO DAILY [facility] Stop: 09/23/18 08:59 Last Admin: 09/04/18 07:41 Dose: 3,000 units Documented by: (1) Atrial fibrillation Atrial fibrillation type: chronic Qualified Code(s): I48.2 - Chronic atrial fibrillation (2) Breast cancer, stage 2 Laterality: unspecified laterality Qualified Code(s): C50.919 - Malignant neoplasm of unspecified site of unspecified female breast (3) Neutropenia Neutropenia type: secondary to cancer chemotherapy Qualified Code(s): D70.1 - Agranulocytosis secondary to cancer chemotherapy; T45.1X5A - Adverse effect of antineoplastic and immunosuppressive drugs, initial encounter (4) Asthma Asthma complication type: uncomplicated Asthma persistence: persistent Asthma severity: unspecified severity Qualified Code(s): J45.909 - Unspecified asthma, uncomplicated
[2018-09-04] MEDS ORDERED: NYSTATIN SUSP 500,000 U/5 ML UDC PO SCH (10:15)
[2018-09-04 10:26] LABS: Anisocytosis Present; Basophils # (auto) 0.17 K/uL (0-0.2); Basophils % (auto) 3.5 %; Eosinophils # (auto) 0.02 K/uL (0-0.5); Eosinophils % (auto) 0.4 %; Immature Granulocytes # (auto) 0.04 K/uL (0.00-0.02); Immature Granulocytes % (auto) 0.8 %; Lymphocytes # (auto) 1.16 K/uL (1.2-3.4); Lymphocytes % (auto) 24.1 %; Monocytes # (auto) 0.58 K/uL (0.11-0.59); Neutrophils # (auto) 2.85 K/uL (1.4-6.5); Neutrophils % (auto) 59.2 %; Toxic Vacuolation 1+
[2018-09-04] MEDS ORDERED: LEVALBUTEROL TARTRATE 15 GM HFA.AER.AD INH PRN (10:32)
[2018-09-04] MEDS: NYSTATIN SUSP 60 ML BOTTLE PO SCH ×4 (11:27→21:43)
[2018-09-04] MEDS: ENOXAPARIN INJ 40 MG/0.4 ML SYR SQ SCH (21:45)
[2018-09-05] MEDS: COLLAGENASE OINT 30 GM TUBE EXT SCH (08:19)
[2018-09-05] MEDS: INSULIN ASPART 100 UNITS/ML 3 ML PEN SC SCH ×3 (08:19→17:39)
[2018-09-05] MEDS: SACCHAROMYCES BOULARDII 250 MG CAP PO SCH (08:26)
[2018-09-05] MEDS: FUROSEMIDE 20 MG TAB PO SCH (08:27)
[2018-09-05] MEDS: FLECAINIDE ACETATE 100 MG TABLET PO SCH (08:27)
[2018-09-05] MEDS: METOPROLOL TARTRATE 50 MG TAB PO SCH (08:27)
[2018-09-05] MEDS: CHOLECALCIFEROL 1,000 UNITS TAB PO SCH (08:27)
[2018-09-05] MEDS: methylPREDNISolone 4 MG TAB PO SCH (08:27)
[2018-09-05] MEDS: PANTOprazole 40 MG TAB PO SCH (08:27)
[2018-09-05] MEDS: MULTIVITAMIN TAB PO SCH (08:27)
[2018-09-05] MEDS: NYSTATIN SUSP 60 ML BOTTLE PO SCH ×3 (08:28→18:03)
[2018-09-05] MEDS: MICONAZOLE NITRATE POWDER 43 GM EXT SCH (08:30)
[2018-09-05 08:34] LABS: Hematocrit (blood only) 29.1 % (37-47); Hemoglobin 9.8 g/dL (12.0-16.0); Mean Corpuscular Hgb Conc 33.7 g/dL (32-36); Mean Corpuscular Volume 92.7 fL (80-100); Nucleated RBC # (auto) 0.03 K/uL (0-0); Nucleated RBC % (auto) 0.7 %; RDW Coefficient of Variation 21.5 % (11.5-14.5); RDW Standard Deviation 70.3 fL (36.4-46.3); Red Blood Count 3.14 M/uL (4.2-5.4); White Blood Count 4.61 K/uL (4.8-10.8)
[2018-09-05 08:51] LABS: Mean Platelet Volume 10.7 fL (7.4-10.4); Platelet Count 87 K/uL (130-400)
[2018-09-05 09:00] LABS: Anisocytosis Present; Basophils # (auto) 0.19 K/uL (0-0.2); Basophils % (auto) 4.1 %; Eosinophils # (auto) 0.03 K/uL (0-0.5); Eosinophils % (auto) 0.7 %; Immature Granulocytes # (auto) 0.02 K/uL (0.00-0.02); Immature Granulocytes % (auto) 0.4 %; Monocytes # (auto) 0.42 K/uL (0.11-0.59); Monocytes % (auto) 9.1 %; Neutrophils # (auto) 2.75 K/uL (1.4-6.5); Neutrophils % (auto) 59.7 %; Poikilocytosis Present
[2018-09-05 09:03] LABS: Est GFR (African American) 105.9; Est GFR (Non-African American) 91.4; Potassium 3.9 mmol/L (3.5-5.1)
[2018-09-05 09:04] LABS: BUN Creatinine Ratio 25.6 (10-20); Calcium 8.6 mg/dl (8.5-10.1); Creatinine Clr Calc Pharmacy 117.9 ml/min
--- NOTE | 2018-09-05 14:02 | Hospitalist Progress Note ---
Date of Service September 05, 2018 Physical Exam Vital Signs (Past 24 Hours): Last Vital Signs Temp 36.7 C 09/05/18 06:53 Pulse 64 09/05/18 06:53 Resp 18 09/05/18 06:53 BP 127/64 09/05/18 06:53 Pulse Ox 95 09/05/18 06:53 Results & Data Laboratory Results Short CBC 09/05/18 Range/Units 07:33 WBC 4.61 L (4.8-10.8) K/uL Hgb 9.8 L (12.0-16.0) g/dL Hct 29.1 L (37-47) % Plt Count 87 L (130-400) K/uL BMP 09/05/18 07:33 Sodium 144 Potassium 3.9 Chloride 108 H Carbon Dioxide 30 BUN 18 Creatinine 0.69 Glucose 125 H Calcium 8.6 Medications Administered Current Inpatient Medications Acetaminophen (Tylenol) 650 mg PO Q8H PRN PRN Reason: Pain or Fever Stop: 09/29/18 16:11 Collagenase (Santyl) 1 appln EXT DAILY [facility] Stop: 09/30/18 12:14 Last Admin: 09/05/18 08:19 Dose: 1 appln Documented by: Dextrose (Dextrose 50%) 25 - 50 ml IV UD PRN; Protocol PRN Reason: Hypoglycemia Protocol Stop: 09/24/18 09:14 Docusate Sodium (Colace) 100 mg PO BID PRN PRN Reason: Constipation Stop: 09/30/18 20:59 Enoxaparin Sodium (Lovenox) 40 mg SQ HS [facility] Stop: 09/25/18 20:59 Last Admin: 09/04/18 21:45 Dose: 40 mg Documented by: Flecainide Acetate (Tambocor) 100 mg PO Q12 [facility] Stop: 09/21/18 20:59 Last Admin: 09/05/18 08:27 Dose: 100 mg Documented by: Furosemide (Lasix) 20 mg PO QAM [facility] Stop: 10/01/18 13:29 Last Admin: 09/05/18 08:27 Dose: 20 mg Documented by: Glucagon (Glucagen) 1 mg SQ UD PRN; Protocol PRN Reason: Hypoglycemia Protocol Stop: 09/24/18 09:14 Glucose (Glucose 40%) 15 - 30 gm PO UD PRN; Protocol PRN Reason: Hypoglycemia Protocol Stop: 09/24/18 09:14 Glucose (Dex4 Glucose) 4 - 8 tabs PO UD PRN; Protocol PRN Reason: Hypoglycemia Protocol Stop: 09/24/18 09:14 Heparin Sodium (Porcine) (Heparin Sod 100 Unit/Ml Flush) 5 ml FLUSH PRN PRN PRN Reason: Flush Stop: 09/24/18 01:44 Promethazine HCl 6.25 mg/ (Sodium Chloride) 50.25 mls @ 201 mls/hr IV Q6H PRN PRN Reason: Nausea And Vomiting Stop: 09/24/18 13:28 Insulin Aspart (Novolog Flexpen) 0 units SC ACHS [facility] Stop: 09/24/18 08:59 Last Admin: 09/05/18 12:21 Dose: Not Given Documented by: Levalbuterol HCl (Xopenex Hfa) 2 puffs INH BID PRN PRN Reason: SOB or wheezing Stop: 09/22/18 20:59 Methylprednisolone (Medrol) 4 mg PO DAILY [facility] Stop: 09/26/18 08:59 Last Admin: 09/05/18 08:27 Dose: 4 mg Documented by: Metoprolol Tartrate (Lopressor) 50 mg PO BID [facility] Stop: 09/26/18 20:59 Last Admin: 09/05/18 08:27 Dose: 50 mg Documented by: Miconazole Nitrate (Desenex) 1 appln EXT BID [facility] Stop: 09/26/18 08:59 Last Admin: 09/05/18 08:30 Dose: Not Given Documented by: Miscellaneous (Carbohydrates For Hypoglycemia) 15 - 30 gm PO UD PRN PRN Reason: Hypoglycemia Treatment Stop: 09/24/18 09:14 Multivitamins (Multivitamin Tab) 1 tab PO DAILY [facility] Stop: 09/23/18 08:59 Last Admin: 09/05/18 08:27 Dose: 1 tab Documented by: Nystatin (Mycostatin) 4 ml PO QID [facility]; Protocol Stop: 09/06/18 10:44 Last Admin: 09/05/18 13:21 Dose: 4 ml Documented by: Oxycodone/Acetaminophen (Percocet 5mg/325mg) 1 tab PO Q4H PRN PRN Reason: Pain Stop: 09/07/18 11:49 Pantoprazole Sodium (Protonix) 40 mg PO QAM [facility] Stop: 09/23/18 08:59 Last Admin: 09/05/18 08:27 Dose: 40 mg Documented by: Polyethylene Glycol (Miralax Powder Packet) 17 gm PO DAILY PRN PRN Reason: Constipation Stop: 09/28/18 00:03 Last Admin: 08/31/18 09:02 Dose: 17 gm Documented by: Prochlorperazine (Compazine) 10 mg PO Q6H PRN PRN Reason: Nausea Stop: 09/22/18 19:50 Last Admin: 08/24/18 09:29 Dose: 10 mg Documented by: Saccharomyces Boulardii (Florastor) 250 mg PO DAILY [facility] Stop: 09/23/18 08:59 Last Admin: 09/05/18 08:26 Dose: 250 mg Documented by: Sodium Biphosphate/Sodium Phosphate (Fleet Enema) 132 ml IN DAILY PRN PRN Reason: Constipation Stop: 09/28/18 00:03 Last Admin: 08/30/18 17:50 Dose: 132 ml Documented by: Vitamin D (Vitamin D3) 3,000 units PO DAILY [facility] Stop: 09/23/18 08:59 Last Admin: 09/05/18 08:27 Dose: 3,000 units Documented by:
--- NOTE | 2018-09-14 10:06 | Discharge Summary ---
Date of Service September 14, 2018 Admission HPI Per Admitting Provider Patient is a 67-year-old female with a PMH of stage II breast cancer, GALLO cirrhosis, asthma, atrial fibrillation, pre-diabetes and other medical problems listed below who presents with generalized weakness and rigors x 3 days. Endorses intermittent fever over the past 3 weeks, with fever of 101 earlier today. Attempted to shower today and fell down due to weakness. No head trauma or LOC. Was brought in by EMS, who initially found her to be hypotensive. Endorses shortness of breath and swelling in lower extremities bilaterally that started 3 days ago. Also endorses nausea. Denies sore throat, myalgias, chest pain, palpitations, vomiting, abdominal pain, calf pain. Was diagnosed with stage II breast cancer in May 2018 and just received first of four cycles of chemo treatment (Adriamycin and Cytoxan) at [facility] on Aug 10. Was also given Neulasta due to likelihood of developing neutropenia. Also following with [facility] hepatology for liver mass favoring well-differentiated hepatocellular carcinoma. Treatment plans yet to be determined. Admission Exam Per Admitting Provider Temp 36.8 C 08/22/18 10:02 Pulse 80 08/22/18 12:01 Resp 22 08/22/18 12:01 BP 112/70 08/22/18 12:01 Pulse Ox 100 08/22/18 12:01 Physical Exam: General Appearance: WD/WN, morbidly obese, in acute distress Head: normocephalic, atraumatic Eyes: normal inspection, PERRL, EOMI ENT: hearing grossly normal, pharynx normal (moist mucous membranes) Neck: supple, no JVD, no adenopathy Respiratory/Chest: lungs clear to auscultation. No wheezes, rales or rhonci. Difficulty Cardiovascular: regular rate, rhythm, no murmur, normal peripheral pulses Abdomen/GI: normal bowel sounds, soft, non-tender to palpation : Harris in place Extremities/Musculoskelatal: normal inspection, no calf tenderness, normal capillary refill, erythema and 3+ BLE edema Neurologic/Psych: alert, normal mood/affect, oriented x 3 Skin: normal color, warm/dry Principal Diagnosis weakness sepsis 2/2 infected A-port, removed neutropenic fever unstageable skin ulcer lower back breast cancer Discharge Data Allergies Allergy/AdvReac Type Severity Reaction Status Date / Time clarithromycin Allergy Severe RASH Verified 09/12/18 08:11 Penicillins Allergy Severe ANAPHYLACTIC Verified 09/12/18 08:11 SHOCK epinephrine Allergy Unknown THROAT Verified 09/12/18 08:11 SWELLING, PASSED OUT, HEART RACING montelukast Allergy Unknown PALPITATION Verified 09/12/18 08:11 S ceftriaxone [From Rocephin] Allergy Rash Verified 09/12/18 08:11 Consultations 08/22/18 11:23 ED Decision to Admit Stat 08/22/18 15:12 Consult Case Management - Discharge Planning Routine Consult Manager Dairy Routine 08/22/18 17:12 Consult Infectious Diseases Routine 08/24/18 05:59 Consult Vascular Surgery Routine 08/24/18 06:17 Consult Nephrology Routine 08/30/18 17:09 Consult Wound Care Provider Routine Procedures Performed Operation Date: 08/24/18 07:35 Actual Procedures p Removal of Aport, Moderate Sedation From 1052 to 1122.(Left) - Ambrocio Hernandez MD Ordered Studies 08/22/18 09:50 CT abd pelvis wo con Stat CT chest wo con Stat 08/22/18 13:00 US abdomen limited Stat 08/22/18 13:04 US duplex portal hepatic veins Stat US venous doppler LE BI Stat 08/24/18 10:02 EV Aport removal Routine Hospital Course (1) Thrush: (2) Severe sepsis: (3) Gram-negative bacteremia: (4) Neutropenia: (5) Pancytopenia: (6) Acute kidney injury: (7) Breast cancer, stage 2: (8) Atrial fibrillation: (9) Peripheral edema: (10) 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: (11) Liver mass: (12) Psoriatic arthritis: (13) History of breast lump/mass excision: (14) Morbid obesity: (15) Asthma: 67-year-old female with breast cancer and GALLO cirrhosis presented to the ER with sepsis. She was started on Vancomycin and Cefepime empirically and given IV fluid resuscitation. She was admitted to the ICU with neutropenic fever. Vancomycin was switched to Daptomycin. She has a history of asthma and was started on steroids and nebulizer therapy. She has a history of liver cirrhosis secondary to GALLO which appeared compensated on arrival, and her meld was 29. No focal pneumonia was seen on imaging. Urine studies were clear of infection. Blood cultures were positive for E. coli and infectious disease was consulted. Cefepime was initially continued pending speciation. An infected A- port was considered the most likely source. An echocardiogram was performed on 08/23 revealing atrial fibrillation with no regional wall motion abnormalities. Left ventricular systolic function was normal with an EF of 65-70%. There were no significant valvular abnormalities. She was found to have a wound on her buttock on physical exam after switching cefepime to ceftriaxone. Per patient, the wound appeared with the change from cefepime to ceftriaxone, and was not present on arrival. Additionally, she developed dry flaky erythema on her face which was thought secondary to a possible ceftriaxone reaction and this was switched to ertapenem to complete the recommended 10-day course. The A-port was removed on 08/[address] Hernandez. Nephrology was consulted for acute renal failure. This was suspected secondary to ATN from neutropenic sepsis and E. coli bacteremia. Her baseline creatinine is 0.8 and presenting creatinine on 08/22 was 2.4. Renal function improved with IV fluid resuscitation, and on 08/27, her home dose of Lasix was continued. The wound care physician was consulted for her unstageable pressure ulcer of back. He thought this was a combination of shearing forces from moving around bed leading to blisters and ultimately an eschar. Santyl was added to the wound with recommended daily dressing changes and continued offloading of the area. She continued a couple more days in the hospital as she wasn't quite strong enough to go home but was refusing rehabilitation. She remained very motivated to get stronger, every day pushing herself to do more. She denied any pain. She was tolerating p.o. She does report some episodes of diarrhea which she attributes to using clotrimazole orally for her thrush. This was swtiched to Nystatin swish, which was limited as it is on backorder. Regarding her breast cancer, which is active, she will have this reevaluated by her oncologist at discharge. At time of discharge she was tolerating PO, mentating at baseline, ambulating well independently and asymptomatic. Physical exam revealed a well- healed incision on her L anterior chest wall after A-port removal, and was otherwise unremarkable. She was sent home in [facility] as she has a known active diagnosis of cancer. She will need to follow-up closely with wound care, physical therapy, primary care and oncology. We discussed all discharge details specifically and she verbalized understanding with intent to comply. An outpatient telephonic case manager is strongly recommended moving forward. Total Time Total Time Spent Total Time Spent (In Minutes): 60 Total Time Includes: Examination of the Patient, Discharge Planning, Medication Reconciliation, Communication With Other Providers and Other (followup scheduled) Discharge Plan Discharge Items Patient Disposition: Home - Home Health Services Reason For Visit: WEAKNESS, SEPSIS, NEUTTROPENIC FEVER Discharge Diagnosis: weakness sepsis 2/2 infected A-port, removed neutropenic fever unstageable skin ulcer lower back breast cancer Condition: Good Discharge Goals: Improve disease control and Increase independence Activity: Resume your previous activity Lifting: Gradually increase as tolerated Bathing: No limitations Exercise/Sports: Gradually increase as tolerated Driving/Machine Use: No limitations Non-emergency contact: Primary Care Provider and Oncologist Call non-emergency contact if: you have any medication questions, your symptoms worsen, your pain is not controlled, your pain is worsening, your pain is unusual for you, your pain is concerning for you and you have a fever Follow-up/Referrals: Maria Guadalupe Duke MD [Primary Care Provider] - Diet: Carb Consistent or DM2 Addtl Provider Instructions: Please take all medications as instructed on discharge list below. You have a follow-up appointment on Monday, 08/24 9 at 11:05 with Maria Guadalupe Duke. You may need a referral to [facility] as discussed, which can be ordered by Dr. Duke. She can fax the order for physical therapy to [phone]. You were found to have an 8 mm sclerotic lesion within the T6 vertebral body on imaging while hospitalized. Please discuss with Dr. Duke for further workup if needed. Please follow-up with Dr. Marcelo at the wound care center as instructed. Please follow-up with your oncologist to determine future treatment options for your breast cancer. As discussed, a message was sent to your primary care doctor regarding set up with an outpatient telephonic case manager to help you manage your care moving forward. Please discuss this further with Dr. Duke at follow-up. It was a pleasure taking care of you! Please call if you have any questions or problems. You can reach a [facility] hospitalist on duty at [facility] 24 hours a day by calling [phone]. Take care of yourself. Keiry Fournier DO [facility] Hospitalist Prescriptions: Continued methylprednisolone 4 mg tablet 1 - 2 tab PO DAILY RF: 0 flecainide 100 mg tablet 1 tab PO BID RF: 0 metoprolol tartrate [Lopressor] 50 mg tablet 50 mg PO BID RF: 0 omeprazole 20 mg capsule,delayed release(DR/EC) 1 cap PO QAM RF: 0 furosemide 20 mg tablet 1 tab PO QAM RF: 0 multivitamin Tablet 1 tab PO DAILY RF: 0 prochlorperazine maleate [Compazine] 10 mg Tablet 10 mg PO Q6H PRN (Reason: Nausea) RF: 0 diphenhydramine HCl [Benadryl] 25 mg Capsule 25 mg PO HS PRN (Reason: Insomnia) RF: 0 promethazine 25 mg tablet 25 mg PO Q8H PRN (Reason: Nausea) RF: 0 Culturelle 10 billion cell Capsule 1 cap PO DAILY RF: 0 levalbuterol tartrate [Xopenex HFA] 45 mcg/actuation Hfa Aerosol Inhaler 2 inh INHALATION BID RF: 0 oxycodone 10 mg Tablet 10 mg PO Q6H PRN (Reason: Insomnia) RF: 0 cholecalciferol (vitamin D3) 3,000 unit Tablet 3,000 unit PO DAILY RF: 0 Stand-Alone Forms: [facility] Discharge Orders: Discharge Order (Routine); Ordered 09/05/18 Ordered By: Keiry Fournier Admission Data Admit Date/Time: 08/22/18 12:46 Attending Provider: Keiry Fournier Admit Provider: Marcela Barbour Primary Care Provider: Maria Guadalupe Duke Other Providers: Shin Hopper ; Max Aguillon ; Kayla Rodriguez ; Ambrocio Hernandez ; Ariana Jesus ; Kody Juarez ; Ana Cristina Baker I ; Bushra Muñoz ; Angelina Atkins ; Kojo Green ; Gio Marcelo ; Sy Valle Service: Medical Other Interventions: Discharge Summary Assessment (RN) Last Done: 09/05/18 19:14 DC Date/Time DO NOT enter until pt leaves facility: 09/05/18 20:26
== END 2018-09-05 20:26 | disposition home health service (06) | DRG 314 ==
LOC: ED 09:38 → 1E 12:43 → SUATTDRO 12:46 → 1E 13:38 → 2E 08-23 17:56 → 4E 08-29 20:58
DX: E87.1 Hypo-osmolality and hyponatremia; R79.1 Abnormal coagulation profile; B37.0 Candidal stomatitis; J45.909 Unspecified asthma, uncomplicated; L40.50 Arthropathic psoriasis, unspecified; C22.0 Liver cell carcinoma; I48.2 Chronic atrial fibrillation; E66.01 Morbid (severe) obesity due to excess calories; A41.51 Sepsis due to Escherichia coli [E. coli]; C50.919 Malignant neoplasm of unspecified site of unspecified female breast; N17.0 Acute kidney failure with tubular necrosis; E83.42 Hypomagnesemia; T80.211A Bloodstream infection due to central venous catheter, initial encounter; D61.810 Antineoplastic chemotherapy induced pancytopenia; L03.312 Cellulitis of back [any part except buttock and flank]; K76.6 Portal hypertension; Z88.0 Allergy status to penicillin; D61.818 Other pancytopenia; Z68.43 Body mass index [BMI] 50.0-59.9, adult; L89.100 Pressure ulcer of unspecified part of back, unstageable; Y92.009 Unspecified place in unspecified non-institutional (private) residence as the place of occurrence of the external cause; K75.81 Nonalcoholic steatohepatitis (NASH); R65.20 Severe sepsis without septic shock; Y74.2 Prosthetic and other implants, materials and accessory general hospital and personal-use devices associated with adverse incidents; T45.1X5A Adverse effect of antineoplastic and immunosuppressive drugs, initial encounter; R73.03 Prediabetes; K74.60 Unspecified cirrhosis of liver

== ENCOUNTER 2020-02-15 22:06 | Observation (INO) ==
[2020-02-15] MEDS ORDERED: SODIUM CHLORIDE 0.9% 1000ML 500 ML IV ONE (22:36)
[2020-02-15 22:48] LABS: Appearance Urine Clear (Clear); Bacteria Urine Automated 1+ (Negative); Blood Urine Negative (Negative); Color Urine Dark Yellow; Glucose Urine UA Negative (Negative); Ketones Urine Trace (Negative); Leukocyte Esterase Urine Trace (Negative); Nitrite Urine Positive (Negative); Protein Urine Negative (Negative); Urobilinogen Urine Negative (Negative)
[2020-02-15 22:49] LABS: Bilirubin Urine 1+ (Negative)
[2020-02-15 22:50] LABS: Ictotest Urine Positive (Negative)
[2020-02-15 22:59] LABS: RBC Urine Automated 0-4 /hpf (0-4)
[2020-02-15] MEDS ORDERED: ERTAPENEM SODIUM 10 ML IV STA (23:09)
--- NOTE | 2020-02-15 23:31 | Emergency Department Note ---
History of Present Illness General Chief complaint: Pain (Generalized) Stated complaint: PAIN, FALL WITH LACERATION TO HEAD Time Seen by Provider: 02/15/20 22:26 Source: patient Mode of arrival: EMS Limitations: altered mental status History of Present Illness Maximum Pain Intensity: 8 This patient is a 69-year-old female who presents the emergency department for evaluation of generalized illness and fever. Symptoms started about 2 hours prior to arrival, when she began feeling generalized pain, shakiness and a general feeling of illness. She states that she felt the same way in the past when she was becoming septic. She states that in the past she was septic while she was on chemotherapy and does not know the source of the sepsis. Patient has liver cancer and is not currently undergoing any treatment for this. She notes some urinary frequency and does report a history of frequent UTIs. She reports a mild cough but states this is normal for her due to her asthma. She denies any chest or abdominal pain. When patient was picked up by EMS, she was in the wheelchair and the wheelchair fell backwards, causing the patient to hit her head. She sustained a skin tear to the left forearm and a laceration to the back of the head. Patient seems to be having difficulty word finding and reports this is not normal for her. Patient does note that she has had swelling in her legs. Home Medications Home Medications Medication Instructions Recorded Confirmed Type cholecalciferol (vitamin D3) 3,000 unit PO DAILY 08/22/18 02/16/20 History flecainide 1 tab PO BID 08/22/18 02/16/20 History levalbuterol tartrate [Xopenex HFA] 2 inh INHALATION BID 08/22/18 02/16/20 History methylprednisolone 4 mg PO BID 08/22/18 02/16/20 History metoprolol tartrate [Lopressor] 50 mg PO BID 08/22/18 02/16/20 History multivitamin 1 tab PO DAILY 08/22/18 02/16/20 History omeprazole 1 cap PO QAM 08/22/18 02/16/20 History promethazine 25 mg PO Q8H PRN 08/22/18 02/16/20 History letrozole 2.5 mg tablet 2.5 mg PO DAILY 09/26/18 02/16/20 History furosemide 40 mg PO BID 08/23/20 08/23/20 History insulin glargine [Basaglar KwikPen 20 unit SUBCUT HS 02/16/20 02/16/20 History U-100 Insulin] spironolactone 50 mg PO DAILY 02/16/20 02/16/20 History tramadol 50 - 100 mg PO Q6 PRN 02/16/20 02/16/20 History Allergies Allergy/AdvReac Type Severity Reaction Status Date / Time clarithromycin Allergy Severe RASH Verified 02/16/20 00:43 Penicillins Allergy Severe ANAPHYLACTIC Verified 02/16/20 00:43 SHOCK epinephrine Allergy Unknown THROAT Verified 02/16/20 00:43 SWELLING, PASSED OUT, HEART RACING montelukast Allergy Unknown PALPITATION Verified 02/16/20 00:43 S ceftriaxone [From Rocephin] Allergy Rash Verified 02/16/20 00:43 Past Med/Surg History Medical History Asthma Atrial fibrillation Breast cancer Breast cancer, stage 2 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 Liver mass Morbid obesity Prediabetes Psoriatic arthritis Surgical History H/O: hysterectomy History of breast lump/mass excision Hx of appendectomy Family History Other Colon cancer Pancreatic cancer Social History Smoking Status: Never smoker Hx Alcohol Use: No Hx Substance Use: No Preferred Language: Sinhala Communication Ability: Effective Saas Architect Required: No Beliefs That Will Affect Care: None Current Living Situation: Spouse Other Information That Helps Us Care for You: No Feels Safe at Home: Yes Review of Systems A total of 10 systems reviewed and were otherwise negative Physical Exam Vital Signs Vital Signs - 24 hr 02/15/20 22:36 Temperature 38.8 C H Temperature Source Oral Pulse Rate 74 Respiratory Rate 18 Respiratory Effort / Characteristics Non-Labored Spontaneous Respiratory Depth Normal Respiratory Pattern Regular Blood Pressure 137/65 Blood Pressure Mean 89 Blood Pressure Position Lying Pulse Oximetry 95 Oxygen Delivery Method Nasal Cannula Oxygen Flow Rate 2 Sepsis Recent Fever Within 48 Hours Yes Sepsis New/Unexplained Change in Mental Status Yes Sepsis Action Taken by Nursing Physician Notified VITALS: Vitals are noted on the nurse's note and reviewed by myself. GENERAL: This is a 69-year-old female, acutely ill-appearing. SKIN: There is erythema to the right breast. HEAD: There is a 5 cm linear laceration to the posterior scalp. EARS: External auditory canals clear, tympanic membranes pearly howard without erythema or effusion bilaterally. No hemotympanum. EYES: Pupils equal round and reactive to light and accommodation. MOUTH: Mucous membranes dry. NECK: Supple without nuchal rigidity. HEART: Regular rate and rhythm without murmurs gallops or rubs. LUNGS: Clear to auscultation bilaterally without wheezes, rales or rhonchi. No retractions or accessory muscle use. ABDOMEN: Positive bowel sounds x 4. No tenderness to palpation. EXTREMITIES: 3+ pitting edema to bilateral lower extremities. NEURO: Patient was alert and oriented, but seems to have trouble word finding. Procedures Laceration Scalp laceration: Site: scalp Size (cm): 5 Description: linear Depth: simple, single layer Local Anesthetic: lidocaine 1% and with epi Amount of anesthesia used (mL): 6 Pre-repair: wound explored and irrigated extensively Skin layer closed with: other (fabio) Number of sutures: 8 Course Consultations Consultation #1: Dr. Stanley [facility] hospitalist Administered Medications Flecainide Acetate (Flecainide Acetate 100 Mg Tablet) 100 mg PO BID [facility] Stop: 03/17/20 08:59 Last Admin: 02/17/20 19:41 Dose: 100 mg Documented by: [id number] Admin: 02/17/20 08:56 Dose: 100 mg Documented by: [id number] Admin: 02/16/20 20:38 Dose: 100 mg Documented by: [id number] Admin: 02/16/20 07:58 Dose: 100 mg Documented by: [id number] Furosemide (Furosemide 40 Mg Tab) 40 mg PO BID@0700,1700 [facility] Stop: 03/18/20 09:29 Last Admin: 02/17/20 17:41 Dose: 40 mg Documented by: [id number] Admin: 02/17/20 10:40 Dose: 40 mg Documented by: [id number] Ertapenem 1,000 mg/ Sodium (Chloride) 60 mls @ 100 mls/hr IV Q24H [facility] Stop: 02/25/20 00:35 Last Infusion: 02/18/20 00:29 Dose: 0 mls/hr Documented by: [id number] Admin: 02/17/20 23:29 Dose: 100 mls/hr Documented by: [id number] Infusion: 02/17/20 00:24 Dose: 0 mls/hr Documented by: [id number] Admin: 02/17/20 00:00 Dose: 100 mls/hr Documented by: [id number] Insulin Aspart (Insulin Aspart 100 Units/Ml 3 Ml Pen) 0 units SC ACHS [facility] Stop: 03/17/20 07:29 Last Admin: 02/17/20 21:01 Dose: Not Given Documented by: [id number] Cosigned by: [id number] Admin: 02/17/20 17:47 Dose: Not Given Documented by: [id number] Admin: 02/17/20 12:04 Dose: Not Given Documented by: [id number] Admin: 02/17/20 08:53 Dose: Not Given Documented by: [id number] Admin: 02/16/20 20:41 Dose: Not Given Documented by: [id number] Cosigned by: [id number] Admin: 02/16/20 17:34 Dose: Not Given Documented by: [id number] Cosigned by: [id number] Admin: 02/16/20 13:04 Dose: 1 units Documented by: [id number] Cosigned by: [id number] Admin: 02/16/20 07:58 Dose: 1 units Documented by: [id number] Cosigned by: [id number] Insulin Glargine (Insulin Glargine Solostar 100 Units/Ml 3 Ml Pen) 20 units SC HS [facility] Stop: 03/17/20 05:44 Last Admin: 02/17/20 21:00 Dose: 20 units Documented by: [id number] Cosigned by: [id number] Admin: 02/16/20 20:39 Dose: 20 units Documented by: [id number] Cosigned by: [id number] Admin: 02/16/20 05:37 Dose: 20 units Documented by: [id number] Cosigned by: [id number] Lactulose (Lactulose Syrup 30 Gm/45 Ml Udp) 30 gm PO QID [facility] Stop: 03/17/20 02:14 Last Admin: 02/17/20 19:40 Dose: Not Given Documented by: [id number] Admin: 02/17/20 17:41 Dose: Not Given Documented by: [id number] Admin: 02/17/20 11:49 Dose: Not Given Documented by: [id number] Admin: 02/17/20 08:56 Dose: Not Given Documented by: [id number] Admin: 02/16/20 20:36 Dose: Not Given Documented by: [id number] Admin: 02/16/20 17:23 Dose: Not Given Documented by: [id number] Admin: 02/16/20 13:04 Dose: 30 gm Documented by: [id number] Admin: 02/16/20 07:58 Dose: 30 gm Documented by: [id number] Admin: 02/16/20 03:00 Dose: 30 gm Documented by: [id number] Letrozole (Letrozole 2.5 Mg Tab) 2.5 mg PO DAILY@2100 [facility] Stop: 03/17/20 04:59 Last Admin: 02/17/20 19:41 Dose: 2.5 mg Documented by: [id number] Cosigned by: [id number] Admin: 02/16/20 20:36 Dose: 2.5 mg Documented by: [id number] Cosigned by: [id number] Admin: 02/16/20 05:27 Dose: 2.5 mg Documented by: [id number] Cosigned by: [id number] Methylprednisolone (Methylprednisolone 4 Mg Tab) 4 mg PO BID [facility] Stop: 03/17/20 08:59 Last Admin: 02/17/20 19:40 Dose: Not Given Documented by: [id number] Admin: 02/17/20 08:55 Dose: 4 mg Documented by: [id number] Admin: 02/16/20 20:37 Dose: Not Given Documented by: [id number] Admin: 02/16/20 07:58 Dose: 4 mg Documented by: [id number] Metoprolol Tartrate (Metoprolol Tartrate 25 Mg Tab) 25 mg PO BID [facility] Stop: 03/17/20 20:59 Last Admin: 02/17/20 19:41 Dose: 25 mg Documented by: [id number] Admin: 02/17/20 08:54 Dose: 25 mg Documented by: [id number] Admin: 02/16/20 20:37 Dose: 25 mg Documented by: [id number] Multivitamins (Multivitamin Tab) 1 tab PO DAILY [facility] Stop: 03/17/20 08:59 Last Admin: 02/17/20 08:55 Dose: 1 tab Documented by: [id number] Admin: 02/16/20 07:59 Dose: 1 tab Documented by: [id number] Pantoprazole Sodium (Pantoprazole 40 Mg Tab) 40 mg PO QAM [facility] Stop: 03/17/20 08:59 Last Admin: 02/17/20 08:55 Dose: 40 mg Documented by: [id number] Admin: 02/16/20 07:58 Dose: 40 mg Documented by: [id number] Promethazine HCl (Promethazine Hcl 25 Mg Tab) 25 mg PO Q8H PRN PRN Reason: Nausea Stop: 03/17/20 04:18 Last Admin: 02/16/20 05:37 Dose: 25 mg Documented by: [id number] Rifaximin (Rifaximin 550 Mg Tablet) 550 mg PO BID [facility] Stop: 03/17/20 09:14 Last Admin: 02/17/20 19:40 Dose: 550 mg Documented by: [id number] Admin: 02/17/20 08:55 Dose: 550 mg Documented by: [id number] Admin: 02/16/20 20:38 Dose: 550 mg Documented by: [id number] Admin: 02/16/20 09:43 Dose: 550 mg Documented by: [id number] Spironolactone (Spiron[facility]actone 25 Mg Tab) [facility] [place] Stop: 03/17/20 13:59 Last Admin: 02/17/20 08:54 Dose: 50 mg Documented by: [id number] Admin: 02/16/20 14:35 Dose: 50 mg Documented by: [id number] Vitamin D (Cholecalciferol 1,000 Units 25 Mcg Tab) 1,000 units PO DAILY [facility] Stop: 03/17/20 08:59 Last Admin: 02/17/20 08:55 Dose: 1,000 units Documented by: [id number] Admin: 02/16/20 07:59 Dose: 1,000 units Documented by: [id number] Discontinued Medications Sodium Chloride (Nss 1000ml) 500 mls @ 999 mls/hr IV .Q31M ONE Stop: 02/15/20 23:06 Last Infusion: 02/16/20 00:57 Dose: 0 mls/hr Documented by: [id number] Admin: 02/16/20 00:23 Dose: 999 mls/hr Documented by: [id number] Ertapenem (Invanz) 10 mls @ 2 mls/min IV NOW STA Stop: 02/15/20 23:13 Last Admin: 02/16/20 00:24 Dose: 2 mls/min Documented by: [id number] Sodium Chloride (Nss 1000ml) 1,000 mls @ 100 mls/hr IV .Q10H [facility] Stop: 03/17/20 04:18 Last Infusion: 02/16/20 14:32 Dose: 0 mls/hr Documented by: [id number] Admin: 02/16/20 04:43 Dose: 100 mls/hr Documented by: [id number] Vancomycin HCl 2,750 mg/ (Sodium Chloride) 555 mls @ 200 mls/hr IV TODAY@0500 [facility] Stop: 02/16/20 07:47 Last Infusion: 02/16/20 08:34 Dose: 0 mls/hr Documented by: [id number] Admin: 02/16/20 05:28 Dose: 200 mls/hr Documented by: [id number] Vancomycin HCl 1,750 mg/ (Sodium Chloride) 535 mls @ 200 mls/hr IV Q12H [facility] Stop: 02/26/20 17:59 Last Infusion: 02/17/20 08:59 Dose: 0 mls/hr Documented by: [id number] Admin: 02/17/20 06:04 Dose: 200 mls/hr Documented by: [id number] Infusion: 02/16/20 20:22 Dose: 0 mls/hr Documented by: [id number] Admin: 02/16/20 17:27 Dose: 200 mls/hr Documented by: [id number] Magnesium Sulfate/Dextrose (Magnesium Sulfate / D5w) 1 gm in 100 mls @ 50 mls/hr IV ONE ONE Stop: 02/16/20 11:59 Last Infusion: 02/16/20 13:18 Dose: 0 mls/hr Documented by: [id number] Admin: 02/16/20 10:33 Dose: 50 mls/hr Documented by: [id number] Furosemide 40 mg/ Syringe 4 mls @ 4 mls/min IV ONE ONE Stop: 02/16/20 12:01 Last Admin: 02/16/20 13:04 Dose: 4 mls/min Documented by: [id number] Lidocaine/Epinephrine (Lido/Epinephrine/Sod Bicarb 20 Ml Vial) Confirm Administered Dose 20 ml .ROUTE .STK-MED ONE Stop: 02/16/20 00:45 Last Admin: 02/16/20 00:56 Dose: 20 ml Documented by: [id number] Potassium Chloride (Potassium Chloride 20 Meq Tabcr) 40 meq PO NOW STA Stop: 02/17/20 09:14 Last Admin: 02/17/20 10:31 Dose: Not Given Documented by: [id number] Potassium Chloride (Potassium Chloride 20 Meq/15 Ml Udc) 60 meq PO NOW STA Stop: 02/17/20 09:33 Last Admin: 02/17/20 10:39 Dose: 60 meq Documented by: [id number] Critical Care Time Critical Care Time: Yes Total Critical Care Time: 32 I have personally spent greater than 32 minutes of critical care time in the direct management of this patient. This includes bedside care, interpretation of diagnostic studies, and testing, discussion with consultants, patient, and family members, and other required patient management activities. This 32 minutes is in excess of all separately billable procedures. Medical Decision Making Differential Diagnosis Infection, dehydration, metabolic abnormality, hypo/hyperglycemia, electrolyte disturbance, anemia, hypoxia, cardiac sources, intracerebral event, toxicologic, neurologic, as well as other pathologies. Medical Records Attestation: I reviewed the patient's medical records. Home Medications Current Medication List: was personally reviewed by me Laboratory Data Attestation: I reviewed the patient's lab results. Result diagrams: 02/17/20 07:04 02/17/20 07:04 Lab Results 02/15/20 02/15/20 02/15/20 Range/Units 22:25 23:05 23:05 WBC (4.8-10.8) K/uL RBC (4.2-5.4) M/uL Hgb (12.0-16.0) g/dL Hct (37-47) % MCV (80-100) fL MCH (25-34) pg MCHC (32-36) g/dL RDW Std Deviation (36.4-46.3) fL RDW Coeff of Mechelle (11.5-14.5) % Plt Count (130-400) K/uL MPV (7.4-10.4) fL Immature Gran % (Auto) % Neut % (Auto) % Lymph % (Auto) % [place] % (Auto) % Eos % (Auto) % Baso % (Auto) % Neut # (Auto) (1.4-6.5) K/uL Lymph # (Auto) (1.2-3.4) K/uL [place] # (Auto) (0.11-0.59) K/uL Eos # (Auto) (0-0.5) K/uL Baso # (Auto) (0-0.2) K/uL Immature Gran # (Auto) (0.00-0.02) K/uL Platelet Estimate (Normal) PT (9.0-12.0) Seconds INR (0.9-1.1) APTT (21.0-31.0) Seconds PTT Ratio Sodium 136 (136-145) mmol/L Potassium 4.1 (3.5-5.1) mmol/L Chloride 99 (98-107) mmol/L Carbon Dioxide 27 (21-32) mmol/L Anion Gap 10.0 (3-11) BUN 23 H (7-18) mg/dl Creatinine 1.15 (0.6-1.2) mg/dl Est Cr Clr Drug Dosing 76.6 ml/min Est GFR ( Amer) 57.0 Est GFR (Non-Af Amer) 49.2 BUN/Creatinine Ratio 19.9 (10-20) Glucose 176 H (70-99) mg/dl Lactate (0.4-2.0) mmol/L Calcium 8.4 L (8.5-10.1) mg/dl Magnesium 1.8 (1.8-2.4) mg/dl Total Bilirubin 3.7 H (0.2-1) mg/dl Direct Bilirubin 1.9 H (0-0.2) mg/dl AST 85 H (15-37) U/L ALT 43 (12-78) U/L Alkaline Phosphatase 176 H (45-117) U/L Ammonia 171.6 H (11-32) umol/L Troponin I < 0.015 (0-0.045) ng/ml Total Protein 6.1 L (6.4-8.2) gm/dl Albumin 2.0 L (3.4-5.0) gm/dl Urine Color Dark Yellow Urine Appearance Clear (Clear) Urine pH 5.0 (4.5-7.5) Ur Specific [place] 1.020 (1.000-1.030) Urine Protein Negative (Negative) Urine Glucose (UA) Negative (Negative) Urine Ketones Trace H (Negative) Urine Blood Negative (Negative) Urine Nitrite Positive A (Negative) Urine Bilirubin 1+ H (Negative) Urine Urobilinogen Negative (Negative) Ur Leukocyte Esterase Trace H (Negative) Urine WBC (Auto) 1-5 (0-5) /hpf Urine RBC (Auto) 0-4 (0-4) /hpf U Hyaline Cast (Auto) 5-10 H (0-5) /lpf U Epithel Cells (Auto) 10-20 H (0-5) /lpf Urine Bacteria (Auto) 1+ H (Negative) COVID-19 Eval Order COVID-19 PCR (Negative) 02/15/20 02/15/20 02/15/20 Range/Units 23:50 23:50 23:58 WBC 6.40 (4.8-10.8) K/uL RBC 3.62 L (4.2-5.4) M/uL Hgb 12.4 (12.0-16.0) g/dL Hct 36.8 L (37-47) % MCV 101.7 H (80-100) fL MCH 34.3 H (25-34) pg MCHC 33.7 (32-36) g/dL RDW Std Deviation 69.2 H (36.4-46.3) fL RDW Coeff of Mechelle 18.6 H (11.5-14.5) % Plt Count 75 L (130-400) K/uL MPV 10.8 H (7.4-10.4) fL Immature Gran % (Auto) 0.2 % Neut % (Auto) 87.3 % Lymph % (Auto) 5.3 % [place] % (Auto) 6.7 % Eos % (Auto) 0.3 % Baso % (Auto) 0.2 % Neut # (Auto) 5.59 (1.4-6.5) K/uL Lymph # (Auto) 0.34 L (1.2-3.4) K/uL [place] # (Auto) 0.43 (0.11-0.59) K/uL Eos # (Auto) 0.02 (0-0.5) K/uL Baso # (Auto) 0.01 (0-0.2) K/uL Immature Gran # (Auto) 0.01 (0.00-0.02) K/uL Platelet Estimate Decreased L (Normal) PT 15.3 H (9.0-12.0) Seconds INR 1.5 H (0.9-1.1) APTT 26.9 (21.0-31.0) Seconds PTT Ratio 1.0 Sodium (136-145) mmol/L Potassium (3.5-5.1) mmol/L Chloride (98-107) mmol/L Carbon Dioxide (21-32) mmol/L Anion Gap (3-11) BUN (7-18) mg/dl Creatinine (0.6-1.2) mg/dl Est Cr Clr Drug Dosing ml/min Est GFR ( Amer) Est GFR (Non-Af Amer) BUN/Creatinine Ratio (10-20) Glucose (70-99) mg/dl Lactate 3.5 H* (0.4-2.0) mmol/L Calcium (8.5-10.1) mg/dl Magnesium (1.8-2.4) mg/dl Total Bilirubin (0.2-1) mg/dl Direct Bilirubin (0-0.2) mg/dl AST (15-37) U/L ALT (12-78) U/L Alkaline Phosphatase (45-117) U/L Ammonia (11-32) umol/L Troponin I (0-0.045) ng/ml Total Protein (6.4-8.2) gm/dl Albumin (3.4-5.0) gm/dl Urine Color Urine Appearance (Clear) Urine pH (4.5-7.5) Ur Specific [place] (1.000-1.030) Urine Protein (Negative) Urine Glucose (UA) (Negative) Urine Ketones (Negative) Urine Blood (Negative) Urine Nitrite (Negative) Urine Bilirubin (Negative) Urine Urobilinogen (Negative) Ur Leukocyte Esterase (Negative) Urine WBC (Auto) (0-5) /hpf Urine RBC (Auto) (0-4) /hpf U Hyaline Cast (Auto) (0-5) /lpf U Epithel Cells (Auto) (0-5) /lpf Urine Bacteria (Auto) (Negative) COVID-19 Eval Order COVID-19 PCR (Negative) 02/16/20 02/16/20 Range/Units 00:30 00:30 WBC (4.8-10.8) K/uL RBC (4.2-5.4) M/uL Hgb (12.0-16.0) g/dL Hct (37-47) % MCV (80-100) fL MCH (25-34) pg MCHC (32-36) g/dL RDW Std Deviation (36.4-46.3) fL RDW Coeff of Mechelle (11.5-14.5) % Plt Count (130-400) K/uL MPV (7.4-10.4) fL Immature Gran % (Auto) % Neut % (Auto) % Lymph % (Auto) % [place] % (Auto) % Eos % (Auto) % Baso % (Auto) % Neut # (Auto) (1.4-6.5) K/uL Lymph # (Auto) (1.2-3.4) K/uL [place] # (Auto) (0.11-0.59) K/uL Eos # (Auto) (0-0.5) K/uL Baso # (Auto) (0-0.2) K/uL Immature Gran # (Auto) (0.00-0.02) K/uL Platelet Estimate (Normal) PT (9.0-12.0) Seconds INR (0.9-1.1) APTT (21.0-31.0) Seconds PTT Ratio Sodium (136-145) mmol/L Potassium (3.5-5.1) mmol/L Chloride (98-107) mmol/L Carbon Dioxide (21-32) mmol/L Anion Gap (3-11) BUN (7-18) mg/dl Creatinine (0.6-1.2) mg/dl Est Cr Clr Drug Dosing ml/min Est GFR ( Amer) Est GFR (Non-Af Amer) BUN/Creatinine Ratio (10-20) Glucose (70-99) mg/dl Lactate (0.4-2.0) mmol/L Calcium (8.5-10.1) mg/dl Magnesium (1.8-2.4) mg/dl Total Bilirubin (0.2-1) mg/dl Direct Bilirubin (0-0.2) mg/dl AST (15-37) U/L ALT (12-78) U/L Alkaline Phosphatase (45-117) U/L Ammonia (11-32) umol/L Troponin I (0-0.045) ng/ml Total Protein (6.4-8.2) gm/dl Albumin (3.4-5.0) gm/dl Urine Color Urine Appearance (Clear) Urine pH (4.5-7.5) Ur Specific [place] (1.000-1.030) Urine Protein (Negative) Urine Glucose (UA) (Negative) Urine Ketones (Negative) Urine Blood (Negative) Urine Nitrite (Negative) Urine Bilirubin (Negative) Urine Urobilinogen (Negative) Ur Leukocyte Esterase (Negative) Urine WBC (Auto) (0-5) /hpf Urine RBC (Auto) (0-4) /hpf U Hyaline Cast (Auto) (0-5) /lpf U Epithel Cells (Auto) (0-5) /lpf Urine Bacteria (Auto) (Negative) COVID-19 Eval Order Covid19 Done at [facility] COVID-19 PCR NEGATIVE (Negative) Imaging Data Attestation: I personally reviewed and interpreted this imaging study as follows: My Impression: CHEST 1 VIEW: No obvious pneumonia or pleural effusion. No pneumothorax. Radiologist's Impression: CT HEAD: No ICH, mass effect or edema. No skull fracture. Posterior scalp laceration. Radiologist: Amadeo Pascual MD ECG Data Attestation: I personally reviewed and interpreted this ECG as follows: Indication: + weakness Rate (beats per minute): 67 Rhythm: + normal sinus ECG Intervals/blocks: + Normal QRS ECG ST segments: + Nonspecific ST abnormalities Change: the following changes noted (T wave changes slightly worsened) Blood Pressure Blood Pressure Findings: Normal blood pressure MDM Narrative The patient is a 69-year-old female who presents today complaining of generalized weakness and rigors. Patient also sustained a head injury prior to arrival. Labs revealed no leukocytosis, mild anemia. Patient's INR mildly elevated at 1.5. Creatinine within normal limits. No concerning electrolyte abnormalities. Patient's initial lactate was elevated at 3.5. Today bilirubin elevated at 3.7, AST 85, ALT 43 and alkaline phosphatase 176. Ammonia is significantly elevated at 171, which is increased significantly from recent labs a few days ago. Patient's urinalysis suggestive of possible infection, positive nitrite, leukocyte Estrace and 1+ bacteria. CT of the head was performed and shows no acute findings. A scalp laceration was repaired as noted in the procedure section. Patient given a 500 mL bolus of fluids and treated with ertapenem given her severe penicillin allergy. The case was discussed with the [facility]ist, who will evaluate the patient for further care of sepsis. The patient was independently evaluated by Dr. Bridges, who agreed with my assessment and treatment plan. Impression & Plan Sepsis, Hyperammonemia, Closed head injury, Laceration of scalp Discharge Plan Visit Data Chief Complaint: Pain (Generalized) Stated Complaint: PAIN, FALL WITH LACERATION TO HEAD ED Provider: Levi Bridges ED Midlevel Provider: Amy Carrasco Discharge Problem: Sepsis, Hyperammonemia, Closed head injury, Laceration of scalp Patient Disposition: Admitted As Inpatient Discharge Instructions Interventions: ED Discharge Assessment Last Done: 02/16/20 03:56 Discharge Problem: Sepsis Qualifiers: Sepsis type: sepsis due to unspecified organism Sepsis acute organ dysfunction status: unspecified Qualified Code(s): A41.9 - Sepsis, unspecified organism Closed head injury Qualifiers: Encounter type: initial encounter Qualified Code(s): S09.90XA - Unspecified injury of head, initial encounter Laceration of scalp Qualifiers: Encounter type: initial encounter Qualified Code(s): S01.01XA - Laceration without foreign body of scalp, initial encounter
[2020-02-15 23:49] LABS: Bilirubin Direct 1.9 mg/dl (0-0.2)
[2020-02-15 23:50] LABS: Alanine Aminotransferase 43 U/L (12-78); Alkaline Phosphatase 176 U/L (45-117); Aspartate Aminotransferase 85 U/L (15-37); BUN Creatinine Ratio 19.9 (10-20); Bilirubin,Total 3.7 mg/dl (0.2-1); Blood Urea Nitrogen 23 mg/dl (7-18); Calcium 8.4 mg/dl (8.5-10.1); Carbon Dioxide 27 mmol/L (21-32); Chloride 99 mmol/L (98-107); Creatinine Clr Calc Pharmacy 76.6 ml/min; Est GFR (Non-African American) 49.2; Glucose 176 mg/dl (70-99); Magnesium 1.8 mg/dl (1.8-2.4); Potassium 4.1 mmol/L (3.5-5.1); Sodium 136 mmol/L (136-145); Total Protein 6.1 gm/dl (6.4-8.2); Troponin I < 0.015 ng/ml (0-0.045)
[2020-02-16] MEDS ORDERED: LIDO/EPINEPHRINE/SOD BICARB 20 ML VIAL ONE (00:44)
[2020-02-16 00:51] LABS: INR 1.5 (0.9-1.1); Partial Thromboplastin Time 26.9 Seconds (21.0-31.0); Prothrombin Time 15.3 Seconds (9.0-12.0)
[2020-02-16 01:33] LABS: Hematocrit (blood only) 36.8 % (37-47); Hemoglobin 12.4 g/dL (12.0-16.0); Mean Corpuscular Hemoglobin 34.3 pg (25-34); Mean Corpuscular Hgb Conc 33.7 g/dL (32-36); Mean Corpuscular Volume 101.7 fL (80-100); RDW Coefficient of Variation 18.6 % (11.5-14.5); RDW Standard Deviation 69.2 fL (36.4-46.3); Red Blood Count 3.62 M/uL (4.2-5.4)
[2020-02-16 01:44] LABS: Mean Platelet Volume 10.8 fL (7.4-10.4); Platelet Count 75 K/uL (130-400)
[2020-02-16 01:45] LABS: Basophils # (auto) 0.01 K/uL (0-0.2); Basophils % (auto) 0.2 %; Eosinophils # (auto) 0.02 K/uL (0-0.5); Eosinophils % (auto) 0.3 %; Immature Granulocytes # (auto) 0.01 K/uL (0.00-0.02); Immature Granulocytes % (auto) 0.2 %; Lymphocytes # (auto) 0.34 K/uL (1.2-3.4); Lymphocytes % (auto) 5.3 %; Monocytes # (auto) 0.43 K/uL (0.11-0.59); Monocytes % (auto) 6.7 %; Neutrophils # (auto) 5.59 K/uL (1.4-6.5); Neutrophils % (auto) 87.3 %; Platelet Estimate Decreased (Normal)
[2020-02-16] MEDS: LACTULOSE SYRUP 30 GM/45 ML UDP PO SCH ×5 (03:00→20:36)
[2020-02-16] MEDS ORDERED: PROMETHAZINE HCL 25 MG TAB PO PRN (04:19)
[2020-02-16] MEDS ORDERED: ONDANSETRON INJ 2 MG/ML 2 ML VIAL IV PRN (04:19)
[2020-02-16] MEDS ORDERED: NITROGLYCERIN SL 0.4 MG/TAB TAB SL PRN (04:19)
[2020-02-16] MEDS ORDERED: SODIUM CHLORIDE 0.9% 1000ML 1,000 ML IV SCH (04:19)
[2020-02-16] MEDS ORDERED: METOPROLOL TARTRATE 1 MG/ML VIAL IV PRN (04:19)
[2020-02-16] MEDS ORDERED: VANCOMYCIN HCL 1,000 MG in SODIUM CHLORIDE 0.9% 250 ML IV SCH (04:19)
[2020-02-16] MEDS ORDERED: VANCOMYCIN CONSULT ACTIVE PRN (04:19)
[2020-02-16] MEDS ORDERED: ERTAPENEM CONSULT ACTIVE PRN (04:24)
[2020-02-16] MEDS ORDERED: DEXTROSE 50% 50 ML SYRINGE IV PRN (04:45)
[2020-02-16] MEDS ORDERED: CARBOHYDRATES FOR HYPOGLYCEMIA PO PRN (04:45)
[2020-02-16] MEDS ORDERED: GLUCOSE 10 TABS/TUBE PO PRN (04:45)
[2020-02-16] MEDS ORDERED: GLUCOSE 40% GEL 15 GM TUBE PO PRN (04:45)
[2020-02-16] MEDS ORDERED: GLUCAGON FOR INJ 1 MG VIAL SQ PRN (04:45)
[2020-02-16] MEDS ORDERED: VANCOMYCIN HCL 2,750 MG in SODIUM CHLORIDE 0.9% 500 ML IV SCH (05:00)
--- NOTE | 2020-02-16 05:17 | History and Physical Report ---
DATE OF ADMISSION: 02/16/2020 CHIEF COMPLAINT: Sepsis. HISTORY OF PRESENT ILLNESS: This is a 69-year-old female with past medical history significant for as mentioned in PMH and also GALLO liver cirrhosis, history of stage II breast cancer status post chemo and right partial mastectomy, history of arthropathy, history of neutropenic fever, sepsis, thrombocytopenia, psoriatic arthropathy, history of hepatocellular carcinoma status post IR, status post chemoembolization last time on 12/20/2019. Plan for repeat MRI in February. She lives with her . Ambulates with a walker, but ambulatory status is poor because of lower extremity edema. Diuretics are not helping much. The patient has a history of elevated ammonia, but that was better recently, as per patient and it was in 50s; last time checked was a couple of days ago, it was 57. So she is not taking any lactulose. Today her temperature was fine in the evening one hour later, it went up to 101 and she has so much shakiness. She is worried about the sepsis because of sepsis in the past and the EMS was called. When the EMS picked up she was on the wheelchair, and the wheelchair fell backwards and the patient hit her head and has some laceration on the back of the head. Initially when the patient was in the ER, she had some word finding difficulty, but that has resolved now. CT of the head is okay on preliminary report. Labs showed no leukocytosis, but her lactate was 3.5, ammonia was 171. Urine was positive. COVID-19 PCR is negative. Chest x-ray, no acute infiltrates. Currently, the patient is hemodynamically stable. She has a temperature spike of 38.8, her systolic blood pressure is in 110s currently, received fluid bolus.No blurred visions, no earache, has some runny nose from her allergies. No sore throat, no dysphagia, no loss of sense of smell or taste. Has Shortness of breath and cough, attributes to her asthma, with whitish phlegm. No chest pain. Currently, no nausea, no abdominal pain, no diarrhea or constipation, no blood in the stools, no hematuria, no burning micturitions, no increased frequency of urination. Has chronic swelling in the legs. No rash. Appetite is not that great since she was diagnosed with cancer. ALLERGIES: CLARITHROMYCIN, PENICILLIN CAUSES ANAPHYLACTIC SHOCK, EPINEPHRINE CAUSES THROAT SWELLING AND PASSED OUT; MONTELUKAST CAUSES PALPITATION, AND CEFTRIAXONE CAUSED GATICA-EDI SYNDROME. PAST MEDICAL HISTORY: As mentioned above and also Significant for type 2 diabetes, diabetic arthropathy, glucocorticoid deficiency, asthma, moderate obstructive sleep apnea, atrial fibrillation, history of esophageal varices without bleeding, hepatocellular carcinoma, colitis, neutropenic fever. PAST SURGICAL HISTORY: Left breast benign core biopsy, right breast lesion excision, biopsy of the deep axillary lymph nodes, cardiac catheterization, colonoscopies, EGDs, EGD with biopsy, implantation of mesh with incisional ventral hernia, insertion of tunneled venous catheter access with subQ port, IR arterial embolization, IR cancer chemoembolization, knee arthroscopy, right partial mastectomy, appendectomy, repair of incisional ventral hernia, total abdominal hysterectomy with removal of the tubes. MEDICATIONS: The patient is on spironolactone 50 mg p.o. daily, Lasix 40 mg p.o. b.i.d., omeprazole 20 mg p.o. daily, promethazine 25 mg p.o. t.i.d. p.r.n., Lopressor 50 mg p.o. b.i.d., Femara 2.5 mg p.o. at bedtime, tramadol 50 mg p.o. q. 6 hours p.r.n., insulin aspart sliding scale, insulin Glargine 20 units at bedtime, vitamin D2 3,000 units p.o. daily, multivitamin with minerals 1 tablet daily, Xopenex nebulization every 4 hours p.r.n., Flonase 2 sprays each nostril daily, methylprednisolone 4 mg p.o. b.i.d., flecainide 100 mg p.o. b.i.d. FAMILY HISTORY: Significant for paternal cousin has breast cancer. Maternal cousin has breast cancer. Maternal cousin has pancreatic cancer. Maternal grandmother has pancreatic cancer. Father had diabetes, heart attack. Maternal grandmother has ovarian cancer. SOCIAL HISTORY: , lives with her . No smoking, alcohol occasionally. No drug use. REVIEW OF SYSTEMS: As per HPI. Rest of the review of systems negative. PHYSICAL EXAMINATION: GENERAL: The patient is obese, not in acute distress. VITAL SIGNS: Temperature 38.8, pulse 72, respiratory rate 18, blood pressure 109/58, oxygen 94% on room air. HEENT: No pallor, no icterus. Pupils equal, round, reactive to light. Extraocular muscles intact. NECK: No JVD, no neck masses seen. CARDIOVASCULAR: S1, S2 heard, regular rate and rhythm, no murmur, no gallop. RESPIRATORY SYSTEM: Normal AP diameter. No accessory muscle use. No wheezing, no crackles. ABDOMEN: Soft, bowel sounds present, nontender. No distention. CENTRAL NERVOUS SYSTEM: Alert and oriented. Speech is clear. Extraocular muscles intact. Obeys commands. Moves extremities. EXTREMITIES: Bilateral lower extremity gross edema present. LABORATORY DATA: WBC 6.4, hemoglobin 12.4, hematocrit 36.8, platelets 75. PT 15.3, INR 1.5, APTT 26.9. Sodium 136, potassium 4.1, chloride 99, bicarbonate 27, BUN 33, creatinine 1.15. Serum glucose 176. Lactate 3.5, calcium 8.4, magnesium 1.8, total bilirubin 3.7, direct bilirubin 1.9, AST 85, ALT 43, alkaline phosphatase 176, ammonia 171. Urinalysis positive for nitrite, leukocyte esterase, +1 bacteria. COVID-19 PCR negative. IMAGING DATA: CT of the head, preliminary report, no acute findings except for posterior scalp laceration. Chest x-ray, no acute findings seen. EKG: Normal sinus rhythm at a rate of 73, nonspecific ST changes seen. Prolonged QT at 517. ASSESSMENT AND PLAN: This is a 69-year-old female who presents with sepsis. 1. Sepsis, most likely secondary to urinary tract infection, history of septic shock in the past with E. coli sepsis. The patient is allergic to penicillin with anaphylactic shock and last admission Rocephin caused Gatica-Edi syndrome and she was treated with Invanz. Currently receiving Invanz in the ER which will continue and also add iv vancomycin. Monitor for any drug reactions. Follow the blood cultures and urine cultures. Lactic acid 3.5. Follow the repeat lactic acid. Looks like lactic acid is somewhat elevated chronically because of liver disease. Placed on IV normal saline 100 mL per hour. Closely monitor in the tele floor. 2. Hyperammonemia with elevated ammonia at 171. Recent ammonia level couple of days ago was in 50s. History of GALLO liver cirrhosis. Ordered lactulose 30 grams q.i.d. Follow the repeat labs in the a.m. and consult with GI. 3. GALLO liver cirrhosis, total bilirubin of 3.7, holding diuretics, Lasix and spironolactone because of the sepsis. Getting lactulose for elevated ammonia level. ON iv fluids, monitor for volume overload.Await GI input. 4. Hepatocellular carcinoma status post chemo IR chemoembolization. Follow with hepatology. Plan for MRI in February. 5. History of breast cancer, status post partial right mastectomy, on letrozole. History of chemo in the past. 6. Arthritis, on methylprednisolone. 7. History of diabetes, on insulin glargine 20 units at bedtime and sliding scale. The patient wants to continue her home insulin Glargine. Will monitor the blood sugars. Monitor the HbA1c level. 8. History of atrial fibrillation, on flecainide. Holding the p.o. Lopressor. Placed on IV Lopressor p.r.n. Restart p.o. Lopressor whenever the hemodynamics improves, but not on anticoagulation possibly secondary to cirrhosis. 9. Thrombocytopenia, chronic from liver cirrhosis. Currently platelets are 75. Will follow the labs. 10. Morbid obesity, obstructive sleep apnea. CPAP at bedtime. 11. Asthma, currently stable. 12. Prolonged Qt.Avoid qt prolonging drugs. Followup repeat ekg in am. 13. Deep venous thrombosis prophylaxis. We will place on sequential compression devices for now. 14. Disposition: Closely monitor in the tele floor. Code status, DNR/DNI as per my discussion with the patient. PT and OT prior to discharge. Social service to help with discharge planning. JUAN PABLO
[2020-02-16] MEDS: LETROZOLE 2.5 MG TAB PO SCH ×2 (05:27→20:36)
[2020-02-16] MEDS: INSULIN GLARGINE SOLOSTAR 100 UNITS/ML 3 ML PEN SC SCH ×2 (05:37→20:39)
[2020-02-16 07:38] LABS: Hematocrit (blood only) 33.9 % (37-47); Hemoglobin 11.5 g/dL (12.0-16.0); Mean Corpuscular Hemoglobin 34.5 pg (25-34); Mean Corpuscular Hgb Conc 33.9 g/dL (32-36); Mean Corpuscular Volume 101.8 fL (80-100); RDW Coefficient of Variation 18.8 % (11.5-14.5); RDW Standard Deviation 70.1 fL (36.4-46.3); Red Blood Count 3.33 M/uL (4.2-5.4); White Blood Count 5.12 K/uL (4.8-10.8)
[2020-02-16 07:41] LABS: Mean Platelet Volume 10.2 fL (7.4-10.4); Platelet Count 49 K/uL (130-400)
[2020-02-16 07:54] LABS: BUN Creatinine Ratio 20.5 (10-20); Calcium 7.8 mg/dl (8.5-10.1); Creatinine Clr Calc Pharmacy 70.6 ml/min; Est GFR (African American) 51.5; Est GFR (Non-African American) 44.5; Magnesium 1.9 mg/dl (1.8-2.4); Potassium 3.8 mmol/L (3.5-5.1)
[2020-02-16] MEDS: methylPREDNISolone 4 MG TAB PO SCH ×2 (07:58→20:37)
[2020-02-16] MEDS: FLECAINIDE ACETATE 100 MG TABLET PO SCH ×2 (07:58→20:38)
[2020-02-16] MEDS: PANTOprazole 40 MG TAB PO SCH (07:58)
[2020-02-16] MEDS: INSULIN ASPART 100 UNITS/ML 3 ML PEN SC SCH ×4 (07:58→20:41)
[2020-02-16 07:59] LABS: Basophils # (auto) 0.01 K/uL (0-0.2); Basophils % (auto) 0.2 %; Eosinophils # (auto) 0.03 K/uL (0-0.5); Eosinophils % (auto) 0.6 %; Immature Granulocytes # (auto) 0.01 K/uL (0.00-0.02); Immature Granulocytes % (auto) 0.2 %; Lymphocytes # (auto) 0.49 K/uL (1.2-3.4); Lymphocytes % (auto) 9.6 %; Monocytes # (auto) 0.43 K/uL (0.11-0.59); Monocytes % (auto) 8.4 %; Neutrophils # (auto) 4.15 K/uL (1.4-6.5)
[2020-02-16] MEDS: CHOLECALCIFEROL 1,000 UNITS 25 MCG TAB PO SCH (07:59)
[2020-02-16] MEDS: MULTIVITAMIN TAB PO SCH (07:59)
--- NOTE | 2020-02-16 08:40 | CT Scan Report ---
HEAD CT NONCONTRAST CT DOSE: 788.63 mGycm HISTORY: head injury, trouble word finding TECHNIQUE: Multiaxial CT images of the head were performed without the use of intravenous contrast. A utomated exposure control was utilized for this study. A dose lowering technique was utilized adheri ng to the principles of ALARA. Comparison: None. Findings: The paranasal sinuses and mastoid air cells are clear. The calvarium and skull base are int act. The ventricles and sulci are within normal limits. There is no mass, hematoma, midline shift, or acute infarct. Left posterior scalp swelling with associated laceration. Impression: No acute intracranial abnormality. Left posterior scalp injury. ACT 112: Negative or not required by law. Electronically signed by: Yunior Rivera M.D. 02/16/2020 8:38 AM
[2020-02-16] MEDS ORDERED: LEVALBUTEROL TARTRATE 15 GM HFA.AER.AD INH PRN (09:00)
[2020-02-16] MEDS ORDERED: methylPREDNISolone 40 MG in SYRINGE 0 ML IV SCH (09:00)
--- NOTE | 2020-02-16 09:03 | Pharmacy Report ---
Pharmacy Abx Initial Consult - Date of Service February 16, 2020 - Pharmacy Dosing Scope Date of Consult: 02/16/20 Consultation requested by: Dr. Stanley Pharmacy is consulted to initiate VANCOMYCIN/ERTAPENEM IV/PO dosing therapy, order appropriate labs and adjust drug dose/frequency. - Subjective The patient is a 69 year old F admitted on 02/16/20 02:13. - Objective Height: 5 ft 9 in Weight: 156.7 kg Vital Signs (Past 12hrs): Vital Signs Temp Pulse Pulse Resp BP BP BP 02/16/20 08:02 36.6 C 71 19 103/67 02/16/20 04:20 37.3 C 73 102/67 02/16/20 02:00 72 18 109/58 L 02/16/20 00:38 74 18 114/68 02/15/20 22:36 38.8 C H 74 18 137/65 Pulse Ox 02/16/20 08:02 98 02/16/20 04:20 97 02/16/20 02:00 94 02/16/20 00:38 96 02/15/20 22:36 95 Lab Results (24hrs): Laboratory Tests (24 Hours) 02/16/20 02/16/20 02/15/20 07:21 07:21 23:50 WBC 5.12 6.40 Neut # (Auto) 4.15 5.59 Creatinine 1.25 H Est Cr Clr Drug Dosing 70.6 02/15/20 23:05 WBC Neut # (Auto) Creatinine 1.15 Est Cr Clr Drug Dosing 76.6 Micro Results: 02/16/20 00:15 Aerobic Blood Culture - Pending Blood Anaerobic Blood Culture - Pending 02/15/20 23:50 Aerobic Blood Culture - Pending Blood Anaerobic Blood Culture - Pending 02/15/20 22:25 Urine Culture - Pending Urine,Straight Cath - Risk Factors for Resistance * Immunocompromised (chronic steroid therapy, chemotherapy, immunomodulators) * History of infection with a multidrug-resistant organism - Assessment & Plan Assessment 69 year old F admitted with sepsis, likely secondary to UTI. Plan VANCOMYCIN/ERTAPENEM for treatment of UROSEPSIS. Vancomycin IV * Estimated PK Parameters: Vd 0.55 L/kg, Raza 0.063 hr-1, t1/2 ~11 hr * Loading dose: 2750mg (~18 mg/kg) * Maintenance dose: 1750mg IV (~12 mg/kg) every 12 hours * Goal trough level for SEPSIS : 15 to 20 mcg/mL * Trough level ordered for 02/18/20 @ 0600. Pharmacy will continue to follow and will adjust dose/frequency as necessary. Thank you.
--- NOTE | 2020-02-16 09:08 | XRay Report ---
XR chest 1V portable CLINICAL HISTORY: sepsis COMPARISON STUDY: Chest CT August 22, 2018. FINDINGS: Lung volumes are at the lower limits of normal. Linear left basilar opacity suggests atelec tasis. No pneumothorax is present. Note is made of a 2.9 cm right apical opacity. There is no evidenc e for pulmonary edema. Cardiac size is normal. Right breast surgical clips are noted. IMPRESSION: 2.9 cm right apical opacity which may reflect pneumonia, scarring or pulmonary nodule. R adiographic follow-up is recommended. This finding will be called/faxed to the floor at time of dicta tion. ACT 112: Negative or not required by law. Electronically signed by: Artemio Pritchard M.D. 02/16/2020 9:06 AM
--- NOTE | 2020-02-16 09:13 | Gastrointestinal Consultation ---
Date of Consultation February 16, 2020 Assessment & Plan (1) 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: (2) Hepatic encephalopathy: (3) Ascites: Discussed the need for medication compliance due to chronic medical condtion of GALLO cirrhosis Recommend continuing Lactulose 30g po QID to titrate for at least 3 BM's per day Start Xifaxan 550mg PO BID Check US to evaluate for ascites. Could consider diagnostic tap to evaluate for SBP if she remains febrile or does not respond to antibiotics for probable UTI, though less likely Continue Furosemide 40 mg PO BID Continue spironolactone 50mg QD [facility] will resume care of patient tomorrow. History of Present Illness Reason for Consultation: Hyperammonemia Attending Physician: Shin Hopper MD History of Present Illness Aaliyah Taylor is a 69 yo CF with an extensive PMHx including GALLO cirrhosis, complicated by hepatic encephalopathy and recurrent ascites. She presented to the ER overnight secondary to an elevated temperature and lightheadedness. Upon arrival to the ER, she was noted to have a positive UA and an elevated ammonia level. She did undergo a CT scan of her head which was negative due to her symptoms, as well as a scalp laceration that occurred while in transport to the ER. She was subsequently admitted and placed on IV antibiotics. At the time I saw her this AM, she was answering all questions appropriately. She refused her lactulose this AM, stating that she does not want to use the bathroom here, and would like to wait until she goes home to use her own toilet. She admits to not taking lactulose daily. She states that she sees [facility] in [place] for her liver disease, and does have an upcoming paracentesis. At present she denies any abdominal pain, fevers, chills, nausea, vomiting, jaundice, acholic stools, dark urine or pruritus. She has no further complaints. Allergies Allergy/AdvReac Type Severity Reaction Status Date / Time clarithromycin Allergy Severe RASH Verified 02/16/20 00:43 Penicillins Allergy Severe ANAPHYLACTIC Verified 02/16/20 00:43 SHOCK epinephrine Allergy Unknown THROAT Verified 02/16/20 00:43 SWELLING, PASSED OUT, HEART RACING montelukast Allergy Unknown PALPITATION Verified 02/16/20 00:43 S ceftriaxone [From Rocephin] Allergy Rash Verified 02/16/20 00:43 Home Medications Home Medications Medication Instructions Recorded Confirmed Type cholecalciferol (vitamin D3) 3,000 unit PO DAILY 08/22/18 02/16/20 History flecainide 1 tab PO BID 08/22/18 02/16/20 History levalbuterol tartrate [Xopenex HFA] 2 inh INHALATION BID 08/22/18 02/16/20 History methylprednisolone 4 mg PO BID 08/22/18 02/16/20 History metoprolol tartrate [Lopressor] 50 mg PO BID 08/22/18 02/16/20 History multivitamin 1 tab PO DAILY 08/22/18 02/16/20 History omeprazole 1 cap PO QAM 08/22/18 02/16/20 History promethazine 25 mg PO Q8H PRN 08/22/18 02/16/20 History letrozole 2.5 mg tablet 2.5 mg PO DAILY 09/26/18 02/16/20 History furosemide 40 mg PO BID 02/16/20 02/16/20 History insulin glargine [Basaglar KwikPen 20 unit SUBCUT HS 02/16/20 02/16/20 History U-100 Insulin] spironolactone 50 mg PO DAILY 02/16/20 02/16/20 History tramadol 50 - 100 mg PO Q6 PRN 02/16/20 02/16/20 History Patient History Medical History Asthma Atrial fibrillation Breast cancer Breast cancer, stage 2 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 Liver mass Morbid obesity Prediabetes Psoriatic arthritis Surgical History H/O: hysterectomy History of breast lump/mass excision Hx of appendectomy Family History Other Colon cancer Pancreatic cancer Social History Smoking Status: Never smoker Hx Alcohol Use: No Hx Substance Use: No Preferred Language: Upper Sorbian Communication Ability: Effective 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 Beliefs That Will Affect Care: None Current Living Situation: Spouse Other Information That Helps Us Care for You: No Feels Safe at Home: Yes Review of Systems Review of Systems: All systems reviewed & are unremarkable except as noted in HPI & below Physical Exam Constitutional: + ill appearing and + morbidly obese Eyes: + anicteric sclerae ENMT: external ear and nose normal, oropharynx normal Neck: trachea midline Respiratory: normal respiratory effort, lungs clear to auscultation Cardiovascular: RRR, no murmur, no edema Gastrointestinal (Abdomen): normal bowel sounds, soft, nontender, no hepatosplenomegaly Skin: no rashes, warm and dry Psychiatric: Orientation: alert and oriented x 3 Results & Data ([facility]) Vital Signs (Past 12 Hours) Vital Signs Temp Pulse Pulse Resp BP BP BP 02/16/20 08:02 36.6 C 71 19 103/67 02/16/20 04:20 37.3 C 73 102/67 02/16/20 02:00 72 18 109/58 L 02/16/20 00:38 74 18 114/68 02/15/20 22:36 38.8 C H 74 18 137/65 Pulse Ox 02/16/20 08:02 98 02/16/20 04:20 97 02/16/20 02:00 94 02/16/20 00:38 96 02/15/20 22:36 95 PG Care Time/CCT Total # of Minutes Spent Total Time Spent with Patient: Total time spent is greater than 50% in coordination of care (as documented) at patient's floor/unit and/or counseling patient: Coding Level of Care Code 95882 Initial Inpt Care Lvl 3 Diagnoses 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 K75.81; K74.60 Hepatic encephalopathy K72.90 Ascites R18.8
[2020-02-16] MEDS: RIFAXIMIN 550 MG TABLET PO SCH ×2 (09:43→20:38)
[2020-02-16] MEDS ORDERED: MAGNESIUM SULFATE / D5W 1 GM/100 ML BAG IV ONE (10:00)
[2020-02-16] MEDS ORDERED: FUROSEMIDE 40 MG in SYRINGE 0 ML IV ONE (12:00)
--- NOTE | 2020-02-16 13:30 | Hospitalist Progress Note ---
Date of Service February 16, 2020 Assessment & Plan (1) Sepsis: -as per admitting physician: "This is a 69-year-old female who presents with sepsis. Sepsis, most likely secondary to urinary tract infection, history of septic shock in the past with E. coli sepsis. The patient is allergic to pe nicillin with anaphylactic shock and last admission Rocephin caused Hadley- Paul syndrome and she was treated with Invanz. Currently receiving Invanz in the ER which will continue and also add iv vancomycin. Monitor for any drug reactions. Follow the blood cultures and urine cultures. Lactic acid 3.5. -02/16/2020 daytime hospitalist updates: "Patient reports feeling like her usual self but that the rigors from the evening of admission and fever were the reasons why she came to the hospital on 02/15/2020. Patient also discusses with hospitalist that she has had poor overall diagnosis of Hepatocellular carcinoma and that despite interventions by oncology, that she was informed that in November 2019 that she has an estimated 6 months. to live. We discussed that at baseline, patient has elevated lactic acid levels above reference range persistently even in labs prior to this admission. Patient also chronically fluid overloaded and reports that the substantial bilateral lower extremity is chronic. Patient wishes to ambulate in the hospital and she find the hospital bed to be uncomfortable. Patient is anxious to know how long she will be in hospital for and hospitalist discussed with her an infection work up depends partly on results of admission blood cultures and that patient may be here for 2 more days. If infectious workup is not finding a source of infection, then symptoms could be related to malignancy." -continue antibiotics for now (2) Hepatocellular carcinoma: -as per Office Visit 02/13/2020 notes from Shannon Martinez MD (Hematology/Oncology) "Hepatocellular carcinoma - multiple enhancing lesions on 4-phase CT - s/p chemoembolization in IR on 04/04/19; reviewed possible risks of procedure and chemotherapy, including post-chemoembolization syndrome, liver dysfunction, fever, pain, infection, low risk of systemic complications from chemo (ie myelosuppression, which patient has had in past with systemic doxorubicin) - s/p microablation 04/19/19 - new/enlarging lesions - repeat microablation on 12/20/2019 - after patient IR hepatology not planning on any ablations. Planning for a repeat MRI in February. - patient has for function status, declining liver function, Child Pleitez class 3 -discussed Opdivo, she will think about it." Thrombocytopenia -chronic Hyperammonemia GALLO liver cirrhosis -bowel regimen to decrease ammonia levels with lactulose and Xifaxan -her ammonia levels does not appear to be affecting her mental status -Lasix given on 02/16/2020, will resume home dose spironolactone as patient has chronic fluid overload from the appearance of her legs (3) History of breast lump/mass excision: -as per Office Visit 02/13/2020 notes from Shannon Martinez MD (Hematology/Oncology) "Breast cancer -adjuvant chemo was not tolerated (s/p 1 cycle AC); s/p XRT - mammogram 08/2019 with [facility] - continue letrozole 2.5 mg daily" Arthritis -on methylprednisolone. 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 Patient also discusses with hospitalist that she has had poor overall diagnosis of Hepatocellular carcinoma and that despite interventions by oncology, that she was informed that in November 2019 that she has an estimated 6 m onths. to live. We discussed that at baseline, patient has elevated lactic acid levels above reference range persistently even in labs prior to this admission. Patient also chronically fluid overloaded and reports that the substantial bilateral lower extremity is chronic. Patient wishes to ambulate in the hospital and she find the hospital bed to be uncomfortable. Patient is anxious to know how long she will be in hospital for and hospitalist discussed with her an infection work up depends partly on results of admission blood cultures and that patient may be here for 2 more days. If infectious workup is not finding a source of infection, then symptoms could be related to malignancy. Review of Systems Review of Systems: All systems reviewed & are unremarkable except as noted in Subjective Physical Exam Constitutional: comfortable Eyes: PERRL, conjunctivae normal, anicteric sclerae EOM intact bilaterally ENMT: external ear and nose normal, oropharynx normal Neck: trachea midline, no thyromegaly normal visual inspection Respiratory: normal respiratory effort, lungs clear to auscultation Cardiovascular: Rate/Rhythm: regular rate Gastrointestinal (Abdomen): Inspection/Auscultation: normal bowel sounds and + significant pannus Percussion/Palpation: abdomen soft Musculoskeletal: Head/Neck/Chest: normocephalic Extremities: + lower leg abnormality (bilateral lower extremity edema) Neurologic: PERRL, EOMI, accommodation nl, no face palsy, no dysarthria CN's II-XI intact bilaterally Results & Data Results & Data ([facility]) Vital Signs (Past 12 Hours) Vital Signs Temp Pulse Resp BP BP Pulse Ox 02/16/20 12:02 36.5 C 67 19 112/70 98 02/16/20 08:02 36.6 C 71 19 103/67 98 02/16/20 04:20 37.3 C 73 102/67 97 02/16/20 02:00 72 18 109/58 L 94 (1) Sepsis Sepsis type: sepsis due to unspecified organism Qualified Code(s): A41.9 - Sepsis, unspecified organism
[2020-02-16] MEDS: SPIRONOLACTONE 25 MG TAB PO SCH (14:35)
[2020-02-16] MEDS: VANCOMYCIN HCL 1,750 MG in SODIUM CHLORIDE 0.9% 500 ML IV SCH (17:27)
[2020-02-16] MEDS: METOPROLOL TARTRATE 25 MG TAB PO SCH (20:37)
[2020-02-16] MEDS ORDERED: INSULIN GLARGINE SOLOSTAR 100 UNITS/ML 3 ML PEN SQ SCH (21:00)
[2020-02-17] MEDS: VANCOMYCIN HCL 1,750 MG in SODIUM CHLORIDE 0.9% 500 ML IV SCH (06:04)
[2020-02-17 07:26] LABS: Hematocrit (blood only) 33.4 % (37-47); Hemoglobin 11.3 g/dL (12.0-16.0); Mean Corpuscular Hemoglobin 34.7 pg (25-34); Mean Corpuscular Hgb Conc 33.8 g/dL (32-36); Mean Corpuscular Volume 102.5 fL (80-100); RDW Coefficient of Variation 18.8 % (11.5-14.5); RDW Standard Deviation 70.2 fL (36.4-46.3); Red Blood Count 3.26 M/uL (4.2-5.4); White Blood Count 3.32 K/uL (4.8-10.8)
[2020-02-17 07:32] LABS: Mean Platelet Volume 10.3 fL (7.4-10.4); Platelet Count 53 K/uL (130-400)
[2020-02-17 07:48] LABS: Basophils # (auto) 0.03 K/uL (0-0.2); Basophils % (auto) 0.9 %; Lymphocytes # (auto) 0.58 K/uL (1.2-3.4); Lymphocytes % (auto) 17.5 %; Monocytes # (auto) 0.45 K/uL (0.11-0.59); Monocytes % (auto) 13.6 %; Neutrophils # (auto) 2.16 K/uL (1.4-6.5)
[2020-02-17 07:54] LABS: Estimated Average Glucose 103 mg/dl; Hemoglobin A1C 5.2 % (4.5-5.6)
[2020-02-17 08:03] LABS: Albumin Level 1.6 gm/dl (3.4-5.0); BUN Creatinine Ratio 22.4 (10-20); Calcium 8.2 mg/dl (8.5-10.1); Creatinine Clr Calc Pharmacy 68.4 ml/min; Est GFR (African American) 49.2; Est GFR (Non-African American) 42.4; Potassium 3.3 mmol/L (3.5-5.1)
[2020-02-17 08:06] LABS: Albumin Globulin Ratio 0.4 (0.9-2); Bilirubin,Total 3.4 mg/dl (0.2-1); Globulin 3.7 gm/dl (2.5-4.0); Total Protein 5.3 gm/dl (6.4-8.2)
[2020-02-17] MEDS: INSULIN ASPART 100 UNITS/ML 3 ML PEN SC SCH ×4 (08:53→21:01)
[2020-02-17] MEDS: METOPROLOL TARTRATE 25 MG TAB PO SCH ×2 (08:54→19:41)
[2020-02-17] MEDS: SPIRONOLACTONE 25 MG TAB PO SCH (08:54)
[2020-02-17] MEDS: RIFAXIMIN 550 MG TABLET PO SCH ×2 (08:55→19:40)
[2020-02-17] MEDS: methylPREDNISolone 4 MG TAB PO SCH ×2 (08:55→19:40)
[2020-02-17] MEDS: CHOLECALCIFEROL 1,000 UNITS 25 MCG TAB PO SCH (08:55)
[2020-02-17] MEDS: PANTOprazole 40 MG TAB PO SCH (08:55)
[2020-02-17] MEDS: MULTIVITAMIN TAB PO SCH (08:55)
[2020-02-17] MEDS: LACTULOSE SYRUP 30 GM/45 ML UDP PO SCH ×4 (08:56→19:40)
[2020-02-17] MEDS: FLECAINIDE ACETATE 100 MG TABLET PO SCH ×2 (08:56→19:41)
--- NOTE | 2020-02-17 09:00 | Gastroenterology Progress Note ---
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 Blood cx negative. Urine culture growing gram negative bacilli. CXR showed possible pneumonia, scarring or nodule. GI consulted over the weekend for hyperammonemia. She is AAOx3, w mild asterixis on exam today. She admits to not take Lactulose at home, only her Xifaxan. - Xifaxan 550mg BID. Encouraged her to take Lactulose at least 30g TID (titrate for 3-5 BM a day) - Diuretics: Lasix 40mg BID + Spironolactone 50mg daily - [place] Yury Stat[place] [facility]. She was previously evaluated by Liver Trans[place] team [place] [facility], not a candidate for liver transplant due to high BMI - Follow up w Dr. Shannon Hernandez at [facility] ; on Letrozole for breast ca - Defer to primary team for UTI treatment - GI to sign off; pls recall prn Admission and Anticipated Discharge Date Admission Date: February 16, 2020 Supervising Physician Co-Signing Physician Notes I have seen and examined the patient and discussed the management with MARKELL Campoverde. Consult is for sepsis 69 yo fm with a history of breast cancer, hcc s/p tace/y90/embolization in the past, admitted with confusion and lightheadedness and increased temperature. On PE today she is alert and oriented to person, place time, CV - rrr no mrg, Pulm- ctab, abd obese soft nt nd +bs, legs - mild lower leg edema Labs reviewed:MELD 18, UA Nitrite + Recent tap with 4 liters removed Overall impression- HE resolved likely secondary to uti and questionable HE from not taking her lactulose Continue abx Continue outpatient lactulose/xifaxan. Continue diuretics including lasix 40 bid/spironolactone 50 mg po daily. Ok from a GI perspective to MA home. She follows with [facility] and has reported follow-up with them. Subjective Pt refuses to receive any more Lactulose while in hospital but agrees to take it when she gets home. She reports constant loose stools while on Lactulose here. Denies fever, chills, CP, SOB, increased abd distension. Doesn't feel she needs a repeat paracentesis (last done in 02/10 at [facility] 4L out). Denies dysuria Blood cx negative. Urine cx growing gram negative bacilli. Review of Systems Review of Systems: All systems reviewed & are unremarkable except as noted in HPI & below Physical Exam Constitutional: WD/WN, vitals as above + obese, well groomed, cooperative and comfortable Eyes: PERRL, conjunctivae normal, anicteric sclerae ENMT: external ear and nose normal, oropharynx normal Respiratory: normal respiratory effort, lungs clear to auscultation Cardiovascular: RRR, no murmur, no edema Gastrointestinal (Abdomen): normal bowel sounds, soft, nontender, no hepatosplenomegaly Skin: no rashes, warm and dry no jaundice Neurologic: Motor/Sensory: + asterixis Psychiatric: A+Ox3, euthymic affect Lymphatic: + lymphedema (+2 pitting edema bilateral LE ) Results & Data ([facility] Vital Signs (Past 12 Hours) Vital Signs Temp Pulse Pulse Resp BP Pulse Ox 02/17/20 07:39 68 02/17/20 07:20 36.7 C 68 19 99/65 L 90 02/17/20 04:25 36.8 C 73 18 100/58 L 91 02/17/20 00:05 37.1 C 92 H 18 101/68 95 (1) Breast cancer, stage 2 Laterality: unspecified laterality Qualified Code(s): C50.919 - Malignant neoplasm of unspecified site of unspecified female breast (2) Sepsis Sepsis type: sepsis due to unspecified organism Qualified Code(s): A41.9 - Sepsis, unspecified organism
[2020-02-17] MEDS ORDERED: POTASSIUM CHLORIDE 20 MEQ TABCR PO STA (09:13)
--- NOTE | 2020-02-17 09:28 | Hospitalist Progress Note ---
Date of Service February 17, 2020 Assessment & Plan (1) Sepsis: Urinary Tract Infection -as per admitting physician: "This is a 69-year-old female who presents with sepsis. Sepsis, most likely secondary to urinary tract infection, history of septic shock in the past with E. coli sepsis. 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 Currently receiving Invanz in the ER which will continue and also add iv vancomycin. Monitor for any drug reactions. Follow the blood cultures and urine cultures. Lactic acid 3.5. -02/16/2020 daytime hospitalist updates: "Patient reports feeling like her usual self but that the rigors from the evening of admission and fever were the reasons why she came to the hospital on 02/15/2020. Patient also discusses with hospitalist that she has had poor overall diagnosis of Hepatocellular carcinoma and that despite interventions by oncology, that she was informed that in November 2019 that she has an estimated 6 months. to live. We discussed that at baseline, patient has elevated lactic acid levels above reference range persistently even in labs prior to this admission. Patient also chronically fluid overloaded and reports that the substantial bilateral lower extremity is chronic. Patient wishes to ambulate in the hospital and she find the hospital bed to be uncomfortable. Patient is anxious to know how long she will be in hospital for and hospitalist discussed with her an infection work up depends partly on results of admission blood cultures and that patient may be here for 2 more days. If infectious workup is not finding a source of infection, then symptoms could be related to malignancy." -02/17/2020: admission blood culture so far no growth to date but admission urine culture of Gram negative bacilli. antibiotics is to be continued as Invanz (ertapenem) for now, discontinued the IV Vancomycin (2) Hepatocellular carcinoma: -as per Office Visit 02/13/2020 notes from Shannon Martinez MD (Hematology/Oncology) "Hepatocellular carcinoma - multiple enhancing lesions on 4-phase CT - s/p chemoembolization in IR on 04/04/19; reviewed possible risks of procedure and chemotherapy, including post-chemoembolization syndrome, liver dysfunction, fever, pain, infection, low risk of systemic complications from chemo (ie myelosuppression, which patient has had in past with systemic doxorubicin) - s/p microablation 04/19/19 - new/enlarging lesions - repeat microablation on 12/20/2019 - after patient IR hepatology not planning on any ablations. Planning for a repeat MRI in February. - patient has for function status, declining liver function, Child Pleitez class 3 -discussed Opdivo, she will think about it." Thrombocytopenia -chronic Hyperammonemia GALLO liver cirrhosis Chronic Bilateral Lower Extremity Edema -admission serum ammonia 176 -bowel regimen to decrease ammonia levels with lactulose and Xifaxan -her ammonia levels does not appear to be affecting her mental status -Lasix IV given on 02/16/2020, will resume home dose spironolactone as patient has chronic fluid overload from the appearance of her legs -continue spironolactone, Lasix oral 40 mg BID, patient has intermittently declined lactulose when offered by nursing staff (3) History of breast lump/mass excision: -as per Office Visit 02/13/2020 notes from Shannon Martinez MD (Hematology/Oncology) "Breast cancer -adjuvant chemo was not tolerated (s/p 1 cycle AC); s/p XRT - mammogram 08/2019 with [facility] - continue letrozole 2.5 mg daily" Arthritis -on methylprednisolone. Type 2 diabetes mellitus with mcfp current use of insulin -sliding scale insulin with Lantus Morbid obesity Obstructive sleep apnea and nonadherent with CPAP use -she declined CPAP, reported to staff that she does not use CPAP at home for long time and she reports that she does not want to use CPAP while she is here inpatient Paroxysmal atrial Fibrillation -currently in sinu rhythm -continue on flecainide -give metoprolol as 25 mg BID for now before considering titrating to home dose 50 mg BID, based on vital signs as of 02/17/2020 continue metoprolol as 25 mg BID Deep venous thrombosis prophylaxis -SCDs Admission and Anticipated Discharge Date Admission Date: February 16, 2020 Subjective Patient reports she slept well overnight on room air because she declined CPAP. she has been able to go to bathroom. she denies rigors of chills. no chest pain. no shortness of breath. no palpitations. she prefers oral solution potassium replacements when needed. we discussed urine culture results to date and antibiotic treatment in the hospital and she agrees to the plan Review of Systems Review of Systems: All systems reviewed & are unremarkable except as noted in Subjective Physical Exam Constitutional: comfortable Eyes: PERRL, conjunctivae normal, anicteric sclerae EOM intact bilaterally ENMT: external ear and nose normal, oropharynx normal Neck: trachea midline, no thyromegaly normal visual inspection Respiratory: normal respiratory effort, lungs clear to auscultation Cardiovascular: Rate/Rhythm: regular rate Gastrointestinal (Abdomen): Inspection/Auscultation: normal bowel sounds and + significant pannus Percussion/Palpation: abdomen soft Musculoskeletal: Head/Neck/Chest: normocephalic Extremities: + lower leg abnormality (bilateral lower extremity edema) Neurologic: PERRL, EOMI, accommodation nl, no face palsy, no dysarthria CN's II-XI intact bilaterally Psychiatric: Orientation: alert and oriented x 3 Results & Data Results & Data ([facility]) Vital Signs (Past 12 Hours) Vital Signs Temp Pulse Pulse Resp BP Pulse Ox 02/17/20 07:39 68 02/17/20 07:20 36.7 C 68 19 99/65 L 90 02/17/20 04:25 36.8 C 73 18 100/58 L 91 02/17/20 00:05 37.1 C 92 H 18 101/68 95 (1) Sepsis Sepsis type: sepsis due to unspecified organism Qualified Code(s): A41.9 - Sepsis, unspecified organism
[2020-02-17] MEDS ORDERED: POTASSIUM CHLORIDE / WTR 10 MEQ/100 ML PLCT IV ONE (09:30)
[2020-02-17] MEDS ORDERED: POTASSIUM CHLORIDE 20 MEQ/15 ML UDC PO STA (09:32)
--- NOTE | 2020-02-17 09:32 | Electrocardiogram Report ---
Test Reason : Blood Pressure : / mmHG Vent. Rate : 073 BPM Atrial Rate : 073 BPM P-R Int : 190 ms QRS Dur : 104 ms QT Int : 470 ms P-R-T Axes : 086 -10 039 degrees QTc Int : 517 ms Normal sinus rhythm Possible Anterior infarct , age undetermined Prolonged QT Abnormal ECG When compared with ECG of 31-AUG-2018 17:19, Borderline criteria for Anterior infarct are now Present Confirmed by Nilesh Portillo ([id number]) on 02/17/2020 9:32:42 AM Referred By: REFERRED SELF Confirmed By:Nilesh Portillo
--- NOTE | 2020-02-17 10:03 | Electrocardiogram Report ---
Test Reason : Blood Pressure : / mmHG Vent. Rate : 067 BPM Atrial Rate : 067 BPM P-R Int : 202 ms QRS Dur : 114 ms QT Int : 560 ms P-R-T Axes : 089 000 062 degrees QTc Int : 591 ms Normal sinus rhythm Diffuse Minor Nonspecific T wave abnormality Poor R wave progression, consider anterior VT vs. lead placement vs. LVH Abnormal ECG When compared with ECG of 15-FEB-2020 22:31, Nonspecific T wave abnormality, worse in Lateral leads QT has lengthened Confirmed by Nilesh Portillo ([id number]) on 02/17/2020 10:03:11 AM Referred By: REFERRED SELF Confirmed By:Nilesh Portillo
[2020-02-17] MEDS: FUROSEMIDE 40 MG TAB PO SCH ×2 (10:40→17:41)
[2020-02-17] MEDS: LETROZOLE 2.5 MG TAB PO SCH (19:41)
[2020-02-17] MEDS: INSULIN GLARGINE SOLOSTAR 100 UNITS/ML 3 ML PEN SC SCH (21:00)
[2020-02-17] MEDS: ERTAPENEM SODIUM 1,000 MG in SODIUM CHLORIDE 0.9% 50 ML IV SCH ×2 (23:29)
[2020-02-18] MEDS ORDERED: VANCOMYCIN TROUGH ONE (05:30)
[2020-02-18 07:11] LABS: Hematocrit (blood only) 34.1 % (37-47); Hemoglobin 11.7 g/dL (12.0-16.0); Mean Corpuscular Hemoglobin 34.8 pg (25-34); Mean Corpuscular Hgb Conc 34.3 g/dL (32-36); Mean Corpuscular Volume 101.5 fL (80-100); RDW Coefficient of Variation 18.6 % (11.5-14.5); RDW Standard Deviation 68.8 fL (36.4-46.3); Red Blood Count 3.36 M/uL (4.2-5.4); White Blood Count 3.27 K/uL (4.8-10.8)
[2020-02-18 07:44] LABS: Mean Platelet Volume 9.9 fL (7.4-10.4); Platelet Count 65 K/uL (130-400)
[2020-02-18 07:46] LABS: Albumin Globulin Ratio 0.5 (0.9-2); Albumin Level 1.8 gm/dl (3.4-5.0); BUN Creatinine Ratio 20.3 (10-20); Bilirubin,Total 3.2 mg/dl (0.2-1); Calcium 8.3 mg/dl (8.5-10.1); Creatinine Clr Calc Pharmacy 62.1 ml/min; Est GFR (African American) 43.8; Est GFR (Non-African American) 37.8; Globulin 3.8 gm/dl (2.5-4.0); Potassium 4.1 mmol/L (3.5-5.1); Total Protein 5.6 gm/dl (6.4-8.2)
[2020-02-18 07:49] LABS: Basophils # (auto) 0.03 K/uL (0-0.2); Basophils % (auto) 0.9 %; Eosinophils # (auto) 0.14 K/uL (0-0.5); Eosinophils % (auto) 4.3 %; Immature Granulocytes # (auto) 0.01 K/uL (0.00-0.02); Immature Granulocytes % (auto) 0.3 %; Lymphocytes # (auto) 0.53 K/uL (1.2-3.4); Lymphocytes % (auto) 16.2 %; Monocytes # (auto) 0.57 K/uL (0.11-0.59); Monocytes % (auto) 17.4 %; Neutrophils # (auto) 1.99 K/uL (1.4-6.5); Neutrophils % (auto) 60.9 %
[2020-02-18] MEDS: INSULIN ASPART 100 UNITS/ML 3 ML PEN SC SCH ×4 (07:52→20:21)
[2020-02-18 07:58] LABS: Magnesium 2.1 mg/dl (1.8-2.4)
[2020-02-18] MEDS: RIFAXIMIN 550 MG TABLET PO SCH ×2 (08:23→20:21)
[2020-02-18] MEDS: PANTOprazole 40 MG TAB PO SCH (08:23)
[2020-02-18] MEDS: SPIRONOLACTONE 25 MG TAB PO SCH (08:23)
[2020-02-18] MEDS: CHOLECALCIFEROL 1,000 UNITS 25 MCG TAB PO SCH (08:23)
[2020-02-18] MEDS: methylPREDNISolone 4 MG TAB PO SCH ×2 (08:23→20:21)
[2020-02-18] MEDS: MULTIVITAMIN TAB PO SCH (08:23)
[2020-02-18] MEDS: FLECAINIDE ACETATE 100 MG TABLET PO SCH ×2 (08:23→20:21)
[2020-02-18] MEDS: METOPROLOL TARTRATE 25 MG TAB PO SCH ×2 (08:24→20:21)
[2020-02-18] MEDS: FUROSEMIDE 40 MG TAB PO SCH (08:24)
[2020-02-18] MEDS: LACTULOSE SYRUP 30 GM/45 ML UDP PO SCH ×4 (08:24→20:21)
[2020-02-18 10:31] LABS: Appearance Urine Clear (Clear); Bacteria Urine Automated Negative (Negative); Bilirubin Urine Negative (Negative); Blood Urine Negative (Negative); Color Urine Dark Yellow; Epithelial Cell Urine Auto >30 /lpf (0-5); Glucose Urine UA Negative (Negative); Ketones Urine Negative (Negative); Leukocyte Esterase Urine Trace (Negative); Nitrite Urine Negative (Negative); Protein Urine Negative (Negative); Specific Gravity Urine 1.014 (1.000-1.030); Urobilinogen Urine Negative (Negative)
--- NOTE | 2020-02-18 11:24 | Hospitalist Progress Note ---
Date of Service February 18, 2020 Assessment & Plan (1) Sepsis: Urinary Tract Infection -as per admitting physician: "This is a 69-year-old female who presents with sepsis. Sepsis, most likely secondary to urinary tract infection, history of septic shock in the past with E. coli sepsis. 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 Currently receiving Invanz in the ER which will continue and also add iv vancomycin. Monitor for any drug reactions. Follow the blood cultures and urine cultures. Lactic acid 3.5. -02/16/2020 daytime hospitalist updates: "Patient reports feeling like her usual self but that the rigors from the evening of admission and fever were the reasons why she came to the hospital on 02/15/2020. Patient also discusses with hospitalist that she has had poor overall diagnosis of Hepatocellular carcinoma and that despite interventions by oncology, that she was informed that in November 2019 that she has an estimated 6 months. to live. We discussed that at baseline, patient has elevated lactic acid levels above reference range persistently even in labs prior to this admission. Patient also chronically fluid overloaded and reports that the substantial bilateral lower extremity is chronic. Patient wishes to ambulate in the hospital and she find the hospital bed to be uncomfortable. Patient is anxious to know how long she will be in hospital for and hospitalist discussed with her an infection work up depends partly on results of admission blood cultures and that patient may be here for 2 more days. If infectious workup is not finding a source of infection, then symptoms could be related to malignancy." -02/17/2020: admission blood culture so far no growth to date but admission urine culture of Gram negative bacilli. antibiotics is to be continued as Invanz (ertapenem) for now, discontinued the IV Vancomycin -02/18/2020: admission urine cultures with E.coli with resistance to some antibiotics including fluoroquinolone. Is sensitive to macrobid but given that macrobid is not a strong urinary antibiotic, we discussed about continuing IV Ertapenem daily further. Patient's second urine analysis appears to be no bacteria but patient also was concerned whether she followed the steps to give a clean sample. The laboratory will send the urine to culture. Patient also agreeable to continue IV Ertapenem for now until these other results were to return to ensure eradication of E.coli in the urine prior to a hospital discharge to home. (2) Hepatocellular carcinoma: -as per Office Visit 02/13/2020 notes from Shannon Martinez MD (Hematology/Oncology) "Hepatocellular carcinoma - multiple enhancing lesions on 4-phase CT - s/p chemoembolization in IR on 04/04/19; reviewed possible risks of procedure and chemotherapy, including post-chemoembolization syndrome, liver dysfunction, fever, pain, infection, low risk of systemic complications from chemo (ie myelosuppression, which patient has had in past with systemic doxorubicin) - s/p microablation 04/19/19 - new/enlarging lesions - repeat microablation on 12/20/2019 - after patient IR hepatology not planning on any ablations. Planning for a repeat MRI in February. - patient has for function status, declining liver function, Child Pleitez class 3 -discussed Opdivo, she will think about it." Thrombocytopenia -chronic Hyperammonemia GALLO liver cirrhosis Chronic Bilateral Lower Extremity Edema Acute Kidney Injury -admission serum ammonia 176 -bowel regimen to decrease ammonia levels with lactulose and Xifaxan -her ammonia levels does not appear to be affecting her mental status -Lasix IV given on 02/16/2020, will resume home dose spironolactone as patient has chronic fluid overload from the appearance of her legs -continue spironolactone, Lasix oral 40 mg BID, patient has intermittently declined lactulose when offered by nursing staff -her ammonia labs have normalized and patient has been declining lactulose -serum electrolytes are at goal on 02/18/2020 labs but some rising creatinine to 1.43. continue to trend the creatinine. additional IV fluids not being given to minimize fluid overload. monitor with oral hydration. and hold the night time Lasix (3) History of breast lump/mass excision: -as per Office Visit 02/13/2020 notes from Shannon Martinez MD (Hematology/Oncology) "Breast cancer -adjuvant chemo was not tolerated (s/p 1 cycle AC); s/p XRT - mammogram 08/2019 with [facility] - continue letrozole 2.5 mg daily" Arthritis -on methylprednisolone. 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 -sliding scale insulin with Lantus Morbid obesity Obstructive sleep apnea and nonadherent with CPAP use -she declined CPAP, reported to staff that she does not use CPAP at home for long time and she reports that she does not want to use CPAP while she is here inpatient Paroxysmal atrial Fibrillation -currently in sinu rhythm -continue on flecainide -give metoprolol as 25 mg BID for now before considering titrating to home dose 50 mg BID, based on vital signs as of 02/17/2020 continue metoprolol as 25 mg BID Deep venous thrombosis prophylaxis -SCDs Admission and Anticipated Discharge Date Admission Date: February 16, 2020 Subjective admission urine cultures with E.coli with resistance to some antibiotics including fluoroquinolone. Is sensitive to macrobid but given that macrobid is not a strong urinary antibiotic, we discussed about continuing IV Ertapenem daily further. Patient's second urine analysis appears to be no bacteria but patient also was concerned whether she followed the steps to give a clean s ample. The laboratory will send the urine to culture. Patient also agreeable to continue IV Ertapenem for now until these other results were to return to ensure eradication of E.coli in the urine prior to a hospital discharge to home. patient has been declining lactulose while in the hospital Review of Systems Review of Systems: All systems reviewed & are unremarkable except as noted in Subjective Physical Exam Constitutional: comfortable Eyes: PERRL, conjunctivae normal, anicteric sclerae EOM intact bilaterally ENMT: external ear and nose normal, oropharynx normal Neck: trachea midline, no thyromegaly normal visual inspection Respiratory: normal respiratory effort, lungs clear to auscultation Cardiovascular: Rate/Rhythm: regular rate Gastrointestinal (Abdomen): Inspection/Auscultation: normal bowel sounds and + significant pannus Percussion/Palpation: abdomen soft Musculoskeletal: Head/Neck/Chest: normocephalic Extremities: + lower leg abnormality (bilateral lower extremity edema) Neurologic: PERRL, EOMI, accommodation nl, no face palsy, no dysarthria CN's II-XI intact bilaterally Psychiatric: Orientation: alert and oriented x 3 Results & Data Results & Data ([facility]) Vital Signs (Past 12 Hours) Vital Signs Temp Pulse Pulse Resp BP Pulse Ox 02/18/20 07:35 70 02/18/20 07:16 36.6 C 71 19 125/74 94 02/18/20 05:06 36.7 C 69 20 98/66 L 95 02/17/20 23:47 36.8 C 71 20 110/72 92 (1) Sepsis Sepsis type: sepsis due to unspecified organism Sepsis acute organ dysfunction status: unspecified Qualified Code(s): A41.9 - Sepsis, unspecified organism
[2020-02-18] MEDS ORDERED: Nursing to Pharmacy Communication SCH (11:30)
[2020-02-18] MEDS: TRAMADOL HCL 50 MG TABLET PO PRN ×3 (17:01→23:18)
[2020-02-18] MEDS: LETROZOLE 2.5 MG TAB PO SCH (20:21)
[2020-02-18] MEDS: INSULIN GLARGINE SOLOSTAR 100 UNITS/ML 3 ML PEN SC SCH (20:22)
[2020-02-18] MEDS: ERTAPENEM SODIUM 1,000 MG in SODIUM CHLORIDE 0.9% 50 ML IV SCH (22:05)
[2020-02-19] MEDS: TRAMADOL HCL 50 MG TABLET PO PRN ×2 (06:33→13:56)
[2020-02-19 06:56] LABS: Appearance Urine Clear (Clear); Bacteria Urine Automated Negative (Negative); Bilirubin Urine Negative (Negative); Blood Urine Negative (Negative); Color Urine Dark Yellow; Epithelial Cell Urine Auto >30 /lpf (0-5); Glucose Urine UA Negative (Negative); Ketones Urine Negative (Negative); Leukocyte Esterase Urine 1+ (Negative); Nitrite Urine Negative (Negative); Protein Urine Negative (Negative); RBC Urine Automated 0-4 /hpf (0-4); Specific Gravity Urine 1.018 (1.000-1.030); Urobilinogen Urine Negative (Negative)
[2020-02-19 07:14] LABS: Albumin Level 1.7 gm/dl (3.4-5.0); BUN Creatinine Ratio 22.6 (10-20); Calcium 8.2 mg/dl (8.5-10.1); Creatinine Clr Calc Pharmacy 64.1 ml/min; Est GFR (African American) 45.3; Est GFR (Non-African American) 39.1; Potassium 4.1 mmol/L (3.5-5.1)
[2020-02-19 07:18] LABS: Albumin Globulin Ratio 0.4 (0.9-2); Bilirubin,Total 2.7 mg/dl (0.2-1); Globulin 3.9 gm/dl (2.5-4.0); Total Protein 5.6 gm/dl (6.4-8.2)
[2020-02-19] MEDS: FLECAINIDE ACETATE 100 MG TABLET PO SCH (08:10)
[2020-02-19] MEDS: CHOLECALCIFEROL 1,000 UNITS 25 MCG TAB PO SCH (08:10)
[2020-02-19] MEDS: METOPROLOL TARTRATE 25 MG TAB PO SCH (08:10)
[2020-02-19] MEDS: RIFAXIMIN 550 MG TABLET PO SCH (08:10)
[2020-02-19] MEDS: SPIRONOLACTONE 25 MG TAB PO SCH (08:10)
[2020-02-19] MEDS: methylPREDNISolone 4 MG TAB PO SCH (08:10)
[2020-02-19] MEDS: MULTIVITAMIN TAB PO SCH (08:10)
[2020-02-19] MEDS: PANTOprazole 40 MG TAB PO SCH (08:10)
[2020-02-19] MEDS: LACTULOSE SYRUP 30 GM/45 ML UDP PO SCH ×2 (08:10→14:00)
[2020-02-19] MEDS ORDERED: BACLOFEN 10 MG TAB PO ONE ×2 (08:29)
[2020-02-19] MEDS: INSULIN ASPART 100 UNITS/ML 3 ML PEN SC SCH ×2 (10:42→13:15)
[2020-02-19] MEDS ORDERED: cephALEXin 500 MG CAP PO STA (13:09)
--- NOTE | 2020-02-19 15:13 | Hospitalist Progress Note ---
Date of Service February 19, 2020 Assessment & Plan (1) Sepsis: Urinary Tract Infection -as per admitting physician: "This is a 69-year-old female who presents with sepsis. Sepsis, most likely secondary to urinary tract infection, history of septic shock in the past with E. coli sepsis. 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 Currently receiving Invanz in the ER which will continue and also add iv vancomycin. Monitor for any drug reactions. Follow the blood cultures and urine cultures. Lactic acid 3.5. -02/16/2020 daytime hospitalist updates: "Patient reports feeling like her usual self but that the rigors from the evening of admission and fever were the reasons why she came to the hospital on 02/15/2020. Patient also discusses with hospitalist that she has had poor overall diagnosis of Hepatocellular carcinoma and that despite interventions by oncology, that she was informed that in November 2019 that she has an estimated 6 months. to live. We discussed that at baseline, patient has elevated lactic acid levels above reference range persistently even in labs prior to this admission. Patient also chronically fluid overloaded and reports that the substantial bilateral lower extremity is chronic. Patient wishes to ambulate in the hospital and she find the hospital bed to be uncomfortable. Patient is anxious to know how long she will be in hospital for and hospitalist discussed with her an infection work up depends partly on results of admission blood cultures and that patient may be here for 2 more days. If infectious workup is not finding a source of infection, then symptoms could be related to malignancy." -02/17/2020: admission blood culture so far no growth to date but admission urine culture of Gram negative bacilli. antibiotics is to be continued as Invanz (ertapenem) for now, discontinued the IV Vancomycin -02/18/2020: admission urine cultures with E.coli with resistance to some antibiotics including fluoroquinolone. Is sensitive to macrobid but given that macrobid is not a strong urinary antibiotic, we discussed about continuing IV Ertapenem daily further. Patient's second urine analysis appears to be no bacteria but patient also was concerned whether she followed the steps to give a clean sample. The laboratory will send the urine to culture. Patient also agreeable to continue IV Ertapenem for now until these other results were to return to ensure eradication of E.coli in the urine prior to a hospital discharge to home. -02/19/20 Urine cx on 02/14 grew Ecoli sensitive with cephalosporin and macrobid, but resistance to fluoroquinolone and Bactrim. Penicillin and rocephin allergies. Pt lissett that she had Keflex in the past and tolerated well. Repeat urine cx no growth Will change abx to PO keflex to complete the course (2) Hepatocellular carcinoma: -as per Office Visit 02/13/2020 notes from Shannon Martinez MD (Hematology/Oncology) "Hepatocellular carcinoma - multiple enhancing lesions on 4-phase CT - s/p chemoembolization in IR on 04/04/19; reviewed possible risks of procedure and chemotherapy, including post-chemoembolization syndrome, liver dysfunction, fever, pain, infection, low risk of systemic complications from chemo (ie myelosuppression, which patient has had in past with systemic doxorubicin) - s/p microablation 04/19/19 - new/enlarging lesions - repeat microablation on 12/20/2019 - after patient IR hepatology not planning on any ablations. Planning for a repeat MRI in February. - patient has for function status, declining liver function, Child Pleitez class 3 -discussed Opdivo, she will think about it." Thrombocytopenia -chronic Hyperammonemia GALLO liver cirrhosis Chronic Bilateral Lower Extremity Edema Acute Kidney Injury -admission serum ammonia 176 -bowel regimen to decrease ammonia levels with lactulose and Xifaxan -her ammonia levels does not appear to be affecting her mental status -Lasix IV given on 02/16/2020, will resume home dose spironolactone as patient has chronic fluid overload from the appearance of her legs -continue spironolactone, Lasix oral 40 mg BID, patient has intermittently declined lactulose when offered by nursing staff -her ammonia labs have normalized and patient has been declining lactulose -serum electrolytes are at goal on 02/18/2020 labs but some rising creatinine to 1.43. continue to trend the creatinine. additional IV fluids not being given to minimize fluid overload. monitor with oral hydration. and hold the night time Lasix -Lasix resume on discharge -Continue Lactulose with goal to have at least 3 bowel movement x day (3) History of breast lump/mass excision: -as per Office Visit 02/13/2020 notes from Shannon Martinez MD (Hematology/Oncology) "Breast cancer -adjuvant chemo was not tolerated (s/p 1 cycle AC); s/p XRT - mammogram 08/2019 with KRISTEN - continue letrozole 2.5 mg daily" Arthritis -on methylprednisolone. 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 -sliding scale insulin with Lantus Morbid obesity Obstructive sleep apnea and nonadherent with CPAP use -she declined CPAP, reported to staff that she does not use CPAP at home for long time and she reports that she does not want to use CPAP while she is here inpatient Paroxysmal atrial Fibrillation -currently in sinu rhythm -continue on flecainide -give metoprolol as 25 mg BID for now before considering titrating to home dose 50 mg BID, based on vital signs as of 02/17/2020 continue metoprolol as 25 mg BID Deep venous thrombosis prophylaxis -SCDs Admission and Anticipated Discharge Date Admission Date: February 16, 2020 Subjective Pt was seen and examined Lying in bed with no distress Pt said that she feels a lot better She does not want to spend another night in the hospital She wants to go home today She said that she had 2 bowel movements so far Denies any chest pain, palpitation, dizziness and SOB Physical Exam Physical Exam: General- No acute distress Head- atraumatic Eyes- PERRL, EOMI, ENT- oropharynx clear Neck- supple, no JVD Lungs- clear to auscultation Heart- regular rhythm; no murmur Abdomen- normal bowel sounds, soft, nontender Extremities- no calf tenderness, +B/L LE edema Neuro- alert, oriented x 3; PERRL, EOMI; no facial palsy; no dysarthria Skin- warm & dry Results & Data Results & Data ([facility]) Vital Signs (Past 12 Hours) Vital Signs Temp Pulse Pulse Resp BP Pulse Ox 02/19/20 11:07 36.4 C L 64 19 102/67 92 02/19/20 08:00 67 02/19/20 07:11 36.5 C 62 19 113/69 90 02/19/20 04:00 36.7 C 64 20 114/73 92 (1) Sepsis Sepsis acute organ dysfunction status: unspecified Sepsis type: sepsis due to unspecified organism Qualified Code(s): A41.9 - Sepsis, unspecified organism
[2020-02-19] MEDS ORDERED: cephALEXin 500 MG CAP PO SCH (21:00)
--- NOTE | 2020-02-20 09:03 | Discharge Summary ---
Date of Service February 19, 2020 Admission HPI Per Admitting Provider CHIEF COMPLAINT: Sepsis. HISTORY OF PRESENT ILLNESS: This is a 69-year-old female with past medical history significant for as mentioned in PMH and also GALLO liver cirrhosis, history of stage II breast cancer status post chemo and right partial mastectomy, history of arthropathy, history of neutropenic fever, sepsis, thrombocytopenia, psoriatic arthropathy, history of hepatocellular carcinoma status post IR, status post chemoembolization last time on 12/20/2019. Plan for repeat MRI in February. She lives with her . Ambulates with a walker, but ambulatory status is poor because of lower extremity edema. Diuretics are not helping much. The patient has a history of elevated ammonia, but that was better recently, as per patient and it was in 50s; last time checked was a couple of days ago, it was 57. So she is not taking any lactulose. Today her temperature was fine in the evening one hour later, it went up to 101 and she has so much shakiness. She is worried about the sepsis because of sepsis in the past and the EMS was called. When the EMS picked up she was on the wheelchair, and the wheelchair fell backwards and the patient hit her head and has some laceration on the back of the head. Initially when the patient was in the ER, she had some word finding difficulty, but that has resolved now. CT of the head is okay on preliminary report. Labs showed no leukocytosis, but her lactate was 3.5, ammonia was 171. Urine was positive. COVID-19 PCR is negative. Chest x-ray, no acute infiltrates. Currently, the patient is hemodynamically stable. She has a temperature spike of 38.8, her systolic blood pressure is in 110s currently, received fluid bolus.No blurred visions, no earache, has some runny nose from her allergies. No sore throat, no dysphagia, no loss of sense of smell or taste. Has Shortness of breath and cough, attributes to her asthma, with whitish phlegm. No chest pain. Currently, no nausea, no abdominal pain, no diarrhea or constipation, no blood in the stools, no hematuria, no burning micturitions, no increased frequency of urination. Has chronic swelling in the legs. No rash. Appetite is not that great since she was diagnosed with cancer. Admission Exam Per Admitting Provider GENERAL: The patient is obese, not in acute distress. VITAL SIGNS: Temperature 38.8, pulse 72, respiratory rate 18, blood pressure 109/58, oxygen 94% on room air. HEENT: No pallor, no icterus. Pupils equal, round, reactive to light. Extraocular muscles intact. NECK: No JVD, no neck masses seen. CARDIOVASCULAR: S1, S2 heard, regular rate and rhythm, no murmur, no gallop. RESPIRATORY SYSTEM: Normal AP diameter. No accessory muscle use. No wheezing, no crackles. ABDOMEN: Soft, bowel sounds present, nontender. No distention. CENTRAL NERVOUS SYSTEM: Alert and oriented. Speech is clear. Extraocular muscles intact. Obeys commands. Moves extremities. EXTREMITIES: Bilateral lower extremity gross edema present. Principal Diagnosis Sepsis from Urinary Tract Infection Hepatocellular carcinoma Hyperammonemia GALLO liver cirrhosis Chronic Bilateral Lower Extremity Edema Discharge Exam General- No acute distress Head- atraumatic Eyes- PERRL, EOMI, ENT- oropharynx clear Neck- supple, no JVD Lungs- clear to auscultation Heart- regular rhythm; no murmur Abdomen- normal bowel sounds, soft, nontender Extremities- no calf tenderness, +B/L LE edema Neuro- alert, oriented x 3; PERRL, EOMI; no facial palsy; no dysarthria Skin- warm & dry Discharge Data Allergies Allergy/AdvReac Type Severity Reaction Status Date / Time clarithromycin Allergy Severe RASH Verified 02/16/20 00:43 Penicillins Allergy Severe ANAPHYLACTIC Verified 02/16/20 00:43 SHOCK epinephrine Allergy Unknown THROAT Verified 02/16/20 00:43 SWELLING, PASSED OUT, HEART RACING montelukast Allergy Unknown PALPITATION Verified 02/16/20 00:43 S ceftriaxone [From Rocephin] Allergy Rash Verified 02/16/20 00:43 Consultations 02/16/20 04:19 Consult Case Management - Discharge Planning Routine 02/16/20 08:00 Consult Gastroenterology Routine Ordered Studies 02/15/20 22:36 CT head/brain wo con Urgent HEAD CT NONCONTRAST CT DOSE: 788.63 mGycm HISTORY: head injury, trouble word finding TECHNIQUE: Multiaxial CT images of the head were performed without the use of intravenous contrast. Automated exposure control was utilized for this study. A dose lowering technique was utilized adhering to the principles of ALARA. Comparison: None. Findings: The paranasal sinuses and mastoid air cells are clear. The calvarium and skull base are intact. The ventricles and sulci are within normal limits. There is no mass, hematoma, midline shift, or acute infarct. Left posterior scalp swelling with associated laceration. Impression: No acute intracranial abnormality. Left posterior scalp injury. ACT 112: Negative or not required by law. Electronically signed by: Yunior Rivera M.D. 02/16/2020 8:38 AM Dictated: 02/16/20 0837 Transcribed: 02/16/20836 XR chest 1V portable CLINICAL HISTORY: sepsis COMPARISON STUDY: Chest CT August 22, 2018. FINDINGS: Lung volumes are at the lower limits of normal. Linear left basilar o pacity suggests atelectasis. No pneumothorax is present. Note is made of a 2.9 cm right apical opacity. There is no evidence for pulmonary edema. Cardiac size is normal. Right breast surgical clips are noted. IMPRESSION: 2.9 cm right apical opacity which may reflect pneumonia, scarring or pulmonary nodule. Radiographic follow-up is recommended. This finding will be called/faxed to the floor at time of dictation. ACT 112: Negative or not required by law. Electronically signed by: Artemio Pritchard M.D. 02/16/2020 9:06 AM Dictated: 02/16/20 0900 Transcribed: 02/16/20 09 Hospital Course (1) Sepsis: Urinary Tract Infection -as per admitting physician: "This is a 69-year-old female who presents with sepsis. Sepsis, most likely secondary to urinary tract infection, history of septic shock in the past with E. coli sepsis. 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 Currently receiving Invanz in the ER which will continue and also add iv vancomycin. Monitor for any drug reactions. Follow the blood cultures and urine cultures. Lactic acid 3.5. -02/16/2020 daytime hospitalist updates: "Patient reports feeling like her usual self but that the rigors from the evening of admission and fever were the reasons why she came to the hospital on 02/15/2020. Patient also discusses with hospitalist that she has had poor overall diagnosis of Hepatocellular carcinoma and that despite interventions by oncology, that she was informed that in November 2019 that she has an estimated 6 months. to live. We discussed that at baseline, patient has elevated lactic acid levels above reference range persistently even in labs prior to this admission. Patient also chronically fluid overloaded and reports that the substantial bilateral lower extremity is chronic. Patient wishes to ambulate in the hospital and she find the hospital bed to be uncomfortable. Patient is anxious to know how long she will be in hospital for and hospitalist discussed with her an infection work up depends partly on results of admission blood cultures and that patient may be here for 2 more days. If infectious workup is not finding a source of infection, then symptoms could be related to malignancy." -02/17/2020: admission blood culture so far no growth to date but admission urine culture of Gram negative bacilli. antibiotics is to be continued as Invanz (ertapenem) for now, discontinued the IV Vancomycin -02/18/2020: admission urine cultures with E.coli with resistance to some antibiotics including fluoroquinolone. Is sensitive to macrobid but given that macrobid is not a strong urinary antibiotic, we discussed about continuing IV Ertapenem daily further. Patient's second urine analysis appears to be no bacteria but patient also was concerned whether she followed the steps to give a clean sample. The laboratory will send the urine to culture. Patient also agreeable to continue IV Ertapenem for now until these other results were to return to ensure eradication of E.coli in the urine prior to a hospital discharge to home. -02/19/20 Urine cx on 02/14 grew Ecoli sensitive with cephalosporin and macrobid, but resistance to fluoroquinolone and Bactrim. Penicillin and rocephin allergies. Pt lissett that she had Keflex in the past and tolerated well. Repeat urine cx no growth Will change abx to PO keflex to complete the course (2) Hepatocellular carcinoma: -as per Office Visit 02/13/2020 notes from Shannon Martinez MD (Hematology/Oncology) "Hepatocellular carcinoma - multiple enhancing lesions on 4-phase CT - s/p chemoembolization in IR on 04/04/19; reviewed possible risks of procedure and chemotherapy, including post-chemoembolization syndrome, liver dysfunction, fever, pain, infection, low risk of systemic complications from chemo (ie myelosuppression, which patient has had in past with systemic doxorubicin) - s/p microablation 04/19/19 - new/enlarging lesions - repeat microablation on 12/20/2019 - after patient IR hepatology not planning on any ablations. Planning for a repeat MRI in February. - patient has for function status, declining liver function, Child Pleitez class 3 -discussed Opdivo, she will think about it." Thrombocytopenia -chronic Hyperammonemia GALLO liver cirrhosis Chronic Bilateral Lower Extremity Edema Acute Kidney Injury -admission serum ammonia 176 -bowel regimen to decrease ammonia levels with lactulose and Xifaxan -her ammonia levels does not appear to be affecting her mental status -Lasix IV given on 02/16/2020, will resume home dose spironolactone as patient has chronic fluid overload from the appearance of her legs -continue spironolactone, Lasix oral 40 mg BID, patient has intermittently declined lactulose when offered by nursing staff -her ammonia labs have normalized and patient has been declining lactulose -serum electrolytes are at goal on 02/18/2020 labs but some rising creatinine to 1.43. continue to trend the creatinine. additional IV fluids not being given to minimize fluid overload. monitor with oral hydration. and hold the night time Lasix -Lasix resume on discharge -Continue Lactulose with goal to have at least 3 bowel movement x day (3) History of breast lump/mass excision: -as per Office Visit 02/13/2020 notes from Shannon Martinez MD (Hematology/Oncology) "Breast cancer -adjuvant chemo was not tolerated (s/p 1 cycle AC); s/p XRT - mammogram 08/2019 with KRISTEN - continue letrozole 2.5 mg daily" Arthritis -on methylprednisolone. 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 -sliding scale insulin with Lantus Morbid obesity Obstructive sleep apnea and nonadherent with CPAP use -she declined CPAP, reported to staff that she does not use CPAP at home for long time and she reports that she does not want to use CPAP while she is here inpatient Paroxysmal atrial Fibrillation -currently in sinu rhythm -continue on flecainide -give metoprolol as 25 mg BID for now before considering titrating to home dose 50 mg BID, based on vital signs as of 02/17/2020 continue metoprolol as 25 mg BID Deep venous thrombosis prophylaxis -SCDs Total Time Total Time Spent Total Time Spent (In Minutes): 35 minutes Total Time Includes: Examination of the Patient, Discharge Planning, Medication Reconciliation, Communication With Other Providers and Other Discharge Plan Discharge Items Patient Disposition: Home - Self-Care Reason For Visit: SEPSIS Discharge Diagnosis: Sepsis from Urinary Tract Infection Hepatocellular carcinoma Hyperammonemia GALLO liver cirrhosis Chronic Bilateral Lower Extremity Edema Activity: Resume your previous activity Non-emergency contact: Primary Care Provider Call non-emergency contact if: you have any medication questions and your temperature is above 101 Follow-up/Referrals: Maria Guadalupe Duke MD [Physician] - 02/27/20 11:20 am (02/27/2020 11:20 AM Provider Maria Guadalupe Duke MD Department General Internal Medicine [facility] ) Renaldo Duke MD [Primary Care Provider] - Diet: Low Sodium (2gm) Addtl Attending Provider Instructions: Follow up with your primary care provider Dr. Duke on 02/27/20 @ 11:20 AM Follow up [address] [facility]. Yury Staton at [facility] Hepatology Complete the course of the antibiotic with Keflex Continue Lactulose with the goal to have at least 3 bowel movements per day Metoprolol decrease to 25mg twice a day Pending Studies at Discharge: No Stand-Alone Forms: My [employer], Smoking Cessation Medications and DC Order Prescriptions: New Xifaxan 550 mg Tablet 550 mg PO BID 30 Days Qty: 60 RF: 0 lactulose 20 gram/30 mL solution 20 g PO TID Qty: 2880 RF: 0 cephalexin 500 mg Capsule 500 mg PO BID Qty: 4 RF: 0 Continued letrozole 2.5 mg tablet 2.5 mg PO DAILY RF: 0 methylprednisolone 4 mg tablet 4 mg PO BID RF: 0 flecainide 100 mg tablet 1 tab PO BID RF: 0 omeprazole 20 mg capsule,delayed release(DR/EC) 1 cap PO QAM RF: 0 multivitamin Tablet 1 tab PO DAILY RF: 0 promethazine 25 mg tablet 25 mg PO Q8H PRN (Reason: Nausea) RF: 0 levalbuterol tartrate [Xopenex HFA] 45 mcg/actuation Hfa Aerosol Inhaler 2 inh INHALATION BID RF: 0 cholecalciferol (vitamin D3) 3,000 unit Tablet 3,000 unit PO DAILY RF: 0 furosemide 40 mg tablet 40 mg PO BID RF: 0 tramadol 50 mg tablet 50 - 100 mg PO Q6 PRN (Reason: Pain) RF: 0 spironolactone 50 mg tablet 50 mg PO DAILY RF: 0 Basaglar AmeliaPen U-100 Insulin 100 unit/mL (3 mL) insulin pen 20 unit SUBCUT HS RF: 0 Changed metoprolol tartrate [Lopressor] 50 mg tablet 25 mg PO BID Qty: 0 RF: 0 Discharge Orders: Discharge Order (Routine); Ordered 02/19/20 Ordered By: Lewis Hicks Admission Data Admit Date/Time: 02/16/20 02:13 Attending Provider: Lewis Hicks Admit Provider: Allen Stanley Primary Care Provider: Renaldo Duke Other Providers: Tyra Sarmiento ; Gisselle Johnson ; Sony Zepeda ; Dahlia Martinez ; Chong Ansari ; Etienne Grimes ; Anup Whitten ; Yany Iqbal ; Stephane Ash ; Eric Sotomayor ; Simi Brooks ; Renee Waterman ; Sera Gonzalez ; Renetta Obregon ; Chris Louise ; Shin Hopper Other Interventions: Discharge Summary Assessment (RN) Last Done: 02/19/20 17:21
== END 2020-02-19 17:52 | disposition home or self-care (01) ==
LOC: ED 22:06 → SUATTDRO 02-16 02:13 → 2S 02-16 02:13 → INTOOBSV 02-16 02:13 → 2S 02-16 03:56

== ENCOUNTER 2020-03-19 17:54 | Inpatient (IN) ==
--- NOTE | 2020-03-19 18:34 | Emergency Department Note ---
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 The patient does have a known history of breast and liver CA and is on current by mouth chemotherapy. Patient does not have any recent falls but had fallen last month and the patient does have significant bruising and skin tears. Patient does follow with her primary GI and hepatology folks at [facility] in [place]. The patient does receive biweekly paracenteses. The patient denies any abdominal pain, or vomiting. The patient has had some associated nausea decreased urine output decreased p.o. intake. Patient does not complain of any abdominal pains. Patient states that she has been compliant with her medications and really did increase her dose of Lasix and is currently on Aldactone. The patient did recently finish a course of Keflex for cellulitis. ROS: See HPI for pertinent positives and negatives. A total of 10 systems were reviewed and otherwise negative. Past medical history: See below Surgical history: See below Social history: See below Physical Exam: GENERAL: Mildly ill in appearance, wearing nasal cannula. EYE EXAM: Mild bilateral scleral icterus noted. PERRL, no anisocoria and EOM's grossly intact w/o pain. NECK: Supple, no nuchal rigidity, no adenopathy, non-tender. No signs of meningismus. LUNGS: Clear to auscultation. Normal chest wall mechanics. HEART: NSR, no MRG. ABDOMEN: Abdomen soft, full, without pain, normo-active bowel sounds, no masses, no rebound or guarding. BACK: No CVA TTP. SKIN: Cellulitic blanching redness over the majority of the right lower extremity without crepitus or fluctuance. Significant bruising over the posterior aspect of the left upper extremity with skin tears. UPPER EXTREMITIES: Upper extremities are grossly normal. LOWER EXTREMITIES: Cellulitic change her right lower extremity and bilateral lower extremity edema bilaterally. NEURO EXAM: A&O x3, cranial nerves II-XII grossly intact, normal speech, moves all 4 extremities on command w/o issue. Differential diagnoses: Infection, dehydration, metabolic abnormality, hypo/hyperglycemia, electrolyte disturbance, anemia, hypoxia, cardiac sources, intracerebral event, toxicologic, neurologic, as well as other pathologies. Course: Patient was seen and evaluated the bedside. Full history physical exam was performed. EKG: Indication: Weakness Imaging Studies: Radiology results as stated below per my review in the radiologist's in terpretation: XR chest 1V portable HISTORY: 69 years-old Female SEPSIS acute sepsis COMPARISON: Chest radiograph 02/15/2020, chest CT 08/22/2018 TECHNIQUE: Portable AP view of the chest FINDINGS: Cardiac silhouette is upper limits of normal in size. Mediastinal contours are normal. No pneumothorax, large pleural effusion or overt pulmonary edema. Unchanged 3 cm right apical opacity. Surgical clips project over the right axilla. Degenerative changes of the shoulders and spine. IMPRESSION: 1. No acute process. 2. 3 cm right apical opacity redemonstrated suggestive of scarring versus pulmonary nodule. This could be correlated with a follow-up nonemergent CT of the chest. ACT 112: Negative or not required by law. The above report was generated using voice recognition software. It may contain grammatical, syntax or spelling errors. Electronically signed by: Rajinder Carey M.D. 03/19/2020 7:33 PM Dictated: 03/19/201930 Transcribed: 03/19/201930 CT head/brain wo con CLINICAL HISTORY: confusion COMPARISON STUDY: 02/15/2020 TECHNIQUE: Axial CT of the brain is performed from the vertex to the skull base. IV contrast was not administered for this examination. A dose lowering technique was utilized adhering to the principles of ALARA. CT DOSE: 614.27 mGy.cm FINDINGS: No intra or extra-axial mass lesions are visualized. There is no CT evidence of acute cortical infarction. There is no evidence of midline shift. There is no acute hemorrhage. No calvarial fractures are visualized. There are patchy white matter hypodensities likely on a small vessel basis. There is no evidence of pathologic ventricular dilatation. There is no evidence of acute sinusitis IMPRESSION: No acute intracranial findings ACT 112: Negative or not required by law. Electronically signed by: Benji Evans M.D. 03/20/2020 6:55 AM Dictated: 03/20/20653 Transcribed: 09/25/20 0654 Cardiac monitoring: An order was placed for continuous cardiac monitoring. The monitor shows a rate of 65 with sinus rhythm. Procedures: Limited Point of Care Procedural Ultrasound performed by me: Indication: Difficult intravenous access for blood work Procedure: Peripheral left upper extremity IV 18-gauge long catheter Findings: Limited ultrasonography of the left upper extremity was performed and identified the vein. Impression: IV established and blood work obtained. MDM: Patient was seen due to concern for confusion. Blood work was obtained with a CT of the head EKG and cultures. Patient was ordered vancomycin due to the concern for or cellulitic change. Patient has a normal white count mild anemia at 11.9. The patient's platelet count is low and this is chronic and stable at 69,000. Patient declined vancomycin and clindamycin was ordered. The patient does have some mild kidney dysfunction. The patient did receive some IV fluids. Mildly elevated lactate with associated hyperbilirubinemia likely consistent with the patient's history of liver cirrhosis and cancer. I did speak the on-call hospitalist and spoke with Dr. Hernandez. The patient was subsequently made to the medicine service. She the head is negative. The patient may have some confusion secondary to infection in addition to her mild hyper uremia. I did discuss the possibility of SBP the patient has no abdominal pain no fever and the patient does have an alternative source of infection. 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 Liver mass Morbid obesity Psoriatic arthritis Surgical History H/O: hysterectomy History of breast lump/mass excision Hx of appendectomy Family History Other Colon cancer Pancreatic cancer Social History Smoking Status: Never smoker Hx Alcohol Use: No Hx Substance Use: No Preferred Language: Spanish Communication Ability: Effective Photographer Aerial Required: No Beliefs That Will Affect Care: None Current Living Situation: Spouse Other Information That Helps Us Care for You: No Feels Safe at Home: Yes Safety Concerns: Feels Safe At This Time Assistive Devices: Glasses and Oxygen - Continuous Allergies Allergies Allergy/AdvReac Type Severity Reaction Status Date / Time clarithromycin Allergy Severe RASH Verified 03/19/20 20:37 epinephrine Allergy Severe THROAT Verified 03/19/20 20:37 SWELLING, PASSED OUT, HEART RACING Penicillins Allergy Severe ANAPHYLACTIC Verified 03/19/20 20:37 SHOCK ceftriaxone [From Rocephin] Allergy Mild Rash Verified 03/19/20 20:37 Calcium Channel Blocking AdvReac Severe CAUSES Verified 03/19/20 20:37 Agent Dilt CONGESTIVE HEART FAILURE montelukast AdvReac Intermediate PALPITATION Verified 03/19/20 20:37 S Home Meds Home Medications Medication Instructions Recorded Confirmed cholecalciferol (vitamin D3) 3,000 unit PO DAILY 08/22/18 03/19/20 flecainide 1 tab PO BID 08/22/18 03/19/20 levalbuterol tartrate [Xopenex HFA] 2 inh INHALATION .Q4-6H PRN 08/22/18 03/19/20 methylprednisolone 4 mg PO BID 08/22/18 03/19/20 multivitamin 1 tab PO DAILY 08/22/18 03/19/20 omeprazole 1 cap PO QAM 08/22/18 03/19/20 letrozole 2.5 mg tablet 2.5 mg PO DAILY 09/26/18 03/19/20 Basaglar KwikPen U-100 Insulin 20 unit SUBCUT HS 02/16/20 03/19/20 furosemide 80 mg PO DAILY 02/16/20 03/19/20 spironolactone 50 mg PO DAILY 02/16/20 03/19/20 furosemide 40 mg PO HS 03/19/20 03/19/20 insulin aspart U-100 [Novolog See Rx Instructions .ROUTE .COMPLEX 03/19/20 03/19/20 Flexpen U-100 Insulin] lactulose 20 g PO TID PRN 03/19/20 03/19/20 metoprolol tartrate [Lopressor] 50 mg PO BID 03/19/20 03/19/20 oxycodone 10 mg PO Q6H PRN 03/19/20 03/19/20 sennosides-docusate sodium 2 tab-cap PO HS 03/19/20 03/19/20 [Senna-S] tramadol 50 - 100 mg PO Q6H PRN 03/19/20 03/19/20 Results & Data (ED) Vital Signs Vital Signs - 24 hr 03/19/20 18:03 03/19/20 18:33 03/19/20 19:03 Temperature 36.7 C Temperature Source Oral Pulse Rate 65 Pulse Rate [Left Brachial] 69 Pulse Rhythm Regular Pulse Strength Normal Respiratory Rate 22 16 Respiratory Effort / Characteristics Non-Labored Non-Labored Respiratory Depth Normal Blood Pressure 114/59 L Blood Pressure [Left Arm] 114/59 L Blood Pressure Mean 77 Blood Pressure Mean [Left Arm] 77 Blood Pressure Position Lying Pulse Oximetry 98 2 L Oxygen Delivery Method Nasal Cannula Nasal Cannula Oxygen Flow Rate 2 3 Sepsis Recent Fever Within 48 Hours No Sepsis New/Unexplained Change in Mental Status Yes Sepsis Action Taken by Nursing No Action Required 03/19/20 19:30 03/19/20 20:00 03/19/20 20:02 Temperature Temperature Source Pulse Rate Pulse Rate [Left Brachial] 63 Pulse Rhythm Pulse Strength Respiratory Rate 16 Respiratory Effort / Characteristics Non-Labored Non-Labored Non-Labored Respiratory Depth Normal Blood Pressure Blood Pressure [Left Arm] 115/62 Blood Pressure Mean Blood Pressure Mean [Left Arm] 79 Blood Pressure Position Pulse Oximetry 98 Oxygen Delivery Method Nasal Cannula Oxygen Flow Rate 3 Sepsis Recent Fever Within 48 Hours Sepsis New/Unexplained Change in Mental Status Sepsis Action Taken by Nursing 03/19/20 20:30 03/19/20 21:00 03/19/20 22:00 Temperature Temperature Source Pulse Rate Pulse Rate [Left Brachial] Pulse Rhythm Pulse Strength Respiratory Rate 16 Respiratory Effort / Characteristics Non-Labored Non-Labored Non-Labored Respiratory Depth Blood Pressure Blood Pressure [Left Arm] 165/88 H Blood Pressure Mean Blood Pressure Mean [Left Arm] 113 Blood Pressure Position Pulse Oximetry Oxygen Delivery Method Oxygen Flow Rate Sepsis Recent Fever Within 48 Hours Sepsis New/Unexplained Change in Mental Status Sepsis Action Taken by Nursing 03/19/20 22:30 03/19/20 23:28 Temperature Temperature Source Pulse Rate 65 Pulse Rate [Left Brachial] Pulse Rhythm Pulse Strength Respiratory Rate 18 Respiratory Effort / Characteristics Non-Labored Respiratory Depth Blood Pressure 145/89 H Blood Pressure [Left Arm] Blood Pressure Mean Blood Pressure Mean [Left Arm] Blood Pressure Position Pulse Oximetry 95 Oxygen Delivery Method Nasal Cannula Oxygen Flow Rate 3 Sepsis Recent Fever Within 48 Hours Sepsis New/Unexplained Change in Mental Status Sepsis Action Taken by Assisted Medications Current Medication List: was personally reviewed by me Laboratory Data Attestation: I reviewed the patient's lab results. Result diagrams: 03/20/20 09:49 03/20/20 09:49 Lab Results 03/19/20 03/19/20 03/19/20 Range/Units 20:27 20:27 20:27 WBC 10.56 (4.8-10.8) K/uL RBC 3.32 L (4.2-5.4) M/uL Hgb 11.9 L (12.0-16.0) g/dL Hct 34.0 L (37-47) % MCV 102.4 H (80-100) fL MCH 35.8 H (25-34) pg MCHC 35.0 (32-36) g/dL RDW Std Deviation 71.1 H (36.4-46.3) fL RDW Coeff of Mechelle 19.2 H (11.5-14.5) % Plt Count 69 L (130-400) K/uL MPV 9.9 (7.4-10.4) fL Immature Gran % (Auto) 0.3 % Neut % (Auto) 92.6 % Lymph % (Auto) 4.6 % Owen % (Auto) 1.5 % Eos % (Auto) 0.9 % Baso % (Auto) 0.1 % Neut # (Auto) 9.78 H (1.4-6.5) K/uL Lymph # (Auto) 0.49 L (1.2-3.4) K/uL Owen # (Auto) 0.16 (0.11-0.59) K/uL Eos # (Auto) 0.09 (0-0.5) K/uL Baso # (Auto) 0.01 (0-0.2) K/uL Immature Gran # (Auto) 0.03 H (0.00-0.02) K/uL PT (9.0-12.0) Seconds INR (0.9-1.1) APTT (21.0-31.0) Seconds PTT Ratio Sodium (136-145) mmol/L Potassium (3.5-5.1) mmol/L Chloride (98-107) mmol/L Carbon Dioxide (21-32) mmol/L Anion Gap (3-11) BUN (7-18) mg/dl Creatinine (0.6-1.2) mg/dl Est Cr Clr Drug Dosing ml/min Est GFR ( Amer) Est GFR (Non-Af Amer) BUN/Creatinine Ratio (10-20) Glucose (70-99) mg/dl Lactate (0.4-2.0) mmol/L Calcium (8.5-10.1) mg/dl Magnesium (1.8-2.4) mg/dl Total Bilirubin (0.2-1) mg/dl AST (15-37) U/L ALT (12-78) U/L Alkaline Phosphatase (45-117) U/L Ammonia < 10.0 L (11-32) umol/L Troponin I (0-0.045) ng/ml Total Protein (6.4-8.2) gm/dl Albumin (3.4-5.0) gm/dl Globulin (2.5-4.0) gm/dl Albumin/Globulin Ratio (0.9-2) Procalcitonin 1.64 H (0-0.5) ng/ml Urine Color Urine Appearance (Clear) Urine pH (4.5-7.5) Ur Specific [place] (1.000-1.030) Urine Protein (Negative) Urine Glucose (UA) (Negative) Urine Ketones (Negative) Urine Blood (Negative) Urine Nitrite (Negative) Urine Bilirubin (Negative) Urine Urobilinogen (Negative) Ur Leukocyte Esterase (Negative) Urine WBC (Auto) (0-5) /hpf Urine RBC (Auto) (0-4) /hpf U Hyaline Cast (Auto) (0-5) /lpf U Epithel Cells (Auto) (0-5) /lpf Urine Bacteria (Auto) (Negative) 03/19/20 03/19/20 03/19/20 Range/Units 20:27 20:27 20:27 WBC (4.8-10.8) K/uL RBC (4.2-5.4) M/uL Hgb (12.0-16.0) g/dL Hct (37-47) % MCV (80-100) fL MCH (25-34) pg MCHC (32-36) g/dL RDW Std Deviation (36.4-46.3) fL RDW Coeff of Mechelle (11.5-14.5) % Plt Count (130-400) K/uL MPV (7.4-10.4) fL Immature Gran % (Auto) % Neut % (Auto) % Lymph % (Auto) % Owen % (Auto) % Eos % (Auto) % Baso % (Auto) % Neut # (Auto) (1.4-6.5) K/uL Lymph # (Auto) (1.2-3.4) K/uL Owen # (Auto) (0.11-0.59) K/uL Eos # (Auto) (0-0.5) K/uL Baso # (Auto) (0-0.2) K/uL Immature Gran # (Auto) (0.00-0.02) K/uL PT 16.4 H (9.0-12.0) Seconds INR 1.6 H (0.9-1.1) APTT 29.1 (21.0-31.0) Seconds PTT Ratio 1.0 Sodium 137 (136-145) mmol/L Potassium 4.0 (3.5-5.1) mmol/L Chloride 101 (98-107) mmol/L Carbon Dioxide 26 (21-32) mmol/L Anion Gap 10.0 (3-11) BUN 86 H (7-18) mg/dl Creatinine 2.55 H (0.6-1.2) mg/dl Est Cr Clr Drug Dosing 33.8 ml/min Est GFR ( Amer) 21.8 Est GFR (Non-Af Amer) 18.8 BUN/Creatinine Ratio 33.8 H (10-20) Glucose 71 (70-99) mg/dl Lactate 2.7 H* (0.4-2.0) mmol/L Calcium 9.3 (8.5-10.1) mg/dl Magnesium 2.3 (1.8-2.4) mg/dl Total Bilirubin 5.7 H (0.2-1) mg/dl AST 104 H (15-37) U/L ALT 46 (12-78) U/L Alkaline Phosphatase 183 H (45-117) U/L Ammonia (11-32) umol/L Troponin I < 0.015 (0-0.045) ng/ml Total Protein 6.2 L (6.4-8.2) gm/dl Albumin 1.8 L (3.4-5.0) gm/dl Globulin 4.4 H (2.5-4.0) gm/dl Albumin/Globulin Ratio 0.4 L (0.9-2) Procalcitonin (0-0.5) ng/ml Urine Color Urine Appearance (Clear) Urine pH (4.5-7.5) Ur Specific [place] (1.000-1.030) Urine Protein (Negative) Urine Glucose (UA) (Negative) Urine Ketones (Negative) Urine Blood (Negative) Urine Nitrite (Negative) Urine Bilirubin (Negative) Urine Urobilinogen (Negative) Ur Leukocyte Esterase (Negative) Urine WBC (Auto) (0-5) /hpf Urine RBC (Auto) (0-4) /hpf U Hyaline Cast (Auto) (0-5) /lpf U Epithel Cells (Auto) (0-5) /lpf Urine Bacteria (Auto) (Negative) 03/19/20 03/19/20 Range/Units 21:50 22:17 WBC (4.8-10.8) K/uL RBC (4.2-5.4) M/uL Hgb (12.0-16.0) g/dL Hct (37-47) % MCV (80-100) fL MCH (25-34) pg MCHC (32-36) g/dL RDW Std Deviation (36.4-46.3) fL RDW Coeff of Mechelle (11.5-14.5) % Plt Count (130-400) K/uL MPV (7.4-10.4) fL Immature Gran % (Auto) % Neut % (Auto) % Lymph % (Auto) % Owen % (Auto) % Eos % (Auto) % Baso % (Auto) % Neut # (Auto) (1.4-6.5) K/uL Lymph # (Auto) (1.2-3.4) K/uL Owen # (Auto) (0.11-0.59) K/uL Eos # (Auto) (0-0.5) K/uL Baso # (Auto) (0-0.2) K/uL Immature Gran # (Auto) (0.00-0.02) K/uL PT (9.0-12.0) Seconds INR (0.9-1.1) APTT (21.0-31.0) Seconds PTT Ratio Sodium (136-145) mmol/L Potassium (3.5-5.1) mmol/L Chloride (98-107) mmol/L Carbon Dioxide (21-32) mmol/L Anion Gap (3-11) BUN (7-18) mg/dl Creatinine (0.6-1.2) mg/dl Est Cr Clr Drug Dosing ml/min Est GFR ( Amer) Est GFR (Non-Af Amer) BUN/Creatinine Ratio (10-20) Glucose (70-99) mg/dl Lactate Cancelled (0.4-2.0) mmol/L Calcium (8.5-10.1) mg/dl Magnesium (1.8-2.4) mg/dl Total Bilirubin (0.2-1) mg/dl AST (15-37) U/L ALT (12-78) U/L Alkaline Phosphatase (45-117) U/L Ammonia (11-32) umol/L Troponin I (0-0.045) ng/ml Total Protein (6.4-8.2) gm/dl Albumin (3.4-5.0) gm/dl Globulin (2.5-4.0) gm/dl Albumin/Globulin Ratio (0.9-2) Procalcitonin (0-0.5) ng/ml Urine Color Dark Yellow Urine Appearance Clear (Clear) Urine pH 5.0 (4.5-7.5) Ur Specific [place] 1.017 (1.000-1.030) Urine Protein Negative (Negative) Urine Glucose (UA) Negative (Negative) Urine Ketones Negative (Negative) Urine Blood Negative (Negative) Urine Nitrite Negative (Negative) Urine Bilirubin 1+ H (Negative) Urine Urobilinogen Negative (Negative) Ur Leukocyte Esterase Trace H (Negative) Urine WBC (Auto) 1-5 (0-5) /hpf Urine RBC (Auto) 5-10 H (0-4) /hpf U Hyaline Cast (Auto) >30 H (0-5) /lpf U Epithel Cells (Auto) 5-10 H (0-5) /lpf Urine Bacteria (Auto) Negative (Negative) Administered Medications Flecainide Acetate (Flecainide Acetate 100 Mg Tablet) 100 mg PO BID [facility] Stop: 04/19/20 08:59 Last Admin: 03/20/20 06:33 Dose: 100 mg Documented by: [id number] Albumin Human (Albumin 25%) 50 mls @ 50 mls/hr IV Q6H NIMISHA Stop: 03/23/20 00:00 Last Infusion: 03/20/20 13:49 Dose: 0 mls/hr Documented by: [id number] Admin: 03/20/20 12:42 Dose: 50 mls/hr Documented by: [id number] Infusion: 03/20/20 06:36 Dose: 0 mls/hr Documented by: [id number] Admin: 03/20/20 05:35 Dose: 50 mls/hr Documented by: [id number] Infusion: 03/20/20 01:50 Dose: 0 mls/hr Documented by: [id number] Admin: 03/20/20 00:48 Dose: 50 mls/hr Documented by: [id number] Imipenem/Cilastatin Sodium 300 (mg/ Dextrose) 112 mls @ 100 mls/hr IV Q6H NIMISHA; Protocol Stop: 03/27/20 00:59 Last Admin: 03/20/20 14:22 Dose: 100 mls/hr Documented by: [id number] Infusion: 03/20/20 11:15 Dose: 0 mls/hr Documented by: [id number] Admin: 03/20/20 09:26 Dose: 100 mls/hr Documented by: [id number] Infusion: 03/20/20 02:03 Dose: 0 mls/hr Documented by: [id number] Admin: 03/20/20 00:52 Dose: 100 mls/hr Documented by: [id number] Doxycycline Hyclate 100 mg/ (Dextrose) 110 mls @ 50 mls/hr IV Q12H NIMISHA Stop: 03/27/20 00:00 Last Infusion: 03/20/20 13:49 Dose: 0 mls/hr Documented by: [id number] Admin: 03/20/20 11:11 Dose: 50 mls/hr Documented by: [id number] Infusion: 03/20/20 03:50 Dose: 0 mls/hr Documented by: [id number] Admin: 03/20/20 01:35 Dose: 50 mls/hr Documented by: [id number] Insulin Aspart (Insulin Aspart 100 Units/Ml 3 Ml Pen) 0 units SC ACHS NIMISHA Stop: 04/19/20 07:29 Last Admin: 03/20/20 13:22 Dose: Not Given Documented by: [id number] Cosigned by: [id number] Admin: 03/20/20 08:37 Dose: Not Given Documented by: [id number] Cosigned by: [id number] Letrozole (Letrozole 2.5 Mg Tab) 2.5 mg PO DAILY NIMISHA Stop: 04/19/20 08:59 Last Admin: 03/20/20 08:36 Dose: 2.5 mg Documented by: [id number] Cosigned by: [id number] Methylprednisolone (Methylprednisolone 4 Mg Tab) 4 mg PO BID NIMISHA Stop: 04/19/20 08:59 Last Admin: 03/20/20 08:36 Dose: 4 mg Documented by: [id number] Metoprolol Tartrate (Metoprolol Tartrate 50 Mg Tab) 50 mg PO BID NIMISHA Stop: 04/19/20 08:59 Last Admin: 03/20/20 06:33 Dose: 50 mg Documented by: [id number] Pantoprazole Sodium (Pantoprazole 40 Mg Tab) 40 mg PO QAM NIMISHA Stop: 04/19/20 08:59 Last Admin: 03/20/20 08:36 Dose: 40 mg Documented by: [id number] Discontinued Medications Vancomycin HCl 2,750 mg/ (Sodium Chloride) 555 mls @ 200 mls/hr IV NOW ONE Stop: 03/19/20 23:58 Last Admin: 03/19/20 22:50 Dose: Not Given Documented by: [id number] Sodium Chloride (Nss 1000ml) 500 mls @ 999 mls/hr IV .Q31M ONE Stop: 03/19/20 21:42 Last Infusion: 03/19/20 23:59 Dose: 0 mls/hr Documented by: [id number] Admin: 03/19/20 21:32 Dose: 999 mls/hr Documented by: [id number] Clindamycin Phosphate 600 mg/ (Dextrose) 54 mls @ 100 mls/hr IV Q8H NIMISHA Stop: 03/19/20 22:18 Last Infusion: 03/19/20 23:59 Dose: 0 mls/hr Documented by: [id number] Admin: 03/19/20 23:13 Dose: 100 mls/hr Documented by: [id number] Discharge Plan Visit Data Chief Complaint: Altered Mental Status Stated Complaint: CONFUSION, WEAKNESS ED Provider: Ronn Hudson Discharge Problem: 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
--- NOTE | 2020-03-19 19:34 | XRay Report ---
XR chest 1V portable HISTORY: 69 years-old Female SEPSIS acute sepsis COMPARISON: Chest radiograph 02/15/2020, chest CT 08/22/2018 TECHNIQUE: Portable AP view of the chest FINDINGS: Cardiac silhouette is upper limits of normal in size. Mediastinal contours are normal. No pneumothora x, large pleural effusion or overt pulmonary edema. Unchanged 3 cm right apical opacity. Surgical cli ps project over the right axilla. Degenerative changes of the shoulders and spine. IMPRESSION: 1. No acute process. 2. 3 cm right apical opacity redemonstrated suggestive of scarring versus pulmonary nodule. This coul d be correlated with a follow-up nonemergent CT of the chest. ACT 112: Negative or not required by law. The above report was generated using voice recognition software. It may contain grammatical, syntax o r spelling errors. Electronically signed by: Rajinder Carey M.D. 03/19/2020 7:33 PM
[2020-03-19 20:37] LABS: Hemoglobin 11.9 g/dL (12.0-16.0); Mean Corpuscular Hemoglobin 35.8 pg (25-34); Mean Corpuscular Volume 102.4 fL (80-100); RDW Coefficient of Variation 19.2 % (11.5-14.5); RDW Standard Deviation 71.1 fL (36.4-46.3); Red Blood Count 3.32 M/uL (4.2-5.4); White Blood Count 10.56 K/uL (4.8-10.8)
[2020-03-19 20:38] LABS: Mean Platelet Volume 9.9 fL (7.4-10.4); Platelet Count 69 K/uL (130-400)
[2020-03-19 20:49] LABS: INR 1.6 (0.9-1.1); Partial Thromboplastin Time 29.1 Seconds (21.0-31.0); Prothrombin Time 16.4 Seconds (9.0-12.0)
[2020-03-19 21:05] LABS: Alanine Aminotransferase 46 U/L (12-78); Albumin Globulin Ratio 0.4 (0.9-2); Albumin Level 1.8 gm/dl (3.4-5.0); Alkaline Phosphatase 183 U/L (45-117); Aspartate Aminotransferase 104 U/L (15-37); BUN Creatinine Ratio 33.8 (10-20); Bilirubin,Total 5.7 mg/dl (0.2-1); Blood Urea Nitrogen 86 mg/dl (7-18); Calcium 9.3 mg/dl (8.5-10.1); Carbon Dioxide 26 mmol/L (21-32); Chloride 101 mmol/L (98-107); Creatinine Clr Calc Pharmacy 33.8 ml/min; Est GFR (African American) 21.8; Est GFR (Non-African American) 18.8; Globulin 4.4 gm/dl (2.5-4.0); Glucose 71 mg/dl (70-99); Magnesium 2.3 mg/dl (1.8-2.4); Sodium 137 mmol/L (136-145); Total Protein 6.2 gm/dl (6.4-8.2); Troponin I < 0.015 ng/ml (0-0.045)
[2020-03-19] MEDS ORDERED: SODIUM CHLORIDE 0.9% 1000ML 500 ML IV ONE (21:12)
[2020-03-19] MEDS ORDERED: VANCOMYCIN HCL 2,750 MG in SODIUM CHLORIDE 0.9% 500 ML IV ONE (21:12)
[2020-03-19] MEDS ORDERED: VANCOMYCIN CONSULT ACTIVE PRN (21:12)
[2020-03-19 21:13] LABS: Basophils # (auto) 0.01 K/uL (0-0.2); Basophils % (auto) 0.1 %; Eosinophils # (auto) 0.09 K/uL (0-0.5); Eosinophils % (auto) 0.9 %; Immature Granulocytes # (auto) 0.03 K/uL (0.00-0.02); Immature Granulocytes % (auto) 0.3 %; Lymphocytes # (auto) 0.49 K/uL (1.2-3.4); Lymphocytes % (auto) 4.6 %; Monocytes # (auto) 0.16 K/uL (0.11-0.59); Monocytes % (auto) 1.5 %; Neutrophils # (auto) 9.78 K/uL (1.4-6.5); Neutrophils % (auto) 92.6 %
[2020-03-19] MEDS ORDERED: CLINDAMYCIN 600 MG in DEXTROSE 5% 50 ML IV SCH (21:45)
[2020-03-19 22:09] LABS: Appearance Urine Clear (Clear); Bacteria Urine Automated Negative (Negative); Blood Urine Negative (Negative); Color Urine Dark Yellow; Glucose Urine UA Negative (Negative); Ketones Urine Negative (Negative); Leukocyte Esterase Urine Trace (Negative); Nitrite Urine Negative (Negative); Protein Urine Negative (Negative); Specific Gravity Urine 1.017 (1.000-1.030); Urobilinogen Urine Negative (Negative)
[2020-03-19 22:38] LABS: Bilirubin Urine 1+ (Negative)
[2020-03-19 22:39] LABS: Ictotest Urine Positive (Negative)
[2020-03-19 22:42] LABS: Cast Urine Automated >30 /lpf (0-5)
--- NOTE | 2020-03-19 23:31 | History & Physical Report ---
Date of Service March 19, 2020 Assessment & Plan (1) DARCIE (acute kidney injury): -Admit to [facility] with telemetry -Patient presenting from home with reports of generalized weakness -In the ED, found to have creatinine 2.5; patient records reviewed, creatinine has been slowly increasing 1.0 on 02/12 -> 1.6 on 02/26 -Diuretics increased on 03/06 per PCP -Likely multifactorial secondary to increased diuretic dosing, intravascular volume depletion, suspected hepatorenal syndrome -Given underlying liver disease, will give albumin IV every 6 hours -Nephrology consult, input appreciated (2) 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 Will consult GI, however patient seems to be end-stage poor prognosis. Consider palliative evaluation. (6) Cellulitis: -RLE cellulitis, recently treated as an outpatient with Keflex -Still has significant erythema on exam -Given patient's allergies, will start imipenem and doxycycline (7) Elevated INR: -Coagulopathy due to underlying liver disease -INR 1.6 -CBC stable (8) Elevated lactic acid level: -Lactic acid 2.7 -Seems to have chronic elevation -Does not appear septic (9) Psoriatic arthritis: -Continue methylprednisolone (10) DM type 2 (diabetes mellitus, type 2): -Hgb A1c 5.8 11/2019 -Glucose 71 on labs, will hold Lantus for now and utilize NovoLog as needed (11) Atrial fibrillation: -Rate controlled on metoprolol, rhythm controlled on flecainide -Not a candidate for anticoagulation (12) DVT prophylaxis: -SCDs due to coagulopathy History of Present Illness Chief Complaint: Generalized weakness Primary Care Provider: Maria Guadalupe Duke MD 69-year-old female with PMH DM type II on insulin, atrial fibrillation, GALLO with esophageal varices and ascites, hepatocellular carcinoma, breast cancer, psoriatic arthritis, and other problems listed below who presents the ED for e valuation of generalized weakness. Patient recently admitted to [facility] 02/15 through 02/18 for management of sepsis due to UTI. Patient reports having generalized weakness since her recent hospital admission however weakness became acutely worse a couple days ago. Patient also suffered a fall about 1 week ago. Patient reports she was ambulating about 50 feet with a walker however this morning she was unable to lift her legs off the bed. She reports episodes of "brain fog". She reports that she has been using senna S for bowel movements for cirrhosis. Patient was seen by PCP on 02/26 and prescribed Keflex for RLE cellulitis. Reports that it has improved however there is still erythema present. On 03/06, PCP increased patient's Lasix to 80 mg in the morning and 40 mg in the evening for fluid management. Patient denies fevers and chills. She reports a very poor appetite however denies nausea, vomiting, diarrhea, abdominal pain. No chest pain or shortness of breath. Denies lightheadedness, dizziness, diaphoresis, syncopal events. No urinary symptoms. In the ED, patient is hemodynamically stable. Labs show creatinine 2.5 (up from 1.6 on 02/26), total bilirubin 5.7 (up from 2.7). Patient was given IVF and IV clindamycin for RLE cellulitis. Allergies Allergy/AdvReac Type Severity Reaction Status Date / Time clarithromycin Allergy Severe RASH Verified 03/19/20 20:37 epinephrine Allergy Severe THROAT Verified 03/19/20 20:37 SWELLING, PASSED OUT, HEART RACING Penicillins Allergy Severe ANAPHYLACTIC Verified 03/19/20 20:37 SHOCK ceftriaxone [From Rocephin] Allergy Mild Rash Verified 03/19/20 20:37 Calcium Channel Blocking AdvReac Severe CAUSES Verified 03/19/20 20:37 Agent Dilt CONGESTIVE HEART FAILURE montelukast AdvReac Intermediate PALPITATION Verified 03/19/20 20:37 S Home Medications Home Medications Medication Instructions Recorded Confirmed Type cholecalciferol (vitamin D3) 3,000 unit PO DAILY 08/22/18 03/19/20 History flecainide 1 tab PO BID 08/22/18 03/19/20 History levalbuterol tartrate [Xopenex HFA] 2 inh INHALATION .Q4-6H PRN 08/22/18 03/19/20 History methylprednisolone 4 mg PO BID 08/22/18 03/19/20 History multivitamin 1 tab PO DAILY 08/22/18 03/19/20 History omeprazole 1 cap PO QAM 08/22/18 03/19/20 History letrozole 2.5 mg tablet 2.5 mg PO DAILY 09/26/18 03/19/20 History Basaglar KwikPen U-100 Insulin 20 unit SUBCUT HS 02/16/20 03/19/20 History furosemide 80 mg PO DAILY 02/16/20 03/19/20 History spironolactone 50 mg PO DAILY 02/16/20 03/19/20 History furosemide 40 mg PO HS 03/19/20 03/19/20 History insulin aspart U-100 [Novolog See Rx Instructions .ROUTE .COMPLEX 03/19/20 03/19/20 History Flexpen U-100 Insulin] lactulose 20 g PO TID PRN 03/19/20 03/19/20 History metoprolol tartrate [Lopressor] 50 mg PO BID 03/19/20 03/19/20 History oxycodone 10 mg PO Q6H PRN 03/19/20 03/19/20 History sennosides-docusate sodium 2 tab-cap PO HS 03/19/20 03/19/20 History [Senna-S] tramadol 50 - 100 mg PO Q6H PRN 03/19/20 03/19/20 History Past Med/Surg History Medical History (Updated 03/19/20 @ 23:28 by MARKELL Jackson) Ascites Atrial fibrillation Breast cancer DM type 2 (diabetes mellitus, type 2) Esophageal varices Hepatocellular carcinoma s/p chemoembolization and microablation 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 Liver mass Morbid obesity Psoriatic arthritis Surgical History H/O: hysterectomy History of breast lump/mass excision Hx of appendectomy Family History Other Colon cancer Pancreatic cancer Social History Smoking Status: Never smoker Hx Alcohol Use: No Hx Substance Use: No Preferred Language: Eritrean Communication Ability: Effective Transfer Clerk Required: No Beliefs That Will Affect Care: None Current Living Situation: Spouse Feels Safe at Home: Yes Assistive Devices: Walker Review of Systems Review of Systems: ROS per HPI, all other systems reviewed and negative Physical Exam Physical Exam: please refer to Dr. Hernandez's addendum for physical exam Results & Data Results & Data ([facility]) Vital Signs (Past 12 Hours) Vital Signs Temp Pulse Pulse Resp BP BP Pulse Ox 03/19/20 22:00 16 165/88 H 03/19/20 20:02 63 16 115/62 98 03/19/20 18:33 69 16 114/59 L 2 L 03/19/20 18:03 36.7 C 65 22 114/59 L 98 Laboratory Results Short CBC 03/19/20 03/19/20 03/19/20 Range/Units 20:27 20:27 20:27 WBC 10.56 (4.8-10.8) K/uL Hgb 11.9 L (12.0-16.0) g/dL Hct 34.0 L (37-47) % Plt Count 69 L (130-400) K/uL INR 1.6 H (0.9-1.1) Total Bilirubin 5.7 H (0.2-1) mg/dl AST 104 H (15-37) U/L Alkaline Phosphatase 183 H (45-117) U/L BMP 03/19/20 20:27 Sodium 137 Potassium 4.0 Chloride 101 Carbon Dioxide 26 BUN 86 H Creatinine 2.55 H Glucose 71 Calcium 9.3 Cardiac Enzymes 03/19/20 Range/Units 20:27 Troponin I < 0.015 (0-0.045) ng/ml Liver Function 03/19/20 Range/Units 20:27 Total Bilirubin 5.7 H (0.2-1) mg/dl AST 104 H (15-37) U/L ALT 46 (12-78) U/L Alkaline Phosphatase 183 H (45-117) U/L Albumin 1.8 L (3.4-5.0) gm/dl Urine 03/19/20 Range/Units 21:50 Urine Color Dark Yellow Urine Appearance Clear (Clear) Urine pH 5.0 (4.5-7.5) Ur Specific Ingalls 1.017 (1.000-1.030) Urine Protein Negative (Negative) Urine Glucose (UA) Negative (Negative) Diagnostic Findings CXR IMPRESSION: 1. No acute process. 2. 3 cm right apical opacity redemonstrated suggestive of scarring versus pulmonary nodule. This could be correlated with a follow-up nonemergent CT of the chest. Code Status & VTE Plan Code Status Patient is a DNR as per my discussion with her. Supervising Physician Co-Signing Physician Notes Patient was seen and examined by me, care coordinated with MARKELL Jackson. Please see her note above for further details. Mrs. Taylor is a 69-year-old female with complex medical history, significant for hepatocellular carcinoma, breast ca, DM type 2, pAfib, HALIE on (occasional) CPAP, who follows with hepatology at [facility], and reportedly has paracentesis biweekly. She now presents with weakness, poor oral intake and decreased urine output. She was admitted in January, for UTI/ sepsis and hyperammonemia. Patient currently presents with her . States that she has been getting progressively weaker since her last admission. She has home health and home PT, and was using a walker at first after her discharge. Most recently however she has been having more difficulty walking and since yesterday evening she has been much weaker, she gets very emotional and upset that this morning she was unable to lift her legs. She also reports having cellulitis of her right lower extremity, for which she was treated with Keflex. In the ED, WBC 10.56 thousand, hemoglobin 11.9 which is stable. However creatinine elevated at 2.5, and BUN elevated at 86. INR 1.9. Her ammonia level is within normal limit, however procalcitonin elevated at 1.6. Chest x-ray was obtained in the emergency room and unremarkable, CT head is pending. She received clindamycin in ED for cellulitis coverage. Lactate 2.7 (seems to be chronically elevated). Received 500 cc of normal saline. UA ordered. Harris catheter was placed. Currently she is lying in bed, appears weak, however she is able to answer questions appropriately. She has significant ecchymosis over her body, reports from falls. She is obese and currently using oxygen via nasal cannula. Heart sounds regular, no murmur noted. Lung exam difficult, decreased breath sounds noted bilaterally, no wheezing. Abdomen is soft, positive bowel sounds, obese, nontender to palpation. She is able to move extremities with some difficulty especially lower extremities. She can bend her knees slowly however she cannot lift her legs up. Also her lower extremities are significantly edematous, per her lower extremity edema is actually better now. She has pedal edema about 3+ and overall edema 2-3+. Her right lower extremity is erythematous, per family erythema has decreased. Nontender to palpation. Patient is able to move upper extremities. We will start IV albumin, and empiric antibiotics (ertapenem, doxy) to cover for possible UTI and cellulitis. Will consult with nephrology pts worsening renal function. We will also obtain abdominal ultrasound, as patient is due for her regular paracentesis. She has no abdominal pain, and therefore we will hold off for paracentesis for now, ramin. given her DARCIE. Her current MELD score is 29, may need to consult further with GI. Blood cultures are currently pending. Unfortunately given her complex medical history, prognosis is poor. Discussed her CODE STATUS and patient is clear about being DNR. She also states that she would not want to burden her or her daughter with any decisions regarding her CODE STATUS, and she wants medical team to follow her written wishes. Giles Hernandez MD (1) Atrial fibrillation Atrial fibrillation type: chronic Qualified Code(s): I48.2 - Chronic atrial fibrillation
[2020-03-19] MEDS ORDERED: GLUCOSE 40% GEL 15 GM TUBE PO PRN (23:55)
[2020-03-19] MEDS ORDERED: IMIPENEM/CILASTATIN CONSULT ACTIVE PRN (23:55)
[2020-03-19] MEDS ORDERED: DEXTROSE 50% 50 ML SYRINGE IV PRN (23:55)
[2020-03-19] MEDS ORDERED: GLUCAGON FOR INJ 1 MG VIAL SQ PRN (23:55)
[2020-03-19] MEDS ORDERED: CARBOHYDRATES FOR HYPOGLYCEMIA PO PRN (23:55)
[2020-03-19] MEDS ORDERED: ACETAMINOPHEN 325 MG TAB PO PRN (23:55)
[2020-03-19] MEDS ORDERED: GLUCOSE 10 TABS/TUBE PO PRN (23:55)
[2020-03-20] MEDS: ALBUMIN 25% 50 ML IV SCH ×5 (00:48→23:21)
[2020-03-20] MEDS: IMIPENEM/CILASTATIN SODIUM 300 MG in DEXTROSE 5% 100 ML IV SCH ×5 (00:52→20:57)
[2020-03-20] MEDS: DOXYCYCLINE HYCLATE 100 MG in DEXTROSE 5% 100 ML IV SCH ×2 (01:35→11:11)
[2020-03-20] MEDS: METOPROLOL TARTRATE 50 MG TAB PO SCH ×2 (06:33→21:04)
[2020-03-20] MEDS: FLECAINIDE ACETATE 100 MG TABLET PO SCH ×2 (06:33→21:58)
--- NOTE | 2020-03-20 06:56 | CT Scan Report ---
CT head/brain wo con CLINICAL HISTORY: confusion COMPARISON STUDY: 02/15/2020 TECHNIQUE: Axial CT of the brain is performed from the vertex to the skull base. IV contrast was not administered for this examination. A dose lowering technique was utilized adhering to the principles of ALARA. CT DOSE: 614.27 mGy.cm FINDINGS: No intra or extra-axial mass lesions are visualized. There is no CT evidence of acute cortical infarc tion. There is no evidence of midline shift. There is no acute hemorrhage. No calvarial fractures ar e visualized. There are patchy white matter hypodensities likely on a small vessel basis. There is no evidence of pathologic ventricular dilatation. There is no evidence of acute sinusitis IMPRESSION: No acute intracranial findings ACT 112: Negative or not required by law. Electronically signed by: Benji Evans M.D. 03/20/2020 6:55 AM
--- NOTE | 2020-03-20 07:33 | Ultrasound Report ---
US abdomen ltd ascites CLINICAL HISTORY: eval for ascites COMPARISON STUDY: CT scan dated 08/22/2018 FINDINGS: A four-quadrant survey was performed. The liver has a cirrhotic morphology. There is modera te ascites. IMPRESSION: Moderate ascites. ACT 112: Negative or not required by law. Electronically signed by: Benji Evans M.D. 03/20/2020 7:31 AM
[2020-03-20] MEDS: methylPREDNISolone 4 MG TAB PO SCH ×2 (08:36→21:05)
[2020-03-20] MEDS: PANTOprazole 40 MG TAB PO SCH (08:36)
[2020-03-20] MEDS: LETROZOLE 2.5 MG TAB PO SCH (08:36)
[2020-03-20] MEDS: INSULIN ASPART 100 UNITS/ML 3 ML PEN SC SCH ×4 (08:37→22:02)
[2020-03-20 10:05] LABS: Hematocrit (blood only) 29.7 % (37-47); Hemoglobin 10.3 g/dL (12.0-16.0); Mean Corpuscular Hemoglobin 35.6 pg (25-34); Mean Corpuscular Hgb Conc 34.7 g/dL (32-36); Mean Corpuscular Volume 102.8 fL (80-100); Mean Platelet Volume 10.1 fL (7.4-10.4); Nucleated RBC # (auto) 0.02 K/uL (0-0); Nucleated RBC % (auto) 0.3 %; Platelet Count 55 K/uL (130-400); RDW Coefficient of Variation 19.1 % (11.5-14.5); RDW Standard Deviation 71.8 fL (36.4-46.3); Red Blood Count 2.89 M/uL (4.2-5.4); White Blood Count 6.21 K/uL (4.8-10.8)
[2020-03-20 10:33] LABS: Albumin Globulin Ratio 0.5 (0.9-2); Albumin Level 1.9 gm/dl (3.4-5.0); BUN Creatinine Ratio 35.7 (10-20); Bilirubin,Total 5.7 mg/dl (0.2-1); Calcium 8.5 mg/dl (8.5-10.1); Creatinine Clr Calc Pharmacy 34.6 ml/min; Est GFR (African American) 23.2; Globulin 3.7 gm/dl (2.5-4.0); Total Protein 5.6 gm/dl (6.4-8.2)
--- NOTE | 2020-03-20 11:08 | Communication Note ---
Date of Service: March 20, 2020 GI note: Received consult for pt admitted w weakness, DARCIE. Pt w GALLO Cirrhosis, Child Pleitez 3, MELD 27, HCC s/p TACE. Pt decided this AM she would like to go home on hospice. I spoke w hospitalist (Dr. Lewis Hicks) who would cancel GI consult
--- NOTE | 2020-03-20 13:11 | Ultrasound Report ---
ULTRASOUND-GUIDED THERAPEUTIC PARACENTESIS: HISTORY: Ascites. Procedure: The procedure and its risks, benefits and alternatives were discussed with the patient and written informed consent was obtained. Preliminary ultrasound of the abdomen was performed to determ ine a safe needle entry site. The left lower quadrant was prepped and draped in the usual sterile fashion. 1% Lidocaine was used fo r local anesthesia. A paracentesis needle-sheath was inserted into the peritoneal space using ultraso und guidance. The needle was removed and the sheath was connected to tubing and a vacuum suction chris ce. A total of 6 liters of yellow ascites was aspirated. The sheath was removed and a sterile dressin g applied. The patient tolerated the procedure well and there were no immediate complications. IMPRESSION: Ultrasound-guided therapeutic paracentesis with aspiration of 6 liters of ascites. ACT 112: Negative or not required by law. Electronically signed by: Yunior Rivera M.D. 03/20/2020 1:09 PM
--- NOTE | 2020-03-20 15:12 | Hospitalist Progress Note ---
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 very poor prognosis She does not want any heroic management. Pt would like to transition to hospice Her wishes to go home and . Palliative care consulted (6) Cellulitis: RLE cellulitis, recently treated as an outpatient with Keflex Continue imipenem and doxycycline (7) Elevated INR: Coagulopathy due to underlying liver disease INR 1.6 No sign of active bleeding (8) Elevated lactic acid level: lactic acid 2.7 Seems to have chronic elevation No sign of sepsis lactic acid 2.3, will monitor (9) Psoriatic arthritis: Continue methylprednisolone Consider to D/C steroid due to risk of infection in a End stage liver disease (10) DM type 2 (diabetes mellitus, type 2): Hgb A1c 5.8 11/2019 Continue NovoLog sliding scale (11) Atrial fibrillation: Rate controlled on metoprolol, rhythm controlled on flecainide Not a candidate for anticoagulation (12) DVT prophylaxis: SCDs due to coagulopathy CODE status DNR Will discharge home with hospice Admission and Anticipated Discharge Date Admission Date: March 19, 2020 Subjective Pt was seen and examined Lying in bed with no distress Pt said that she would like to transition to home hospice She said that she does not want any heroic management She said that she would like to peacefully at home She said that her is the one that convince her to come to the hospital Denies any chest pain, palpitation, dizziness and SOB Physical Exam Physical Exam: General- No acute distress Head- atraumatic Eyes- PERRL, EOMI, ENT- oropharynx clear Neck- supple, no JVD Lungs- clear to auscultation Heart- regular rhythm; no murmur Abdomen- normal bowel sounds, +ascites Extremities- no calf tenderness, +edema Neuro- alert, oriented x 3; PERRL, EOMI; no facial palsy; no dysarthria Skin- warm & dry Results & Data Results & Data ([facility]) Vital Signs (Past 12 Hours) Vital Signs Temp Pulse Pulse Resp BP Pulse Ox 03/20/20 11:14 36.5 C 68 16 104/60 94 03/20/20 08:00 66 03/20/20 07:48 36.6 C 66 16 105/64 94 03/20/20 04:00 36.7 C 67 20 113/74 97 (1) Atrial fibrillation Atrial fibrillation type: chronic Qualified Code(s): I48.2 - Chronic atrial fibrillation
[2020-03-20] MEDS ORDERED: POLYETHYLENE (MIRALAX) 17 GM PACK PO PRN (15:33)
--- NOTE | 2020-03-20 16:48 | Nephrology Consultation ---
Date of Consultation March 20, 2020 Assessment & Plan (1) DARCIE (acute kidney injury): Patient with acute kidney injury likely ischemic ATN in setting of sepsis. Patient is also grossly volume overload. Her main wishes the to relieve the leg swelling and the discharge her with hospice. Will attempt the IV Lasix bolus 60 mg and Lasix drip at the 15 milligrams/hour. If patient responds Lasix will continue diuresis to optimize her volume status and discharged on hospice. Patient does not want any more aggressive interventions such as dialysis and would like talk to hospice. (2) Hepatocellular carcinoma: Patient is status post the IR embolizations twice. She is interested in talking to hospice. She she did not even want to be admitted in the 1st place. Plan was discussed with the Dr. Hicks History of Present Illness Reason for Consultation: Acute kidney injury, volume overload Requesting Physician: Lewis Hicks MD Attending Physician: Lewis Hicks MD History of Present Illness This 69-year-old female with past medical history of AFib, psoriatic arthropathy, ankylosing spondylosis, obstructive sleep apnea, breast cancer status post the right mastectomy and radiation on AI, Tomas and hepatocellular carcinoma status post the ablation in March 2019 and 2nd ablation in November 2019 at [facility] who was admitted on 03/19/2020 with the weakness and acute kidney injury. She was found have a creatinine of 2.5 today. Creatinine was 1.4 in January 2020 which is likely her baseline. Urinalysis showing the 10 RBCs per high- power field and a lot of hyaline casts. Her lactate is slightly high at 2.7. She reports worsening weakness at home and has had multiple falls she is full of bruises on the left shoulder and chest. Patient says the she has a DNR order and never wanted to come to the hospital but the insisted on bringing her to treat the infection. Her main complaint is leg swelling. She would like to have a trial of Lasix to get rid of fluid. Patient reports having suffered enough and at this point would like to talk to hospice. She does not want to ever be admitted again. Allergies Allergy/AdvReac Type Severity Reaction Status Date / Time clarithromycin Allergy Severe RASH Verified 03/19/20 20:37 epinephrine Allergy Severe THROAT Verified 03/19/20 20:37 SWELLING, PASSED OUT, HEART RACING Penicillins Allergy Severe ANAPHYLACTIC Verified 03/19/20 20:37 SHOCK ceftriaxone [From Rocephin] Allergy Mild Rash Verified 03/19/20 20:37 Calcium Channel Blocking AdvReac Severe CAUSES Verified 03/19/20 20:37 Agent Dilt CONGESTIVE HEART FAILURE montelukast AdvReac Intermediate PALPITATION Verified 03/19/20 20:37 S Home Medications Home Medications Medication Instructions Recorded Confirmed Type cholecalciferol (vitamin D3) 3,000 unit PO DAILY 08/22/18 03/19/20 History flecainide 1 tab PO BID 08/22/18 03/19/20 History levalbuterol tartrate [Xopenex HFA] 2 inh INHALATION .Q4-6H PRN 08/22/18 03/19/20 History methylprednisolone 4 mg PO BID 08/22/18 03/19/20 History multivitamin 1 tab PO DAILY 08/22/18 03/19/20 History omeprazole 1 cap PO QAM 08/22/18 03/19/20 History letrozole 2.5 mg tablet 2.5 mg PO DAILY 09/26/18 03/19/20 History Basaglar KwikPen U-100 Insulin 20 unit SUBCUT HS 02/16/20 03/19/20 History furosemide 80 mg PO DAILY 02/16/20 03/19/20 History spironolactone 50 mg PO DAILY 02/16/20 03/19/20 History furosemide 40 mg PO HS 03/19/20 03/19/20 History insulin aspart U-100 [Novolog See Rx Instructions .ROUTE .COMPLEX 03/19/20 03/19/20 History Flexpen U-100 Insulin] lactulose 20 g PO TID PRN 03/19/20 03/19/20 History metoprolol tartrate [Lopressor] 50 mg PO BID 03/19/20 03/19/20 History oxycodone 10 mg PO Q6H PRN 03/19/20 03/19/20 History sennosides-docusate sodium 2 tab-cap PO HS 03/19/20 03/19/20 History [Senna-S] tramadol 50 - 100 mg PO Q6H PRN 03/19/20 03/19/20 History Patient History Medical History (Updated 03/20/20 @ 14:46 by Ronn Hudson MD) Ascites Atrial fibrillation Breast cancer DM type 2 (diabetes mellitus, type 2) Esophageal varices Hepatocellular carcinoma s/p chemoembolization and microablation Liver cirrhosis secondary to TOMAS Liver mass Morbid obesity Psoriatic arthritis Surgical History H/O: hysterectomy History of breast lump/mass excision Hx of appendectomy Family History Other Colon cancer Pancreatic cancer Social History Smoking Status: Never smoker Hx Alcohol Use: No Hx Substance Use: No Preferred Language: Serbian Communication Ability: Effective Parking Garage Manager Required: No Beliefs That Will Affect Care: None Current Living Situation: Spouse Other Information That Helps Us Care for You: No Feels Safe at Home: Yes Safety Concerns: Feels Safe At This Time Assistive Devices: Glasses and Oxygen - Continuous Review of Systems Review of Systems: All systems reviewed & are unremarkable except as noted in HPI & below Physical Exam Physical Exam: General exam: Appears comfortable, no acute distress HEENT: Pupils are equal and reactive to light Neck: No JVD, neck is supple trachea is midline Respiratory system: Clear breath sounds bilaterally. Gastrointestinal: Abdomen is soft, distended, non tender, bowel sounds are present CVS: Regular rate and rhythm. No murmurs, rubs or gallops Musculoskeletal: No joint or muscle tenderness Extremities: Non tender, 2+ edema, Neuro: Oriented, no tremors, no focal neurological deficits Skin: No rashes, deep jaundice Results & Data ([facility]) Vital Signs (Past 12 Hours) Vital Signs Temp Pulse Pulse Resp BP Pulse Ox 03/20/20 15:48 36.5 C 74 16 97/60 L 98 03/20/20 11:14 36.5 C 68 16 104/60 94 03/20/20 08:00 66 03/20/20 07:48 36.6 C 66 16 105/64 94 Laboratory Results 03/20/20 09:49 03/19/20 03/19/20 03/20/20 20:27 20:27 09:49 WBC 10.56 6.21 RBC 3.32 L 2.89 L MCV 102.4 H 102.8 H MCH 35.8 H 35.6 H MCHC 35.0 34.7 RDW Std Deviation 71.1 H 71.8 H RDW Coeff of Mechelle 19.2 H 19.1 H Plt Count 69 L 55 L MPV 9.9 10.1 Albumin 1.8 L 03/20/20 09:49 WBC RBC MCV MCH MCHC RDW Std Deviation RDW Coeff of Mechelle Plt Count MPV Albumin 1.9 L
[2020-03-20] MEDS ORDERED: FUROSEMIDE 60 MG in SYRINGE 0 ML IV SCH (17:00)
[2020-03-20] MEDS: FUROSEMIDE 100 MG in DEXTROSE 5% 90 ML IV SCH ×2 (18:02→22:40)
[2020-03-20] MEDS: DOCUSATE SODIUM/SENNA 50/8.6MG TAB PO SCH (21:05)
[2020-03-20] MEDS ORDERED: ALBUMIN 25% 50 ML IV ONE (22:15)
[2020-03-21] MEDS: DOXYCYCLINE HYCLATE 100 MG in DEXTROSE 5% 100 ML IV SCH ×2 (00:30→11:43)
[2020-03-21] MEDS: IMIPENEM/CILASTATIN SODIUM 300 MG in DEXTROSE 5% 100 ML IV SCH ×4 (02:26→21:29)
[2020-03-21] MEDS: LACTULOSE SYRUP 20 GM/30 ML UDC PO PRN ×2 (04:12→07:50)
[2020-03-21] MEDS: FUROSEMIDE 100 MG in DEXTROSE 5% 90 ML IV SCH ×3 (05:27→19:11)
[2020-03-21] MEDS: ALBUMIN 25% 50 ML IV SCH ×3 (05:27→19:11)
[2020-03-21] MEDS: INSULIN ASPART 100 UNITS/ML 3 ML PEN SC SCH ×4 (08:40→20:13)
[2020-03-21] MEDS: LETROZOLE 2.5 MG TAB PO SCH (08:42)
[2020-03-21] MEDS: methylPREDNISolone 4 MG TAB PO SCH ×2 (08:42→21:29)
[2020-03-21] MEDS: METOPROLOL TARTRATE 50 MG TAB PO SCH ×3 (08:42→21:29)
[2020-03-21] MEDS: PANTOprazole 40 MG TAB PO SCH (08:42)
[2020-03-21] MEDS: FLECAINIDE ACETATE 100 MG TABLET PO SCH ×3 (08:43→21:30)
--- NOTE | 2020-03-21 09:39 | Electrocardiogram Report ---
Test Reason : Blood Pressure : / mmHG Vent. Rate : 063 BPM Atrial Rate : 063 BPM P-R Int : 230 ms QRS Dur : 102 ms QT Int : 512 ms P-R-T Axes : 092 013 034 degrees QTc Int : 523 ms Sinus rhythm with sinus arrhythmia with 1st degree A-V block Poor R wave progression, consider anterior RI vs. lead placement vs. LVH Prolonged QT Abnormal ECG When compared with ECG of 16-FEB-2020 11:06, No significant change Confirmed by Nilesh Portillo ([id number]) on 03/21/2020 9:38:52 AM Referred By: REFERRED SELF Confirmed By:Nilesh Portillo
[2020-03-21] MEDS ORDERED: LORazepam 0.5 MG TAB PO PRN (14:02)
--- NOTE | 2020-03-21 18:34 | Hospitalist Progress Note ---
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 very poor prognosis She does not want any heroic management. Pt would like to transition to hospice Her wishes to go home and . Palliative care consulted (6) Cellulitis: RLE cellulitis, recently treated as an outpatient with Raul On imipenem and doxycycline, refused today dose Will discontinue since pt would like to transition to hospice (7) Elevated INR: Coagulopathy due to underlying liver disease INR 1.6 No sign of active bleeding (8) Elevated lactic acid level: lactic acid 2.7 Seems to have chronic elevation No sign of sepsis lactic acid 2.1 today refuses any lab work Will transition to hospice (9) Psoriatic arthritis: Continue methylprednisolone Consider to D/C steroid due to risk of infection in a End stage liver disease (10) DM type 2 (diabetes mellitus, type 2): Hgb A1c 5.8 11/2019 Continue NovoLog sliding scale (11) Atrial fibrillation: Rate controlled on metoprolol, rhythm controlled on flecainide Not a candidate for anticoagulation (12) DVT prophylaxis: SCDs due to coagulopathy CODE status DNR Would like to stay in the hospice for inpatient hospice refused to go to a facility for inpatient hospice Admission and Anticipated Discharge Date Admission Date: March 19, 2020 Subjective Pt was seen and examined. Lying in bed with no distress. Pt changed her mind now She said that she does not want to home anymore because she does not want her to experience the pain that she will go through at home She wants to stay in the hospital to She does not want to do inpatient hospice at another facility I explained to her that because she is stable now and it might take days, weeks or months before dying Because it would take days that she will need to go to a facility for inpatient hospice She refused to go to a facility case management spoke to her and explained that to her too, but she continued to refuse to go to a facility for inpatient hospice Pt game me permission to speak to her daughter, her sister and her . I called her and sister, with no answered She continues to refuse most of her medication and wants to transition to comfort care denies any chest pain, palpitation, dizziness and SOB Physical Exam Physical Exam: General- No acute distress Head- atraumatic Eyes- PERRL, EOMI, ENT- oropharynx clear Neck- supple, no JVD Lungs- clear to auscultation Heart- regular rhythm; no murmur Abdomen- normal bowel sounds, +ascites Extremities- no calf tenderness, +edema Neuro- alert, oriented x 3; PERRL, EOMI; no facial palsy; no dysarthria Skin- warm & dry (1) Atrial fibrillation Atrial fibrillation type: chronic Qualified Code(s): I48.2 - Chronic atrial fibrillation
--- NOTE | 2020-03-21 20:16 | Nephrology Progress Note ---
Date of Service March 21, 2020 Assessment & Plan (1) DARCIE (acute kidney injury): Patient with acute kidney injury likely ischemic ATN in setting of sepsis. Patient is also grossly volume overload. She had initially agreed for lasix infusion yrsterday, but she refused al IV's and Blood work and now she wants Hospital hospice. Difficult situation I would recommend that she be pit back on atilio Regulo + furosemide at home dose. We will follow from a distabce until afinal decision about hospice is made. (2) Hepatocellular carcinoma: Patient is status post the IR embolizations twice. For Hospice care. Admission and Anticipated Discharge Date Admission Date: March 19, 2020 Subjective Pt was seen and examined. Lying in bed with no distress. Pt now wants "to dies in [facility]'. She has refused all IV, blood work,she just wants her "atrial fibrillation " medication Review of Systems Review of Systems: All systems reviewed & are unremarkable except as noted in HPI & below Physical Exam Physical Exam: General- No acute distress Head- atraumatic Eyes- PERRL, EOMI, ENT- oropharynx clear Neck- supple, no JVD Lungs- clear to auscultation Heart- regular rhythm; no murmur Abdomen- normal bowel sounds, +ascites Extremities- no calf tenderness, +edema Neuro- alert, oriented x 3; PERRL, EOMI; no facial palsy; no dysarthria Skin- warm & dry Results & Data ([facility]) Laboratory Results 03/20/20 09:49 03/20/20 09:49
[2020-03-21] MEDS: DOCUSATE SODIUM/SENNA 50/8.6MG TAB PO SCH (21:30)
[2020-03-22] MEDS: FUROSEMIDE 100 MG in DEXTROSE 5% 90 ML IV SCH ×2 (02:00→08:34)
[2020-03-22] MEDS: IMIPENEM/CILASTATIN SODIUM 300 MG in DEXTROSE 5% 100 ML IV SCH ×3 (02:00→14:43)
[2020-03-22] MEDS: ALBUMIN 25% 50 ML IV SCH ×3 (02:29→13:08)
[2020-03-22] MEDS: DOXYCYCLINE HYCLATE 100 MG in DEXTROSE 5% 100 ML IV SCH ×2 (02:29→11:41)
[2020-03-22] MEDS: methylPREDNISolone 4 MG TAB PO SCH ×2 (08:19→21:25)
[2020-03-22] MEDS: FLECAINIDE ACETATE 100 MG TABLET PO SCH ×2 (08:19→21:26)
[2020-03-22] MEDS: PANTOprazole 40 MG TAB PO SCH (08:20)
[2020-03-22] MEDS: LETROZOLE 2.5 MG TAB PO SCH (08:20)
[2020-03-22] MEDS: METOPROLOL TARTRATE 50 MG TAB PO SCH ×2 (08:22→21:24)
[2020-03-22] MEDS: INSULIN ASPART 100 UNITS/ML 3 ML PEN SC SCH ×4 (08:25→21:29)
--- NOTE | 2020-03-22 10:04 | Nephrology Progress Note ---
Date of Service March 22, 2020 Assessment & Plan (1) DARCIE (acute kidney injury): Patient with acute kidney injury likely ischemic ATN in setting of sepsis. Patient is also grossly volume overload. She had initially agreed for lasix infusion yesterday, but she refused all IV's and Blood work and now she wants Hospital hospice. We will follow from a distance until a final decision about hospice is made. (2) Hepatocellular carcinoma: Patient is status post the IR embolizations twice. For Hospice care. Admission and Anticipated Discharge Date Admission Date: March 19, 2020 Subjective Comfortable, labile mood.Not in any distress.Passing urine, No abdominal pain. Review of Systems Review of Systems: All systems reviewed & are unremarkable except as noted in Subjective Physical Exam Physical Exam: General- No acute distress Head- atraumatic Eyes- PERRL, EOMI, ENT- oropharynx clear Neck- supple, no JVD Lungs- clear to auscultation Heart- regular rhythm; no murmur Abdomen- normal bowel sounds, +ascites Extremities- no calf tenderness, +edema Neuro- alert, oriented x 3; PERRL, EOMI; no facial palsy; no dysarthria Skin- warm & dry Results & Data ([facility]) Vital Signs (Past 12 Hours) Vital Signs Pulse 03/22/20 00:00 59 L Laboratory Results 03/20/20 09:49 03/20/20 09:49
--- NOTE | 2020-03-22 19:18 | Hospitalist Progress Note ---
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 very poor prognosis She does not want any heroic management. Pt would like to transition to hospice Her wishes to go home and . Palliative care consulted (6) Cellulitis: RLE cellulitis, recently treated as an outpatient with Raul On imipenem and doxycycline, refused today dose Will discontinue since pt would like to transition to hospice (7) Elevated INR: Coagulopathy due to underlying liver disease INR 1.6 No sign of active bleeding (8) Elevated lactic acid level: lactic acid 2.7 Seems to have chronic elevation No sign of sepsis lactic acid 2.1 today refuses any lab work Will transition to hospice (9) Psoriatic arthritis: Continue methylprednisolone Consider to D/C steroid due to risk of infection in a End stage liver disease (10) DM type 2 (diabetes mellitus, type 2): Hgb A1c 5.8 11/2019 Continue NovoLog sliding scale (11) Atrial fibrillation: Rate controlled on metoprolol, rhythm controlled on flecainide Not a candidate for anticoagulation (12) DVT prophylaxis: SCDs due to coagulopathy CODE status DNR Disposition Plan to go home to hospice tomorrow Admission and Anticipated Discharge Date Admission Date: March 19, 2020 Subjective Pt was seen and examined Lying in bed with no distress with at bedside Pt changed her mind again today She said that she wants to stop all the IV meds She wants to go home with hospice with her said that he cannot take her today until the equipment deliver Pt agreed to stay for tonight and discharge home tomorrow She does not want any lab to drawn Physical Exam Physical Exam: General- No acute distress Head- atraumatic Eyes- PERRL, EOMI, ENT- oropharynx clear Neck- supple, no JVD Lungs- clear to auscultation Heart- regular rhythm; no murmur Abdomen- normal bowel sounds, +ascites Extremities- no calf tenderness, +edema Neuro- alert, oriented x 3; PERRL, EOMI; no facial palsy; no dysarthria Skin- warm & dry (1) Atrial fibrillation Atrial fibrillation type: chronic Qualified Code(s): I48.2 - Chronic atrial fibrillation
[2020-03-22] MEDS: DOCUSATE SODIUM/SENNA 50/8.6MG TAB PO SCH (21:25)
[2020-03-23] MEDS: FUROSEMIDE 100 MG in DEXTROSE 5% 90 ML IV SCH (00:02)
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
[2020-03-23] MEDS: METOPROLOL TARTRATE 50 MG TAB PO SCH (08:51)
[2020-03-23] MEDS: FLECAINIDE ACETATE 100 MG TABLET PO SCH (08:52)
[2020-03-23] MEDS: methylPREDNISolone 4 MG TAB PO SCH (08:52)
[2020-03-23] MEDS: PANTOprazole 40 MG TAB PO SCH (08:52)
[2020-03-23] MEDS: INSULIN ASPART 100 UNITS/ML 3 ML PEN SC SCH ×2 (09:05→12:09)
[2020-03-23] MEDS ORDERED: Nursing to Pharmacy Communication SCH (09:15)
[2020-03-23 10:55] LABS: Creatinine Clr Calc Pharmacy 41.8 ml/min; Est GFR (African American) 29.9; Est GFR (Non-African American) 25.8
--- NOTE | 2020-03-23 15:32 | Hospitalist Progress Note ---
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 very poor prognosis She does not want any heroic management. Pt would like to transition to hospice Her wishes to go home and . Palliative care on board POLST form completed Discharge home with hospice (6) Cellulitis: RLE cellulitis, recently treated as an outpatient with Raul On imipenem and doxycycline, refused any antibiotic Will discontinue since pt would like to transition to hospice (7) Elevated INR: Coagulopathy due to underlying liver disease INR 1.6 No sign of active bleeding (8) Elevated lactic acid level: lactic acid 2.7 Seems to have chronic elevation No sign of sepsis lactic acid 2.1 today refuses any lab work since pt will transition to hospice (9) Psoriatic arthritis: Continue methylprednisolone Consider to D/C steroid due to risk of infection in a End stage liver disease (10) DM type 2 (diabetes mellitus, type 2): Hgb A1c 5.8 11/2019 Continue NovoLog sliding scale (11) Atrial fibrillation: Rate controlled on metoprolol, rhythm controlled on flecainide Not a candidate for anticoagulation (12) DVT prophylaxis: SCDs due to coagulopathy CODE status DNR Disposition Plan to go home with hospice today Admission and Anticipated Discharge Date Admission Date: March 19, 2020 Subjective Pt was seen and examined Lying in bed with no distress with sister at bedside Pt said that she spoke to her daughter and her this morning She said that she is at peace now She said that she wants to go home with hospice to spend time with her Denies any chest pain, palpitation, dizziness and SOB Physical Exam Physical Exam: General- No acute distress Head- atraumatic Eyes- PERRL, EOMI, ENT- oropharynx clear Neck- supple, no JVD Lungs- clear to auscultation Heart- regular rhythm; no murmur Abdomen- normal bowel sounds, +ascites Extremities- no calf tenderness, +edema Neuro- alert, oriented x 3; PERRL, EOMI; no facial palsy; no dysarthria Skin- warm & dry (1) Atrial fibrillation Atrial fibrillation type: chronic Qualified Code(s): I48.2 - Chronic atrial fibrillation
[2020-03-23] MEDS ORDERED: LETROZOLE 2.5 MG TAB PO SCH (21:00)
--- NOTE | 2020-03-24 08:46 | Discharge Summary ---
Date of Service March 23, 2020 Admission HPI Per Admitting Provider 69-year-old female with PMH DM type II on insulin, atrial fibrillation, GALLO with esophageal varices and ascites, hepatocellular carcinoma, breast cancer, psoriatic arthritis, and other problems listed below who presents the ED for evaluation of generalized weakness. Patient recently admitted to [facility] 02/15 through 02/18 for management of sepsis due to UTI. Patient reports having generalized weakness since her recent hospital admission however weakness became acutely worse a couple days ago. Patient also suffered a fall about 1 week ago. Patient reports she was ambulating about 50 feet with a walker however this morning she was unable to lift her legs off the bed. She reports episodes of "brain fog". She reports that she has been using senna S for bowel movements for cirrhosis. Patient was seen by PCP on 02/26 and prescribed Keflex for RLE cellulitis. Reports that it has improved however there is still erythema present. On 03/06, PCP increased patient's Lasix to 80 mg in the morning and 40 mg in the evening for fluid management. Patient denies fevers and chills. She reports a very poor appetite however denies nausea, vomiting, diarrhea, abdominal pain. No chest pain or shortness of breath. Denies lightheadedness, dizziness, diaphoresis, syncopal events. No urinary symptoms. In the ED, patient is hemodynamically stable. Labs show creatinine 2.5 (up from 1.6 on 02/26), total bilirubin 5.7 (up from 2.7). Patient was given IVF and IV clindamycin for RLE cellulitis. Admission Exam Per Admitting Provider She has significant ecchymosis over her body, reports from falls. She is obese and currently using oxygen via nasal cannula. Heart sounds regular, no murmur noted. Lung exam difficult, decreased breath sounds noted bilaterally, no wheezing. Abdomen is soft, positive bowel sounds, obese, nontender to palpation. She is able to move extremities with some difficulty especially lower extremities. She can bend her knees slowly however she cannot lift her legs up. Also her lower extremities are significantly edematous, per her lower extremity edema is actually better now. She has pedal edema about 3+ and overall edema 2-3+. Her right lower extremity is erythematous, per family erythema has decreased. Nontender to palpation. Patient is able to move upper extremities. Principal Diagnosis DARCIE (acute kidney injury): 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: Esophageal varices: Ascites: Hepatocellular carcinoma: Cellulitis: Elevated INR: Elevated lactic acid level: DM type 2 (diabetes mellitus, type 2): Atrial fibrillation: Discharge Exam General- No acute distress Head- atraumatic Eyes- PERRL, EOMI, ENT- oropharynx clear Neck- supple, no JVD Lungs- clear to auscultation Heart- regular rhythm; no murmur Abdomen- normal bowel sounds, +ascites Extremities- no calf tenderness, +edema Neuro- alert, oriented x 3; PERRL, EOMI; no facial palsy; no dysarthria Skin- warm & dry Discharge Data Allergies Allergy/AdvReac Type Severity Reaction Status Date / Time epinephrine Allergy Severe THROAT Verified 03/19/20 20:37 SWELLING, PASSED OUT, HEART RACING Penicillins Allergy Severe ANAPHYLACTIC Verified 03/19/20 20:37 SHOCK clarithromycin Allergy Intermediate RASH Verified 03/23/20 09:14 ceftriaxone [From Rocephin] Allergy Mild Rash Verified 03/19/20 20:37 Calcium Channel Blocking AdvReac Intermediate CAUSES Verified 03/23/20 09:14 Agent Dilt CONGESTIVE HEART FAILURE montelukast AdvReac Intermediate PALPITATION Verified 03/19/20 20:37 S Consultations 03/19/20 21:44 ED Decision to Admit Stat 03/19/20 23:55 Consult Case Management - Discharge Planning Routine Consult Nephrology Routine 03/20/20 09:33 Consult Palliative Care Routine 03/20/20 14:00 Consult Patient Rep / Service Excellence [Consult Patient Services] Routine Ordered Studies 03/19/20 18:54 CT head/brain wo con Urgent 03/19/20 22:30 US abdomen ltd ascites Routine 03/20/20 11:15 US paracentesis abd w/image Routine ULTRASOUND-GUIDED THERAPEUTIC PARACENTESIS: HISTORY: Ascites. Procedure: The procedure and its risks, benefits and alternatives were discussed with the patient and written informed consent was obtained. Preliminary ultr asound of the abdomen was performed to determine a safe needle entry site. The left lower quadrant was prepped and draped in the usual sterile fashion. 1% Lidocaine was used for local anesthesia. A paracentesis needle-sheath was inserted into the peritoneal space using ultrasound guidance. The needle was removed and the sheath was connected to tubing and a vacuum suction device. A total of 6 liters of yellow ascites was aspirated. The sheath was removed and a sterile dressing applied. The patient tolerated the procedure well and there were no immediate complications. IMPRESSION: Ultrasound-guided therapeutic paracentesis with aspiration of 6 liters of ascites. ACT 112: Negative or not required by law. Electronically signed by: Yunior Rivera M.D. 03/20/2020 1:09 PM Dictated: 03/20/20 1309 Transcribed: 03/20/20 1309 abdomen ltd ascites CLINICAL HISTORY: eval for ascites COMPARISON STUDY: CT scan dated 08/22/2018 FINDINGS: A four-quadrant survey was performed. The liver has a cirrhotic morphology. There is moderate ascites. IMPRESSION: Moderate ascites. ACT 112: Negative or not required by law. Electronically signed by: Benji Evans M.D. 03/20/2020 7:31 AM Dictated: 03/20/20729 Transcribed: 03/20/20729 CT head/brain wo con CLINICAL HISTORY: confusion COMPARISON STUDY: 02/15/2020 TECHNIQUE: Axial CT of the brain is performed from the vertex to the skull base. IV contrast was not administered for this examination. A dose lowering technique was utilized adhering to the principles of ALARA. CT DOSE: 614.27 mGy.cm FINDINGS: No intra or extra-axial mass lesions are visualized. There is no CT evidence of acute cortical infarction. There is no evidence of midline shift. There is no acute hemorrhage. No calvarial fractures are visualized. There are patchy white matter hypodensities likely on a small vessel basis. There is no evidence of pathologic ventricular dilatation. There is no evidence of acute sinusitis IMPRESSION: No acute intracranial findings ACT 112: Negative or not required by law. Electronically signed by: Benji Evans M.D. 03/20/2020 6:55 AM Dictated: 03/20/20 0654 Transcribed: 03/20/20 0654 XR chest 1V portable HISTORY: 69 years-old Female SEPSIS acute sepsis COMPARISON: Chest radiograph 02/15/2020, chest CT 08/22/2018 TECHNIQUE: Portable AP view of the chest FINDINGS: Cardiac silhouette is upper limits of normal in size. Mediastinal contours are normal. No pneumothorax, large pleural effusion or overt pulmonary edema. Unchanged 3 cm right apical opacity. Surgical clips project over the right axilla. Degenerative changes of the shoulders and spine. IMPRESSION: 1. No acute process. 2. 3 cm right apical opacity redemonstrated suggestive of scarring versus pulmonary nodule. This could be correlated with a follow-up nonemergent CT of the chest. ACT 112: Negative or not required by law. The above report was generated using voice recognition software. It may contain grammatical, syntax or spelling errors. Electronically signed by: Rajinder Carey M.D. 03/19/2020 7:33 PM Dictated: 03/19/201930 Transcribed: 03/19/201930 Hospital Course (1) DARCIE (acute kidney injury): Present on admission with generalized weakness Possible multifactorial due to increased diuretic dosing, intravascular volume depletion Creatinine 2.5 admission (creatinine has been slowly increased to 1.0 on 02/12 -> 1.6 on 02/26) Nephrology on board refused lasix drip refused any lab drawn today Transition to hospice/comfort care only (2) 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: (3) Esophageal varices: (4) Ascites: (5) Hepatocellular carcinoma: ammonia level <10.0 Noncompliant with lactulose No active treatment for hepatocellular carcinoma, received chemoembolization and micro-ablation in the past S/P paracentesis for symptoms management done today where 6L ascites fluid removed Child Pleitez 3, MELD score 27 Case discussed with GI, formal consult cancelled. very poor prognosis She does not want any heroic management. Pt would like to transition to hospice Her wishes to go home and . Palliative care on board POLST form completed Discharge home with hospice (6) Cellulitis: RLE cellulitis, recently treated as an outpatient with Raul On imipenem and doxycycline, refused any antibiotic Will discontinue since pt would like to transition to hospice (7) Elevated INR: Coagulopathy due to underlying liver disease INR 1.6 No sign of active bleeding (8) Elevated lactic acid level: lactic acid 2.7 Seems to have chronic elevation No sign of sepsis lactic acid 2.1 today refuses any lab work since pt will transition to hospice (9) Psoriatic arthritis: Continue methylprednisolone Consider to D/C steroid due to risk of infection in a End stage liver disease (10) DM type 2 (diabetes mellitus, type 2): Hgb A1c 5.8 11/2019 Continue NovoLog sliding scale (11) Atrial fibrillation: Rate controlled on metoprolol, rhythm controlled on flecainide Not a candidate for anticoagulation (12) DVT prophylaxis: SCDs due to coagulopathy CODE status DNR Disposition Plan to go home with hospice today Total Time Total Time Spent Total Time Spent (In Minutes): 35 minutes Total Time Includes: Examination of the Patient, Discharge Planning, Medication Reconciliation, Communication With Other Providers and Other Discharge Plan Discharge Items Patient Disposition: Hospice - Home Reason For Visit: DARCIE Discharge Diagnosis: DARCIE (acute kidney injury): 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: Esophageal varices: Ascites: Hepatocellular carcinoma: Cellulitis: Elevated INR: Elevated lactic acid level: DM type 2 (diabetes mellitus, type 2): Atrial fibrillation: Activity: Resume your previous activity Non-emergency contact: Primary Care Provider Call non-emergency contact if: you have any medication questions Follow-up/Referrals: Maria Guadalupe Duke MD [Primary Care Provider] - Diet: Carb Consistent or DM2 Addtl Attending Provider Instructions: Discharge home with hospice Ok to discharge with the meek catheter Fall precaution Pending Studies at Discharge: No Stand-Alone Forms: My [facility] Medications and DC Order Prescriptions: New lorazepam 0.5 mg tablet 0.5 mg buccal Q6H PRN (Reason: Anxiety/Comfort care) Qty: 10 RF: 0 Continued letrozole 2.5 mg tablet 2.5 mg PO DAILY RF: 0 flecainide 100 mg tablet 1 tab PO BID RF: 0 omeprazole 20 mg capsule,delayed release(DR/EC) 1 cap PO QAM RF: 0 levalbuterol tartrate [Xopenex HFA] 45 mcg/actuation Hfa Aerosol Inhaler 2 inh INHALATION .Q4-6H PRN (Reason: Shortness Of Breath Or Wheezing) RF: 0 furosemide 40 mg tablet 80 mg PO DAILY RF: 0 spironolactone 50 mg tablet 50 mg PO DAILY RF: 0 Basaglar KwikPen U-100 Insulin 100 unit/mL (3 mL) insulin pen 20 unit SUBCUT HS RF: 0 tramadol 50 mg tablet 50 - 100 mg PO Q6H PRN (Reason: Pain) RF: 0 metoprolol tartrate [Lopressor] 50 mg tablet 50 mg PO BID RF: 0 lactulose 20 gram/30 mL solution 20 g PO TID PRN (Reason: WHEN NEEDED) RF: 0 furosemide 40 mg tablet 40 mg PO HS RF: 0 sennosides-docusate sodium [Senna-S] 8.6-50 mg Tablet 2 tab-cap PO HS RF: 0 insulin aspart U-100 [Novolog Flexpen U-100 Insulin] 100 unit/mL (3 mL) insulin pen See Rx Instructions .ROUTE .COMPLEX RF: 0 oxycodone 10 mg tablet 10 mg PO Q6H PRN (Reason: Pain) RF: 0 Discontinued methylprednisolone 4 mg tablet 4 mg PO BID RF: 0 multivitamin Tablet 1 tab PO DAILY RF: 0 cholecalciferol (vitamin D3) 3,000 unit Tablet 3,000 unit PO DAILY RF: 0 Discharge Orders: Discharge Order (Routine); Ordered 03/23/20 Ordered By: Lewis Hicks Admission Data Admit Date/Time: 03/19/20 23:29 Attending Provider: Lewis Hicks Admit Provider: Harvey Hernandez Primary Care Provider: Maria Guadalupe Duke Other Providers: Harvey Hernandez ; Kojo Green ; Gisella Rodas ; [place] Other Interventions: Discharge Summary Assessment (RN) Last Done: 03/23/20 15:45
--- NOTE | 2020-04-03 15:06 | Coding Query ---
CODING QUERY To promote full compliance with coding requirements relating to patient care, provider participation is requested in all cases of medical insurance coder uncertainty. Please assist us with the question(s) below: Coding Question(s): The Nephrology Consultation documents, "Patient with acute kidney injury likely ischemic ATN in setting of sepsis", and the Palliative Consultation documents, "Nephrology was consulted and she was diagnosed with DARICE and likely ischemic ATN, along with sepsis", however, the H&P, Progress Notes by attending and Discharge Summary document, "Elevated lactic acid level: lactic acid 2.7 Seems to have chronic elevation No sign of sepsis lactic acid 2.1 today refuses any lab work since pt will transition to hospice". Please clarify below, in your clinical opinion, regarding Sepsis. ( ) Possible Sepsis was treated ( x ) NO Sepsis - this is ruled-out ( ) Other: Please Specify Physician's Response(s): Thank you Marianela Dinh Principal Diagnosis: "that condition established after study, to be chiefly responsible for occasioning the admission of the patient to the hospital for care." Co-Existing Principal Diagnosis: "when two or more diagnoses equally meet the criteria for principal diagnosis as determined by the circumstances of admission, diagnostic work up, and/or therapy provided, and the Alphabetic Index, Tabular List, or another coding guideline does not provide sequencing direction, any one of the diagnoses may be sequenced first." "When the physician has documented what appears to be a current diagnosis in the body of the record, but has not included the diagnosis in the final diagnostic statement, the physician should be asked whether the diagnosis should be added." (Source Coding [facility] 2 QTR90. p3-4) JERRODD
== END 2020-03-23 17:26 | disposition hospice, home (50) | DRG 683 ==
LOC: ED 17:54 → 2W 23:28 → SUATTDRO 23:29 → 2W 23:29

== ENCOUNTER 2020-04-03 20:51 | Inpatient (IN) ==
[~2020-04-03 20:51] MED LIST changes: +AMIODARONE HCL INJ 50 MG/ML 3 ML VIAL IV ONE; -ASPCH81X PO; +ATROPINE SULFATE 0.1 MG/ML 10ML SYR IV ONE; +DEXTROSE 5% 100 ML BAG IV ONE; +DEXTROSE 50% 50 ML SYRINGE IV ONE; -DIPH25CA5 PO; -ESTR0.02 TD; -FLEC100T21 PO; -FURO-85 PO; -LEVA45AE INH; -LIDOCAINE HCL 2% 2 ML VIAL (20MG/ML) ONE; -METH1TAB81 PO; -METO-551 PO; -ONDANSETRON INJ 2 MG/ML 2 ML VIAL IV PRN; -OXYC-90 PO; -PRLSR20 PO; -PROPOFOL IV EMULSION 10 MG/ML 20 ML VIAL ONE; +SODIUM CHLORIDE 0.9% 10ML FLUSH IV ONE; -WARF2TAB PO; -WARF5TAB90 PO
[2020-04-03] MEDS ORDERED: ALBUT/IPRATROP 3MG/0.5MG NEB 3 ML VIAL NEB ONE (20:57)
[2020-04-03] MEDS ORDERED: DEXTROSE 50% 50 ML SYRINGE IV ONE (20:59)
[2020-04-03] MEDS ORDERED: CALCIUM GLUCONATE 10% 1,000 MG in SODIUM CHLORIDE 0.9% 50 ML IV STA (20:59)
[2020-04-03] MEDS ORDERED: NovoLIN-R INSULIN PER UNIT CHARGE IV STA (20:59)
[2020-04-03] MEDS ORDERED: SODIUM BICARB 8.4% INJ 50 MEQ/50 ML SYR IV STA (20:59)
[2020-04-03] MEDS ORDERED: AMIODARONE / D5W 150 MG/100 ML BAG IV STA (21:03)
[2020-04-03] MEDS ORDERED: 0.2 MICRON FILTER SET 1 EA IV ONE (21:03)
[2020-04-03] MEDS ORDERED: HYDROmorphone INJ 0.5 MG/0.5 ML SYR IV PRN (21:08)
[2020-04-03] MEDS ORDERED: levoFLOXacin/D5W 750 MG/150 ML BAG IV STA (21:24)
[2020-04-03] MEDS ORDERED: DAPTOmycin 600 MG in SYRINGE 0 ML IV ONE (21:24)
[2020-04-03] MEDS ORDERED: AZTREONAM 2,000 MG in DEXTROSE 5% 100 ML IV STA (21:24)
--- NOTE | 2020-04-03 21:32 | XRay Report ---
SINGLE VIEW CHEST CLINICAL HISTORY: Dyspnea. FINDINGS: 2 AP, portable, supine chest radiographs are compared to study dated 03/19/2020. Correlation is made with chest CT dated 08/22/2018. The examination is degraded by portable technique and patient rotation. The heart is enlarged. There is pulmonary vascular congestion. Small pleural effusions are suspected. Atelectasis is seen at the lung bases. Right apical density is similar to previous. No pn eumothorax is seen. The skeletal structures are osteopenic. The bony thorax is grossly intact. Calos us surgical clips are seen in the right axilla. IMPRESSION: 1. Cardiomegaly with pulmonary vascular congestion. 2. There are small pleural effusions. 3. Right apical density is similar to previous. ACT 112: Negative or not required by law. Electronically signed by: Levi Cole M.D. 04/03/2020 9:31 PM
[2020-04-03 21:39] LABS: iSTAT Creatinine 3.8 mg/dl (0.6-1.3); iSTAT Hemoglobin 12.2 g/dl (12.0-16.0); iSTAT Ionized Calcium 1.24 mmol/l (1.12-1.32); iSTAT Potassium 6.1 mmol/L (3.3-5.0)
[2020-04-03 22:15] LABS: Hematocrit (blood only) 33.2 % (37-47); Hemoglobin 11.5 g/dL (12.0-16.0); Mean Corpuscular Hemoglobin 35.3 pg (25-34); Mean Corpuscular Hgb Conc 34.6 g/dL (32-36); Mean Corpuscular Volume 101.8 fL (80-100); RDW Coefficient of Variation 18.3 % (11.5-14.5); RDW Standard Deviation 68.2 fL (36.4-46.3); Red Blood Count 3.26 M/uL (4.2-5.4); White Blood Count 8.05 K/uL (4.8-10.8)
[2020-04-03 22:22] LABS: Partial Thromboplastin Ratio 1.4; Partial Thromboplastin Time 39.6 Seconds (21.0-31.0); Prothrombin Time 20.3 Seconds (9.0-12.0)
[2020-04-03 22:23] LABS: Appearance Urine Turbid (Clear); Bacteria Urine Automated Negative (Negative); Blood Urine 3+ (Negative); Color Urine Dark Yellow; Glucose Urine UA Negative (Negative); Ketones Urine Negative (Negative); Leukocyte Esterase Urine 2+ (Negative); Nitrite Urine Positive (Negative); Protein Urine Trace (Negative); Specific Gravity Urine 1.016 (1.000-1.030); Urobilinogen Urine Negative (Negative); WBC Urine Automated >30 /hpf (0-5)
[2020-04-03 22:27] LABS: Mean Platelet Volume 10.5 fL (7.4-10.4); Platelet Count 91 K/uL (130-400)
[2020-04-03 22:50] LABS: Bilirubin Urine 1+ (Negative)
[2020-04-03 22:53] LABS: Ictotest Urine Positive (Negative)
[2020-04-03 22:57] LABS: Alanine Aminotransferase 70 U/L (12-78); Albumin Globulin Ratio 0.4 (0.9-2); Albumin Level 1.4 gm/dl (3.4-5.0); Alkaline Phosphatase 308 U/L (45-117); Aspartate Aminotransferase 179 U/L (15-37); BUN Creatinine Ratio 36.9 (10-20); Bilirubin,Total 7.7 mg/dl (0.2-1); Blood Urea Nitrogen 136 mg/dl (7-18); Carbon Dioxide 22 mmol/L (21-32); Chloride 95 mmol/L (98-107); Creatine Kinase MB < 1.0 ng/ml (0.5-3.6); Creatinine Clr Calc Pharmacy 23.4 ml/min; Est GFR (African American) 13.9; Globulin 3.8 gm/dl (2.5-4.0); Glucose 184 mg/dl (70-99); Magnesium 2.7 mg/dl (1.8-2.4); Potassium 6.3 mmol/L (3.5-5.1); Sodium 129 mmol/L (136-145); Total Protein 5.2 gm/dl (6.4-8.2); Troponin I < 0.015 ng/ml (0-0.045)
[2020-04-03 23:02] LABS: Basophils # (auto) 0.01 K/uL (0-0.2); Basophils % (auto) 0.1 %; Echinocytes 1+; Eosinophils # (auto) 0.02 K/uL (0-0.5); Eosinophils % (auto) 0.2 %; Immature Granulocytes # (auto) 0.02 K/uL (0.00-0.02); Immature Granulocytes % (auto) 0.2 %; Lymphocytes # (auto) 0.35 K/uL (1.2-3.4); Lymphocytes % (auto) 4.3 %; Monocytes # (auto) 0.08 K/uL (0.11-0.59); Neutrophils # (auto) 7.57 K/uL (1.4-6.5); Neutrophils % (auto) 94.2 %; Polychromasia 1+
--- NOTE | 2020-04-03 23:09 | Emergency Department Note ---
History of Present Illness General Chief complaint: Shortness of Breath/Dyspnea Time Seen by Provider: 04/03/20 20:55 Source: patient, family, EMS, RN notes reviewed and old records reviewed Mode of arrival: EMS Limitations: altered mental status and clinical acuity History of Present Illness Provider complaint: Shortness of breath Onset (ago): hour(s) less than 1 Location: chest Severity: moderate Current Pain Intensity: 0 Relieved By: + immobilization and + rest Exacerbated By: + movement Associated symptoms: + cough, + nausea/vomiting and + shortness of breath; no confusion, no chest pain, no diaphoresis and no headaches Treatments prior to arrival: other (calcium, Bicarb) This is a 69-year-old female who presents the emergency department in acute distress. The patient was recently admitted to [facility] and there was concern that the patient should be on dialysis however she apparently refused. She was to go home and receive hospice care however it is not appear evident that the patient is on hospice. The patient upon arrival to the emergency department the patient is refusing intubation as well as dialysis. She is complaining of shortness of breath. She is on 15 L nonrebreather. She is received calcium as well as bicarb in route to the hospital. Home Medications Home Medications Medication Instructions Recorded Confirmed Type flecainide 1 tab PO BID 08/22/18 04/03/20 History levalbuterol tartrate [Xopenex HFA] 2 inh INHALATION .Q4-6H PRN 08/22/18 04/03/20 History omeprazole 1 cap PO QAM 08/22/18 04/03/20 History letrozole 2.5 mg tablet 2.5 mg PO DAILY 09/26/18 04/03/20 History Basaglar KwikPen U-100 Insulin 20 unit SUBCUT HS 02/16/20 04/03/20 History spironolactone 50 mg PO DAILY 02/16/20 04/03/20 History metoprolol tartrate [Lopressor] 50 mg PO BID 03/19/20 04/03/20 History oxycodone 10 mg PO Q6H PRN 03/19/20 04/03/20 History sennosides-docusate sodium 2 tab-cap PO HS 03/19/20 04/03/20 History [Senna-S] tramadol 50 - 100 mg PO Q6H PRN 03/19/20 04/03/20 History lorazepam 0.5 mg BUCCAL Q6H PRN #10 tab 03/23/20 04/03/20 Rx furosemide See Rx Instructions .ROUTE .COMPLEX 04/03/20 04/03/20 History hydroxyzine HCl 10 mg PO TID 04/03/20 04/03/20 History methylprednisolone 4 mg PO BID 04/03/20 04/03/20 History nystatin 1 applic TOPICAL BID 04/03/20 04/03/20 History nystatin 5 ml PO QID 04/03/20 04/03/20 History promethazine 25 mg PO DAILY PRN 04/03/20 04/03/20 History Allergies Allergy/AdvReac Type Severity Reaction Status Date / Time epinephrine Allergy Severe THROAT Verified 04/03/20 21:46 SWELLING, PASSED OUT, HEART RACING Penicillins Allergy Severe ANAPHYLACTIC Verified 04/03/20 21:46 SHOCK clarithromycin Allergy Intermediate RASH Verified 04/03/20 21:46 ceftriaxone [From Rocephin] Allergy Mild Rash Verified 04/03/20 21:46 Calcium Channel Blocking AdvReac Intermediate CAUSES Verified 04/03/20 21:46 Agent Dilt CONGESTIVE HEART FAILURE montelukast AdvReac Intermediate PALPITATION Verified 04/03/20 21:46 S nickel AdvReac Rash Verified 04/04/20 04:47 Past Med/Surg History Medical History Ascites Atrial fibrillation Breast cancer DM type 2 (diabetes mellitus, type 2) Esophageal varices Hepatocellular carcinoma s/p chemoembolization and microablation 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 Liver mass Morbid obesity Palliative care encounter Psoriatic arthritis Surgical History H/O: hysterectomy History of breast lump/mass excision Hx of appendectomy Family History Other Colon cancer Pancreatic cancer Social History Smoking Status: Never smoker Second Hand Exposure: No; Do You Dip or Chew Tobacco: No; Tobacco Cessation Education Requested by Patient: No Hx Alcohol Use: No Hx Substance Use: No Preferred Language: Nepali Communication Ability: Unable Call Center Agent Required: No Beliefs That Will Affect Care: None Current Living Situation: Spouse Current Living Situation Comment: in a house Other Information That Helps Us Care for You: Yes (in liver failure as well;was going to be put on hospice) Feels Safe at Home: Yes Safety Concerns: Feels Safe At This Time Assistive Devices: Oxygen - Continuous Review of Systems A total of 10 systems reviewed and were otherwise negative Physical Exam Vital Signs Vital Signs - 24 hr 04/03/20 20:55 04/03/20 21:00 04/03/20 21:05 Temperature Pulse Rate 80 73 Pulse Rate [Right Radial] Pulse Rate from SpO2 Sensor Respiratory Rate 28 H 24 Respiratory Effort / Characteristics Accessory Muscle Use Blood Pressure Blood Pressure Mean Pulse Oximetry 100 96 98 Oxygen Delivery Method BiPAP BiPAP Oxygen Flow Rate Fraction of Inspired Oxygen 70 Sepsis New/Unexplained Change in Mental Status N/A Sepsis Action Taken by Nursing No Action Required 04/03/20 21:10 04/03/20 21:15 04/03/20 21:22 Temperature Pulse Rate 83 Pulse Rate [Right Radial] 80 Pulse Rate from SpO2 Sensor Respiratory Rate 28 H 24 Respiratory Effort / Characteristics Spontaneous Blood Pressure 98/66 L Blood Pressure Mean 74 Pulse Oximetry 100 95 Oxygen Delivery Method BiPAP BiPAP Oxygen Flow Rate Fraction of Inspired Oxygen 70 Sepsis New/Unexplained Change in Mental Status Sepsis Action Taken by Nursing 04/03/20 21:25 04/03/20 21:30 04/03/20 21:46 Temperature 35.4 C L Pulse Rate 65 60 69 Pulse Rate [Right Radial] Pulse Rate from SpO2 Sensor Respiratory Rate 24 24 20 Respiratory Effort / Characteristics Blood Pressure 125/68 119/100 106/66 Blood Pressure Mean 83 111 91 Pulse Oximetry 100 100 100 Oxygen Delivery Method Oxygen Flow Rate Fraction of Inspired Oxygen Sepsis New/Unexplained Change in Mental Status Sepsis Action Taken by Nursing 04/03/20 21:50 04/03/20 21:55 04/03/20 22:00 Temperature Pulse Rate 50 L 50 L 51 L Pulse Rate [Right Radial] Pulse Rate from SpO2 Sensor Respiratory Rate 20 18 20 Respiratory Effort / Characteristics Blood Pressure 110/63 102/66 114/69 Blood Pressure Mean 79 83 84 Pulse Oximetry 100 100 100 Oxygen Delivery Method Oxygen Flow Rate Fraction of Inspired Oxygen Sepsis New/Unexplained Change in Mental Status Sepsis Action Taken by Nursing 04/03/20 22:15 04/03/20 22:30 04/03/20 23:01 Temperature Pulse Rate 52 L 64 54 L Pulse Rate [Right Radial] Pulse Rate from SpO2 Sensor 53 L Respiratory Rate 18 18 16 Respiratory Effort / Characteristics Blood Pressure 103/62 93/66 L 111/52 L Blood Pressure Mean 85 90 54 Pulse Oximetry 100 100 100 Oxygen Delivery Method Oxygen Flow Rate Fraction of Inspired Oxygen Sepsis New/Unexplained Change in Mental Status Sepsis Action Taken by Nursing 04/03/20 23:17 04/03/20 23:31 04/03/20 23:45 Temperature Pulse Rate 55 L 58 L 59 L Pulse Rate [Right Radial] Pulse Rate from SpO2 Sensor 58 L 58 L 59 L Respiratory Rate 20 16 16 Respiratory Effort / Characteristics Blood Pressure 112/34 L 90/55 L 76/50 L Blood Pressure Mean 37 70 58 Pulse Oximetry 100 100 98 Oxygen Delivery Method Oxygen Flow Rate Fraction of Inspired Oxygen Sepsis New/Unexplained Change in Mental Status Sepsis Action Taken by Nursing 04/03/20 23:48 04/04/20 00:01 04/04/20 00:15 Temperature Pulse Rate 49 L 65 Pulse Rate [Right Radial] Pulse Rate from SpO2 Sensor 49 L 59 L Respiratory Rate 23 22 Respiratory Effort / Characteristics Blood Pressure 73/50 L 89/47 L Blood Pressure Mean 64 56 Pulse Oximetry 96 94 94 Oxygen Delivery Method Oxymask Oxymask Oxygen Flow Rate 7 7 Fraction of Inspired Oxygen Sepsis New/Unexplained Change in Mental Status Sepsis Action Taken by Nursing VITAL SIGNS - Vital signs and nursing notes were reviewed. GENERAL - 69-year-old female appearing stated age who is in acute distress. Communicates poorly SKIN - Without rashes. HEAD - NC/AT. EYES - PERRL with EOMI bilaterally. Sclera anicteric. Palpebral conjunctiva pink and moist with no injection noted. EARS - No deformities of external structures noted on gross examination bilaterally. No pain elicited with palpation of the tragus bilaterally. External auditory canals without discharge or otorrhea. Tympanic membranes pearly howard without retraction or bulging. No fluid or purulent material visualized behind the TM. Handle of malleus, umbo, cone of light, pars tensa/flaccid all easily visualized. NOSE - Midline and without cyanosis. No epistaxis or purulent drainage noted. Septum midline without deviation or septal hematoma noted. MOUTH/OROPHARYNX - Without perioral cyanosis. Buccal mucosa pink and moist and without leukoplakia. Tongue midline with equal elevation of palate bilaterally. No tonsillar hypertrophy, erythema, or exudates noted. dentition noted. NECK - Neck with FROM. Supple to palpation. lymphadenopathy noted. No nuchal rigidity. LUNGS - Chest wall symmetric without accessory muscle use, intercostals retractions, or central cyanosis. Normal vesicular breath sounds CTA B/L. No wheezes, rales, or rhonchi appreciated. CARDIAC - RRR with S1/S2. No murmur, rubs, or gallops appreciated. ABDOMEN - Abdominal contour without pulsations or visible masses. BS normoactive all four quadrants. No tenderness, palpable masses, hepatosplenomegaly, or ascites noted. EXTREMITIES - +2 piting edema up to thighs+3/5 radial, posterior tibial, and dorsalis pedis pulses palpated throughout. +5/5 strength noted in UE/LE bilaterally. NEUROLOGIC - Cranial nerves II through XII grossly intact. Sensory intact to light touch throughout. Patellar reflexes +2/4. PSYCH - A&Ox3 and cooperates fully with examiner. Pt is very pleasant and interacts well with examiner. Course Administered Medications Morphine Sulfate (Morphine Sulfate 4 Mg/Ml 1 Ml Carp\Vial) 4 mg IV Q15M PRN PRN Reason: Pain Stop: 04/17/20 23:23 Last Admin: 04/04/20 12:02 Dose: 4 mg Documented by: [id number] Admin: 04/04/20 02:03 Dose: 4 mg Documented by: [id number] Discontinued Medications Albuterol (Albut/Ipratrop 3mg/0.5mg Neb 3 Ml Vial) 12 ml NEB ONE ONE Stop: 04/03/20 20:58 Last Admin: 04/03/20 21:12 Dose: 12 ml Documented by: [id number] Dextrose (Dextrose 50% 50 Ml Syringe) 50 ml IV NOW ONE Stop: 04/03/20 21:00 Last Admin: 04/03/20 21:06 Dose: 50 ml Documented by: [id number] Calcium Gluconate 1,000 mg/ (Sodium Chloride) 60 mls @ 240 mls/hr IV NOW STA Stop: 04/03/20 21:13 Last Infusion: 04/03/20 21:43 Dose: 0 mls/hr Documented by: [id number] Admin: 04/03/20 21:28 Dose: 240 mls/hr Documented by: [id number] Amiodarone HCl/Dextrose (Nexterone / D5w) 150 mg in 100 mls @ 600 mls/hr IV NOW STA Stop: 04/03/20 21:12 Last Infusion: 04/03/20 21:26 Dose: 0 mls/hr Documented by: [id number] Cosigned by: [id number] Admin: 04/03/20 21:15 Dose: 600 mls/hr Documented by: [id number] Cosigned by: [id number] Aztreonam 2,000 mg/ Dextrose 110 mls @ 100 mls/hr IV NOW STA; Protocol Stop: 04/03/20 22:29 Last Infusion: 04/03/20 23:07 Dose: 0 mls/hr Documented by: [id number] Admin: 04/03/20 21:52 Dose: 100 mls/hr Documented by: [id number] Levofloxacin/Dextrose (Levaquin/D5w) 750 mg in 150 mls @ 100 mls/hr IV NOW STA Stop: 04/03/20 22:53 Last Infusion: 04/03/20 23:49 Dose: 0 mls/hr Documented by: [id number] Admin: 04/03/20 22:19 Dose: 100 mls/hr Documented by: [id number] Daptomycin 600 mg/ Syringe 12 mls @ 6 mls/min IV NOW ONE; Protocol Stop: 04/03/20 21:25 Last Admin: 04/03/20 21:49 Dose: 6 mls/min Documented by: [id number] Insulin Human Regular (Novolin-R Insulin Per Unit Charge) 10 units IV NOW STA Stop: 04/03/20 21:00 Last Admin: 04/03/20 21:07 Dose: 10 units Documented by: [id number] Cosigned by: [id number] Morphine Sulfate (Morphine Sulfate 4 Mg/Ml 1 Ml Carp\Vial) 4 mg IV NOW STA Stop: 04/03/20 23:17 Last Admin: 04/03/20 23:37 Dose: 4 mg Documented by: [id number] Sodium Bicarbonate (Sodium Bicarb 8.4% Inj 50 Meq/50 Ml Syr) 50 meq IV NOW STA Stop: 04/03/20 21:00 Last Admin: 04/03/20 21:02 Dose: 50 meq Documented by: [id number] Critical Care Time I have personally spent greater than 90 minutes of critical care time in the direct management of this patient. This includes bedside care, interpretation of diagnostic studies, and testing, discussion with consultants, patient, and family members, and other required patient management activities. This 90 minutes is in excess of all separately billable procedures. Medical Decision Making Differential Diagnosis Infection, dehydration, metabolic abnormality, hypo/hyperglycemia, electrolyte disturbance, anemia, hypoxia, cardiac sources, intracerebral event, toxicologic, neurologic, as well as other pathologies. Medical Records Attestation: I reviewed the patient's medical records. Home Medications Current Medication List: was personally reviewed by me Laboratory Data Attestation: I reviewed the patient's lab results. Result diagrams: 04/03/20 21:10 04/03/20 21:10 Lab Results 04/03/20 04/03/20 04/03/20 Range/Units 21:10 21:10 21:10 WBC 8.05 (4.8-10.8) K/uL RBC 3.26 L (4.2-5.4) M/uL Hgb 11.5 L (12.0-16.0) g/dL POC Hgb (12.0-16.0) g/dl Hct 33.2 L (37-47) % POC Hct (37-47) % MCV 101.8 H (80-100) fL MCH 35.3 H (25-34) pg MCHC 34.6 (32-36) g/dL RDW Std Deviation 68.2 H (36.4-46.3) fL RDW Coeff of Mechelle 18.3 H (11.5-14.5) % Plt Count 91 L (130-400) K/uL MPV 10.5 H (7.4-10.4) fL Immature Gran % (Auto) 0.2 % Neut % (Auto) 94.2 % Lymph % (Auto) 4.3 % Izard % (Auto) 1.0 % Eos % (Auto) 0.2 % Baso % (Auto) 0.1 % Neut # (Auto) 7.57 H (1.4-6.5) K/uL Lymph # (Auto) 0.35 L (1.2-3.4) K/uL Izard # (Auto) 0.08 L (0.11-0.59) K/uL Eos # (Auto) 0.02 (0-0.5) K/uL Baso # (Auto) 0.01 (0-0.2) K/uL Immature Gran # (Auto) 0.02 (0.00-0.02) K/uL Polychromasia 1+ Echinocytes 1+ PT 20.3 H (9.0-12.0) Seconds INR 2.0 H (0.9-1.1) APTT 39.6 H (21.0-31.0) Seconds PTT Ratio 1.4 POC Sodium (135-144) mmol/L Sodium 129 L (136-145) mmol/L POC Potassium (3.3-5.0) mmol/L Potassium 6.3 H* (3.5-5.1) mmol/L POC Chloride (101-112) mmol/L Chloride 95 L (98-107) mmol/L Carbon Dioxide 22 (21-32) mmol/L POC Total CO2 (24-31) mmol/L Anion Gap 13.0 H (3-11) POC Anion Gap (16-25) mmol/L POC BUN (7-18) mg/dl BUN 136 H (7-18) mg/dl Creatinine 3.70 H (0.6-1.2) mg/dl POC Creatinine (0.6-1.3) mg/dl Est Cr Clr Drug Dosing 23.4 ml/min Est GFR ( Amer) 13.9 Est GFR (Non-Af Amer) 12.0 BUN/Creatinine Ratio 36.9 H (10-20) Glucose 184 H (70-99) mg/dl POC Glucose (other) (70-99) mg/dl Lactate (0.4-2.0) mmol/L Calcium 11.0 H (8.5-10.1) mg/dl POC Ioniz Calcium Guille (1.12-1.32) mmol/l Magnesium 2.7 H (1.8-2.4) mg/dl Total Bilirubin 7.7 H (0.2-1) mg/dl AST 179 H (15-37) U/L ALT 70 (12-78) U/L Alkaline Phosphatase 308 H (45-117) U/L Total Creatine Kinase TNP CK-MB (CK-2) < 1.0 (0.5-3.6) ng/ml CK/CKMB % Calc TNP Troponin I < 0.015 (0-0.045) ng/ml Total Protein 5.2 L (6.4-8.2) gm/dl Albumin 1.4 L (3.4-5.0) gm/dl Globulin 3.8 (2.5-4.0) gm/dl Albumin/Globulin Ratio 0.4 L (0.9-2) Procalcitonin (0-0.5) ng/ml TSH 8.710 H (0.300-4.500) uIu/ml Urine Color Urine Appearance (Clear) Urine pH (4.5-7.5) Ur Specific [place] (1.000-1.030) Urine Protein (Negative) Urine Glucose (UA) (Negative) Urine Ketones (Negative) Urine Blood (Negative) Urine Nitrite (Negative) Urine Bilirubin (Negative) Urine Urobilinogen (Negative) Ur Leukocyte Esterase (Negative) Urine WBC (Auto) (0-5) /hpf Urine RBC (Auto) (0-4) /hpf U Hyaline Cast (Auto) (0-5) /lpf U Epithel Cells (Auto) (0-5) /lpf Urine Bacteria (Auto) (Negative) Urine Yeast (None Prsent) COVID-19 Eval Order COVID-19 PCR (Negative) 04/03/20 04/03/20 04/03/20 Range/Units 21:10 21:10 21:25 WBC (4.8-10.8) K/uL RBC (4.2-5.4) M/uL Hgb (12.0-16.0) g/dL POC Hgb 12.2 (12.0-16.0) g/dl Hct (37-47) % POC Hct 36 L (37-47) % MCV (80-100) fL MCH (25-34) pg MCHC (32-36) g/dL RDW Std Deviation (36.4-46.3) fL RDW Coeff of Mechelle (11.5-14.5) % Plt Count (130-400) K/uL MPV (7.4-10.4) fL Immature Gran % (Auto) % Neut % (Auto) % Lymph % (Auto) % Izard % (Auto) % Eos % (Auto) % Baso % (Auto) % Neut # (Auto) (1.4-6.5) K/uL Lymph # (Auto) (1.2-3.4) K/uL Izard # (Auto) (0.11-0.59) K/uL Eos # (Auto) (0-0.5) K/uL Baso # (Auto) (0-0.2) K/uL Immature Gran # (Auto) (0.00-0.02) K/uL Polychromasia Echinocytes PT (9.0-12.0) Seconds INR (0.9-1.1) APTT (21.0-31.0) Seconds PTT Ratio POC Sodium 127 L (135-144) mmol/L Sodium (136-145) mmol/L POC Potassium 6.1 H* (3.3-5.0) mmol/L Potassium (3.5-5.1) mmol/L POC Chloride 95 L (101-112) mmol/L Chloride (98-107) mmol/L Carbon Dioxide (21-32) mmol/L POC Total CO2 21 L (24-31) mmol/L Anion Gap (3-11) POC Anion Gap 17.0 (16-25) mmol/L POC BUN 130 H* (7-18) mg/dl BUN (7-18) mg/dl Creatinine (0.6-1.2) mg/dl POC Creatinine 3.8 H (0.6-1.3) mg/dl Est Cr Clr Drug Dosing ml/min Est GFR ( Amer) Est GFR (Non-Af Amer) BUN/Creatinine Ratio (10-20) Glucose (70-99) mg/dl POC Glucose (other) 194 H (70-99) mg/dl Lactate 3.6 H* (0.4-2.0) mmol/L Calcium (8.5-10.1) mg/dl POC Ioniz Calcium Guille 1.24 (1.12-1.32) mmol/l Magnesium (1.8-2.4) mg/dl Total Bilirubin (0.2-1) mg/dl AST (15-37) U/L ALT (12-78) U/L Alkaline Phosphatase (45-117) U/L Total Creatine Kinase CK-MB (CK-2) (0.5-3.6) ng/ml CK/CKMB % Calc Troponin I (0-0.045) ng/ml Total Protein (6.4-8.2) gm/dl Albumin (3.4-5.0) gm/dl Globulin (2.5-4.0) gm/dl Albumin/Globulin Ratio (0.9-2) Procalcitonin 1.76 H (0-0.5) ng/ml TSH (0.300-4.500) uIu/ml Urine Color Urine Appearance (Clear) Urine pH (4.5-7.5) Ur Specific [place] (1.000-1.030) Urine Protein (Negative) Urine Glucose (UA) (Negative) Urine Ketones (Negative) Urine Blood (Negative) Urine Nitrite (Negative) Urine Bilirubin (Negative) Urine Urobilinogen (Negative) Ur Leukocyte Esterase (Negative) Urine WBC (Auto) (0-5) /hpf Urine RBC (Auto) (0-4) /hpf U Hyaline Cast (Auto) (0-5) /lpf U Epithel Cells (Auto) (0-5) /lpf Urine Bacteria (Auto) (Negative) Urine Yeast (None Prsent) COVID-19 Eval Order COVID-19 PCR (Negative) 04/03/20 04/03/20 04/03/20 Range/Units 21:49 21:49 22:05 WBC (4.8-10.8) K/uL RBC (4.2-5.4) M/uL Hgb (12.0-16.0) g/dL POC Hgb (12.0-16.0) g/dl Hct (37-47) % POC Hct (37-47) % MCV (80-100) fL MCH (25-34) pg MCHC (32-36) g/dL RDW Std Deviation (36.4-46.3) fL RDW Coeff of Mechelle (11.5-14.5) % Plt Count (130-400) K/uL MPV (7.4-10.4) fL Immature Gran % (Auto) % Neut % (Auto) % Lymph % (Auto) % Izard % (Auto) % Eos % (Auto) % Baso % (Auto) % Neut # (Auto) (1.4-6.5) K/uL Lymph # (Auto) (1.2-3.4) K/uL [place]ard # (Auto) (0.11-0.59) K/uL Eos # (Auto) (0-0.5) K/uL Baso # (Auto) (0-0.2) K/uL Immature Gran # (Auto) (0.00-0.02) K/uL Polychromasia Echinocytes PT (9.0-12.0) Seconds INR (0.9-1.1) APTT (21.0-31.0) Seconds PTT Ratio POC Sodium (135-144) mmol/L Sodium (136-145) mmol/L POC Potassium (3.3-5.0) mmol/L Potassium (3.5-5.1) mmol/L POC Chloride (101-112) mmol/L Chloride (98-107) mmol/L Carbon Dioxide (21-32) mmol/L POC Total CO2 (24-31) mmol/L Anion Gap (3-11) POC Anion Gap (16-25) mmol/L POC BUN (7-18) mg/dl BUN (7-18) mg/dl Creatinine (0.6-1.2) mg/dl POC Creatinine (0.6-1.3) mg/dl Est Cr Clr Drug Dosing ml/min Est GFR ( Amer) Est GFR (Non-Af Amer) BUN/Creatinine Ratio (10-20) Glucose (70-99) mg/dl POC Glucose (other) (70-99) mg/dl Lactate (0.4-2.0) mmol/L Calcium (8.5-10.1) mg/dl POC Ioniz Calcium Guille (1.12-1.32) mmol/l Magnesium (1.8-2.4) mg/dl Total Bilirubin (0.2-1) mg/dl AST (15-37) U/L ALT (12-78) U/L Alkaline Phosphatase (45-117) U/L Total Creatine Kinase CK-MB (CK-2) (0.5-3.6) ng/ml CK/CKMB % Calc Troponin I (0-0.045) ng/ml Total Protein (6.4-8.2) gm/dl Albumin (3.4-5.0) gm/dl Globulin (2.5-4.0) gm/dl Albumin/Globulin Ratio (0.9-2) Procalcitonin (0-0.5) ng/ml TSH (0.300-4.500) uIu/ml Urine Color Dark Yellow Urine Appearance Turbid A (Clear) Urine pH 5.0 (4.5-7.5) Ur Specific [place] 1.016 (1.000-1.030) Urine Protein Trace H (Negative) Urine Glucose (UA) Negative (Negative) Urine Ketones Negative (Negative) Urine Blood 3+ H (Negative) Urine Nitrite Positive A (Negative) Urine Bilirubin 1+ H (Negative) Urine Urobilinogen Negative (Negative) Ur Leukocyte Esterase 2+ H (Negative) Urine WBC (Auto) >30 H (0-5) /hpf Urine RBC (Auto) 10-30 H (0-4) /hpf U Hyaline Cast (Auto) 5-10 H (0-5) /lpf U Epithel Cells (Auto) 10-20 H (0-5) /lpf Urine Bacteria (Auto) Negative (Negative) Urine Yeast Budding w/ Hyphae A (None Prsent) COVID-19 Eval Order Covid19 Done at [facility] COVID-19 PCR NEGATIVE (Negative) Imaging Data Radiologist's Impression: [facility], [place] [phone] XRay Report Patient: [id number] Date: 04/03/20 MR#: [id number]: Acct ID:[id number]: Date: [address] [place] [address] Zip: Age: 69Location: ED Sex: FRoom/Bed: Att Phy:Diagnosis: SOB Marisa Phy: Maria Guadalupe Duke MDService Date: 04/03/20 Fam Phy:Interpreting Phy: Levi Cole MD Admit Phy: Ordering Phy: Charles Valles MD cc: ~ SINGLE VIEW CHEST CLINICAL HISTORY: Dyspnea. FINDINGS: 2 AP, portable, supine chest radiographs are compared to study dated 03/19/2020. Correlation is made with chest CT dated 08/22/2018. The examination is degraded by portable technique and patient rotation. The heart is enlarged. There is pulmonary vascular congestion. Small pleural effusions are suspected. Atelectasis is seen at the lung bases. Right apical density is similar to previous. No pneumothorax is seen. The skeletal structures are osteopenic. The bony thorax is grossly intact. Numerous surgical clips are seen in the right axilla. IMPRESSION: 1. Cardiomegaly with pulmonary vascular congestion. 2. There are small pleural effusions. 3. Right apical density is similar to previous. ACT 112: Negative or not required by law. Electronically signed by: Levi Cole M.D. 04/03/2020 9:31 PM Dictated: 04/03/202127 Transcribed: 04/03/202127 ECG Data Attestation: I personally reviewed and interpreted this ECG as follows: Indication: + altered mental status Rate (beats per minute): 60 Rhythm: + v-tach (wide complex) ECG [place]: + Left axis deviation ECG ST segments: no ST depression and no ST elevation Comparison ECG Date: from (03/19/2020) Change: the following changes noted (Wide-complex rate has replaced sinus rhythm) Blood Pressure Blood Pressure Findings: Low blood pressure MDM Narrative This is a 69-year-old female who presents from home in acute distress. Patient placed on BiPAP. Patient has a wide-complex tachycardia. Based on this I am assuming that the patient's potassium is grossly elevated. For this reason she was given bicarb insulin dextrose albuterol as well as calcium x2. She was given amiodarone as well as atropine. The patient is adamant that she does not wish to be resuscitated if her heart stops. She also does not want dialysis. Chest x-ray shows that the patient is volume overloaded. Her creatinine is also grossly elevated from when she was sent home. I did discuss the case with the hospitalist service. Patient was seen and evaluated as above in room B1. Review was performed of nursing notes and vital signs. I did review pertinent previous visits and patient history. After obtaining a thorough history and physical examination the above work up was performed. An order was placed for continuous cardiac monitoring. The monitor shows a rate of 40 with Wide complex rhythm. The patient was evaluated during the global COVID-19 pandemic, and that diagnosis was suspected/considered upon their initial presentation. Their evaluation, treatment and testing was consistent with current guidelines for patients who present with complaints or symptoms that may be related to COVID- 19. Impression & Plan Acute hyperkalemia, Congestive heart failure, Hypoxia, Acute renal failure Discharge Plan Visit Data Chief Complaint: Shortness of Breath/Dyspnea ED Provider: Charles Valles Discharge Problem: Acute hyperkalemia, Congestive heart failure, Hypoxia, Acute renal failure Patient Disposition: Admitted As Inpatient Discharge Instructions Interventions: ED Discharge Assessment Last Done: 04/04/20 01:03 Discharge Problem: Congestive heart failure Qualifiers: Heart failure type: unspecified Heart failure chronicity: unspecified Qualified Code(s): I50.9 - Heart failure, unspecified Acute renal failure Qualifiers: Acute renal failure type: unspecified Qualified Code(s): N17.9 - Acute kidney failure, unspecified
[2020-04-03] MEDS ORDERED: MoRPHine SULFATE 4 MG/ML 1 ML CARP\\VIAL IV STA (23:16)
--- NOTE | 2020-04-03 23:18 | History & Physical Report ---
Date of Service April 03, 2020 Assessment & Plan (1) Acute hypoxemic respiratory failure: Secondary to pulmonary congestion from possible hepatorenal syndrome hx hepatocellular carcinoma status post ablation hx NAFLD cirrhosis, Hyperkalemia secondary to worsening kidney dysfunction R breast cancer status post surgery/radiation hx PAF HTN, BP currently low DM2 insulin requiring, well-controlled as of recent hemoglobin A1c of 5.26 January 2020 psoriatic arthritis as per records Uterine cancer sp surgery chronic anemia, hemoglobin at baseline chronic thrombocytopenia GMF Comfort measures as per patient and family decision DNR Patient requesting updates from providers. Mr. Harsh Taylor, contact #[phone]. Text document was generated using [employer] recognition software. It may contain grammatical or spelling errors. Kindly contact undersigned for clarification of any documentation item in question. History of Present Illness Status post ablation Chief Complaint: Worsening shortness of breath, abdominal distention Primary Care Provider: Maria Guadalupe Duke MD History obtained from patient, family, and records. Medical history significant for hepatocellular carcinoma status post chemoembolization/ablation, NAFLD cirrhosis, R breast cancer status post surgery, radiation, PAF, HTN, DM2 insulin requiring, CRI, psoriatic arthritis as per records, chronic anemia (baseline hemoglobin 11), chronic thrombocytopenia Last confinement 3 weeks ago for worsening kidney dysfunction attributed to ATN from possible sepsis. Patient treated with Lasix during confinement. Patient not interested in dialysis option. Patient discharged home for possible hospice/comfort care. As per records, patient refused hospice due to desire to go for paracentesis every 2 weeks. At home, patient unable to sleep and eating over. 2 days ago patient noted palpitations, more shortness of breath than usual. No cough symptoms. Increased abdominal distention. PCP recommended ER consultation. Patient brought to ER by for worsening symptoms. MEDICAL HISTORY: As above. SURGICAL HISTORY: Cholecystectomy, left breast/lymph node biopsy, vascular procedures, right mastectomy, appendectomy, hernia repair, [facility] FAMILY HISTORY: There is a family history of colon cancer, diabetes, stroke. PERSONAL SOCIAL HISTORY: Nonsmoker. No EtOH intake, prior work as a nurse. Allergies Allergy/AdvReac Type Severity Reaction Status Date / Time epinephrine Allergy Severe THROAT Verified 04/03/20 21:46 SWELLING, PASSED OUT, HEART RACING Penicillins Allergy Severe ANAPHYLACTIC Verified 04/03/20 21:46 SHOCK clarithromycin Allergy Intermediate RASH Verified 04/03/20 21:46 ceftriaxone [From Rocephin] Allergy Mild Rash Verified 04/03/20 21:46 Calcium Channel Blocking AdvReac Intermediate CAUSES Verified 04/03/20 21:46 Agent Dilt CONGESTIVE HEART FAILURE montelukast AdvReac Intermediate PALPITATION Verified 04/03/20 21:46 S nickel AdvReac Rash Verified 04/04/20 04:47 Home Medications Home Medications Medication Instructions Recorded Confirmed Type flecainide 1 tab PO BID 08/22/18 04/03/20 History levalbuterol tartrate [Xopenex HFA] 2 inh INHALATION .Q4-6H PRN 08/22/18 04/03/20 History omeprazole 1 cap PO QAM 08/22/18 04/03/20 History letrozole 2.5 mg tablet 2.5 mg PO DAILY 09/26/18 04/03/20 History Basaglar KwikPen U-100 Insulin 20 unit SUBCUT HS 02/16/20 04/03/20 History spironolactone 50 mg PO DAILY 02/16/20 04/03/20 History metoprolol tartrate [Lopressor] 50 mg PO BID 03/19/20 04/03/20 History oxycodone 10 mg PO Q6H PRN 03/19/20 04/03/20 History sennosides-docusate sodium 2 tab-cap PO HS 03/19/20 04/03/20 History [Senna-S] tramadol 50 - 100 mg PO Q6H PRN 03/19/20 04/03/20 History lorazepam 0.5 mg BUCCAL Q6H PRN #10 tab 03/23/20 04/03/20 Rx furosemide See Rx Instructions .ROUTE .COMPLEX 04/03/20 04/03/20 History hydroxyzine HCl 10 mg PO TID 04/03/20 04/03/20 History methylprednisolone 4 mg PO BID 04/03/20 04/03/20 History nystatin 1 applic TOPICAL BID 04/03/20 04/03/20 History nystatin 5 ml PO QID 04/03/20 04/03/20 History promethazine 25 mg PO DAILY PRN 04/03/20 04/03/20 History Past Med/Surg History Medical History Ascites Atrial fibrillation Breast cancer DM type 2 (diabetes mellitus, type 2) Esophageal varices Hepatocellular carcinoma s/p chemoembolization and microablation 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 Liver mass Morbid obesity Palliative care encounter Psoriatic arthritis Surgical History H/O: hysterectomy History of breast lump/mass excision Hx of appendectomy Family History Other Colon cancer Pancreatic cancer Social History Smoking Status: Never smoker Second Hand Exposure: No; Do You Dip or Chew Tobacco: No; Tobacco Cessation Education Requested by Patient: No Hx Alcohol Use: No Hx Substance Use: No Preferred Language: Mauritanian Communication Ability: Effective Clinical Trainer Required: No Beliefs That Will Affect Care: None Current Living Situation: Spouse Current Living Situation Comment: in a house Other Information That Helps Us Care for You: Yes (in liver failure as well;was going to be put on hospice) Feels Safe at Home: Yes Safety Concerns: Feels Safe At This Time Assistive Devices: Oxygen - Continuous Review of Systems Review of Systems: As per HPI, all 10 systems reviewed, all other ROS negative Physical Exam Physical Exam: GENERAL: uncomfortable, anxious, morbidly obese, respiratory distress SKIN: Pallor, jaundice HEENT: pale palpebral conjunctivae, no ptosis, dry buccal mucosa, BiPAP in place NECK : Supple, short neck, no tenderness CHEST : Decreased breath sounds, no tenderness HEART : Bradycardic , no obvious murmurs ABDOMEN: Marketed abdominal distention, minimal central abdominal tenderness EXTREMITIES : Bilateral LE swelling, no LE tenderness, no other conspicuous deformities noted NEUROLOGIC : Coherent, no facial asymmetry, no other gross focality Results & Data Results & Data ([facility]) Vital Signs (Past 12 Hours) Vital Signs Temp Pulse Pulse Resp BP Pulse Ox 04/03/20 23:01 54 L 16 111/52 L 100 04/03/20 22:30 64 18 93/66 L 100 04/03/20 22:15 52 L 18 103/62 100 04/03/20 22:00 51 L 20 114/69 100 04/03/20 21:55 50 L 18 102/66 100 04/03/20 21:50 50 L 20 110/63 100 04/03/20 21:46 69 20 106/66 100 04/03/20 21:30 35.4 C L 60 24 119/100 100 04/03/20 21:25 65 24 125/68 100 04/03/20 21:22 83 24 98/66 L 95 04/03/20 21:15 80 28 H 100 04/03/20 21:05 98 04/03/20 21:00 73 24 96 04/03/20 20:55 80 28 H 100 Laboratory Results Laboratory Results WBC 8.05 K/uL (4.8-10.8) 04/03/20 21:10 RBC 3.26 M/uL (4.2-5.4) L 04/03/20 21:10 Hgb 11.5 g/dL (12.0-16.0) L 04/03/20 21:10 POC Hgb 12.2 g/dl (12.0-16.0) 04/03/20 21:25 Hct 33.2 % (37-47) L 04/03/20 21:10 POC Hct 36 % (37-47) L 04/03/20 21:25 MCV 101.8 fL (80-100) H 04/03/20 21:10 MCH 35.3 pg (25-34) H 04/03/20 21:10 MCHC 34.6 g/dL (32-36) 04/03/20 21:10 RDW Std Deviation 68.2 fL (36.4-46.3) H 04/03/20 21:10 RDW Coeff of Mechelle 18.3 % (11.5-14.5) H 04/03/20 21:10 Plt Count 91 K/uL (130-400) L 04/03/20 21:10 MPV 10.5 fL (7.4-10.4) H 04/03/20 21:10 Immature Gran % (Auto) 0.2 % 04/03/20 21:10 Neut % (Auto) 94.2 % 04/03/20 21:10 Lymph % (Auto) 4.3 % 04/03/20 21:10 [place] % (Auto) 1.0 % 04/03/20 21:10 Eos % (Auto) 0.2 % 04/03/20 21:10 Baso % (Auto) 0.1 % 04/03/20 21:10 Neut # (Auto) 7.57 K/uL (1.4-6.5) H 04/03/20 21:10 Lymph # (Auto) 0.35 K/uL (1.2-3.4) L 04/03/20 21:10 [place] # (Auto) 0.08 K/uL (0.11-0.59) L 04/03/20 21:10 Eos # (Auto) 0.02 K/uL (0-0.5) 04/03/20 21:10 Baso # (Auto) 0.01 K/uL (0-0.2) 04/03/20 21:10 Immature Gran # (Auto) 0.02 K/uL (0.00-0.02) 04/03/20 21:10 Polychromasia 1+ 04/03/20 21:10 Echinocytes 1+ 04/03/20 21:10 PT 20.3 Seconds (9.0-12.0) H 04/03/20 21:10 INR 2.0 (0.9-1.1) H 04/03/20 21:10 APTT 39.6 Seconds (21.0-31.0) H 04/03/20 21:10 PTT Ratio 1.4 04/03/20 21:10 POC Sodium 127 mmol/L (135-144) L 04/03/20 21:25 Sodium 129 mmol/L (136-145) L 04/03/20 21:10 POC Potassium 6.1 mmol/L (3.3-5.0) H* 04/03/20 21:25 Potassium 6.3 mmol/L (3.5-5.1) H* 04/03/20 21:10 POC Chloride 95 mmol/L (101-112) L 04/03/20 21:25 Chloride 95 mmol/L (98-107) L 04/03/20 21:10 Carbon Dioxide 22 mmol/L (21-32) 04/03/20 21:10 POC Total CO2 21 mmol/L (24-31) L 04/03/20 21:25 Anion Gap 13.0 (3-11) H 04/03/20 21:10 POC Anion Gap 17.0 mmol/L (16-25) 04/03/20 21:25 POC BUN 130 mg/dl (7-18) H* 04/03/20 21:25 BUN 136 mg/dl (7-18) H 04/03/20 21:10 Creatinine 3.70 mg/dl (0.6-1.2) H 04/03/20 21:10 POC Creatinine 3.8 mg/dl (0.6-1.3) H 04/03/20 21:25 Est Cr Clr Drug Dosing 23.4 ml/min 04/03/20 21:10 Est GFR ( Amer) 13.9 04/03/20 21:10 Est GFR (Non-Af Amer) 12.0 04/03/20 21:10 BUN/Creatinine Ratio 36.9 (-20) H 04/03/20 21:10 Glucose 184 mg/dl (70-99) H 04/03/20 21:10 POC Glucose (other) 194 mg/dl (70-99) H 04/03/20 21:25 Lactate 3.6 mmol/L (0.4-2.0) H* 04/03/20 21:10 Calcium 11.0 mg/dl (8.5-10.1) H 04/03/20 21:10 POC Ioniz Calcium Guille 1.24 mmol/l (1.12-1.32) 04/03/20 21:25 Magnesium 2.7 mg/dl (1.8-2.4) H 04/03/20 21:10 Total Bilirubin 7.7 mg/dl (0.2-1) H 04/03/20 21:10 AST 179 U/L (15-37) H 04/03/20 21:10 ALT 70 U/L (12-78) 04/03/20 21:10 Alkaline Phosphatase 308 U/L (45-117) H 04/03/20 21:10 Total Creatine Kinase TNP 04/03/20 21:10 CK-MB (CK-2) < 1.0 ng/ml (0.5-3.6) 04/03/20 21:10 CK/CKMB % Calc TNP 04/03/20 21:10 Troponin I < 0.015 ng/ml (0-0.045) 04/03/20 21:10 Total Protein 5.2 gm/dl (6.4-8.2) L 04/03/20 21:10 Albumin 1.4 gm/dl (3.4-5.0) L 04/03/20 21:10 Globulin 3.8 gm/dl (2.5-4.0) 04/03/20 21:10 Albumin/Globulin Ratio 0.4 (0.9-2) L 04/03/20 21:10 Procalcitonin 1.76 ng/ml (0-0.5) H 04/03/20 21:10 TSH 8.710 uIu/ml (0.300-4.500) H 04/03/20 21:10 Urine Color Dark Yellow 04/03/20 22:05 Urine Appearance Turbid (Clear) A 04/03/20 22:05 Urine pH 5.0 (4.5-7.5) 04/03/20 22:05 Ur Specific [place] 1.016 (1.000-1.030) 04/03/20 22:05 Urine Protein Trace (Negative) H 04/03/20 22:05 Urine Glucose (UA) Negative (Negative) 04/03/20 22:05 Urine Ketones Negative (Negative) 04/03/20 22:05 Urine Blood 3+ (Negative) H 04/03/20 22:05 Urine Nitrite Positive (Negative) A 04/03/20 22:05 Urine Bilirubin 1+ (Negative) H 04/03/20 22:05 Urine Urobilinogen Negative (Negative) 04/03/20 22:05 Ur Leukocyte Esterase 2+ (Negative) H 04/03/20 22:05 Urine WBC (Auto) >30 /hpf (0-5) H 04/03/20 22:05 Urine RBC (Auto) 10-30 /hpf (0-4) H 04/03/20 22:05 U Hyaline Cast (Auto) 5-10 /lpf (0-5) H 04/03/20 22:05 U Epithel Cells (Auto) 10-20 /lpf (0-5) H 04/03/20 22:05 Urine Bacteria (Auto) Negative (Negative) 04/03/20 22:05 Urine Yeast Budding w/ Hyphae (None Prsent) A 04/03/20 22:05 COVID-19 Eval Order Covid19 Done at [facility] 04/03/20 21:49 COVID-19 PCR NEGATIVE (Negative) 04/03/20 21:49 Diagnostic Findings Chest x-ray : 1. Cardiomegaly with pulmonary vascular congestion. 2. There are small pleural effusions. 3. Right apical density is similar to previous. EKG as per my interpretation : Rate 75, sine wave pattern
[2020-04-03] MEDS ORDERED: LORazepam 1 MG/2 ML VIAL IV PRN (23:24)
[2020-04-04] MEDS ORDERED: ATROPINE SULFATE 1% OP SOLN 2 ML BTL SL PRN (01:26)
[2020-04-04] MEDS ORDERED: PROMETHAZINE HCL 12.5 MG in SODIUM CHLORIDE 0.9% 50 ML IV PRN (01:26)
[2020-04-04] MEDS: MoRPHine SULFATE 4 MG/ML 1 ML CARP\\VIAL IV PRN ×2 (02:03→12:02)
--- NOTE | 2020-04-04 12:10 | Electrocardiogram Report ---
Test Reason : Blood Pressure : / mmHG Vent. Rate : 146 BPM Atrial Rate : 058 BPM P-R Int : 000 ms QRS Dur : 176 ms QT Int : 276 ms P-R-T Axes : 000 -79 111 degrees QTc Int : 430 ms Poor data quality, interpretation may be adversely affected Atrial fibrillation Profoundly wide QRS complex Non-specific intra-ventricular conduction block Anterolateral infarct (cited on or before 03-APR-2020) Abnormal ECG When compared with ECG of 19-MAR-2020 19:43, Significant changes have occurred Confirmed by Stephane Garza ([id number]) on 04/04/2020 12:09:47 PM Referred By: REFERRED SELF Confirmed By:Stephane Garza
--- NOTE | 2020-04-04 17:55 | Hospitalist Progress Note ---
Date of Service April 04, 2020 Assessment & Plan (1) Acute hypoxemic respiratory failure: 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: Esophageal varices: Ascites: Hepatocellular carcinoma: Elevated INR: DM type 2 (diabetes mellitus, type 2): Atrial fibrillation: Pt was discharged 2 weeks ago on home hospice Refused to transition to hospice due to desire to go for paracentesis every 2 week Present to worsening SOB CXR showed cardiomegaly with pulmonary vascular congestion. As per admitting team, pt and family decided to transition to comfort care only All medications were discontinued Continue ativan and morphine for comfort care Code Status DNR Patient requesting updates from providers. Mr. Harsh Taylor, contact #[phone]. Admission and Anticipated Discharge Date Admission Date: April 03, 2020 Subjective Pt was seen and examined Lying in bed with respiratory distress Pt is drowsy, but open eyes when I talked to her Her voice is very soft Comfort care only Physical Exam Physical Exam: General- Comfort care Eyes- PERRL Lungs- Diminished breath sound Heart- Bradycardia Extremities- +pitting edema Neuro- lethargy/drowsiness Skin- Ecchymosis
[2020-04-05] MEDS: MoRPHine SULFATE 4 MG/ML 1 ML CARP\\VIAL IV PRN (08:09)
--- NOTE | 2020-04-05 18:20 | Communication Note ---
Date of Service: April 05, 2020 note Called from Nurse that pt ceased to breath. was at bedside Pt was unresponsive and telemonitor showed asystolic No heart sound, no lung sound noted on auscultation No pulse and no tactile stimuli Pupils dilated and no reactive to light Time of 17:30 Answered all the questions for the . MD Kurt
--- NOTE | 2020-04-08 01:25 | Discharge Summary ---
Date of Service April 05, 2020 Admission HPI Per Admitting Provider History obtained from patient, family, and records. Medical history significant for hepatocellular carcinoma status post chemoembolization/ablation, NAFLD cirrhosis, R breast cancer status post surgery, radiation, PAF, HTN, DM2 insulin requiring, CRI, psoriatic arthritis as per records, chronic anemia (baseline hemoglobin 11), chronic thrombocytopenia Last confinement 3 weeks ago for worsening kidney dysfunction attributed to ATN from possible sepsis. Patient treated with Lasix during confinement. Patient not interested in dialysis option. Patient discharged home for possible hospice/comfort care. As per records, patient refused hospice due to desire to go for paracentesis every 2 weeks. At home, patient unable to sleep and eating over. 2 days ago patient noted palpitations, more shortness of breath than usual. No cough symptoms. Increased abdominal distention. PCP recommended ER consultation. Patient brought to ER by for worsening symptoms. MEDICAL HISTORY: As above. SURGICAL HISTORY: Cholecystectomy, left breast/lymph node biopsy, vascular procedures, right mastectomy, appendectomy, hernia repair, [facility] FAMILY HISTORY: There is a family history of colon cancer, diabetes, stroke. PERSONAL SOCIAL HISTORY: Nonsmoker. No EtOH intake, prior work as a nurse. Admission Exam Per Admitting Provider GENERAL: uncomfortable, anxious, morbidly obese, respiratory distress SKIN: Pallor, jaundice HEENT: pale palpebral conjunctivae, no ptosis, dry buccal mucosa, BiPAP in place NECK : Supple, short neck, no tenderness CHEST : Decreased breath sounds, no tenderness HEART : Bradycardic , no obvious murmurs ABDOMEN: Marketed abdominal distention, minimal central abdominal tenderness EXTREMITIES : Bilateral LE swelling, no LE tenderness, no other conspicuous deformities noted NEUROLOGIC : Coherent, no facial asymmetry, no other gross focality Principal Diagnosis Acute hypoxemic respiratory failure: 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: Esophageal varices: Ascites: Hepatocellular carcinoma: Elevated INR: DM type 2 (diabetes mellitus, type 2): Atrial fibrillation Discharge Exam General- Comfort care Eyes- PERRL Lungs- Diminished breath sound Heart- Bradycardia Extremities- +pitting edema Neuro- lethargy/drowsiness Skin- Ecchymosis Discharge Data Allergies Allergy/AdvReac Type Severity Reaction Status Date / Time epinephrine Allergy Severe THROAT Verified 04/03/20 21:46 SWELLING, PASSED OUT, HEART RACING Penicillins Allergy Severe ANAPHYLACTIC Verified 04/03/20 21:46 SHOCK clarithromycin Allergy Intermediate RASH Verified 04/03/20 21:46 ceftriaxone [From Rocephin] Allergy Mild Rash Verified 04/03/20 21:46 Calcium Channel Blocking AdvReac Intermediate CAUSES Verified 04/03/20 21:46 Agent Dilt CONGESTIVE HEART FAILURE montelukast AdvReac Intermediate PALPITATION Verified 04/03/20 21:46 S nickel AdvReac Rash Verified 04/04/20 04:47 Consultations 04/03/20 21:52 ED Decision to Admit Stat 04/04/20 01:26 Consult Case Management - Discharge Planning Routine Ordered Studies SINGLE VIEW CHEST CLINICAL HISTORY: Dyspnea. FINDINGS: 2 AP, portable, supine chest radiographs are compared to study dated 03/19/2020. Correlation is made with chest CT dated 08/22/2018. The examination is degraded by portable technique and patient rotation. The heart is enlarged. There is pulmonary vascular congestion. Small pleural effusions are suspected. Atelectasis is seen at the lung bases. Right apical density is similar to previous. No pneumothorax is seen. The skeletal structures are osteopenic. The bony thorax is grossly intact. Numerous surgical clips are seen in the right axilla. IMPRESSION: 1. Cardiomegaly with pulmonary vascular congestion. 2. There are small pleural effusions. 3. Right apical density is similar to previous. ACT 112: Negative or not required by law. Electronically signed by: Levi Cole M.D. 04/03/2020 9:31 PM Dictated: 04/03/202127 Transcribed: 04/03/202127 Hospital Course (1) Acute hypoxemic respiratory failure: 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: Esophageal varices: Ascites: Hepatocellular carcinoma: Elevated INR: DM type 2 (diabetes mellitus, type 2): Atrial fibrillation: Pt was discharged 2 weeks ago on home hospice Refused to transition to hospice due to desire to go for paracentesis every 2 we ek Present to worsening SOB CXR showed cardiomegaly with pulmonary vascular congestion. As per admitting team, pt and family decided to transition to comfort care only All medications were discontinued Continue ativan and morphine for comfort care Code Status DNR Patient requesting updates from providers. Mr. Harsh Taylor, contact #[phone]. Total Time Total Time Spent Total Time Spent (In Minutes): 15 minutes Total Time Includes: Examination of the Patient, Discharge Planning, Medication Reconciliation, Communication With Other Providers and Other Discharge Plan Discharge Items Patient Disposition:
== END 2020-04-05 17:30 | disposition expired | DRG 189 ==
LOC: ED 20:51 → 2N 23:21